=== PATIENT | female | born 1955 | race Caucasian/White ===

== ENCOUNTER 2021-06-14 09:56 | Outpatient (REF) | payer MEDICARE, SELFPAY ==
--- NOTE | ~2021-06-14 | MM_ITS ---
EXAMINATION: BONE DENSITOMETRY CLINICAL INDICATION: Other specified disorders of bone density and structure. COMPARISON: Previous BD dated 07/28/2018 and baseline BD dated 04/19/2011. TECHNIQUE: Using a [employer] DXA System (software version: 13.1) manufactured by [employer], dual-energy x-ray absorptiometry was performed of the lumbar spine and left hip. The images are of good technical quality. Summary results are attached. FINDINGS: AP SPINE L1-L4: Current: BMD 1.122 g/cm2, Z-score 0.0, T-score -0.5, normal, 1.7% increase from previous, 0.4% decrease from baseline (<5% change is not significant). Prior: BMD 1.103 g/cm2. Baseline: BMD 1.127 g/cm2. LEFT FEMUR, NECK: Current: BMD 0.742 g/cm2, Z-score -1.3, T-score -2.1, osteopenia. Prior: BMD 0.798 g/cm2. Baseline: BMD 0.791 g/cm2. LEFT FEMUR, TOTAL: Current: BMD 0.827 g/cm2, Z-score -0.9, T-score -1.4, osteopenia, 8.1% decrease from previous, 9.4% decrease from baseline (<5% change is not significant). Prior: BMD 0.900 g/cm2. Baseline: BMD 0.913 g/cm2. IDENTIFIED RISK FACTORS: Recurrent falls, height loss, low calcium intake, secondary osteoporosis, menopause. HISTORY OF FRACTURE: None listed. MEDICATIONS: Calcium or multivitamins. MM/XR DEXA axial skeleton IMPRESSION: 1. DIAGNOSIS: Osteopenia based on the lowest T-score value of -2.1 in the femoral neck applying World Health Organization criteria. 2. 10-YEAR FRACTURE RISK PREDICTION, FRAX: Major osteoporotic fracture (clinical spine, forearm, hip or shoulder) 5.1%. Hip fracture 0.8%. 3. Treatment Recommendations: NOF guidelines recommend consideration for treatment in postmenopausal women and men age 50 and older presenting with the following: -A hip or vertebral (clinical or morphometric) fracture. -T-score less than or equal to -2.5 at the femoral neck or spine after appropriate evaluation to exclude secondary causes. -Low bone mass at the hip or spine and a 10-year fracture probability by FRAX of greater than or equal to 3% for hip fracture or greater than or equal to 20% for major osteoporotic fracture based on the [place] adapted WHO algorithm. 4. Other Recommendations: All treatment decisions require clinical judgment and consideration of individual patient factors, including patient preferences, comorbidities, previous drug use, risk factors not captured in the FRAX model (e.g. frailty, falls, vitamin D deficiency, increased bone turnover, interval significant decline in bone density) and possible under or overestimation of fracture risk by FRAX. Additional medical evaluation for secondary cause of low bone mineral density may be appropriate. FUTURE SCAN RECOMMENDATION: People with diagnosed cases of osteoporosis or at high risk for fracture should have regular bone mineral density tests. For patients eligible for Medicare, routine testing is allowed once every 2 years. The testing frequency can be increased to one year for patients who have rapidly progressing disease, those who are receiving or discontinuing medical therapy to restore bone mass, or have additional risk factors.
== END 2021-06-14 09:57 | disposition home or self-care (01) ==
LOC: HO.MAMMO 09:56
PROVIDERS: Visit Provider Internal Medicine
DX: Z13.820 Encounter for screening for osteoporosis (principal); M85.80 Other specified disorders of bone density and structure, unspecified site; Z78.0 Asymptomatic menopausal state; Z79.899 Other long term (current) drug therapy
CPT/HCPCS: 77080

== ENCOUNTER 2021-07-09 11:00 | Outpatient (RCR) | payer MEDICARE, SELFPAY | END 2021-09-04 07:24 | disposition home or self-care (01) | LOC: HO.PTWFD 11:00 | PROVIDERS: PCP Internal Medicine; Visit Provider Internal Medicine | DX: M62.838 Other muscle spasm (principal) | CPT/HCPCS: 97110; 97140; 97161; 97162; 97535 ==

== ENCOUNTER → 2021-07-11 10:01 | Outpatient (BNVA) | payer MEDICARE, SELFPAY | PROVIDERS: PCP Internal Medicine; Referring Provider Internal Medicine; Visit Provider Internal Medicine | DX: I35.0 Nonrheumatic aortic (valve) stenosis (principal); I10 Essential (primary) hypertension; E78.5 Hyperlipidemia, unspecified; E66.01 Morbid (severe) obesity due to excess calories; G47.33 Obstructive sleep apnea (adult) (pediatric); Z99.89 Dependence on other enabling machines and devices | CPT/HCPCS: 93005; 99202 ==

== ENCOUNTER → 2021-10-04 09:58 | Outpatient (REF) | payer MEDICARE, SELFPAY ==
--- NOTE | 2021-10-04 10:03 | CA_ITS ---
Transthoracic Echocardiogram Patient (Last, First, Middle): Ailyn Rao E Gender: Female Date of : 1955 Age: 66 Procedure Date: 10/04/2021 Procedure Type: Transthoracic Echocardiogram Location: OP Height: 154.94 cm Weight: 136.08 kg BSA: 2.24 m2 Heart Rate: bpm BP: 120 / 60 mmHg Microfabrication Engineer Manager: DEAN Referring MD: Dick Hernandez MD Aerial Erector: Will Booth MD Symptoms: I35.0 - Nonrheumatic aortic (valve) stenosis Study Quality: Fair ECG Rhythm: Sinus Conclusions: - 1. Normal LV systolic function with impaired relaxation filling pattern 2. Moderate aortic stenosis 3. Normal RV systolic pressure 4. No gross pericardial effusion Findings Left Ventricle Normal left ventricular size, thickness, and systolic function. The visually estimated ejection fraction is between 65-70%. Spectral Doppler is indicative of an impaired relaxation filling pattern. E/E prime ratio is between 8 and 15 consistent with indeterminate filling pressures. Right Ventricle Normal right ventricular cavity size and systolic function. Atria Both atria are normal in size. Interatrial shunt cannot be excluded. Aortic Valve There is moderate calcification of the aortic valve. There is moderate thickening of the aortic valve. There is moderate aortic valve stenosis. The peak aortic gradient is 36 mmHg.The mean gradient is 19 mmHg. The aortic valve area is 1.39 cm2. There is trace (trivial) aortic valve regurgitation. Mitral Valve There is mild anterior and moderate posterior mitral leaflet thickening. There is mild mitral annular calcification. There is trace mitral valve regurgitation. There is no mitral valve stenosis. Pulmonic Valve The pulmonic valve was not well visualized. Tricuspid Valve Likely normal tricuspid valve structure and function. There is mild tricuspid valve regurgitation. The right ventricular systolic pressure is normal. The right ventricular systolic pressure is 37 mmHg. Normal right atrial pressure. There is no evidence of pulmonary hypertension. Great Vessels All visible segments of the aorta are normal in size. The pulmonary artery was not well visualized. Venous The inferior vena cava is normal in size and collapses greater than 50% with inspiration. Pericardium/Pleural There is no evidence of pericardial effusion. Prior Study Comparison Changes noted compared to prior study dated: 01/22/2017. Aortic stenosis is worse Measurements 2D Linear Measurements IVSd: 1.17 0.6-0.9/0.6-1.0 cm LVIDd: 4.46 3.9-5.3/4.2-5.9 cm LVIDd Index: 1.99 2.4-3.2/2.2-3.1 cm/m2 LVIDs: 2.53 2.0-3.6 cm LVPWd: 0.91 0.7-1.1 cm Ao Root: 2.80 2.1-3.5 cm LA Diam: 3.00 2.7-3.8/3.0-4.0 cm LAIDs Index: 1.34 1.5-2.3 cm/m2 LV Mass: 199.18 67-162/88-224 g LV Mass Index: 88.92 43-95/49-115 g/m2 LVOT Diam: 1.90 3.0+(-)1.3 cm 2D Systolic Function EF 4C: 60.30 >55% EF 2C: 69.40 >55% EF BiP: 66.60 >55% Mitral Valve MV Pk E: 1.13 MV PK A: 1.38 MV Decel Time: 146.00 E/A: 0.80 E'Lateral: 10.40 E'Medial: 10.00 E/E' Med: 11.30 E/E' Lat: 10.90 PHT: 43.00 MVA PHT: 5.12 Decel Maries: 7.76 Aortic Valve AoV Pk Aureliano: 2.98 AoV Mn Aureliano: 1.98 AoV VTI: 0.59 AoV Pk Grad: 36.00 Aov Mn Grad: 19.00 MARIFER Cont.VTI: 1.39 LVOT LVOT Pk Aureliano: 1.30 LVOT Mn Aureliano: 0.93 LVOT VTI: 0.29 LVOT Pk Grad: 7.00 LVOT Mn Grad: 4.00 LVOT Diam: 1.90 LVOT Area: 2.84 Diastolic Function MV Pk E: 1.13 MV Pk A: 1.38 E/A: 0.80 E'Medial: 10.00 E/E' Med: 11.30 E' Laterial: 10.40 E/E' Lat: 10.90 Right Ventricle TAPSE (mm): 2.35 TVS' Aureliano: 14.80 Tricuspid Valve TR Pk Aureliano: 2.93 TR Pk Grad: 34.00 RA Press: 3.00 RVSP: 37.00 Great Vessels Aorta Ao Root-2D: 2.80 2.0-3.7 cm Ao Asc: 3.20 2.1-3.4 cm Updated in Other Vendor System with Status of Final Will Booth MD electronically signed on 10/05/2021 3:55:22 PM with status of Final
== END ==
LOC: HO.CARD 09:58
PROVIDERS: PCP Internal Medicine; Visit Provider Internal Medicine
DX: I35.0 Nonrheumatic aortic (valve) stenosis (principal)
CPT/HCPCS: 93306

== ENCOUNTER → 2021-10-09 13:22 | Outpatient (BNVA) | payer MEDICARE, SELFPAY | PROVIDERS: PCP Internal Medicine; Referring Provider Internal Medicine; Visit Provider Nurse Practitioner Family | DX: I35.0 Nonrheumatic aortic (valve) stenosis (principal); I10 Essential (primary) hypertension; E66.01 Morbid (severe) obesity due to excess calories; G47.33 Obstructive sleep apnea (adult) (pediatric); E78.5 Hyperlipidemia, unspecified; Z99.89 Dependence on other enabling machines and devices; Z68.43 Body mass index [BMI] 50.0-59.9, adult | CPT/HCPCS: 99212 ==

== ENCOUNTER → 2022-02-25 14:29 | Outpatient (REF) | payer OTHER, SELFPAY ==
--- NOTE | 2022-02-25 14:32 | CA_ITS ---
Transthoracic Echocardiogram Patient (Last, First, Middle): Ailyn Rao E Gender: Female Date of : 1955 Age: 66 Procedure Date: 02/25/2022 Procedure Type: Transthoracic Echocardiogram Location: OP Height: 167.64 cm Weight: 138.35 kg BSA: 2.39 m2 Heart Rate: bpm Refining Machine Operator: PURA Referring MD: Kimmy Wagner DRAWER IN JACQUARD LOOM-Valerie Risk Adjustment Specialist: Will Booth MD Symptoms: I35.0 - Nonrheumatic aortic (valve) stenosis Study Quality: Fair/BSA ECG Rhythm: Sinus Conclusions: - 1. Normal LV systolic function with impaired relaxation filling pattern and elevated filling pressures 2. Moderate aortic stenosis 3. Normal RV systolic pressure 4. No gross pericardial effusion Findings Left Ventricle Normal left ventricular size and systolic function. There is mildly increased left ventricular wall thickness. The visually estimated ejection fraction is between 60-65%. Spectral Doppler is indicative of an impaired relaxation filling pattern. Elevated filling pressures. E/E prime ratio is >15, consistent with elevated filling pressures. Right Ventricle Normal right ventricular cavity size and systolic function. Atria The left atrium is normal in size. There is no evidence of interatrial shunt. The right atrium is normal in size. Aortic Valve There is mild calcification of the aortic valve. There is mild thickening of the aortic valve. There is moderate aortic valve stenosis. There is no aortic valve regurgitation. Mitral Valve There is mild anterior and posterior mitral leaflet thickening. There is mild mitral annular calcification. There is trace mitral valve regurgitation. There is no mitral valve stenosis. Pulmonic Valve The pulmonic valve was not well visualized. Tricuspid Valve Likely normal tricuspid valve structure and function. There is mild tricuspid valve regurgitation. The right ventricular systolic pressure is normal. The right ventricular systolic pressure is 33 mmHg. Normal right atrial pressure. There is no evidence of pulmonary hypertension. Great Vessels All visible segments of the aorta are normal in size. The pulmonary artery was not well visualized. Venous The inferior vena cava is normal in size and collapses greater than 50% with inspiration. Pericardium/Pleural There is no evidence of pericardial effusion. Prior Study Comparison No significant change compared to prior study dated: 10/04/2021. Measurements 2D Linear Measurements IVSd: 1.29 0.6-0.9/0.6-1.0 cm LVIDd: 3.92 3.9-5.3/4.2-5.9 cm LVIDd Index: 1.64 2.4-3.2/2.2-3.1 cm/m2 LVIDs: 2.53 2.0-3.6 cm LVPWd: 1.13 0.7-1.1 cm LA Diam: 3.30 2.7-3.8/3.0-4.0 cm LAIDs Index: 1.38 1.5-2.3 cm/m2 LV Mass: 202.39 67-162/88-224 g LV Mass Index: 84.68 43-95/49-115 g/m2 LVOT Diam: 1.90 3.0+(-)1.3 cm 2D Systolic Function EF 4C: 59.90 >55% EF 2C: 56.80 >55% EF BiP: 59.50 >55% Mitral Valve MV Pk E: 1.15 MV PK A: 1.39 MV Decel Time: 220.00 E/A: 0.80 E'Lateral: 6.96 E'Medial: 6.96 E/E' Med: 16.50 E/E' Lat: 16.50 PHT: 64.00 MVA PHT: 3.44 Decel [place]: 5.22 Aortic Valve AoV Pk Aureliano: 2.75 AoV Mn Aureliano: 1.99 AoV VTI: 0.52 AoV Pk Grad: 30.00 Aov Mn Grad: 18.00 MARIFER Cont.VTI: 1.58 LVOT LVOT Pk Aureliano: 1.52 LVOT Mn Aureliano: 1.14 LVOT VTI: 0.29 LVOT Pk Grad: 9.00 LVOT Mn Grad: 6.00 LVOT Diam: 1.90 LVOT Area: 2.84 Diastolic Function MV Pk E: 1.15 MV Pk A: 1.39 E/A: 0.80 E'Medial: 6.96 E/E' Med: 16.50 E' Laterial: 6.96 E/E' Lat: 16.50 Right Ventricle TAPSE (mm): 24.90 TVS' Aureliano: 16.00 Tricuspid Valve TR Pk Aureliano: 2.74 TR Pk Grad: 30.00 RA Press: 3.00 RVSP: 33.00 Great Vessels Aorta Sinus of Valsalva: 3.00 2.0-3.5 cm Ao Asc: 3.20 2.1-3.4 cm Pulmonary Veins Pulm Vein S/D 1.40 Pulmonary Valve PV Pk Aureliano: 1.23 Peak PV Grad: 6.00 Updated in Other Vendor System with Status of Final Will Booth MD electronically signed on 02/25/2022 4:03:12 PM with status of Final
== END ==
LOC: HO.CARD 14:29
PROVIDERS: Visit Provider Nurse Practitioner Family
DX: I35.0 Nonrheumatic aortic (valve) stenosis (principal)
CPT/HCPCS: 93306

== ENCOUNTER → 2022-03-22 10:20 | Outpatient (BNVA) | payer OTHER, SELFPAY | PROVIDERS: PCP Internal Medicine | DX: R32 Unspecified urinary incontinence (principal) | CPT/HCPCS: 51798; 99202 ==

== ENCOUNTER → 2022-05-01 14:01 | Outpatient (BNVA) | payer OTHER, SELFPAY | PROVIDERS: PCP Internal Medicine; Visit Provider Internal Medicine | DX: I35.0 Nonrheumatic aortic (valve) stenosis (principal); I10 Essential (primary) hypertension; G47.33 Obstructive sleep apnea (adult) (pediatric); E66.01 Morbid (severe) obesity due to excess calories; Z68.43 Body mass index [BMI] 50.0-59.9, adult; Z99.89 Dependence on other enabling machines and devices | CPT/HCPCS: 99212 ==

== ENCOUNTER → 2022-08-05 13:24 | Outpatient (BNVA) | payer OTHER, SELFPAY | PROVIDERS: PCP Internal Medicine; Visit Provider Nurse Practitioner Family | DX: R32 Unspecified urinary incontinence (principal); N32.81 Overactive bladder | CPT/HCPCS: Q3014 ==

== ENCOUNTER 2022-08-29 07:37 | Outpatient (REF) | payer OTHER, SELFPAY ==
--- NOTE | ~2022-08-29 | CT_ITS ---
EXAMINATION: CT ABDOMEN AND PELVIS WITH CONTRAST CLINICAL INFORMATION: Left lower quadrant pain. COMPARISON: Pelvic ultrasound 08/31/2013, CT abdomen 11/16/2007. TECHNIQUE: Multidetector volumetric images were obtained from the superior aspect of the liver through the pubic symphysis following administration 85 mL of Omnipaque 350 intravenous contrast. Sagittal and coronal reformatted images were obtained on the technologist's workstation. Oral Contrast: No. This CT examination was performed using dose optimization techniques as appropriate, variously including the following: *Automated exposure control. *Adjustment of mA and/or kV according to patient size (this includes techniques or standardized protocols for targeted exams where dose is matched to indication/reason for exam; i.e. extremities or head). *Use of iterative reconstruction technique. DLP: 780 mGy-cm FINDINGS: LUNG BASES: The visualized lung bases are unremarkable. LIVER, GALLBLADDER, AND BILIARY TREE: The liver is normal in size, shape, and attenuation. No focal hepatic lesion or biliary ductal dilatation is present. Status post cholecystectomy. PANCREAS: Unremarkable. SPLEEN: Unremarkable. ADRENAL GLANDS: Unremarkable. KIDNEYS AND URETERS: The kidneys are normal in size, shape, and attenuation. No hydronephrosis, hydroureter, or calculi seen. No perinephric stranding. BLADDER: Completely empty. No stones are seen. GASTROINTESTINAL TRACT: A small hiatal hernia is present. Patient is status post gastric bypass. The small and large bowel are otherwise unremarkable. The appendix is unremarkable. ABDOMINAL WALL: No significant hernia is appreciated. A small midline ventral hernia is seen containing only a small amount of fat in the region of prior surgery. Some increased dystrophic calcifications are seen in the midline posteriorly. LYMPH NODES: No retroperitoneal lymphadenopathy. VASCULAR: Unremarkable. Some mild calcific plaque present in the aorta and iliac vessels. PELVIC VISCERA: The uterus appears lobular demonstrating fibroids that have been seen in the past. OSSEOUS STRUCTURES: Degenerative changes are seen in the spine. No bony destructive lesions. CT/CT abdomen pelvis w IV con IMPRESSION: 1. A cause for the patient's acute left lower quadrant pain has not been found. 2. Incidental note made of cholecystectomy, gastric bypass, small hiatal hernia, uterine fibroids and degenerative changes in the spine. Fleischner guidelines were followed.
[2022-08-29] MEDS: iohexoL 350 MG/ML 100 ML INFUS..BTL 85 ML IV (10:19)
[2022-08-29] MEDS: Barium Sulfate Oral (Vanilla) 450 ML ORAL.SUSP 900 ML PO (10:19)
[2022-08-29 13:41] LABS: Creatinine POC 0.5 mg/dL (0.5-1.4); GFR POC > 60
== END 2022-08-29 07:38 | disposition home or self-care (01) ==
LOC: HO.CT 07:37
PROVIDERS: PCP Internal Medicine; Visit Provider Internal Medicine
DX: R10.32 Left lower quadrant pain (principal)
CPT/HCPCS: 74177; 82565; Q9967

== ENCOUNTER → 2022-10-04 11:17 | Outpatient (BNVA) | payer OTHER, SELFPAY | PROVIDERS: PCP Internal Medicine; Visit Provider Nurse Practitioner Family | DX: N32.81 Overactive bladder (principal); R32 Unspecified urinary incontinence | CPT/HCPCS: Q3014 ==

== ENCOUNTER → 2022-11-15 09:42 | Outpatient (BNVA) | payer OTHER, SELFPAY | PROVIDERS: PCP Internal Medicine; Visit Provider Nurse Practitioner Family | DX: N32.81 Overactive bladder (principal); R32 Unspecified urinary incontinence; Z79.899 Other long term (current) drug therapy | CPT/HCPCS: 51798; 99212 ==

== ENCOUNTER → 2022-12-26 10:27 | Outpatient (BNVA) | payer OTHER, SELFPAY | PROVIDERS: PCP Internal Medicine; Visit Provider Nurse Practitioner Family | DX: N32.81 Overactive bladder (principal); R32 Unspecified urinary incontinence; Z79.899 Other long term (current) drug therapy | CPT/HCPCS: 51798; 99212 ==

== ENCOUNTER → 2023-04-28 09:48 | Outpatient (REF) | payer OTHER, SELFPAY ==
--- NOTE | 2023-04-28 09:50 | CA_ITS ---
Transthoracic Echocardiogram Patient (Last, First, Middle): Ailyn Rao E Gender: Female Date of : 1955 Age: 67 Procedure Date: 04/28/2023 Procedure Type: Transthoracic Echocardiogram Location: OP Height: 154.94 cm Weight: 142.88 kg BSA: 2.29 m2 Heart Rate: 93 bpm BP: 122 / 78 mmHg Loan Review Manager: [email or web address] Referring MD: Dick Hernandez MD Symptoms: I35.0 - Nonrheumatic aortic (valve) stenosis Study Quality: Adequate ECG Rhythm: Sinus Conclusions: - The left ventricular systolic function is normal. The calculated ejection fraction is 67% by biplane method. - There is mild to moderate aortic valve stenosis. Findings Left Ventricle Normal left ventricular cavity size. There is mildly increased left ventricular wall thickness. The left ventricular systolic function is normal. The calculated ejection fraction is 67% by biplane method. There is no evidence of regional wall motion abnormalities. Diastolic function is normal for age. Right Ventricle Normal right ventricular cavity size and systolic function. Atria Both atria are normal in size. Aortic Valve There is moderate calcification of the aortic valve. There is mild to moderate aortic valve stenosis. The peak aortic velocity is 2.99 m/s with a calculated peak gradient of 36 mmHg. The mean gradient is 21 mmHg. The aortic valve area is 1.29 cm2. There is trace (trivial) aortic valve regurgitation. Dimensionless index 0.46. High stroke volume can also contribute to gradients. Mitral Valve There is mild anterior and posterior mitral leaflet thickening. There is mild mitral annular calcification. There is no mitral valve regurgitation. There is no mitral valve stenosis. Pulmonic Valve The pulmonic valve is likely normal. Tricuspid Valve There is mild tricuspid valve regurgitation. There is no evidence of pulmonary hypertension. Great Vessels The asc aorta and aortic arch are normal in size. Venous The inferior vena cava is normal in size and collapses less than 50% with inspiration. Pericardium/Pleural There is no evidence of pericardial effusion. Prior Study Comparison No significant change compared to prior study dated: 02/25/2022. Measurements 2D Linear Measurements IVSd: 1.30 0.6-0.9/0.6-1.0 cm LVIDd: 4.00 3.9-5.3/4.2-5.9 cm LVIDd Index: 1.75 2.4-3.2/2.2-3.1 cm/m2 LVIDs: 2.20 2.0-3.6 cm LVPWd: 1.20 0.7-1.1 cm LA Diam: 2.70 2.7-3.8/3.0-4.0 cm LAIDs Index: 1.18 1.5-2.3 cm/m2 LV Mass: 219.05 67-162/88-224 g LV Mass Index: 95.66 43-95/49-115 g/m2 LVOT Diam: 1.90 3.0+(-)1.3 cm 2D Systolic Function EF 4C: 62.60 >55% EF 2C: 73.80 >55% EF BiP: 67.10 >55% Mitral Valve MV Pk E: 1.04 MV PK A: 1.20 MV Decel Time: 237.00 E/A: 0.90 E'Lateral: 9.68 E'Medial: 8.05 E/E' Med: 12.90 E/E' Lat: 10.70 PHT: 69.00 MVA PHT: 3.19 Decel Dewitt: 4.40 Aortic Valve AoV Pk Aureliano: 2.99 AoV Mn Aureliano: 2.17 AoV VTI: 0.67 AoV Pk Grad: 36.00 Aov Mn Grad: 21.00 MARIFER Cont.VTI: 1.29 LVOT LVOT Pk Aureliano: 1.39 LVOT Mn Aureliano: 0.96 LVOT VTI: 0.31 LVOT Pk Grad: 8.00 LVOT Mn Grad: 4.00 LVOT Diam: 1.90 LVOT Area: 2.84 Diastolic Function MV Pk E: 1.04 MV Pk A: 1.20 E/A: 0.90 E'Medial: 8.05 E/E' Med: 12.90 E' Laterial: 9.68 E/E' Lat: 10.70 Right Ventricle TAPSE (mm): 22.20 TVS' Aureliano: 12.30 Tricuspid Valve TR Pk Aureliano: 2.59 TR Pk Grad: 27.00 RA Press: 8.00 RVSP: 35.00 Great Vessels Aorta Sinus of Valsalva: 2.90 2.0-3.5 cm Ao Asc: 3.30 2.1-3.4 cm Ao Arch: 2.40 Updated in Other Vendor System with Status of Final Dick Hernandez MD electronically signed on 04/28/2023 12:24:43 PM with status of Final
== END ==
LOC: HO.CARD 09:48
PROVIDERS: PCP Internal Medicine; Visit Provider Internal Medicine
DX: I35.0 Nonrheumatic aortic (valve) stenosis (principal)
CPT/HCPCS: 93306

== ENCOUNTER → 2023-04-28 09:50 | Outpatient (BNV) | payer OTHER, SELFPAY | PROVIDERS: PCP Internal Medicine; Visit Provider Internal Medicine | DX: I35.0 Nonrheumatic aortic (valve) stenosis (principal) | CPT/HCPCS: 93306 ==

== ENCOUNTER 2023-05-05 10:00 | Outpatient (AMB) | payer OTHER, SELFPAY ==
--- NOTE | 2023-05-05 10:09 | A.OFFVIS_ITS ---
Intake Vital Signs 05/05/23 10:10 Height 5 ft 1 in Weight 326 lb 4.546 oz BMI 61.6 BP 146/80 H Blood Pressure Location Lt brachial Position Sitting Pulse 86 Intake Visit Reasons: 1 yr f/up Intake Note: 1 year follow up w/ EKG Software Quality Test Engineer Required: Yes Software Quality Test Engineer Language: Manager It Training Name: Marko [id number] Accompanied by: Self / Same As Patient Allergies codeine [CODEINE] Allergy (Unknown, Verified 05/05/23 10:11) STOMACH PAIN, vomiting Medication List - Last Reconciled 05/05/23 by Dick Hernandez MD amitriptyline 25 mg PO BEDTIME atorvastatin 80 mg PO DAILY calcium carbonate-vitamin D3 600 mg-12.5 mcg (500 unit) ea PO clobetasol 0.05% grams topical BID cyclosporine 0.05% (Restasis) 1 drp ophthalmic (eye) BID ergocalciferol (vitamin D2) 1,250 mcg PO QWEEK lisinopril 10 mg PO DAILY meclizine 12.5 - 25 mg PO TID PRN [id number] acid-lutein 0.4-250 mg-mcg (Essential Woman 50 Plus) 0 tabs PO vibegron (Gemtesa) 75 mg PO DAILY 90 days HPI HPI Comments History of Present Illness Details Ailyn returns for follow-up regarding aortic stenosis. Multiple comorbidities including obesity, hypertension, dyslipidemia, obstructive sleep apnea. No documented coronary disease in the past. She denies any new complaints. Overall just about the same as before. [facility], [facility] Medical History Bicipital tendinitis Depression Essential hypertension Fibromyalgia Morbid obesity Obesity SILVIO on CPAP Osteopenia Other and unspecified hyperlipidemia Overactive bladder Rotator cuff tear, left Rotator cuff tear, right Urinary incontinence Surgical History History of surgery No pertinent past surgical history Family History Father No problems noted. Mother No problems noted. Social History Patient Tobacco Use Status: Never used Tobacco Review of Systems Const Denies weakness ENT Denies dizziness Card Denies chest pain, Denies chest pain with activity, Denies syncope, Denies rapid heart rate, Denies pedal edema, Denies edema, Denies leg edema, Denies lightheadedness, Denies palpitations, Denies dyspnea, Denies dyspnea on exertion and Denies orthopnea Resp Denies cough, Denies dyspnea and Denies dyspnea on exertion GI Denies hematochezia and Denies change in stool character Musc Denies abnormal gait, Denies muscle cramps, Denies muscle weakness, Denies numbness, Denies radiating pain into limb and Denies tingling Neuro Denies abnormal gait, Denies dizziness, Denies syncope, Denies numbness, Denies tingling and Denies weakness Endo Denies palpitations Physical Exam Vital Signs: Last Vital Signs Pulse 86 05/05/23 10:10 BP 146/80 H 05/05/23 10:10 BMI result Body Mass Index 61.6 Const General: comfortable and no acute distress Orientation/consciousness: patient oriented x3 HEENT Other: Unremarkable Head: Yes normal to inspection Neck Neck: Yes normal visual inspection Chest Chest palpation & inspection: normal inspection of the chest Resp Auscultation: clear to auscultation bilaterally Cardio Palpation: normal PMI Heart sounds: S1 normal heart sound present, S2 normal heart sound present, no gallops, Murmur heart sound present systolic III/ and at the right sternal border and no rubs GI Palpation (GI): Soft to palpation Back/Spine/Pelvis Other: unremarkable Skin General skin exam: no rashes or lesions noted Neuro General: patient oriented x3 Extrem General: Yes normal to inspection Psych Mental Status: mental status grossly normal Office Procedures EKG Details: EKG with sinus rhythm at 86/Min; possible left atrial enlargement; leftward axis; incomplete right bundle-branch block; [place] [id number], Complete Assessment & Plan Assessment & Plan (1) Non-rheumatic aortic stenosis: Code(s): I35.0 - Nonrheumatic aortic (valve) stenosis Plan: [id number] stenosis on the last echocardiogram. Not hemodynamically significant. Can be followed periodically. (2) Essential hypertension: Code(s): I10 - Essential (primary) hypertension Plan: On lisinopril. Borderline blood pressure today. Monitor. (3) SILVIO on CPAP: Code(s): G47.33 - Obstructive sleep apnea (adult) (pediatric); Z99.89 - Dependence on other enabling machines and devices Plan: Continue CPAP. (4) Morbid obesity: Code(s): E66.01 - Morbid (severe) obesity due to excess calories Plan: Patient states she has had bariatric surgery many years ago. We discussed about seeing someone again but she is not interested. She states that she has tried everything possible from her side and she still cannot lose weight. Orders: Orders CA echo transthoracic complete 51 Weeks I35.0 - Nonrheumatic aortic (valve) stenosis Coding Level of Care Code Est Pt Level 4 (71768) Diagnoses Non-rheumatic aortic stenosis I35.0 Essential hypertension I10 SILVIO on CPAP G47.33; Z99.89 Morbid obesity E66.01 CPT Codes EKG - CPT: 34184-[id number], Complete ([id number])
[2023-05-05 10:10] VITALS: BP 146/80; PULSE 86; BMI 61.6
== END 2023-05-05 10:27 | disposition home or self-care (01) ==
PROVIDERS: PCP Internal Medicine; Referring Provider Internal Medicine; Visit Provider Internal Medicine
DX: I35.0 Nonrheumatic aortic (valve) stenosis (principal); I10 Essential (primary) hypertension; G47.33 Obstructive sleep apnea (adult) (pediatric); Z99.89 Dependence on other enabling machines and devices; E66.01 Morbid (severe) obesity due to excess calories
CPT/HCPCS: 93010; 99214

== ENCOUNTER → 2023-05-05 10:00 | Outpatient (BNVA) | payer OTHER, SELFPAY | PROVIDERS: PCP Internal Medicine; Referring Provider Internal Medicine; Visit Provider Internal Medicine | DX: I35.0 Nonrheumatic aortic (valve) stenosis (principal); I10 Essential (primary) hypertension; G47.33 Obstructive sleep apnea (adult) (pediatric); E66.01 Morbid (severe) obesity due to excess calories; Z99.89 Dependence on other enabling machines and devices | CPT/HCPCS: 93005; 99212 ==

== ENCOUNTER 2023-12-17 09:59 | Outpatient (AMB) | payer OTHER, SELFPAY ==
--- NOTE | 2023-12-17 10:18 | MHC.OFFVIS ---
Vital Signs 12/17/23 10:19 Height 5 ft 1 in Weight 327 lb BMI 61.8 Intake Visit Reasons: epidermal cyst Intake Note: This patient presents for an assessment for epidermal cyst of the forehead. Patient c/o; reports no pain, discomfort or changes in shape or size. Set Up Mechanic Crown Assembly Machine Required: Yes Set Up Mechanic Crown Assembly Machine Language: Expeditionary Fighting Vehicle Crewman Name: Pt declined site interpreter Accompanied by: Daughter Allergies codeine [CODEINE] Allergy (Unknown, Verified 05/05/23 10:11) STOMACH PAIN, vomiting Medication List - Last Reconciled 12/17/23 by Alexis Bledsoe MD amitriptyline 25 mg PO BEDTIME atorvastatin 80 mg PO DAILY calcium carbonate-vitamin D3 600 mg-12.5 mcg (500 unit) ea PO clobetasol 0.05% grams topical BID cyclosporine 0.05% (Restasis) 1 drp ophthalmic (eye) BID ergocalciferol (vitamin D2) 1,250 mcg PO QWEEK lisinopril 10 mg PO DAILY meclizine 12.5 - 25 mg PO TID PRN xw-tle-bltgf acid-lutein 0.4-250 mg-mcg (Essential Woman 50 Plus) 0 tabs PO vibegron (Gemtesa) 75 mg PO DAILY 90 days HPI HPI epidermal cyst: Details: 68-year-old female referred for a cyst. She has noticed this small lump on the area above her right eyebrow for about 4 years. This has been increasing in size. Sometimes this feels to be bigger than other days as well with inflammation. She therefore wants this removed. REPLACED BY [facility] Medical History (Updated 12/17/23 @ 10:36 by Alexis Bledsoe MD) Epidermal cyst of face Overactive bladder Urinary incontinence Osteopenia Fibromyalgia Obesity Depression Rotator cuff tear, left Rotator cuff tear, right Bicipital tendinitis Morbid obesity Other and unspecified hyperlipidemia SILVIO on CPAP Essential hypertension Surgical History History of surgery No pertinent past surgical history Family History Father No problems noted. Mother No problems noted. Social History Patient Tobacco Use Status: Never used Tobacco Review of Systems Const Denies chills and Denies fever(s) Card Denies chest pain, Denies dyspnea and Reports dyspnea on exertion Resp Denies cough, Denies dyspnea and Reports dyspnea on exertion GI Denies hematochezia and Denies change in bowel habits Denies hematuria Musc Denies back pain and Denies limited range of motion Neuro Denies focal weakness and Denies convulsions Psych Denies depression and Denies mood swings Physical Exam Const General: comfortable and no acute distress Orientation/consciousness: patient oriented x3 HEENT Other: On the area just above the right eyebrow is note of a cystic induration about 5 mm in size currently not inflamed Neck Neck: Yes no lymphadenopathy Resp Auscultation: clear to auscultation bilaterally Cardio Rhythm: regular rhythm GI Palpation (GI): Soft to palpation, nontender and no guarding Neuro General: patient oriented x3 Assessment & Plan Assessment & Plan (1) Epidermal cyst of face: Code(s): L72.0 - Epidermal cyst Category: Medical Plan: She has this a cystic induration on the area above the right eyebrow. She wants to proceed with excision. I explained the technique of excision under local anesthesia. I reviewed the risks including but not limited to bleeding, infections poor healing and scarring, as well as the benefits and alternatives. She wants to proceed. This will be done in the office on her next visit. Coding Level of Care Code New Pt Level 3 (76703) Diagnoses Epidermal cyst of face L72.0
[2023-12-17 10:19] VITALS: BMI 61.8
== END 2023-12-17 10:44 | disposition home or self-care (01) ==
PROVIDERS: PCP Internal Medicine; Visit Provider Surgery
DX: L72.0 Epidermal cyst (principal)
CPT/HCPCS: 99203

== ENCOUNTER → 2023-12-17 09:59 | Outpatient (BNVA) | payer OTHER, SELFPAY | PROVIDERS: PCP Internal Medicine; Visit Provider Surgery | DX: L72.0 Epidermal cyst (principal) | CPT/HCPCS: 99202 ==

== ENCOUNTER 2023-12-29 09:21 | Outpatient (AMB) | payer OTHER, SELFPAY ==
--- NOTE | 2023-12-29 09:23 | A.OFFVIS_ITS ---
Intake Visit Reasons: 1y/PVR Intake Note: Patient is present for follow up incontinence and PVR Urology Medicarions: Gemtesa Antibiotic Allergy: None Blood Thinner: None PVR: 31ml's Branch Sales Manager Required: Yes Branch Sales Manager Name: ASHLEY HAMMONDSDURGA Accompanied by: Self / Same As Patient Allergies codeine [CODEINE] Allergy (Unknown, Verified 12/29/23 09:48) STOMACH PAIN, vomiting Medication List - Last Reconciled 12/29/23 by GABRIELLA Ceron- amitriptyline 25 mg PO BEDTIME atorvastatin 80 mg PO DAILY calcium carbonate-vitamin D3 600 mg-12.5 mcg (500 unit) ea PO clobetasol 0.05% grams topical BID cyclosporine 0.05% (Restasis) 1 drp ophthalmic (eye) BID ergocalciferol (vitamin D2) 1,250 mcg PO QWEEK lisinopril 10 mg PO DAILY meclizine 12.5 - 25 mg PO TID PRN tmmfrvnq-vjc-towh-FA-vit K-lut 8 mg iron-400 mcg-50 mcg (Centrum Silver Women) 1 tab PO DAILY xa-uur-syxoz acid-lutein 0.4-250 mg-mcg (Essential Woman 50 Plus) 0 tabs PO vibegron (Gemtesa) 75 mg PO DAILY 90 days HPI Comments Details: Ailyn is a pleasant 68 year old Liberian speaking female who is a patient of Dr. Butler. She has a past medical history of overactive bladder, urinary incontinence, osteopenia, fibromyalgia, obesity, depression, obstructive sleep apnea on CPAP, and hypertension. She presents to the office today for follow-up of her lower urinary tract symptoms. When asked she reports to be doing and feeling well. She reports to be extremely happy with current voiding parameters on 75 mg of Gemtesa. Of note, she had previously trialed Myrbetriq, Toviaz, and oxybutynin with no improvement in lower urinary tract symptoms (overactive bladder symptoms and urinary incontinence). She currently denies any bothersome urinary issues or concerns. In office urinalysis results reviewed with the patient today. PVR 31 mLs. When asked she denies urinary urgency, urinary frequency, incontinence, nocturia, hematuria, dysuria, foul smelling urine, changes to urinary stream, flank pain, fever, and or chills. She otherwise de nies any issues or concerns at this time. Discussed near future in office cystoscopy and or urodynamics if symptoms arise. [facility] Medical History Epidermal cyst of face Overactive bladder Urinary incontinence Osteopenia Fibromyalgia Obesity Depression Rotator cuff tear, left Rotator cuff tear, right Bicipital tendinitis Morbid obesity Other and unspecified hyperlipidemia SILVIO on CPAP Essential hypertension Surgical History History of surgery No pertinent past surgical history Family History Father No problems noted. Mother No problems noted. Social History Patient Tobacco Use Status: Never used Tobacco Review of Systems Const Reports no additional complaints Eyes Reports no additional complaints ENT Reports no additional complaints Card Reports as per HPI Resp Reports as per HPI GI Reports as per HPI Reports as per HPI Musc Reports as per HPI Neuro Reports no additional complaints Psych Reports as per HPI Endo Reports no additional complaints Daniel/Lymph Reports no additional complaints Aller/Immun Reports no additional complaints Physical Exam Const General: cooperative, healthy appearing, comfortable, no acute distress, well developed, alert and awake Nutritional Appearance: overweight Orientation/consciousness: patient oriented x3 Limitations: no limitations HEENT Head: Yes normal to inspection, Yes normocephalic and Yes atraumatic Ears: hearing grossly normal bilaterally Eyes General: appearance normal, both eyes and all related structures Neck Neck: Yes normal visual inspection and Yes trachea midline Chest Chest palpation & inspection: normal inspection of the chest Resp Effort & Inspection: normal respiratory effort and able to speak in complete sentences Cardio Rate: regular rate GI Inspection: Yes normal to inspection General: Yes no CVA tenderness Back/Spine/Pelvis Back: no CVA tenderness Skin General skin exam: no rashes or lesions noted Neuro General: patient oriented x3 Extrem General: Yes normal to inspection Psych Appearance: grossly normal and well kempt Mental Status: mental status grossly normal Speech and movement: Normal speech and movement present and Clear speech present Affect: normal affect Attitude: cooperative Thought process: Normal thought process present Thought content: Normal thought content present Insight: Fair insight present (Psych) Judgement: Fair judgement present (Psych) Office Procedures Post Void Residual Post Residual Void Post Void Residual (PVR): 31 [id number] Void Residual by ultrasound Results AMB Urinalysis, Automated UA Leukoctes 0 Jeffy/uL Last Edit by Floyd Parker on 12/29/23 09:40 UA Nitrite Negative Last Edit by Floyd Parker on 12/29/23 09:40 UA Urobilinogen 0.2 mg/dL Last Edit by Floyd Parker on 12/29/23 09:40 UA Protein 0 mg/dL Last Edit by Floyd Parker on 12/29/23 09:40 UA pH 6.0 Last Edit by Floyd Parker on 12/29/23 09:40 UA Blood 0 Dale/uL Last Edit by Floyd Parker on 12/29/23 09:40 UA Specific [place] 1.015 Last Edit by Floyd Parker on 12/29/23 09:40 UA Ketone Negative Last Edit by Floyd Parker on 12/29/23 09:40 UA Bilirubin 0 mg/dL Last Edit by Floyd Parker on 12/29/23 09:40 UA Glucose 0 mg/dL Last Edit by Floyd Parker on 12/29/23 09:40 Results Reviewed Results Reviewed: Laboratory Last Values Urine pH (Auto) 6.0 12/29/23 09:28 Specific [place] (Auto) 1.015 12/29/23 09:28 Urine Protein (Auto) 0 mg/dL 12/29/23 09:28 Glucose (UA)(Auto) 0 mg/dL 12/29/23 09:28 Urine Ketones (Auto) Negative 12/29/23 09:28 Urine Blood (Auto) 0 Dale/uL 12/29/23 09:28 Urine Nitrite (Auto) Negative 12/29/23 09:28 Urine Bilirubin (Auto) 0 mg/dL 12/29/23 09:28 Urine Urobilinogen (Auto) 0.2 mg/dL 12/29/23 09:28 Leukocyte Esterase (Auto) 0 Jeffy/uL 12/29/23 09:28 Assessment & Plan Assessment & Plan (1) Overactive bladder: Code(s): N32.81 - Overactive bladder Category: Medical (2) Urinary incontinence: Code(s): R32 - Unspecified urinary incontinence Category: Medical Plan In office urinalysis results reviewed with the patient today; as noted above. PVR 31 mL. Patient currently denies any bothersome urinary issues or concerns. She reports be happy with current voiding parameters on 75 mg of gemtesa; will continue; refill provided. Discussed in office urodynamics or cystoscopy if symptoms arise. Discussed at length potential causes of lower urinary tract symptoms patient is experiencing. Discussed bladder triggers/irritants. Discussed importance of weight loss to assist with lower urinary tract symptoms as well as overall health and well-being. Follow-up in 1 year with PVR; or sooner with any issues, concerns, and or questions. Orders: Orders AMB Post Void Residual by ultrasound Today N32.81 - Overactive bladder AMB Urinalysis Automated Today Z13.9 - Encounter for screening, unspecified Medications: Refilled vibegron (Gemtesa) 75 mg PO DAILY 90 days 90 tabs 4RF N32.81 - Overactive bladder Patient Instructions: The patient had an opportunity to ask questions regarding the treatment plan. All questions were answered. Physical exam, labs, and imaging were discussed and reviewed in detail. As well as risks, benefits, and discussion of treatment choices. No major barriers to understanding were identified. The patient expressed understanding and agreement with the above treatment plan. The patient was made aware they should contact our office by phone for worsening of their current condition, the appearance of new symptoms, or with any questions or concerns. Compliance is encouraged with any medications and follow up testing that is ordered. It is a privilege to be allowed the opportunity to participate in? your urological care.? Again, if you have any questions or concerns If you have any questions or concerns please do not hesitate to contact me. The office is [phone]. This note is constructed using voice recognition software. While every effort has been made to ensure accuracy boiler technician errors may have been included. Yours sincerely, LEXIS Ceron Coding Level of Care Code Est Pt Level 3 (24500) Diagnoses Overactive bladder N32.81 Urinary incontinence R32 CPT Codes Post Residual Void - PVR CPT Code: 33070-Etbz Void Residual by ultrasound ([id number])
== END 2023-12-29 09:47 | disposition home or self-care (01) ==
PROVIDERS: PCP Internal Medicine; Visit Provider Nurse Practitioner Family
DX: N32.81 Overactive bladder (principal); R32 Unspecified urinary incontinence; Z13.9 Encounter for screening, unspecified
CPT/HCPCS: 99213

== ENCOUNTER → 2023-12-29 09:21 | Outpatient (BNVA) | payer OTHER, SELFPAY | PROVIDERS: Visit Provider Nurse Practitioner Family | DX: N32.81 Overactive bladder (principal); R32 Unspecified urinary incontinence; Z79.899 Other long term (current) drug therapy | CPT/HCPCS: 51798; 81003; 99212 ==

== ENCOUNTER 2024-01-01 10:28 | Outpatient (REF) | payer OTHER, SELFPAY | END 2024-01-01 10:29 | disposition home or self-care (01) | LOC: HO.LNP 10:28 | PROVIDERS: PCP Internal Medicine; Visit Provider Surgery | DX: L72.11 Pilar cyst (principal) | CPT/HCPCS: 11441; 88304 ==

== ENCOUNTER 2024-01-01 10:28 | Outpatient (AMB) | payer OTHER, SELFPAY ==
--- NOTE | 2024-01-01 10:31 | A.OFFVIS_ITS ---
Intake Visit Reasons: Excision of cyst rt eyebrow Intake Note: In office procedure: Excision of cyst rt eyebrow. Residence Supervisor Required: No Accompanied by: Daughter Allergies codeine [CODEINE] Allergy (Unknown, Verified 01/01/24 10:32) STOMACH PAIN, vomiting HPI HPI Excision of cyst rt eyebrow: Details: She is here for excision of a cyst above the right eyebrow. [facility] Medical History Epidermal cyst of face Overactive bladder Urinary incontinence Osteopenia Fibromyalgia Obesity Depression Rotator cuff tear, left Rotator cuff tear, right Bicipital tendinitis Morbid obesity Other and unspecified hyperlipidemia SILVIO on CPAP Essential hypertension Surgical History History of surgery No pertinent past surgical history Family History Father No problems noted. Mother No problems noted. Social History Patient Tobacco Use Status: Never used Tobacco Office Procedures Excision Details: She was in reclining position. The area of the cyst on the right eyebrow was prepped and draped. Lidocaine 1% was used for local anesthesia. I made an elliptical incision around this area using blade 1 and this was carried down through the full-thickness of the skin and fat to excise this entire lesion. This was about a 6 mm size spherical shape cyst. I closed the incision with full-thickness nylon 3-0 interrupted sutures. Steri- Strips were applied. The procedure was completed. She tolerated the procedure well. There were no immediate complications. Estimated blood loss was about 2 cc. 26072-Guemrzai face/ear/eyelid/nose/lip/mucous membrane 0.6cm-1cm Procedure code (CPT) selection complete Assessment & Plan Assessment & Plan (1) Epidermal cyst of face: Code(s): L72.0 - Epidermal cyst Category: Medical Plan: Excision was done under local anesthesia. She tolerated procedure well. I will see her again in the office follow-up for removal sutures. She can take Tylenol and ibuprofen for the pain. She was instructed on wound care. Coding Level of Care Code Procedure Only Diagnoses Epidermal cyst of face L72.0 CPT Codes Face/Ear/Eyelid/Nose/Lip/Mucous Membrane - CPT: 80531-Crhdpiuj face/ear/eyelid/nose/lip/mucous membrane 0.6cm-1cm ([id number])
== END 2024-01-01 10:49 | disposition home or self-care (01) ==
PROVIDERS: PCP Internal Medicine; Visit Provider Surgery
DX: L72.11 Pilar cyst (principal)
CPT/HCPCS: 11441

== ENCOUNTER 2024-01-14 10:32 | Outpatient (AMB) | payer OTHER, SELFPAY ==
--- NOTE | 2024-01-14 10:43 | A.OFFVIS_ITS ---
Vital Signs 01/14/24 10:48 Height 5 ft 1 in Weight 327 lb 0.01 oz BMI 61.8 Intake Visit Reasons: s/p excision of cyst rt eyebrow Intake Note: This patient presents for a post-op assessment status post excision of cyst rt eyebrow. Patient c/o; reports no complaints. Surgery date: 01/01/2024 Office procedure excision epidermal cyst right eyebrow Road Freight Conductor Required: No Accompanied by: Daughter Allergies codeine [CODEINE] Allergy (Unknown, Verified 01/14/24 10:48) STOMACH PAIN, vomiting HPI HPI s/p excision of cyst rt eyebrow: Details: She underwent excision of a cyst from the right eyebrow last 01/02/2024. She tolerated procedure well. She currently denies complaints. [facility] Medical History Epidermal cyst of face Overactive bladder Urinary incontinence Osteopenia Fibromyalgia Obesity Depression Rotator cuff tear, left Rotator cuff tear, right Bicipital tendinitis Morbid obesity Other and unspecified hyperlipidemia SILVIO on CPAP Essential hypertension Surgical History History of excision of epidermal inclusion cyst History of surgery No pertinent past surgical history Family History Father No problems noted. Mother No problems noted. Social History Patient Tobacco Use Status: Never used Tobacco Review of Systems Const Denies chills and Denies fever(s) Card Denies chest pain, Denies dyspnea and Denies dyspnea on exertion Resp Denies cough, Denies dyspnea and Denies dyspnea on exertion GI Denies hematochezia and Denies change in bowel habits Denies hematuria Musc Denies back pain and Denies limited range of motion Neuro Denies focal weakness and Denies convulsions Psych Denies depression and Denies mood swings Physical Exam Vital Signs: BMI result Body Mass Index 61.8 Const General: comfortable and no acute distress HEENT Other: Excision site well healed, not infected Assessment & Plan Assessment & Plan (1) Epidermal cyst of face: Code(s): L72.0 - Epidermal cyst Category: Medical Plan: Status post excision. The incision is well healed. I removed her sutures. Path report shows a Pilar cyst. She can follow up on a p.r.n. basis. Coding Level of Care Code Global (81100) Diagnoses Epidermal cyst of face L72.0
[2024-01-14 10:48] VITALS: BMI 61.8
== END 2024-01-14 11:00 | disposition home or self-care (01) ==
PROVIDERS: PCP Internal Medicine; Visit Provider Surgery
DX: L72.0 Epidermal cyst (principal)
CPT/HCPCS: 99024

== ENCOUNTER → 2024-01-14 10:32 | Outpatient (BNVA) | payer OTHER, SELFPAY | PROVIDERS: PCP Internal Medicine; Visit Provider Surgery | DX: Z48.817 Encounter for surgical aftercare following surgery on the skin and subcutaneous tissue (principal); Z98.890 Other specified postprocedural states | CPT/HCPCS: 99212 ==

== ENCOUNTER → 2024-04-20 10:45 | Outpatient (REF) | payer OTHER, SELFPAY ==
--- NOTE | 2024-04-20 10:48 | CA_ITS ---
Transthoracic Echocardiogram Patient (Last, First, Middle): Ailyn Rao E Gender: Female Date of : 1955 Age: 68 Procedure Date: 04/20/2024 Procedure Type: Transthoracic Echocardiogram Location: OP Height: 154.94 cm Weight: 145.15 kg BSA: 2.31 m2 Heart Rate: bpm BP: 116 / 78 mmHg Grounds Maintenance Supervisor: DMITRI Referring MD: Dick Hernandez MD Symptoms: I35.0 - Nonrheumatic aortic (valve) stenosis Study Quality: Fair ECG Rhythm: Sinus Conclusions: - The left ventricular systolic function is hyperdynamic. The visually estimated ejection fraction is >70%. - There is mild to moderate aortic valve stenosis. - There is mild mitral annular calcification. - Mild pulmonary hypertension is present. - Small plaque is seen in the sino tubular ridge. Findings Left Ventricle Normal left ventricular cavity size. There is mildly increased left ventricular wall thickness. The left ventricular systolic function is hyperdynamic. The visually estimated ejection fraction is >70%. There is no evidence of regional wall motion abnormalities. There is no dynamic left ventricular outflow tract obstruction. Evidence suggests grade I (mild) diastolic dysfunction. Right Ventricle Normal right ventricular cavity size and systolic function. Atria Both atria are normal in size. Aortic Valve There is moderate calcification of the aortic valve. There is mild to moderate aortic valve stenosis. The peak aortic velocity is 3.08 m/s with a calculated peak gradient of 38 mmHg. The mean gradient is 20 mmHg. The aortic valve area is 1.40 cm2. There is no aortic valve regurgitation. Mitral Valve There is mild mitral annular calcification. There is no mitral valve regurgitation. There is no mitral valve stenosis. Pulmonic Valve The pulmonic valve is likely normal. Tricuspid Valve There is mild tricuspid valve regurgitation. Mild pulmonary hypertension is present. Great Vessels The aortic annulus and sinuses of valsalva are normal in size. Small plaque is seen in the sino tubular ridge. Venous The inferior vena cava is normal in size and collapses less than 50% with inspiration. Pericardium/Pleural There is no evidence of pericardial effusion. Prior Study Comparison No significant change compared to prior study dated: 04/28/2023. Measurements 2D Linear Measurements IVSd: 1.23 0.6-0.9/0.6-1.0 cm LVIDd: 4.04 3.9-5.3/4.2-5.9 cm LVIDd Index: 1.75 2.4-3.2/2.2-3.1 cm/m2 LVIDs: 2.67 2.0-3.6 cm LVPWd: 1.05 0.7-1.1 cm LA Diam: 3.50 2.7-3.8/3.0-4.0 cm LAIDs Index: 1.52 1.5-2.3 cm/m2 LV Mass: 193.96 67-162/88-224 g LV Mass Index: 83.96 43-95/49-115 g/m2 LVOT Diam: 1.90 3.0+(-)1.3 cm 2D Systolic Function EF 4C: 65.20 >55% EF 2C: 64.10 >55% EF BiP: 64.90 >55% Mitral Valve MV Pk E: 1.13 MV PK A: 1.41 MV Decel Time: 192.00 E/A: 0.80 E'Lateral: 9.25 E'Medial: 8.16 E/E' Med: 13.80 E/E' Lat: 12.20 PHT: 56.00 MVA PHT: 3.93 Decel [place]: 5.90 Aortic Valve AoV Pk Aureliano: 3.08 AoV Mn Aureliano: 2.07 AoV VTI: 0.64 AoV Pk Grad: 38.00 Aov Mn Grad: 20.00 MARIFER Cont.VTI: 1.40 LVOT LVOT Pk Aureliano: 1.45 LVOT Mn Aureliano: 1.04 LVOT VTI: 0.31 LVOT Pk Grad: 8.00 LVOT Mn Grad: 5.00 LVOT Diam: 1.90 LVOT Area: 2.84 Diastolic Function MV Pk E: 1.13 MV Pk A: 1.41 E/A: 0.80 E'Medial: 8.16 E/E' Med: 13.80 E' Laterial: 9.25 E/E' Lat: 12.20 Right Ventricle TAPSE (mm): 24.40 Tricuspid Valve TR Pk Aureliano: 2.79 TR Pk Grad: 31.00 RA Press: 8.00 RVSP: 39.00 Great Vessels Aorta Sinus of Valsalva: 2.88 2.0-3.[address] Ridge: 2.20 1.7-3.4 cm Ao Asc: 3.10 2.1-3.4 cm Updated in Other Vendor System with Status of Final Dick Hernandez MD electronically signed on 04/20/2024 12:52:28 PM with status of Final
== END ==
LOC: HO.CARD 10:45
PROVIDERS: PCP Internal Medicine; Visit Provider Internal Medicine
DX: I35.0 Nonrheumatic aortic (valve) stenosis (principal)
CPT/HCPCS: 93306

== ENCOUNTER → 2024-04-20 10:48 | Outpatient (BNV) | payer OTHER, SELFPAY | PROVIDERS: PCP Internal Medicine; Visit Provider Internal Medicine | DX: I35.0 Nonrheumatic aortic (valve) stenosis (principal); I36.1 Nonrheumatic tricuspid (valve) insufficiency; I27.20 Pulmonary hypertension, unspecified | CPT/HCPCS: 93306 ==

== ENCOUNTER 2024-04-27 10:30 | Outpatient (AMB) | payer OTHER, SELFPAY ==
[2024-04-27 10:37] VITALS: BP 112/64; PULSE 96; BMI 62.8
--- NOTE | 2024-04-27 10:37 | MHC.OFFVIS ---
Vital Signs 04/27/24 10:37 Height 5 ft 1 in Weight 332 lb 7.313 oz BMI 62.8 BP 112/64 Blood Pressure Location Lt brachial Position Sitting Pulse 96 Pulse Source Monitor Intake Visit Reasons: follow up Senior Infrastructure Architect Required: Yes Senior Infrastructure Architect Services: Senior Infrastructure Architect Offered & Declined Senior Infrastructure Architect Name: Reginald/ daughter Accompanied by: Daughter Allergies codeine [CODEINE] Allergy (Unknown, Verified 04/27/24 10:39) STOMACH PAIN, vomiting Medication List - Last Reconciled 04/27/24 by Dick Hernandez MD amitriptyline 25 mg PO BEDTIME atorvastatin 80 mg PO DAILY calcium carbonate-vitamin D3 600 mg-12.5 mcg (500 unit) ea PO clobetasol 0.05% grams topical BID cyclosporine 0.05% (Restasis) 1 drp ophthalmic (eye) BID ergocalciferol (vitamin D2) 1,250 mcg PO QWEEK lisinopril 10 mg PO DAILY meclizine 12.5 - 25 mg PO TID PRN onmuvlfx-qch-apqy-FA-vit K-lut 8 mg iron-400 mcg-50 mcg (Centrum Silver Women) 1 tab PO DAILY vibegron (Gemtesa) 75 mg PO DAILY 90 days HPI Comments Details: Ailyn returns for follow-up regarding aortic stenosis. Multiple comorbidities including obesity, hypertension, dyslipidemia, obstructive sleep apnea. No documented coronary disease in the past. Daughter is translating for her. She states that she is doing fine. No complaints from the cardiac standpoint. Unfortunately, weight is just about the same as before. Apparently, she did have weight loss surgery more than 20 years ago. Her weight was well into the 400s at that time. Current weight list lower than that but still morbidly obese. [facility] Medical History Epidermal cyst of face Overactive bladder Urinary incontinence Osteopenia Fibromyalgia Obesity Depression Rotator cuff tear, left Rotator cuff tear, right Bicipital tendinitis Morbid obesity Other and unspecified hyperlipidemia SILVIO on CPAP Essential hypertension Surgical History History of excision of epidermal inclusion cyst History of surgery No pertinent past surgical history Family History Father No problems noted. Mother No problems noted. Social History (Reviewed 04/27/24 @ 10:40 by Marge Luque [facility]) Patient Tobacco Use Status: Never used Tobacco Review of Systems ENT Reports dizziness Card Denies chest pain, Denies chest pain at rest, Denies chest pain with activity, Denies rapid heart rate, Denies pedal edema, Denies edema, Denies leg edema, Denies lightheadedness, Denies palpitations, Denies dyspnea, Denies dyspnea on exertion and Denies orthopnea Resp Denies cough, Denies dyspnea and Denies dyspnea on exertion GI Denies hematochezia and Denies change in stool character Musc Denies abnormal gait, Reports limited range of motion, Reports muscle cramps, Denies muscle weakness, Denies numbness, Denies radiating pain into limb, Denies stiffness and Denies tingling Neuro Denies abnormal gait, Reports dizziness, Denies numbness and Denies tingling Endo Denies palpitations Physical Exam Vital Signs: Last Vital Signs Pulse 96 04/27/24 10:37 BP 112/64 04/27/24 10:37 BMI result Body Mass Index 62.8 Const General: comfortable and no acute distress Orientation/consciousness: patient oriented x3 HEENT Other: Unremarkable Head: Yes normal to inspection Neck Neck: Yes normal visual inspection Chest Chest palpation & inspection: normal inspection of the chest Resp Auscultation: clear to auscultation bilaterally Cardio Palpation: normal PMI Heart sounds: S1 normal heart sound present, S2 normal heart sound present, no gallops, Murmur heart sound present systolic III/ and at the right sternal border and no rubs GI Palpation (GI): Soft to palpation Back/Spine/Pelvis Other: unremarkable Skin General skin exam: no rashes or lesions noted Neuro General: patient oriented x3 Extrem General: Yes normal to inspection Psych Mental Status: mental status grossly normal Office Procedures EKG Details: EKG with underlying sinus rhythm at 96/Min; leftward axis; incomplete bundle-branch block and otherwise unremarkable. [id number], Complete Assessment & Plan Assessment & Plan (1) Non-rheumatic aortic stenosis: Code(s): I35.0 - Nonrheumatic aortic (valve) stenosis Category: Medical Plan: Echocardiogram with ougr-yo-gevodlcp aortic stenosis. Not hemodynamically significant at this time. We will follow periodically. (2) Essential hypertension: Code(s): I10 - Essential (primary) hypertension Category: Medical Plan: On lisinopril. Seems stable. (3) SILVIO on CPAP: Code(s): G47.33 - Obstructive sleep apnea (adult) (pediatric); Z99.89 - Dependence on other enabling machines and devices Category: Medical Plan: Continue CPAP. (4) Morbid obesity: Code(s): E66.01 - Morbid (severe) obesity due to excess calories Category: Medical Plan: Status post remote bariatric surgery. Unlikely her weight is going to change much. We discussed about this today. Daughter states that patient barely eats. Orders: Orders CA echo transthoracic complete 1 Year I35.0 - Nonrheumatic aortic (valve) stenosis Coding Level of Care Code Est Pt Level 4 (93506) Diagnoses Non-rheumatic aortic stenosis I35.0 Essential hypertension I10 SILVIO on CPAP G47.33; Z99.89 Morbid obesity E66.01 CPT Codes EKG - CPT: 89354-[id number], Complete ([id number])
== END 2024-04-27 11:01 | disposition home or self-care (01) ==
PROVIDERS: PCP Internal Medicine; Visit Provider Internal Medicine
DX: I35.0 Nonrheumatic aortic (valve) stenosis (principal); I10 Essential (primary) hypertension; G47.33 Obstructive sleep apnea (adult) (pediatric); Z99.89 Dependence on other enabling machines and devices; E66.01 Morbid (severe) obesity due to excess calories
CPT/HCPCS: 93010; 99214

== ENCOUNTER → 2024-04-27 10:30 | Outpatient (BNVA) | payer OTHER, SELFPAY | PROVIDERS: PCP Internal Medicine; Visit Provider Internal Medicine | DX: I35.0 Nonrheumatic aortic (valve) stenosis (principal); I45.10 Unspecified right bundle-branch block; I10 Essential (primary) hypertension; G47.33 Obstructive sleep apnea (adult) (pediatric); E66.01 Morbid (severe) obesity due to excess calories; Z68.44 Body mass index [BMI] 60.0-69.9, adult; Z99.89 Dependence on other enabling machines and devices | CPT/HCPCS: 93005; 99212 ==

== ENCOUNTER 2024-08-05 09:54 | Outpatient (AMB) | payer OTHER, SELFPAY ==
--- OUTSIDE RECORDS SUMMARY | 2024-08-05 09:57 | XMS_ITS | Patient Health Record ---
Author Organization [facility] Address [address] [place] [id number] Care Team Providers Care Assistant Surveyor Name Role Phone Theo Umm Primary Care Provider Leeroy Estrada [phone] ALLERGIES Allergen (clinical drug ingredient) Drug/Non Drug Allergy documented on EMR Reaction Allergy Type Onset Date Status Codeine Phosphate Unknown Drug Allergy Active REASON FOR REFERRAL No Information MEDICATIONS Medication SIG (Take, Route, Fr equency, Duration) Notes Start Date End Date Status Vitamin B Complex Ac tive CeleXA Active Lunesta Active Crestor Active KlonoPIN Active Gabapentin Active SOCIAL HISTORY Sex Assigned At : Social History Observation Description Sex Assigned At Unknown PROBLEMS Problem Type ICD Code Onset Dates Problem Status W/U Status Risk SNOMED Code Notes Problem Colon cancer screening (V76.51) Active confirmed Colon cancer screening (651154621) Problem History of adenomatous polyp of colon (V12.72) Active confirmed History of adenomatous polyp of colon (174066835) PLAN OF TREATMENT Future Test Test Name Order Date COLONOSCOPY 05/04/2013 Insurance Providers Payer Name Payer Address Payer Phone Subscriber Number Group Number Insured Name Patient Relationship to Insured Coverage Start Date Coverage End Date [facility] [address] [place] [address] [id number] NIKOLAS LINDSEY Self - patient is the insured MEDICAID OF [facility] [address] [place] [address] [phone] [id number] NIKOLAS LINDSEY Self - patient is the insured MEDICAL (GENERAL) HISTORY Medical History History ICD Code colonoscopy 06-08-2008 and 2 005 negative-lipomatous ICV, diverticulosis, internal hemorrhoids colon polyps-tubular adenoma removed in 2001 Depression Hyperlipidemia Denies [place],DM,CVA,Lung disease,renal dise ase Fibromyalgiua Surgical History Surgery Date(Month/Year) Abdominal wall hernia left shoulder surgery 2011 Gastric bypass Carpal tunnel bilateral Breast reduction and panniculectomy afte r weight loss
--- NOTE | 2024-08-05 09:58 | A.OFFVIS_ITS ---
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 She states they get cold, hot , they cramp and swell. Accompanied by: Unknown Allergies codeine [CODEINE] Allergy (Unknown, Verified 08/05/24 09:59) STOMACH PAIN, vomiting HPI HPI [employer]IC[employer]/HHC referral for VV: Details: Ailyn, a pleasant Paraguayan speaking only 69 yo female patient, is presenting today with her family member on a referral from her PCP for ongoing varicose veins, worsening. Complaints include pain over varicosities, swelling of lower extremities, cramping, fatigue, and heaviness of the lower extremities. It has been affecting their daily activities including walking, standing and physical activity. It is noted more so in left leg. She was recently seen at [facility] in February for LLE pain and redness and she states they found nothing; she was negative for a DVT. She states the redness went away after a week but the pain continues, sivan with activity/walking. Patient denies any previous venous surgery or injections. Patient denies any history of DVT/ PE. Patient denies any history of phlebitis. Trial of compression includes - compression stockings, which worsens the pain in her legs as well as elevation, which she states sometimes helps and sometimes does They now present for vascular evaluation regarding their varicose veins. [facility] Medical History Epidermal cyst of face Overactive bladder Urinary incontinence Osteopenia Fibromyalgia Obesity Depression Rotator cuff tear, left Rotator cuff tear, right Bicipital tendinitis Morbid obesity Other and unspecified hyperlipidemia SILVIO on CPAP Essential hypertension Surgical History History of excision of epidermal inclusion cyst History of surgery No pertinent past surgical history Family History Father No problems noted. Mother No problems noted. Social History Patient Tobacco Use Status: Never used Tobacco Review of Systems Const Reports as per HPI and Denies weakness ENT Reports Normal hearing present and Denies dizziness Card Reports as per HPI, Denies chest pain, Denies chest pain at rest, Denies chest pain with activity, Denies dyspnea and Denies dyspnea on exertion Resp Reports as per HPI, Denies cough, Denies dyspnea and Denies dyspnea on exertion GI Reports as per HPI, Denies abdominal pain, Denies nausea and Denies vomiting Musc Denies numbness Skin/Breast Reports as per HPI, Denies erythema and Denies wounds Neuro Reports Normal hearing present, Denies dizziness, Denies numbness, Denies Sensory deficit (Neuro) and Denies weakness Psych Reports no additional complaints Endo Reports no additional complaints Physical Exam Const General: healthy appearing and no acute distress Orientation/consciousness: patient oriented x3 HEENT Head: Yes normal to inspection Ears: hearing grossly normal bilaterally Mouth: Normal oral and palatal mucosa present Resp Effort & Inspection: normal respiratory effort and able to speak in complete sentences Auscultation: clear to auscultation bilaterally Cardio Jugular venous distension: no JVD Rate: regular rate Rhythm: regular rhythm Heart sounds: S1 normal heart sound present and S2 normal heart sound present Bruits: no abdominal aortic bruits, no carotid bruits, no femoral bruits and no renal bruits Peripheral pulses: Peripheral pulses 2+ throughout GI Inspection: Yes normal to inspection Palpation (GI): No Abdominal aortic bruit present Skin General skin exam: no rashes or lesions noted Wounds: no wounds Hair: normal Neuro General: patient oriented x3 Cranial nerves: Yes Normal hearing present Cognition (Neuro): normal cognition Gait exam (Neuro): Normal gait present Motor exam (neuro): 5/5 motor strength present throughout Sensory Exam: No Sensory deficit (Neuro) Extrem Other: RLE: very small tortuosities noted on the anterior aspect of her sims around her tibial tuberosity. Bilateral lower extremities: Discoloration noted around both ankles. Trace peripheral edema noted. Palpable DP pulses. CEAP: C - 3/4 E - primary A - superficial P - reflux General: Yes normal to inspection, Yes full ROM, Yes capillary refill normal and Yes normal gait Assessment & Plan Assessment & Plan (1) Varicose veins of both lower extremities with inflammation: Code(s): I83.11 - Varicose veins of right lower extremity with inflammation; I83.12 - Varicose veins of left lower extremity with inflammation Category: Medical Plan: Ailyn is presenting today on a referral from her PCP for ongoing varicose veins, worsening. She has complaints of cramping, pain, heaviness, and fatigue getting worse since February. In short, the patient has evidence of venous insufficiency. I have discussed the pathophysiology with the patient. In addition I have provided informational material regarding venous disease to the patient. We have discussed conservative measures including compression, elevation, and exercise. We were unable to provide a handout for compression stockings; it is only in Wallisian. The pt has worn compression stockings in the past and we encouraged her to continue wearing them. I have taken the liberty of ordering venous insufficiency testing with the patient. They will follow up with me after testing. The patient had an opportunity to ask questions regarding the treatment plan. All questions were answered. Imaging studies, laboratory studies and physical exam results were discussed and reviewed in detail. No major barriers to understanding were identified. The patient expressed understanding and agreeme nt with the above treatment plan. The patient is aware they should contact our office by phone for worsening of the current condition or the appearance of new symptoms. Thank you for allowing me to participate in the vascular care of this patient. If you have any questions or concerns regarding the treatment for the above condition please do not hesitate to contact me. The office telephone contact is [phone]. This note is constructed using voice recognition software. While every effort has been made to ensure accuracy, web user experience strategist errors may have been included. Thank you for allowing me to participate in the care of your patient. Yours sincerely, KAMALA Rivas Orders: Orders US venous duplex LE BI 1 Week I83.11 - Varicose veins of right lower extremity with inflammation, I83.12 - Varicose veins of left lower extremity with inflammation Coding Level of Care Code New Pt Level 4 (51802) Diagnoses Varicose veins of both lower extremities with inflammation I83.11; I83.12
== END 2024-08-05 10:11 | disposition home or self-care (01) ==
PROVIDERS: PCP Internal Medicine; Visit Provider Physician Assistant Surgical
DX: I83.11 Varicose veins of right lower extremity with inflammation (principal); I83.12 Varicose veins of left lower extremity with inflammation
CPT/HCPCS: 99204

== ENCOUNTER → 2024-08-05 09:54 | Outpatient (BNVA) | payer OTHER, SELFPAY | PROVIDERS: PCP Internal Medicine; Visit Provider Physician Assistant Surgical | DX: I83.11 Varicose veins of right lower extremity with inflammation (principal); I83.12 Varicose veins of left lower extremity with inflammation | CPT/HCPCS: 99202 ==

== ENCOUNTER 2024-09-13 10:01 | Outpatient (REF) | payer OTHER, SELFPAY ==
--- NOTE | ~2024-09-13 | US_ITS ---
EXAMINATION: US LOWER EXTREMITY VENOUS (REFLUX EXAM), BILATERAL CLINICAL INFORMATION: Varices with inflammation. COMPARISON: None. TECHNIQUE: Color flow triplex imaging and compression Doppler was performed to evaluate both the deep and the superficial systems bilaterally. To evaluate the superficial system, the examination was performed in the upright position. Color-flow Doppler ultrasound and compression ultrasound were utilized. In addition, maneuvers were utilized to demonstrate reflux. FINDINGS: 1. DEEP VENOUS ULTRASOUND OF THE RIGHT LOWER EXTREMITY: Common Femoral Vein: Compressible, normal respiratory variation and augmented flow. Femoral Vein: Compressible, normal color flow and augmentation. Popliteal Vein: Compressible, normal augmentation. Deep Reflux: There is a 2020 ms in the popliteal vein. There is no evidence of a Lamb's cyst. There is a 2.2 cm heterogeneous hypoechoic abnormality within the soft tissues, proximal medial thigh, demonstrated no flow on color Doppler interrogation. 2. SUPERFICIAL ULTRASOUND WITH DOPPLER OF RIGHT LOWER EXTREMITY: GREAT SAPHENOUS VEIN: Saphenofemoral Junction: 0.4 cm; Reflux: 0 ms Proximal Thigh: 0.4 cm; Reflux: 0 ms Mid Thigh: 0.3 cm; Reflux: 0 ms Distal Thigh: 0.4 cm; Reflux: More than 2828 ms At Knee: 0.4 cm; Reflux: 2412 ms Proximal Calf: 0.4 cm; Reflux: No more than 3080 ms Mid Calf: 0.2 cm; Reflux: 2832 ms Distal Calf: 0.2 cm; Reflux: 0 ms DUPLICATED MEDIAL GREAT SAPHENOUS VEIN: Diameter: None imaged Reflux: NA DUPLICATED LATERAL GREAT SAPHENOUS VEIN: Diameter: 0.2 cm. Reflux: NA SMALL SAPHENOUS VEIN: Saphenopopliteal Junction: 0.2 cm; Reflux: 0 ms Proximal: 0.2 cm; Reflux: 0 ms Distal: 0.1 cm; Reflux: 0 ms VEIN OF GIACOMINI: Size: NA Reflux: NA PERFORATORS: Location: Mid to proximal calf. Size: There is a range of 0.1-0.3 cm. Reflux: 0907-1693 ms. VARICOSITIES: Location: Proximal lateral accessory saphenous vein, mid thigh and proximal calf. Size: Range 0.3-0.4 cm. Reflux: 8803-3415 ms. 3. DEEP VENOUS ULTRASOUND OF THE LEFT LOWER EXTREMITY: Common Femoral Vein: Compressible, normal respiratory variation and augmented flow. Femoral Vein: Compressible, normal color flow and augmentation. Popliteal Vein: Compressible, normal augmentation. Deep Reflux: There is no evidence of reflux in the deep system in either the common femoral vein, superficial femoral or the popliteal vein. There is no evidence of a Lamb's cyst. 4. SUPERFICIAL ULTRASOUND WITH DOPPLER OF LEFT LOWER EXTREMITY: GREAT SAPHENOUS VEIN: Saphenofemoral Junction: 1.0 cm; Reflux: 0 ms Proximal Thigh: 0.3 cm; Reflux: 0 ms Mid Thigh: 0.5 cm; Reflux: 932 ms Distal Thigh: 0.6 cm; Reflux: 1628 ms At Knee: 0.5 cm; Reflux: 1388 ms Proximal Calf: 0.2 cm; Reflux: 0 ms Mid Calf: 0.2 cm; Reflux: 0 ms Distal Calf: 0.2 cm; Reflux: 0 ms DUPLICATED MEDIAL GREAT SAPHENOUS VEIN: Diameter: None imaged Reflux: NA DUPLICATED LATERAL GREAT SAPHENOUS VEIN: Diameter: 0.4 cm. Reflux: NA SMALL SAPHENOUS VEIN: Saphenopopliteal Junction: 0.2 cm; Reflux: 0 ms Proximal: 0.2 cm; Reflux: 0 ms Distal: 0.2 cm; Reflux: 0 ms VEIN OF GIACOMINI: Size: NA Reflux: NA PERFORATORS: Location: Mid calf. Size: 0.1 cm. Reflux: NA VARICOSITIES: Location: Small saphenous vein, mid segment. Accessory saphenous vein, proximal segment. Proximal thigh and proximal calf. Size: Range 0.4-0.5 cm. Reflux: 1040 ms in the calf region. US/US venous duplex LE BI IMPRESSION: Right: Venous insufficiency, great saphenous vein from above the knee to the mid calf. Varices in the mid thigh and proximal calf with reflux. Perforators in the proximal calf with reflux. 2.2 cm soft tissue abnormality/lesion, proximal mid right thigh. Left: Venous insufficiency, great saphenous vein from the mid thigh to the knee. Varices in the proximal thigh and proximal calf with reflux in the proximal calf. Perforators in the mid calf. Electronically signed by: Rolando Hernandez MD 09/15/2024 09:13 AM [facility]
--- OUTSIDE RECORDS SUMMARY | 2024-09-13 14:35 | XMS_ITS | Encounter Summary ---
Author Organization [facility] Address [address] [place] [address] Care Team Providers Care Scale Agent Name Role Phone Pascale Malin MD Primary Care Provider + Encounter Details Date Type Department Care Team (Latest Contact Info) Description 01/17/2022 Abstract [facility] CONVERSIONS Dental, Provider, DDS Social History Tobacco Use Types Packs/Day Years Used Date Smoking Tobacco: Never Assessed Comments Unknown Sex and Gender Information Value Date Recorded Sex Assigned at Female 06/17/2022 10:15 AM EDT Legal Sex Female 10:15 AM EDT Gender Identity Female 06/17/2022 10:15 AM EDT Sexual Orientation Straight 06/17/2022 10 :15 AM EDT documented as of this encounter Plan of Treatment Upcoming Encounters Date Type Department Care Team (Late st Contact Info) Description 12/08/2024 10:15 AM EDT Office Visit [facility] MEDICINE [address] [place] [address] Pascale Malin MD [address] [place] [address] documented as of this encounter Visit Diagnoses Not on filedocumented in this encounter Care Teams Scale Agent Relationship Specialty Start Date End Date Pascale Malin MD [address] [place] [address] PCP - General Family Medicine 07/01/18 documented as of this encounter
--- OUTSIDE RECORDS SUMMARY | 2024-09-13 14:35 | XMS_ITS | Encounter Summary ---
Author Organization [facility] Address [address] [place] [address] [address] [place] [address] Care Team Providers Care Bariatric Surgeon Name Role Phone Pascale Malin MD Primary Care Provider + Encounter Details Date Type Department Care Team (Late Contact Info) Description 05/01/2023 Abstract [facility] ADULT DENTAL [address] [place] [address] Lidia Mcdonough [address] [place] [address] Social History Tobacco Use Types Packs/Day Years Used Date Smoking Tobacco: Never Passive Smoke Exposure: Never Smokeless Tobacco: Never Alcohol Use Standard Drinks/Week Comments Never 0 (1 standard drink = 0.6 oz pur e alcohol) PHQ-2 Answer Date Recorded Patient Health Questionnaire-2 Score 0 01/02/2023 Depression Answer Date Recorded Patient Health Questionnaire-2 Score 0 01/02/2023 Comments Unknown Sex and Gender Information Value Date Recorded Sex Assigned at Female 06/17/2022 10:15 AM EDT Legal Sex Female 10:15 AM EDT Gender Identity Female 06/17/2022 10:15 AM EDT Sexual Orientation Straight 06/17/2022 10 :15 AM EDT documented as of this encounter Plan of Treatment Upcoming Encounters Date Type Department Care Team (Late Contact Info) Description 12/08/2024 10:15 AM EDT Office Visit [facility] MEDICINE [address] [place] [address] Pascale Malin MD [address] [place], [place] [phone] documented as of this encounter Visit Diagnoses Not on filedocumented in this encounter Care Teams Bariatric Surgeon Relationship Specialty Start Date End Date Pascale Malin MD [address] [place] [phone] PCP - General Family Medicine 07/01/18 documented as of this encounter
--- OUTSIDE RECORDS SUMMARY | 2024-09-13 14:35 | XMS_ITS | Encounter Summary ---
Author Organization [facility] Address [address] [place] [address] Care Team Providers Care Aquatic Life Laborer Name Role Phone Pascale Malin MD Primary Care Provider + Encounter Details Date Type Department Care Team (Latest Contact Info) Description 11/02/2020 Abstract [facility] CONVERSIONS Dental, Provider, DDS Social History Tobacco [...] Description 12/08/2024 10:15 AM EDT Office Visit [facility] MEDICINE [address] [place] [address] Pascale Malin MD [address] [place] [address] documented as of this encounter Visit Diagnoses Not on filedocumented in this encounter Care Teams Aquatic Life Laborer Relationship Specialty Start Date End Date Pascale Malin MD [address] [place] [address] PCP - General Family Medicine 07/01/18 documented as of this encounter
--- OUTSIDE RECORDS SUMMARY | 2024-09-13 14:35 | XMS_ITS | Patient Health Record ---
Author Organization [facility] Address [address] [place] [phone] Care Team Providers Care Door Serviceman Name Role Phone Theo Umm Primary Care Provider Leeroy Estrada [phone] ALLERGIES Allergen (clinical drug ingredient) Drug/Non Drug [...] screening (V76.51) Active confirmed Colon cancer screening (839510156) Problem History of adenomatous polyp of colon (V12.72) Active confirmed History of adenomatous polyp of colon (847174718) PLAN OF TREATMENT Future Test Test Name Order Date COLONOSCOPY 05/04/2013 Insurance Providers Payer Name Payer Address Payer Phone Subscriber Number Group Number Insured Name Patient Relationship to Insured Coverage Start Date Coverage End Date [facility]ANCE [address] [place] [address] [phone] [id number] NIKOLAS LINDSEY Self - patient is the insured MED[place]ID OF [place] [facility] [address] [place] [address] [id number] NIKOLAS LINDSEY Self - patient is the insured MEDICAL (GENERAL) HISTORY Medical History History ICD Code colonoscopy 06-08-2008 and 2 005 negative-lipomatous ICV, diverticulosis, internal hemorrhoids colon polyps-tubular adenoma removed in 2001 Depression Hyperlipidemia Denies [place],DM,CVA,Lung disease,renal dise ase Fibromyalgiua Surgical History Surgery Date(Month/Year) Abdominal wall hernia left shoulder surgery 2011 Gastric bypass Carpal tunnel bilateral Breast reduction and panniculectomy afte r weight loss
--- OUTSIDE RECORDS SUMMARY | 2024-09-13 14:35 | XMS_ITS | Encounter Summary ---
Author Organization [facility] Address [address] [place] [address] Care Team Providers Care Ink Jet Operator Name Role Phone Pascale Malin MD Primary Care Provider + Encounter Details Date Type Department Care Team (Late st Contact Info) Description 01/14/[address] [facility] MEDICINE [address] [place] [address] Provider, MD Foreign Social History Tobacco Use Types Packs/Day Years Used Date Smoking Tobacco: Never Passive Smoke Exposure: Never Smokeless Tobacco: Never Alcohol Use Standard Drinks/Week Comments Never 0 (1 standard drink = 0.6 oz pur e alcohol) PHQ-2 Answer Date Recorded Patient Health Questionnaire-2 Score 0 01/02/2023 Housing Stability Answer Date Recorded What is your housing situation today? I have josejorje coleman 06/03/[address] you li ve. Do you have problems with any of the following? None of the above 06/03/2023 Food Insecurity Answer Date Recorded Within the past 12 months, y ou worried that your food would run out before you got money to buy more: Never True 06/03/2023 Within the past 12 months,th e food you bought just didn't last and you didn't have enough money to get more: Never True Transportation Answer Date Recorded In the past 12 months, has l ack of transportation kept you from medical appts, meetings, work or from getting things needed for daily living? No 06/03/2023 Utilities Answer Date Recorded In the past 12 months, has t he electric, gas, oil or water company threatened to shut off services in your home? No 06/03/2023 Depression Answer Date Recorded Patient Health Questionnaire-2 Score 0 01/02/2023 Comments No Sex and Gender Information Value Date Recorded Sex Assigned at Female 06/17/2022 10:15 AM EDT Legal Sex Female 10:15 AM EDT Gender Identity Female 06/17/2022 10:15 AM EDT Sexual Orientation Straight 06/17/2022 10 :15 AM EDT documented as of this encounter Plan of Treatment Upcoming Encounters Date Type Department Care Team (Late st Contact Info) Description 12/08/2024 10:15 AM EDT Office Visit [facility] MEDICINE [address] [place] [address] Pascale Malin MD [address] [place] [address] documented as of this encounter Procedures Procedure Name Priority Date/Time Associated Diagnosis Comments HM COLONOSCOPY Routine 08/05/2017 9:34 AM EST documented in this encounter Results * Hm Colonoscopy (08/05/2017 9:34 AM EST) Historical Provider HEALTH MAINTENANCE Final Result documented in this encounter Visit Diagnoses Not on filedocumented in this encounter Care Teams Ink Jet Operator Relationship Specialty Start Date End Date Pascale Malin MD [address] [place] [phone] PCP - General Family Medicine 07/01/18 documented as of this encounter
--- OUTSIDE RECORDS SUMMARY | 2024-09-13 14:35 | XMS_ITS | Encounter Summary ---
Author Organization [employer] Address [address] [facility] 7[address] [place] [address] Care Team Providers Care Ship Runner Name Role Phone Pascale Malin MD Primary Care Provider + Reason for Visit * Reason Onset Date Comments Hospital Follow-up 03/15/2024 Encounter Details Date Type Department Care Team ([facility] st Contact Info) Description 03/15/2024 Telephone [facility] [address] [place], [place] [phone] Pascale Malin MD [address] [place], [place] [phone] Hospital Follow-up Social History Tobacco Use Types Packs/Day Years Used Date Smoking Tobacco: Never Passive Smoke Exposure: Never Smokeless Tobacco: Never Alcohol Use Standard Drinks/Week Comments Never 0 (1 standard drink = 0.6 oz pur e alcohol) PHQ-2 Answer Date Recorded Patient Health Questionnaire-2 Score 0 01/02/2023 Housing Stability Answer Date Recorded What is your housing situation today? I have jose coleman 03/15/[address] you li ve. Do you have problems with any of the following? None of the above 03/15/2024 Food Insecurity Answer Date Recorded Within the past 12 months, y ou worried that your food would run out before you got money to buy more: Never True 03/15/2024 Within the past 12 months,th e food you bought just didn't last and you didn't have enough money to get more: Never True Transportation Answer Date Recorded In the past 12 months, has l ack of transportation kept you from medical appts, meetings, work or from getting things needed for daily living? No 03/15/2024 Utilities Answer Date Recorded In the past 12 months, has t he electric, gas, oil or water company threatened to shut off services in your home? No 03/15/2024 Depression Answer Date Recorded Patient Health Questionnaire-2 Score 0 01/02/2023 Comments No Sex and Gender Information Value Date Recorded Sex Assigned at Female 06/17/2022 10:15 AM EDT Legal Sex Female 10:15 AM EDT Gender Identity Female 06/17/2022 10:15 AM EDT Sexual Orientation Straight 06/17/2022 10 :15 AM EDT documented as of this encounter Miscellaneous Notes * Telephone Encounter - Jean Whitman - 03/15/2024 3:16 PM EDT Tc from pt requesting a HDF appt. Hospital: [facility] Date of admission: 03/11 Discharge date: 03/13 Diagnosed: Leg Pain documented in this encounter Plan of Treatment Upcoming Encounters Date Type Department Care Team (Late st Contact Info) Description 12/08/2024 10:15 AM EDT Office Visit [facility] [address] [place] [phone] Pascale Malin MD [address] [place] [phone] documented as of this encounter Visit Diagnoses Not on filedocumented in this encounter Care Teams Ship Runner Relationship Specialty Start Date End Date Pascale Malin MD [address] [place] [phone] PCP - General Family Medicine 07/01/18 documented as of this encounter
--- OUTSIDE RECORDS SUMMARY | 2024-09-13 14:36 | XMS_ITS | Data Portability ---
Author Organization [employer] Address [address] [place] [phone] Care Team Providers Care Wire Mill Operator Name Role Phone HIM CCA OTHER Assessment Encounter Date Assessment Date Assessment LastModified by Organization Details LastModified Time 03/22/2024 03/22/2024 I provided real -time medical direction via phone for this encounter and was available for additional phone-based assistance as needed. I have reviewed and agree with the Assessment and Plan as documented by the Starter Cup Powder Mixer. Patient given the opportunity to ask questions. Our service contacted for an assessment of: A rash As per above, patient recently was seen in the emergency department and thought to have cellulitis of the lower extremity. Was given a dose of ceftriaxone and then sent home on Keflex for which she completed yesterday. She continues to have a pruritic area behind her knee which she states initially started in the calf area with a cellulitis and redness and then progressed up behind knee. She denies any new soaps or creams or environmental exposures. She took her antibiotics as prescribed. She states that she had CT scans, ultrasounds in the ED and both were reassuringly negative. Per clinical appeals auditor on the scene, vital signs are stable and the patient is nontoxic in appearance. Afebrile. Please see uploaded pictures. Impression: Questionable area of pruritus with no overt corresponding lesion. Differential diagnosis is broad however data and subjective complaints are reassuring. Likely diagnosis outside the scope this service practice. Allergies: Reviewed and updated. Benadryl and codeine added to allergy list PCP f/u: Patient states she has an appointment with PCP later this week. Please address symptoms of the lower extremity after being treated for cellulitis. We discussed the diagnostic uncertainty of home visits and the risk associated with this. In this case, the patient and I felt this to be an acceptable and reasonable amount of risk given the benefit of avoiding an ED visit. We discussed the need to seek care urgently/emergentl y in the setting of any new or worsening serious symptoms, particularly fever chills lightheadedness altered mental status [email or web address] Not available 03/23/2024 07:46:02 Plan of Treatment Reminders Order Date Submit Date Provider Last Modified By Organization Details Last Modified Time Details Appointments None record ed. Lab None record ed. Referral None record ed. Procedures None record ed. Surgeries None record ed. Imaging None record ed. Medication Orders None record ed. Patient TargetsNo targets recorded. Patient InstructionsNo instructions recorded. Reason for Referral None Reported. Medical Equipment None Reported. Allergies Allergen ID Allergen Name Allergen Category Reaction Reaction Severity Criticality Documentation Date Start Date Code Code System Note Provider Name and Address Organization Details Recorded Time 5785 Benadryl medicatio n Not available Not available Not available 03/23/2024 85398 [id number] RxNorm Fariha Sams MD [address] [place] [address],[address], [place], [phone], [employer] 4 07:45:17 5786 codeine medicatio n Not available Not available Not available 03/23/2024 2670 RxNobeckie Sams MD [address] [place] [address],[address], [place], [phone], [employer] 4 07:45:23 Medications Name Sig Start Date Stop Date Status Note LastModified by Organization Details LastModified Time atorvastatin 80 mg tablet active Not Available Not Available Not Available ibuprofen 800 mg tablet TAKE 1 TABLET BY MOUTH THREE TIMES DAILY FOR 5 DAYS active Not Available Not Available No t Available ketotifen 0.025 % (0.035 %) eye drops INSTILL 1 DROP IN BOTH EYES EVERY 12 HOURS active Not Available Not Available No t Available omeprazole 40 mg capsule,delay ed release TAKE 1 CAPSULE BY MOUTH DAILY FOR 7 DAYS active Not Available Not Available No t Available acetaminophen 500 mg tablet TAKE 1 TABLET BY MOUTH EVERY 6 HOURS NEEDED FOR MILD PAIN active Not Available Not Available No t Available ketorolac 0.5 % eye drops active Not Available Not Available Not Available amitriptyline 25 mg tablet active Not Available Not Available Not Available lorazepam 0.5 mg tablet TAKE 1 TABLET BY MOUTH EVERY 8 HOURS NEEDED FOR ANXIETY. MAX 1.5 MG / EVERY DAY FOR 3 DAYS active Not Available Not Available No t Available cephalexin 500 mg capsule TAKE 1 CAPSULE BY MOUTH FOUR TIMES DAILY FOR 7 DAYS active Not Available Not Available No t Available lisinopril 10 mg tablet TAKE 1 TABLET BY MOUTH EVERY MORNING active Not Available Not Available No t Available clobetasol 0.05 % topical ointment APPLY TOPICALLY TO THE AFFECTED AREA EVERY 12 HOURS active Not Available Not Available No t Available ferrous sulfate 325 mg (65 mg iron) tablet,delaye d release active Not Available Not Available No t Available fluticasone propionate 50 mcg/actuation nasal spray,suspens ion SHAKE LIQUID AND USE 1 SPRAY IN EACH NOSTRIL IN THE MORNING active Not Available Not Available No t Available loratadine 10 mg tablet TAKE 1 TABLET BY MOUTH IN THE MORNING active Not Available Not Available No t Available amoxicillin 875 mg-potassium clavulanate 125 mg tablet TAKE 1 TABLET BY MOUTH TWICE DAILY FOR 10 DAYS active Not Available Not Available No t Available cyclosporine 0.05 % eye drops in a dropperette INSTILL 1 DROP IN BOTH EYES TWICE DAILY active Not Available Not Available No t Available calcium 600 mg (as carbonate)-vi tamin D3 12.5 mcg (500 unit) capsule active Not Available Not Availabl e Not Available Centrum Silver Women 8 mg iron-400 mcg-50 mcg tablet TAKE 1 TABLET BY MOUTH IN THE MORNING active Not Available Not Available No t Available Gemtesa 75 mg tablet TAKE 1 TABLET BY MOUTH DAILY active Not Available Not Available No t Available Vitals Date Recorded Body temperature Respiratory rate Body weight Body height Heart rate Oxygen saturation Oxygen saturation in Arterial blood by Pulse oximetry Systolic blood pressure Diastolic blood pressure Provider Name and Address Organization Details Last Updated DateTime 4 97.7 [degF] 16 /min 492181. 44 g 154.94 cm 86 /min 98 % 98 % 136 mm[Hg] 75 mm[Hg] Not Available [employer] 4 07:41:09 Social History None recorded. Functional Status None recorded. Mental Status None recorded. Family History Nothing Reported. Medical History No medical history recorded. Gynecological HistoryNo gynecological history recorded. Obstetrics History GPAL:G 0 P 0 0 0 0 Past Encounters Encounter ID Performer Location Encounter Start Date Encounter Closed Date Diagnosis/Indication Diagnosis SNOMED-CT Code Diagnosis ICD10 Code Diagnosis Note [id number] Fariha Sams MD [facility] [address] [place] [phone] 03/23/2024 07:41:00 03/23/2024 11:06:40 Pruritic rash 99998617 L28.2 Health Concerns Section Related Observation LastModified by Organization Detai ls LastModified Time None Recorded Concern Status LastModified by Organization Details LastModified Time None Recorded Advance Directives Directive None Recorded Payers Encounter Date Sequence Insurance Name Policy Number Policy Samuels Covered Member ID Samuels Member ID Guarantor Name 03/22/2024 1 [facility] - DOS ON OR AFTER 2022 - DUAL ELIGIBLE - SKILLED NURSING OPTIONS AND ONE CARE (MEDICARE REPLACEMENT/AD VANTAGE - HMO) Ailyn Rao [id number] Ailyn Rao Notes Date Note Type Note Provider Name and Address Organization Details Recorded Time 03/22/2024 text/html HPI: Member called [facility], c/o painful, left leg swelling, redness and hot to touch. Member states she was recently in the hospital for these sx's. However, all her tests were negative, and a cause was not determined. Member reports swelling is going up her leg and is up to her knee. Member completed course of abt. PMH includes but not limited to diastolic dysfucntion, htn, fibromyalgia, MDD. .................. .................. .................. .................. .................. .................. .................. ............... [facility] Nurse Triage Notes (Adela Day): Chief Complaints: Edema PMH: Hypertension, Heart Disease, Severe Persistent Mental Illness (SPMI) Other Allergies: benadryl and codeine Comments: [facility] RN DID NOT NEED FURTHER INFO .................. .................. .................. .................. .................. .................. .................. ............... Starter Cup Powder Mixer Note From Randy Painter: Pt reports having a small area on her left anterior sims of localized redness, edema and pain/itching/burni ng. Pt was seen at [facility], inpatient for three days, had negative ultrasound, CT, MRI and X-rays, given IV ceftriaxone and d/c home with 7 days of cephalexin which she completed yesterday. Pt sts the area on the left sims resolved and is now having the same sx in her left upper leg posteriorly. Pt denies CP, SOB, FARLEY, f/n/v/d. Pt is alert, NAD. VSS. Afebrile. Non focal neuro exam. Normal gait. Posterior left upper leg has erythema, warmth, edema, no open wounds or blisters, no dry or scaly areas. Pt advised to monitor sx closely and discuss further at PCP appt on 03/25. Red flags reviewed. .................. .................. .................. .................. .................. .................. .................. ............... Disposition: Armando Sams MD [address] [facility],[address], [place], [phone], JENNIFER Ibanez [email or web address] [place] 03/23/2024 07:46:13 OBGyn Episode No OBEpisode recorded.
--- OUTSIDE RECORDS SUMMARY | 2024-09-13 14:36 | XMS_ITS | Encounter Summary ---
Author Organization [employer] Address [address] [facility] [address] [place] [address] Care Team Providers Care Willower Name Role Phone Pascale Malin MD Primary Care Provider + Encounter Details Date Type Department Care Team (Latest Contact Info) Description 09/09/2024 Travel Social History Tobacco Use Types Packs/Day Years Used Date Smoking Tobacco: Never Passive Smoke Exposure: Never Smokeless Tobacco: Never Alcohol Use Standard Drinks/Week Comments Never 0 (1 standard drink = 0.6 oz pur e alcohol) Depression Answer Date Recorded Patient Health Questionnaire-9 Score 0 09/09/2024 Patient Health Questionnaire-9 Score 0 09/09/2024 Last PHQ-9: Questionnaire Data Not on file 0 09/09/2024 Housing Stability Answer Date Recorded What is your housing situation today? I have josejorje coleman 03/15/[address] you [...] Date Recorded Patient Health Questionnaire-2 Score 0 09/09/2024 Internet Access Answer Date Recorded Internet Access Q1 Yes 04/19/2024 Internet Access Q2 Not on file 04/19/2024 Comments No Sex and Gender Information Value [...] Description 12/08/2024 10:15 AM EDT Office Visit [facility] [address] [place] [phone] Pascale Malin MD [address] [place] [phone] documented as of this encounter Visit Diagnoses Not on filedocumented in this encounter Additional Health Concerns Assessment Noted Time PHQ-9 Depression Total Score: 0 09/09/19 25 11:28 AM EST documented as of this encounter Care Teams Willower Relationship Specialty Start Date End Date Pascale Malin MD [address] [place] [phone] PCP - General Family Medicine 07/01/18 documented as of this encounter
--- OUTSIDE RECORDS SUMMARY | 2024-09-13 14:36 | XMS_ITS | Clinical Summary ---
Author Organization [employer] Address [address] [facility] 7[address] [place] [address] Care Team Providers Care Personnel Consultant Name Role Phone Pascale Malin MD Primary Care Provider + Allergies Active Allergy Reactions Criticality Noted Date Comments Benzoin 08/15/2022 Other reaction(s): Rash Irritation Codeine Anaphylaxis High 01/17/2014 Other reaction(s): G.I. upset Diphenhydramine 09/07/2010 Other reaction(s): rash Medications ammonium lactate (Amlactin) 12 % cream use daily on affected area 09/30/19 20 Active meclizine (Antivert) 12.5 MG tablet take 1-2 tablet by oral route 3 times every day as needed 08/22/19 21 Active Blood Pressure kit Use as directed Active Multiple Vitamins-Minerals (multivitamin with minerals) tablet Take 1 tablet by mouth in the morning. 90 tablet 3 11/28/19 24 2024 Active ferrous sulfate (Fe Tabs) 325 (65 Fe) MG EC tabletIndications :Other iron deficiency anemia Take 1 tablet (325 mg) by mouth with breakfast. Do not crush, chew, or split. 90 tablet 11/28/19 24 2024 Active loratadine (Claritin) 10 MG tablet Take 1 tablet (10 mg) by mouth in the morning. 30 tablet 11 11/28/19 24 2024 Active cycloSPORINE (Restasis) 0.05 % ophthalmic emulsion INSTILL 1 DROP IN BOTH EYES TWICE DAILY 02/17/20 24 Active Gemtesa 75 MG tablet Take 1 tablet by mouth Once per day. 01/02/20 24 Active atorvastatin (Lipitor) 80 MG tabletIndications :Other hyperlipidemia Take 1 tablet (80 mg) by mouth Once per day. 90 tablet 1 03/23/20 24 Active lisinopril 10 MG tablet TAKE 1 TABLET BY MOUTH EVERY MORNING 90 tablet 1 07/02/20 24 Active clobetasol (Temovate) 0.05 % ointment Apply topically every 12 (twelve) hours. 60 g 11 09/09/19 25 Active clobetasol (Temovate) 0.05 % ointment Apply topically every 12 (twelve) hours. 60 g 11 11/28/19 24 2024 Discontinued(R eorder (will not trigger notification to Pharmacy)) Active Problems Problem Noted Date Diagnosed Date Ill-fitting dentures 05/27/2024 Fracture of removable partial denture 05/24/2024 Encounter for immunization 05/04/2024 Varicose veins of left lower extremity with infl ammation 05/04/2024 Assessment & Plan (09/11/2024 4:10 PM EST): Prescription of compression pantyhose that will not draw down the legs. FU with vascular surgery. Assessment & Plan (05/04/2024 12:41 PM EDT): - cellulitis is resolved, advised to use compression stockings and f/u with vascular surgeon Folliculitis of axilla 11/28/2023 Assessment & Plan (12/01/2023 5:32 PM EDT): Use Augmentin, which will also help with sinusitis. Subacute maxillary sinusitis 11/28/2023 Assessment & Plan (12/01/2023 5:34 PM EDT): Sp URI, triple viral test is NEG. Use Augmentin, Flonase + NS Take tylenol prn pain/VILLATORO Preoperative clearance 05/22/2023 Assessment & Plan (05/22/2023 3:45 PM EDT): 67 yo patient with multiple medical conditions here for preop evaluation. Most of her medical conditions are stable enough so that she/he can safely undergo planned procedure. She is a low risk patient. She's/he's undergoing A low risk procedure. The risk of CV complication according to RCRI is 3.9% mostly due to age > 65 At this time SHE IS ON OPTIMAL CONDITION for planned procedure. -Meds adjusted for the day of surgery, will only take BP meds. -Call back BERE should he develops fever, cough, SOB, CP, UTI sxs or any other acute issue Fractured dental gnosticism with loss of materi al 05/02/2023 Dental calculus 04/09/2023 Partial edentulism 04/09/2023 Generalized gingival recession 04/09/2023 Periodontal disease 04/09/2023 Angiomyolipoma 09/09/2022 Pica in adults 09/09/2022 Epidermoid cyst of eyelid, right 09/09/2022 Assessment & Plan (12/01/2023 5:36 PM EDT): Refer to gral surgery for excission Assessment & Plan (09/09/2022 2:56 PM EST): Discussed with patient about benign nature of the condition and I gave her information about that. -FU PRN -Will refer to surgery PRN. Iron deficiency anemia 09/09/2022 Assessment & Plan (12/01/2023 5:33 PM EDT): Significantly improved on Iron supplementation Continue Iron 1x/d due to hx bariatric surgery. Colonoscopy 2022 report n/a. FU at next appt. Assessment & Plan (01/02/2023 11:22 AM EDT): most likely related to decrease iron absorption s/p bariatric surgery. Colonoscopy done on 2017 showed two TAs, next colonoscopy due at the end of this year. Start iron supplementation once daily and recheck levels in 1 year. Assessment & Plan (09/09/2022 2:58 PM EST): Hemoglobin is 10.8, most likely as patient is not taking Iron supplementation s/p bariatric surgery. -Order iron studies and FU with me in 2-3 months Intramural uterine fibroid 09/09/2022 Assessment & Plan (09/09/2022 2:58 PM EST): Incidental finding on CT scan, patient is asymptomatic. -FU PRN. Greater trochanteric bursitis of left hip 2021 Assessment & Plan (07/29/2022 9:14 PM EST): Addressed at last visit, patient didn't go to PT Refer to PT again recommended Tylenol prn Hyperkalemia 07/20/2022 Plantar fasciitis 07/20/2022 Slow transit constipation 07/20/2022 Spasm of cervical paraspinous muscle 07/20/2022 Urge incontinence of urine 07/20/2022 Assessment & Plan (01/02/2023 11:21 AM EDT): Significantly improved with Gemtesa Reinforced importance of Kegel's exercise, weight reduction. Use pull up diapers PRN only. Vertigo 07/20/2022 Initial patient encounter 07/20/2022 Neuropathy 07/01/2018 Aortic cusp regurgitation 06/10/2017 Diastolic dysfunction 06/10/2017 Recurrent major depression in remission 03/14/20 15 Assessment & Plan (09/11/2024 4:11 PM EST): Doing well off therapy and medications. She feels safe at home and is able to reach out to safety, re consult PRN. Disorder of bone and articular cartilage 014 Sensorineural hearing loss, bilateral 04/27/2013 Assessment & Plan (09/11/2024 4:10 PM EST): Refer to new hearing evaluation. Psoriasis with arthropathy 10/29/2012 Assessment & Plan (09/11/2024 4:12 PM EST): She is doing well on Clobetasol but unfortunately insurance does not cover it today. Will check with insurance to see alternative treatment, otherwise will refer to dermatology. Assessment & Plan (12/01/2023 5:31 PM EDT): On elbows only and occasionally on sacral area' On clobetasol only, fairly controlled, doesn't want to use methotrexate or immune modulators. 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 No sxs CHF, no need for antibiotic prophylaxis FU with cards. Assessment & Plan (07/29/2022 9:11 PM EST): Patient seeing cardiology every year, not a candidate for surgery at his time yet. Continue medical management: atorvastatin, lsinopril Essential hypertension 01/20/2012 Assessment & Plan (09/11/2024 4:13 PM EST): Uncontrolled today, unclear if related to leg pain. Advised to check BP at home daily for next 2 weeks and call back if BP is above 140/90, otherwise FU in 3 months. Continue Lisinopril 10 mg and FU with cardiology next month. Assessment & Plan (12/01/2023 5:25 PM EDT): Controlled. Compliant w/meds Continue lisinopril 10mg Counseled re low salt diet/increase moderate physical activity. Check home BP BIW and prn CP/VILLATORO/FARLEY Non smoking patient. ,Repeated is 140/80 Assessment & Plan (05/22/2023 1:46 PM EDT): Controlled, repeated runs 140/80. Compliant w/meds Continue lisinopril 10 mg Counseled re low salt diet/increase moderate physical activity. Check home BP BIW and prn CP/VILLATORO/FARLEY Non smoking patient. Assessment & Plan (01/02/2023 11:20 AM EDT): BP is at goal. Continue lisinopril 10 and fu with me in 6 months Counseled re low salt diet/increase moderate physical activity. Check home BP BIW and prn CP/VILLATORO/FARLEY Non smoking patient. Assessment & Plan (09/09/2022 2:56 PM EST): Borderline controlled. Most likely related to patient's weight gain. -Counseled to check BP at home TIW and weight reduction -Check at next visit and fu with me in 2-3 months -r/o anemia Assessment & Plan (07/29/2022 9:13 PM EST): Borderline controlled. Compliant w/meds, gained few Lb since last visit. Continue lisinopril same dose Counseled re low salt diet/increase moderate physical activity. Check home BP BIW and prn CP/VILLATORO/FARLEY Non smoking patient. 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 Bulimia nervosa 03/31/2012 11/28/2023 Encounters Date Type Department Care Team Description 09/10/[address] [phone] Pascale Malin MD Durable Medical Equipment 09/09/2024 11:15 AM EST Office Visit [address] [address] Pascale Malin MD Essential hypertension (Primary Dx); Psoriasis with arthropathy (CMS/HCC); 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); Varicose veins of left lower extremity with inflammation; Sensorineural hearing loss, bilateral 09/09/2024 Travel 08/30/2024 Patient Outreach [address] [address] Pascale Malin MD Pre-visit Planning ((Unable to reach for PVP screening, LVM)) 07/05/[address] [address] Pascale Malin MD August recall 06/30/2024 Refill [facility] [address] [place] [address] Nicole Davies ANP 06/28/2024 Telephone [facility] [address] [place] [address] Nicole Davies ANP from Last 3 Months Immunizations Name Administration Dates Next Due Hep B, adult 01/07/2013,11/03/2012,09/03/2012 Influenza High-dose Quadriva lent Preservative Free 05/22/2023,06/15/2020 Influenza Quadrivalent Adjuvanted 05/18/2022 Influenza injectable quadriv alent IIV4 with preservative 06/10/2017,05/15/2016 Influenza injectable quadriv alent preservative free 07/05/2021 Influenza, High Dose Seasona l, Preservative Free 05/04/2024,05/07/2019,07/01/2018 Influenza, IIV3, injectable 04/27/2014, 1 Influenza, Split (incl. [place] fied surface antigen) 04/27/2013,07/02/2012 Maria Isabel SARS-CoV-2 Vaccination 11/01/2020 Pfizer Covid-19 Vaccine 12+ 08/01/2021 Pneumococcal Conjugate PCV 13 04/27/2021 Pneumococcal Conjugate PCV 20 03/25/2024 RSV Bivalent 05/27/2024 TD (adult), 2 Lf tetanus tox oid, preservative free, adsorbed 08/14/2005 Tdap 03/14/2015 Zoster, Recombinant 05/27/2024,03/25/2024 Zoster, live 11/04/2015,11/08/2013 Social History Tobacco Use Types Packs/Day Years Used Date Smoking Tobacco: Never Passive Smoke Exposure: Never Smokeless Tobacco: Never Tobacco Cessation:Counseling Given: Not Answered Alcohol Use Standard Drinks/Week Comments Never 0 [...] Orientation Straight 06/17/2022 10 :15 AM EDT Last Filed Vital Signs Vital Sign Reading Time Taken Comments Blood Pressure 140/90 09/09/2024 12:15 PM EST Pulse 89 09/09/2024 11:26 AM EST Temperature 36.4 ??C (97.5 ??F) 09/09/2024 11:[address] Respiratory Rate 20 09/09/2024 11:26 AM EST Oxygen Saturation 99% 05/04/2024 11:43 AM EDT Inhaled Oxygen Concentration - - Weight 148 kg (325 lb 6.4 oz) 09/09/2024 11:26 A M EST Height 157.5 cm (5' 2 ) 09/09/2024 11:26 AM EST Body Mass Index 59.52 09/09/2024 11:26 AM EST Plan of Treatment Upcoming Encounters Date Type Department Care Team (Late st Contact Info) Description 12/08/2024 10:15 AM EDT Office Visit [facility] [address] [place] [address] Pascale Malin MD [address] [place] [address] Health Maintenance Due Date Last Done Comments CT Colonography 1953 FIT DNA/Cologuard 1953 FIT 1953 FOBT 1953 Sigmoidoscopy 1953 Alcohol/Substance Use Screening 1965 Hepatitis C Screening 1971 Colonoscopy 08/05/2022 08/05/2017 Colorectal Cancer Screening 08/05/2022 Mammogram 06/14/2023 06/14/2021 COVID-19 Vaccine ( season) 2024 08/01/2021, 11/01/2020 Dental Oral Exam 08/29/2024 02/26/2024, , 11/02/2020 Dental Prophylaxis 08/29/2024 02/26/2024, 0 04/09/2023, 08/15/2022 Dental X-Ray: Bitewings 02/26/2025 02/26/20 24, 04/09/2023, 01/17/2022 DTaP/Tdap/Td Vaccines (2 - Td or Tdap) 03/14/2025 03/14/2015, 08/14/2005 SDOH Screening 03/15/2025 03/15/2024 Depression Screening 09/09/2025 09/09/2024, 09/09/19 25 Tobacco Screening 09/09/2025 09/09/2024 Dental X-Ray: Full Mouth 02/26/2027 02/26/2024, 0303/2021 Lipid Panel 08/15/2027 08/15/2022, 06/0 09/2021, 06/07/2021, Additional history exists Hepatitis B Vaccines Completed 01/07/2013, 11/03/2012, 09/03/2012 Pneumococcal Vaccine: 65+ Years Completed 03/25/2024, 04/27/2021 Influenza Vaccine Completed 05/04/2024, , 05/18/2022, Additional history exists RSV Patients and Patients Aged 60 years or older Completed 05/27/2024 Zoster Vaccines Completed 05/27/2024, 080 03/2024, 11/04/2015, Additional history exists HIB Vaccines Aged Out No longer eligi ble based on patient's age to complete this topic HPV Vaccines Aged Out No longer eligi ble based on patient's age to complete this topic Hepatitis A Vaccines Aged Out No long er eligible based on patient's age to complete this topic IPV Vaccines Aged Out No longer eligi ble based on patient's age to complete this topic Meningococcal Vaccine Aged Out No karen ayo eligible based on patient's age to complete this topic RSV under 20 months Aged Out No longe r eligible based on patient's age to complete this topic Rotavirus Vaccines Aged Out No longer eligible based on patient's age to complete this topic Procedures Procedure Name Priority Date/Time Associated Diagnosis Comments Full PROPHYLAXIS - ADULT Routine 02/26/2024 10:00 AM EDT Dental calculus DIAGNOSTIC - DIAGNOSTIC IMAGING - INTRAORAL - COMPREHENSIVE SERIES OF RADIOGRAPHIC IMAGES Routine 02/26/2024 10:00 AM EDT Generalized gingival recession Partial edentulism, unspecified edentulism class Dental calculus PERIODIC ORAL EVALUATION - ESTABLISHED PATIENT Routine 02/26/2024 10:00 AM EDT LIPID PANEL WITH REFLEX TO DIRECT LDL Routine 08/15/2022 10:03 AM EST Nonrheumatic aortic valve stenosis Essential hypertension MAMMOGRAM GENERIC Routine 06/14/2021 10: 30 AM EDT HM COLONOSCOPY Routine 08/05/2017 9:34 AM EST from Last 3 Months or Most Recently Relevant to Health Maintenance Results * (ABNORMAL) Lipid Panel with Reflex to Direct LDL (08/15/2022 10:03 AM EST) Cholesterol, Total 185 <200 mg/dL [facility] HDL Cholesterol 63 > OR = 50 mg/dL [facility] Triglycerides 71 <150 mg/dL [facility] LDL Cholesterol 106(H) mg/dL (calc) [facility] Comment: Reference range: <100 Desirable range <100 mg/dL for primary prevention; ?? <70 mg/dL for patients with CHD or diabetic patients with > or = 2 CHD risk factors. LDL-C is now calculated using the Drew calculation, which is a validated novel method providing better accuracy than the Friedewald equation in the estimation of LDL-C. Ariel MCCULLOUGH et al. ANDRADE. 2013;310(19): 2183-5493 (http://education.[employer]/faq/SWI326) Chol/HDLC Ratio 2.9 <5.0 (calc) [facility] Non-HDL Cholesterol 122 <130 mg/dL (calc) [facility] Comment: For patients with diabetes plus 1 major ASCVD risk factor, treating to a non-HDL-C goal of <100 mg/dL (LDL-C of <70 mg/dL) is considered a therapeutic option. 08/15/2022 10:0 3 AM EST 08/15/2022 10:03 AM EST Narrative [facility] - 08/15/2022 9:29 PM EST FASTING:YES FASTING: YES us Pascale Malin MD LAB BLOOD ORDERABLES Fin al Result [address], [place] [address] [facility] [place] [facility] [address] [facility], ([address]) [place] [address] * Mammography Report 1 (06/14/2021 10:30 AM EDT) Anatomical Region Laterality Modality Breast Bilateral Mammography 06/14/2021 10:3 0 AM EDT Narrative 06/15/2021 8:37 AM EDT Refer to the Notes tab for result details [facility] Procedure: Mammography Report 1 Procedure Note Provider, MD Foreign - 11/10/2022 Refer to the Notes tab for result details Legacy Procedure: Mammography Report 1 us Pascale Malin MD IMG BI PROCEDURES Final Result * Hm Colonoscopy (08/05/2017 9:34 AM EST) us Historical Provider HEALTH MAINTENANCE Final Result from Last 3 Months or Most Recently Relevant to Health Maintenance Insurance [facility] - [facility] Care Teams Personnel Consultant Relationship Specialty Start Date End Date Pascale Malin MD [address] [place] [phone] PCP - General Family Medicine 07/01/18
--- OUTSIDE RECORDS SUMMARY | 2024-09-13 14:36 | XMS_ITS | Encounter Summary ---
Author Organization [employer] Address [address] [facility] [address] [place] [address] Care Team Providers Care Planogrammer Name Role Phone Pascale Malin MD Primary Care Provider + Reason for Visit * Reason Onset Date Comments Durable Medical Equipment 09/10/2024 Encounter Details Date Type Department Care Team ([facility] st Contact Info) Description 09/10/2024 Telephone [facility] [address] [place], [place] [phone] Pascale Malin MD [address] [place] [address] Durable Medical Equipment Social History Tobacco Use Types Packs/Day Years [...] encounter Miscellaneous Notes * Telephone Encounter - Izabel Viera MA - 09/10/2024 2:48 PM EST DME generated, awaiting pcp's signature. * Telephone Encounter - Izabel Viera MA - 09/10/2024 2:48 PM EST ----- Message from Pascale Malin MD sent at 09/09/2024 3:50 PM EST ----- Please write a prescription for pantyhose support stockings 15. documented in this encounter Plan of Treatment Upcoming Encounters Date Type Department Care Team (Late st Contact Info) Description 12/08/2024 10:15 AM EDT Office Visit [facility] [address] [place], [place] [phone] Pascale Malin MD [address] [place] [address] documented as of this encounter Visit Diagnoses Not on filedocumented in this encounter Additional Health Concerns Assessment Noted Time PHQ-9 Depression Total Score: 0 09/09/19 25 11:28 AM EST documented as of this encounter Care Teams Planogrammer Relationship Specialty Start Date End Date Pascale Malin MD [address] [place] [address] PCP - General Family Medicine 07/01/18 documented as of this encounter
--- OUTSIDE RECORDS SUMMARY | 2024-09-13 14:36 | XMS_ITS | Encounter Summary ---
Author Organization [employer] Address [address] [facility] [address]t [place] [address] Care Team Providers Care Finance Executive Name Role Phone Pascale Malin MD Primary Care Provider + Reason for Visit * Reason Onset Date Comments appt prophy 03/18/2023 Encounter Details Date Type Department Care Team (Late st Contact Info) Description 03/18/2023 Telephone [facility] [address] [place], [place] [phone] Sharonda, Lidia [address] [place] [address] appt prophy Social History Tobacco Use Types Packs/Day Years [...] encounter Miscellaneous Notes * Telephone Encounter - Brinda Bennett - 03/18/2023 10:52 AM EDT Patient has appt active request since 07/2022. Checking on status of appt DR documented in this encounter Plan of Treatment Upcoming Encounters Date Type Department Care Team (Late st Contact Info) Description 12/08/2024 10:15 AM EDT Office Visit [facility] [address] [place] [address] Pascale Malin MD [address] [place] [phone] documented as of this encounter Visit Diagnoses Not on filedocumented in this encounter Care Teams Finance Executive Relationship Specialty Start Date End Date Pascale Malin MD [address] [place] [phone] PCP - General Family Medicine 07/01/18 documented as of this encounter
--- OUTSIDE RECORDS SUMMARY | 2024-09-13 14:36 | XMS_ITS | Encounter Summary ---
Author Organization [employer] Address [address] [facility] [address] [place] [address] Care Team Providers Care Restoration Ecologist Name Role Phone Pascale Malin MD Primary Care Provider + Reason for Visit * Reason Comments Pre-visit Planning (Unable to reach for PVP screening, LVM) Encounter Details Date Type Department Care Team ([facility] Contact Info) Description 08/30/2024 Patient Outreach [facility] [address] [place], [place] [phone] Pascale Malin MD [address] [place], [place] [phone] Pre-visit Planning ((Unable to reach for PVP screening, LVM)) Social History Tobacco Use Types Packs/Day Years Used Date Smoking Tobacco: Never Passive Smoke Exposure: Never Smokeless Tobacco: Never Alcohol Use Standard Drinks/Week Comments Never 0 (1 standard drink = 0.6 oz pur e alcohol) PHQ-2 Answer Date Recorded Patient Health Questionnaire-2 Score 0 01/02/2023 Housing Stability Answer Date Recorded What is your housing situation today? I have jose sing 03/15/[address] you li [...] Date Recorded Patient Health Questionnaire-2 Score 0 05/04/2024 Internet Access Answer Date Recorded Internet Access Q1 Yes 04/19/2024 Internet Access Q2 Not on file 04/19/2024 Comments No Sex and Gender Information Value Date Recorded Sex Assigned at Female 06/17/2022 10:15 AM EDT Legal Sex Female 10:15 AM EDT Gender Identity Female 06/17/2022 10:15 AM EDT Sexual Orientation Straight 06/17/2022 10 :15 AM EDT documented as of this encounter Progress Notes * Marleen Hall - 08/30/2024 1:30 PM EST CC Marleen. Placed outbound call to patient to complete pre-visit planning. No answer at this time. Patient name and were not confirmed. CC left voicemail requesting return call. Direct contact information provided. documented in this encounter Plan of Treatment Upcoming Encounters Date Type Department Care Team (Late st Contact Info) Description 12/08/2024 10:15 AM EDT Office Visit [facility] [address] [place] [address] Pascale Malin MD [address] [place] [address] documented as of this encounter Visit Diagnoses Not on filedocumented in this encounter Care Teams Restoration Ecologist Relationship Specialty Start Date End Date Pascale Malin MD [address] [place] [phone] PCP - General Family Medicine 07/01/18 documented as of this encounter
--- OUTSIDE RECORDS SUMMARY | 2024-09-13 14:36 | XMS_ITS | Encounter Summary ---
Author Organization [employer] Address [address] [facility] 7[address] [place] [address] Care Team Providers Care Storekeeper Helper Name Role Phone Pascale Malin MD Primary Care Provider + Reason for Visit * Reason Comments Follow-up Encounter Details Date Type Department Care Team ([facility] st Contact Info) Description 09/09/2024 11:15 AM EST Office Visit [facility] MEDICINE [address] [place], [place] [phone] Pascale Malin MD [address] [place], [place] [phone] Essential hypertension (Primary Dx); Psoriasis with arthropathy (CMS/HCC); 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); Varicose veins of left lower extremity with inflammation; Sensorineural hearing loss, bilateral Social History Tobacco Use Types Packs/Day Years [...] AM EDT documented as of this encounter Last Filed Vital Signs Vital Sign Reading Time Taken Comments Blood Pressure 140/90 09/09/2024 12:15 PM EST Pulse 89 09/09/2024 11:26 AM EST Temperature 36.4 ??C (97.5 ??F) 09/09/2024 11:[address] Respiratory Rate 20 09/09/2024 11:26 AM EST Oxygen Saturation - - Inhaled Oxygen Concentration - - Weight 148 kg (325 lb 6.4 oz) 09/09/2024 11:26 A M EST Height 157.5 cm (5' 2 ) 09/09/2024 11:26 AM EST Body Mass Index 59.52 09/09/2024 11:26 AM EST documented in this encounter Miscellaneous Notes * Assessment & Plan Note - Lissett Reno - 09/11/2024 4:13 PM ESTAssociated Problem(s): Essential hypertension Uncontrolled today, unclear if related to leg pain. Advised to check BP at home daily for next 2 weeks and call back if BP is above 140/90, otherwise FU in 3 months. Continue Lisinopril 10 mg and FU with cardiology next month. * Assessment & Plan Note - Lissett Reno - 09/11/2024 4:12 PM ESTAssociated Problem(s): Psoriasis with arthropathy (CMS/HCC) She is doing well on Clobetasol but unfortunately insurance does not cover it today. Will check with insurance to see alternative treatment, otherwise will refer to dermatology. * Assessment & Plan Note - Lissett Reno - 09/11/2024 4:11 PM ESTAssociated Problem(s): 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) Doing well off therapy and medications. She feels safe at home and is able to reach out to safety, re consult PRN. * Assessment & Plan Note - Lissett Reno - 09/11/2024 4:10 PM ESTAssociated Problem(s): Varicose veins of left lower extremity with inflammation Prescription of compression pantyhose that will not draw down the legs. FU with vascular surgery. * Assessment & Plan Note - Lissett Reno - 09/11/2024 4:10 PM ESTAssociated Problem(s): Sensorineural hearing loss, bilateral Refer to new hearing evaluation. documented in this encounter Plan of Treatment Upcoming Encounters Date Type Department Care Team (Late st Contact Info) Description 12/08/2024 10:15 AM EDT Office Visit [facility] MEDICINE [address] [place], [place] [phone] Pascale Malin MD [address] [place], [place] [phone] Scheduled Orders Name Type Priority Associated Diagnoses Orde r Schedule CBC auto differential Lab Routine Psoriasis with arthropathy (CMS/HCC) Expected: 09/09/2024 (Approximate), Expires: 09/09/2025 Basic Metabolic Panel Lab Routine Essential hypertension Expected: 09/09/2024 (Approximate), Expires: 09/09/2025 Vitamin D, 25-Hydroxy, Total, Immunoassay Lab Routine Psoriasis with arthropathy ([facility]/HCC) Expected: 09/09/2024 (Approximate), Expires: 09/09/2025 Lipid Panel with Reflex to Direct LDL Lab Routine Essential hypertension Expected: 09/09/2024 (Approximate), Expires: 09/09/2025 documented as of this encounter Visit Diagnoses Diagnosis Essential hypertension- Primary Unspecified essential hypertension Psoriasis with arthropathy ([facility]) Psoriatic arthropathy Recurrent major depression in remission ([facility]) Major depressive disorder, recurrent episode, in full remission Varicose veins of left lower extremity with inflammation Sensorineural hearing loss, bilateral documented in this encounter Additional Health Concerns Assessment Noted Time PHQ-9 Depression Total Score: 0 09/09/19 25 11:28 AM EST documented as of this encounter Care Teams Storekeeper Helper Relationship Specialty Start Date End Date Pascale Malin MD [address] [place] [id number] PCP - General Family Medicine 07/01/18 documented as of this encounter
== END 2024-09-13 10:02 | disposition home or self-care (01) ==
LOC: HO.US 10:01
PROVIDERS: PCP Internal Medicine; Visit Provider Physician Assistant Surgical
DX: I83.11 Varicose veins of right lower extremity with inflammation (principal); I83.12 Varicose veins of left lower extremity with inflammation
CPT/HCPCS: 93970

== ENCOUNTER → 2024-09-13 10:05 | Outpatient (BNV) | payer OTHER, SELFPAY | PROVIDERS: PCP Internal Medicine; Visit Provider Radiology Diagnostic Radiology | DX: I87.2 Venous insufficiency (chronic) (peripheral) (principal); M79.9 Soft tissue disorder, unspecified | CPT/HCPCS: 93970 ==

== ENCOUNTER 2024-10-05 10:14 | Outpatient (AMB) | payer OTHER, SELFPAY ==
--- NOTE | 2024-10-05 10:26 | MHC.OFFVIS ---
Intake Visit Reasons: follow up s/p 09/13/24 Intake Note: Patient states ayo legs are cramping and that they feel uncomfortable. They are very cold as well. Accompanied by: Self / Same As Patient Allergies codeine [CODEINE] Allergy (Unknown, Verified 10/05/24 10:27) STOMACH PAIN, vomiting HPI HPI follow up s/p 09/13/24: Details: Very pleasant 69-year-old female presents for follow-up regarding venous insufficiency. She is morbidly obese and has swelling of her lower extremities. It has been affecting her daily activities including ambulation. Of note she has even been seen in the emergency room for the swelling back in February in the [facility] where she was negative for DVT at that time. She now presents for follow-up with venous insufficiency testing. [facility] Medical History Epidermal cyst of face Overactive bladder Urinary incontinence Osteopenia Fibromyalgia Obesity Depression Rotator cuff tear, left Rotator cuff tear, right Bicipital tendinitis Morbid obesity Other and unspecified hyperlipidemia SILVIO on CPAP Essential hypertension Surgical History History of excision of epidermal inclusion cyst History of surgery No pertinent past surgical history Family History Father No problems noted. Mother No problems noted. Social History Patient Tobacco Use Status: Never used Tobacco Review of Systems Const Reports as per HPI ENT Reports no additional complaints Card Denies chest pain, Denies chest pain at rest and Denies chest pain with activity Resp Denies chest congestion and Denies cough GI Reports no additional complaints Musc Details: pain over varicosities, aching of lower extremities, swelling, cramping, heaviness and tiredness, itching Denies abnormal gait Skin/Breast Reports pruritus and Denies wounds Neuro Reports no additional complaints and Denies abnormal gait Psych Denies no additional complaints Physical Exam Const General: cooperative, healthy appearing and comfortable Orientation/consciousness: oriented to person, oriented to place and oriented to time Neck Carotids: no bruits Chest Chest palpation & inspection: normal inspection of the chest and normal palpation of entire chest wall Resp Effort & Inspection: normal respiratory effort and able to speak in complete sentences Cardio Rate: regular rate Heart sounds: S1 normal heart sound present and S2 normal heart sound present Peripheral pulses: Peripheral pulses 2+ throughout GI Inspection: Yes normal to inspection Skin Other: +2 edema, CEAP Classification C4 - skin color changes Ep - Etiology Primary As - superficial veins P - reflux General skin exam: dry skin Neuro General: oriented to person, oriented to place and oriented to time Extrem Right lower extremity: full ROM, normal capillary refill and edema Left lower extremity: full ROM, normal capillary refill and edema Psych Mental Status: mental status grossly normal Results Reviewed Results Reviewed: Brief summary of venous insufficiency testing is as follows: right great saphenous vein: Positive right small saphenous vein: negative right accessory vein: none present left great saphenous vein: Positive left small saphenous vein: negative left accessory vein: none present Please note there is no evidence of any venous aneurysms or significant tortuosity Assessment & Plan Assessment & Plan (1) Varicose veins of right lower extremity with inflammation: Code(s): I83.11 - Varicose veins of right lower extremity with inflammation Category: Medical Plan: This patient has varicose veins with inflammation. They continue to be a source of discomfort for the patient. The patient has tried conservative treatment with compression, leg elevation and exercise program for over 3 months time. They have been compliant with all treatment. This has provided minimal relief for the patient. I do not anticipate this course of treatment will alter the underlying etiology. The patient has been scheduled for lower extremity venous treatment inclusive of --- right great saphenous vein Cyanoacralate ablation. Risks, benefits, and complications of this procedure has been discussed in detail with the patient including but not limited to bleeding, infection, and the development of a DVT. The patient has demonstrated a clear understanding and has consented. We will schedule the patient as soon as possible. Thank you for allowing us to participate in this patient's care. If there are any questions or concerns please do not hesitate to contact us. Coding Level of Care Code Est Pt Level 4 (93564) Diagnoses Varicose veins of right lower extremity with inflammation I83.11
--- OUTSIDE RECORDS SUMMARY | 2024-10-05 11:12 | XMS_ITS | Encounter Summary ---
Author Organization [employer] [facility] Address [address] [facility] 7[address] [place] [address] Care Team Providers Care Roller Setter Name Role Phone Pascale Malin MD Primary Care Provider + Encounter Details Date Type Department Care Team (Latest Contact Info) Description 01/17/2022 Abstract [facility] CONVERSIONS Dental, Provider, DDS Social History Tobacco [...] Visit [facility] MEDICINE [address] [place] [address] Pascale Malin MD [address] [place] [address] documented as of this encounter Visit Diagnoses Not on filedocumented in this encounter Care Teams Roller Setter Relationship Specialty Start Date End Date Pascale Malin MD [address] [place] [address] PCP - General Family Medicine 07/01/18 documented as of this encounter
--- OUTSIDE RECORDS SUMMARY | 2024-10-05 11:12 | XMS_ITS | Encounter Summary ---
Author Organization [employer] Address [address] [facility] [address] [place] [address] Care Team Providers Care Surg Nurse Name Role Phone Pascale Malin MD Primary Care Provider + Reason for Visit * Reason Onset Date Comments Durable Medical Equipment 09/15/2024 Encounter Details Date Type Department Care Team ([facility] st Contact Info) Description 09/15/2024 Telephone [facility] MEDICINE [address] [place], [place] [phone] Pascale Malin MD [address] [place] [address] Durable Medical Equipment Social History Tobacco Use [...] encounter Miscellaneous Notes * Telephone Encounter - Myrna Pearson MA - 09/15/2024 10:40 AM EST DME for compression stockings initiated. Faxed to Toni ([phone]) documented in this encounter Plan of Treatment Upcoming Encounters Date Type Department Care Team (Late st Contact Info) Description 12/08/2024 10:15 AM EDT Office Visit [facility] MEDICINE [address] [place] [phone] Pascale Malin MD [address] [place] [phone] documented as of this encounter Visit Diagnoses Not on filedocumented in this encounter Additional Health Concerns Assessment Noted Time PHQ-9 Depression Total Score: 0 09/09/19 25 11:28 AM EST documented as of this encounter Care Teams Surg Nurse Relationship Specialty Start Date End Date Pascale Malin MD [address] [place] [phone] PCP - General Family Medicine 07/01/18 documented as of this encounter
--- OUTSIDE RECORDS SUMMARY | 2024-10-05 11:12 | XMS_ITS | Encounter Summary ---
Author Organization [employer] Address [address] [facility] 7t [place] [address] Care Team Providers Care Stone Planer Name Role Phone Pascale Malin MD Primary Care Provider + Encounter Details Date Type Department Care Team (Late st Contact Info) Description 09/13/2024 Orders Only [facility] External Provider, [facility] Social History Tobacco Use Types Packs/Day Years [...] Description 12/08/2024 10:15 AM EDT Office Visit [facility] MEDICINE [address] [place] [address] Pascale Malin MD [address] [place] [address] documented as of this encounter Procedures Procedure Name Priority Date/Time Associated Diagnosis Comments [facility] LOWER EXTREMITY VENOUS DUPLEX BILATERAL Routine 09/13/2024 10:31 AM EST documented in this encounter Results * [facility] Lower Extremity Venous Duplex Bilateral (09/13/2024 10:31 AM EST) 09/13/2024 10:3 1 AM EST Narrative [facility] - 09/15/2024 9:15 AM EST ? [facility] ?[address] ?[place] [address] ? Ultrasound Report ? Signed ? Patient: Rao,Ailyn E ?MR#: [id number] ?? [id number] ? : 1955 ?Acct:[id number] ? Age/Sex: 69 / F ?ADM Date: 01/27/25 ? Loc: HO.US ? Attending Dr: Mohini Saunedrs PA-C ? Ordering Physician: Mohini Saunders PA-C ?? Date of Service: 09/13/24 ?? Procedure(s): US venous duplex LE BI ?? Accession Number(s): [id number] ? cc: Pascale Malin MD; Mohini Saunders PA-C ? EXAMINATION: ?? US LOWER EXTREMITY VENOUS (REFLUX EXAM), BILATERAL ? CLINICAL INFORMATION: ?? Varices with inflammation. ? COMPARISON: ?? None. ? TECHNIQUE: ?? Color flow triplex imaging and compression Doppler was performed to ?? evaluate both the deep and the superficial systems bilaterally. To ?? evaluate the superficial system, the examination was performed in the ?? upright position. Color-flow Doppler ultrasound and compression ?? ultrasound were utilized. In addition, maneuvers were utilized to ?? demonstrate reflux. ? FINDINGS: ? 1. DEEP VENOUS ULTRASOUND OF THE RIGHT LOWER EXTREMITY: ?? Common Femoral Vein: Compressible, normal respiratory variation and ?? augmented flow. ? Femoral Vein: Compressible, normal color flow and augmentation. ?? Popliteal Vein: Compressible, normal augmentation. ? Deep Reflux: There is a 2020 ms in the popliteal vein. ? There is no evidence of a Lamb's cyst. ? There is a 2.2 cm heterogeneous hypoechoic abnormality within the soft ?? tissues, proximal medial thigh, demonstrated no flow on color Doppler ?? interrogation. ? 2. SUPERFICIAL ULTRASOUND WITH DOPPLER OF RIGHT LOWER EXTREMITY: ? GREAT SAPHENOUS VEIN: ?? Saphenofemoral Junction: 0.4 cm; Reflux: 0 ms ?? Proximal Thigh: 0.4 cm; Reflux: 0 ms ?? Mid Thigh: 0.3 cm; Reflux: 0 ms ?? Distal Thigh: 0.4 cm; Reflux: More than 2828 ms ?? At Knee: 0.4 cm; Reflux: 2412 ms ?? Proximal Calf: 0.4 cm; Reflux: No more than 3080 ms ?? Mid Calf: 0.2 cm; Reflux: 2832 ms ?? Distal Calf: 0.2 cm; Reflux: 0 ms ? DUPLICATED MEDIAL GREAT SAPHENOUS VEIN: ?? Diameter: None imaged ?? Reflux: NA ? DUPLICATED LATERAL GREAT SAPHENOUS VEIN: ?? Diameter: 0.2 cm. ?? Reflux: NA ? SMALL SAPHENOUS VEIN: ?? Saphenopopliteal Junction: 0.2 cm; Reflux: 0 ms ?? Proximal: 0.2 cm; Reflux: 0 ms ?? Distal: 0.1 cm; Reflux: 0 ms ? VEIN OF GIACOMINI: ?? Size: NA ?? Reflux: NA ? PERFORATORS: ?? Location: Mid to proximal calf. ?? Size: There is a range of 0.1-0.3 cm. ?? Reflux: 6952-7305 ms. ? VARICOSITIES: ?? Location: Proximal lateral accessory saphenous vein, mid thigh and ?? proximal calf. ?? Size: Range 0.3-0.4 cm. ?? Reflux: 1481-5501 ms. ? 3. DEEP VENOUS ULTRASOUND OF THE LEFT LOWER EXTREMITY: ?? Common Femoral Vein: Compressible, normal respiratory variation and ?? augmented flow. ? Femoral Vein: Compressible, normal color flow and augmentation. ?? Popliteal Vein: Compressible, normal augmentation. ? Deep Reflux: There is no evidence of reflux in the deep system in ?? either the common femoral vein, superficial femoral or the popliteal ?? vein. ? There is no evidence of a Lamb's cyst. ? 4. SUPERFICIAL ULTRASOUND WITH DOPPLER OF LEFT LOWER EXTREMITY: ? GREAT SAPHENOUS VEIN: ?? Saphenofemoral Junction: 1.0 cm; Reflux: 0 ms ?? Proximal Thigh: 0.3 cm; Reflux: 0 ms ?? Mid Thigh: 0.5 cm; Reflux: 932 ms ?? Distal Thigh: 0.6 cm; Reflux: 1628 ms ?? At Knee: 0.5 cm; Reflux: 1388 ms ?? Proximal Calf: 0.2 cm; Reflux: 0 ms ?? Mid Calf: 0.2 cm; Reflux: 0 ms ?? Distal Calf: 0.2 cm; Reflux: 0 ms ? DUPLICATED MEDIAL GREAT SAPHENOUS VEIN: ?? Diameter: None imaged ?? Reflux: NA ? DUPLICATED LATERAL GREAT SAPHENOUS VEIN: ?? Diameter: 0.4 cm. ?? Reflux: NA ? SMALL SAPHENOUS VEIN: ?? Saphenopopliteal Junction: 0.2 cm; Reflux: 0 ms ?? Proximal: 0.2 cm; Reflux: 0 ms ?? Distal: 0.2 cm; Reflux: 0 ms ? VEIN OF GIACOMINI: ?? Size: NA ?? Reflux: NA ? PERFORATORS: ?? Location: Mid calf. ?? Size: 0.1 cm. ?? Reflux: NA ? VARICOSITIES: ?? Location: Small saphenous vein, mid segment. Accessory saphenous vein, ?? proximal segment. Proximal thigh and proximal calf. ?? Size: Range 0.4-0.5 cm. ?? Reflux: 1040 ms in the calf region. ? US/ venous duplex LE BI ?? IMPRESSION: ?? Right: Venous insufficiency, great saphenous vein from above the knee ?? to the mid calf. Varices in the mid thigh and proximal calf with ?? reflux. Perforators in the proximal calf with reflux. ? 2.2 cm soft tissue abnormality/lesion, proximal mid right thigh. ? Left: Venous insufficiency, great saphenous vein from the mid thigh to ?? the knee. Varices in the proximal thigh and proximal calf with reflux ?? in the proximal calf. Perforators in the mid calf. ? Electronically signed by: ??Rolando Hernandez MD ??09/15/2024 09:13 AM ?? EST RP ? Dictated By: ?Rolando Funez MD ? Signed By: ?<Electronically signed by Rolando Aragon MD in OV> ? 09/15/24 0913 ? DD/ 1031 ? TD/TT: 09/13/24 1126 ? Saddle Cutter: ? Procedure Note Kasey, Image - 09/15/2024 [place] [address] Ultrasound Report Signed Patient: Ailyn Rao EMR#: [id number] : 3Acct:[id number] Age/Sex: 69 / FADM Date: 09/13/24 Loc: HO.US Attending Dr: Mohini Saunders PA-C Ordering Physician: Mohini Saunders PA-C Date of Service: 09/13/24 Procedure(s): US venous duplex LE BI Accession Number(s): [id number] cc: Pascale Malin MD; Mohini Saunders PA-C EXAMINATION: US LOWER EXTREMITY VENOUS (REFLUX EXAM), BILATERAL CLINICAL INFORMATION: Varices with inflammation. COMPARISON: None. TECHNIQUE: Color flow triplex imaging and compression Doppler was performed to evaluate both the deep and the superficial systems bilaterally. To evaluate the superficial system, the examination was performed in the upright position. Color-flow Doppler ultrasound and compression ultrasound were utilized. In addition, maneuvers were utilized to demonstrate reflux. FINDINGS: 1. DEEP VENOUS ULTRASOUND OF THE RIGHT LOWER EXTREMITY: Common Femoral Vein: Compressible, normal respiratory variation and augmented flow. Femoral Vein: Compressible, normal color flow and augmentation. Popliteal Vein: Compressible, normal augmentation. Deep Reflux: There is a 2020 ms in the popliteal vein. There is no evidence of a Lamb's cyst. There is a 2.2 cm heterogeneous hypoechoic abnormality within the soft tissues, proximal medial thigh, demonstrated no flow on color Doppler interrogation. 2. SUPERFICIAL ULTRASOUND WITH DOPPLER OF RIGHT LOWER EXTREMITY: GREAT SAPHENOUS VEIN: Saphenofemoral Junction: 0.4 cm; Reflux: 0 ms Proximal Thigh: 0.4 cm; Reflux: 0 ms Mid Thigh: 0.3 cm; Reflux: 0 ms Distal Thigh: 0.4 cm; Reflux: More than 2828 ms At Knee: 0.4 cm; Reflux: 2412 ms Proximal Calf: 0.4 cm; Reflux: No more than 3080 ms Mid Calf: 0.2 cm; Reflux: 2832 ms Distal Calf: 0.2 cm; Reflux: 0 ms DUPLICATED MEDIAL GREAT SAPHENOUS VEIN: Diameter: None imaged Reflux: NA DUPLICATED LATERAL GREAT SAPHENOUS VEIN: Diameter: 0.2 cm. Reflux: NA SMALL SAPHENOUS VEIN: Saphenopopliteal Junction: 0.2 cm; Reflux: 0 ms Proximal: 0.2 cm; Reflux: 0 ms Distal: 0.1 cm; Reflux: 0 ms VEIN OF GIACOMINI: Size: NA Reflux: NA PERFORATORS: Location: Mid to proximal calf. Size: There is a range of 0.1-0.3 cm. Reflux: 9948-5200 ms. VARICOSITIES: Location: Proximal lateral accessory saphenous vein, mid thigh and proximal calf. Size: Range 0.3-0.4 cm. Reflux: 3832-1107 ms. 3. DEEP VENOUS ULTRASOUND OF THE LEFT LOWER EXTREMITY: Common Femoral Vein: Compressible, normal respiratory variation and augmented flow. Femoral Vein: Compressible, normal color flow and augmentation. Popliteal Vein: Compressible, normal augmentation. Deep Reflux: There is no evidence of reflux in the deep system in either the common femoral vein, superficial femoral or the popliteal vein. There is no evidence of a Lamb's cyst. 4. SUPERFICIAL ULTRASOUND WITH DOPPLER OF LEFT LOWER EXTREMITY: GREAT SAPHENOUS VEIN: Saphenofemoral Junction: 1.0 cm; Reflux: 0 ms Proximal Thigh: 0.3 cm; Reflux: 0 ms Mid Thigh: 0.5 cm; Reflux: 932 ms Distal Thigh: 0.6 cm; Reflux: 1628 ms At Knee: 0.5 cm; Reflux: 1388 ms Proximal Calf: 0.2 cm; Reflux: 0 ms Mid Calf: 0.2 cm; Reflux: 0 ms Distal Calf: 0.2 cm; Reflux: 0 ms DUPLICATED MEDIAL GREAT SAPHENOUS VEIN: Diameter: None imaged Reflux: NA DUPLICATED LATERAL GREAT SAPHENOUS VEIN: Diameter: 0.4 cm. Reflux: NA SMALL SAPHENOUS VEIN: Saphenopopliteal Junction: 0.2 cm; Reflux: 0 ms Proximal: 0.2 cm; Reflux: 0 ms Distal: 0.2 cm; Reflux: 0 ms VEIN OF GIACOMINI: Size: NA Reflux: NA PERFORATORS: Location: Mid calf. Size: 0.1 cm. Reflux: NA VARICOSITIES: Location: Small saphenous vein, mid segment. Accessory saphenous vein, proximal segment. Proximal thigh and proximal calf. Size: Range 0.4-0.5 cm. Reflux: 1040 ms in the calf region. US/US venous duplex LE BI IMPRESSION: Right: Venous insufficiency, great saphenous vein from above the knee to the mid calf. Varices in the mid thigh and proximal calf with reflux. Perforators in the proximal calf with reflux. 2.2 cm soft tissue abnormality/lesion, proximal mid right thigh. Left: Venous insufficiency, great saphenous vein from the mid thigh to the knee. Varices in the proximal thigh and proximal calf with reflux in the proximal calf. Perforators in the mid calf. Electronically signed by: Rolando Hernandez MD 09/15/2024 09:13 AM EST Dictated By: Rolando Funez MD Signed By: <Electronically signed by Rolando Aragon MDin OV> 09/15/24 0913 DD/ 1031 TD/TT: 09/13/24 1126 Saddle Cutter: [facility] External Provider CV VASC ULAR PROCEDURES Edited Result - Final [facility] [address] [place] [address] documented in this encounter Visit Diagnoses Not on filedocumented in this encounter Additional Health Concerns Assessment Noted Time PHQ-9 Depression Total Score: 0 09/09/19 25 11:28 AM EST documented as of this encounter Care Teams Stone Planer Relationship Specialty Start Date End Date Pascale Malin MD [address] [place] [phone] PCP - General Family Medicine 07/01/18 documented as of this encounter
--- OUTSIDE RECORDS SUMMARY | 2024-10-05 11:12 | XMS_ITS | Encounter Summary ---
Author Organization [employer] Address [address] [facility] 7t [place] [address] Care Team Providers Care Telephone Order Dispatcher Name Role Phone Pascale Malin MD Primary Care Provider + Reason for Visit * Reason Onset Date Comments appt prophy 03/18/2023 Encounter Details Date Type Department Care Team (Late st Contact Info) Description 03/18/[address] [facility] ADULT DENTAL [address] [place], [place] [phone] Sharonda, Lidia [address] [place] [address] appt prophy Social History Tobacco Use Types [...] [facility] MED[facility]INE [address] [place] [address] Pascale Malin MD [address] [place] [phone] documented as of this encounter Visit Diagnoses Not on filedocumented in this encounter Care Teams Telephone Order Dispatcher Relationship Specialty Start Date End Date Pascale Malin MD [address] [place] [phone] PCP - General Family Medicine 07/01/18 documented as of this encounter
--- OUTSIDE RECORDS SUMMARY | 2024-10-05 11:12 | XMS_ITS | Clinical Summary ---
Author Organization [employer] Address [address] [facility] 7t [place] [address] Care Team Providers Care Supervisor Cemetery Workers Name Role Phone Pascale Malin MD Primary [...] or any other acute issue Fractured dental protestant with loss of materi al 05/02/2023 Dental [...] Encounters Date Type Department Care Team Description 09/15/2024 Telephone [facility] MEDICINE [address] [place] [phone] Pascale Malin MD Durable Medical Equipment 09/13/2024 Orders Only [facility] External Provider, [employer] 09/10/2024 Telephone [facility] MEDICINE [address] [place] [address] Pascale Malin MD Durable Medical Equipment 09/09/2024 11:15 AM EST Office Visit [address] [address] Pascale Malin MD Essential hypertension (Primary Dx); Psoriasis with arthropathy (CMS/HCC); 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); Varicose veins of left lower extremity with inflammation; Sensorineural hearing loss, bilateral 09/09/2024 Travel 08/30/2024 Patient Outreach [facility] MEDICINE [address] [place] [address] Pascale Malin MD Pre-visit Planning ((Unable to reach for PVP screening, LVM)) 07/05/2024 Telephone [facility] MEDICINE [address] [place] [address] Pascale Malin MD August recall from Last 3 Months Immunizations Name Administration [...] Description 12/08/2024 10:15 AM EDT Office Visit [facility] MEDICINE [address] [place] [address] Pascale Malin MD [address] [place] [address] Health Maintenance Due Date Last Done Comments [...] Vaccines Completed 01/07/2013, 11/03/2012, 09/03/2012 Pneumococcal Vaccine: 50+ Years Completed 03/25/2024, 04/27/2021 Influenza Vaccine Completed 05/04/2024, , 05/18/2022, Additional history exists RSV Patients and Patients Aged 60 years or older Completed 05/27/2024 Zoster Vaccines Completed 05/27/2024, 08/0 03/2024, 11/04/2015, Additional history exists HIB Vaccines [...] Procedure Name Priority Date/Time Associated Diagnosis Comments [facility] LOWER EXTREMITY VENOUS DUPLEX BILATERAL Routine 09/13/2024 10:31 AM EST Full PROPHYLAXIS - ADULT Routine 02/26/2024 10:00 AM EDT Dental calculus INTRAORAL - COMPLETE SERIES OF RADIOGRAPHIC IMAGES Routine 02/26/2024 10:00 [...] Recently Relevant to Health Maintenance Results * [facility] Lower Extremity Venous Duplex Bilateral (09/13/2024 10:31 AM EST) 09/13/2024 10:3 1 AM EST Narrative [facility] IMAGING - 09/15/2024 9:15 AM EST ? [facility] ?[address] ?[place] [address] ? Ultrasound Report ? Signed ? Patient: Rao,Ailyn E ?MR#: [id number] ?? [id number] ? : 1955 ?Acct:[id number] ? Age/Sex: 69 / F ?ADM Date: 09/13/24 ? Loc: HO.US ? Attending Dr: Mohini Saunders PA-C ? Ordering Physician: Mohini Saunders PA-C ?? Date of Service: 09/13/24 ?? Procedure(s): US venous duplex LE BI ?? Accession Number(s): [id number] ? cc: Pascale Malin MD; Mohini Saunders [...] a range of 0.1-0.3 cm. ?? Reflux: 1850-2373 ms. ? VARICOSITIES: ?? Location: Proximal lateral accessory saphenous vein, mid thigh and ?? proximal calf. ?? Size: Range 0.3-0.4 cm. ?? Reflux: 2043-4340 ms. ? 3. DEEP VENOUS ULTRASOUND OF [...] 1040 ms in the calf region. ? US/US venous duplex LE BI ?? IMPRESSION: ?? [...] Hernandez MD ??09/15/2024 09:13 AM ?? EST ? Dictated By: ?Rolando Funez MD ? Signed By: ?<Electronically signed by Rolando Aragon MD in OV> ? 09/15/24 0913 ? DD/ 1031 ? TD/TT: 09/13/24 1126 ? Nutritional Services Director: ? Procedure Note Charlee Parks - 09/15/[address] [address] Ultrasound Report Signed Patient: Amanda Raoarita EMR#: [id number] : 3Acct:[id number] Age/Sex: 69 / FADM Date: 09/13/24 Loc: . Attending Dr: Mohini Saunders PA-C Ordering Physician: Mohini Saunders PA-C Date of Service: 09/13/24 Procedure(s): US venous duplex LE BI Accession Number(s): [id number] cc: Pascale Malin MD; Mohini Saunders PA-C [...] is a range of 0.1-0.3 cm. Reflux: 4508-6535 ms. VARICOSITIES: Location: Proximal lateral accessory saphenous vein, mid thigh and proximal calf. Size: Range 0.3-0.4 cm. Reflux: 8114-3127 ms. 3. DEEP VENOUS ULTRASOUND OF THE [...] Rolando Hernandez MD 09/15/2024 09:13 AM EST RP Dictated By: Rolando Funez MD Signed By: <Electronically signed by Rolando Aragon MDin OV> 09/15/24 0913 DD/ 1031 TD/TT: 09/13/24 1126 Nutritional Services Director: [facility] External Provider CV VASC ULAR PROCEDURES Edited Result - Final [facility] IMAGING [address] [place] [phone] * (ABNORMAL) Lipid Panel with Reflex to Direct LDL (08/15/2022 10:03 AM EST) Cholesterol, Total 185 <200 mg/dL [facility] HDL Cholesterol 63 > OR = 50 mg/dL [facility] Triglycerides 71 <150 mg/dL [facility] LDL Cholesterol 106(H) mg/dL (calc) [facility] Comment: Reference range: <100 Desirable range <100 mg/dL for primary prevention; ?? <70 mg/dL for patients with CHD or diabetic patients with > or = 2 CHD risk factors. LDL-C is now calculated using the Ariel-Kalyani calculation, which is a validated novel method providing better accuracy than the Friedewald equation in the estimation of LDL-C. Ariel SS et al. ANDRADE. 2013;310(19): 9800-4495 (http://education.mysportgroup.GoBeMe/faq/WNW488) Chol/HDLC Ratio 2.9 <5.0 (calc) [facility] Non-HDL Cholesterol 122 <130 mg/dL (calc) [facility] Comment: For patients with diabetes plus 1 major ASCVD risk factor, treating to a non-HDL-C goal of <100 mg/dL (LDL-C of <70 mg/dL) is considered a therapeutic option. 08/15/2022 10:0 3 AM EST 08/15/2022 10:03 AM EST Narrative [facility] - 08/15/2022 9:29 PM EST FASTING:YES FASTING: YES Pascale Malin MD LAB BLOOD ORDERABLES Fin al Result [facility] [address] [facility], [facility], [place] [address] [facility] [address] [facility], ([address]) [place] [address] * Mammography Report 1 (06/14/2021 10:30 AM EDT) Anatomical Region Laterality Modality Breast Bilateral Mammography 06/14/2021 10:3 0 AM EDT Narrative 06/15/2021 8:37 AM EDT Refer to the Notes tab for result details [facility] Procedure: Mammography Report 1 Procedure Note Provider, Foreign, - 11/10/2022 Refer to the Notes tab for result details [facility] Procedure: Mammography Report 1 Pascale Malin MD IMG BI PROCEDURES Final Result * [facility] Colonoscopy (08/05/2017 9:34 AM EST) Historical Provider HEALTH MAINTENANCE Final Result from Last 3 Months or Most Recently Relevant to Health Maintenance Insurance [facility] Care Teams Supervisor Cemetery Workers Relationship Specialty Start Date End Date Pascale Malin MD [address] [place] [phone] PCP - General Family Medicine 07/01/18
--- OUTSIDE RECORDS SUMMARY | 2024-10-05 11:12 | XMS_ITS | Encounter Summary ---
Author Organization [employer] Address [address] [place] [address] [address] [place] [address] Care Team Providers Care Junior Bookkeeper Name Role Phone Pascale Malin MD Primary Care Provider + Encounter Details Date Type Department Care Team (Late Contact Info) Description 05/01/2023 Abstract [facility] ADULT DENTAL [address] [place] [address] Lidia Mcdonough [address] [place] [address] Social History Tobacco Use Types Packs/Day Years [...] Description 12/08/2024 10:15 AM EDT Office Visit [facility] MEDICINE [address] [place] [address] Pascale Malin MD [address] [place], [place] [phone] documented as of this encounter Visit Diagnoses Not on filedocumented in this encounter Care Teams Junior Bookkeeper Relationship Specialty Start Date End Date Pascale Malin MD [address] [place] [phone] PCP - General Family Medicine 07/01/18 documented as of this encounter
--- OUTSIDE RECORDS SUMMARY | 2024-10-05 11:12 | XMS_ITS | Encounter Summary ---
Author Organization [facility] Address [address] [facility] 7t [place] [address] Care Team Providers Care Cane Flume Chute Operator Name Role Phone Pascale Malin MD Primary Care Provider + Encounter Details Date Type Department Care Team (Latest Contact Info) Description 11/02/2020 Abstract [facility] CONVERSIONS Dental, Provider, DDS Social [...] Office Visit [facility] MEDICINE [address] [place] [address] Pascale Malin MD [address] [place] [address] documented as of this encounter Visit Diagnoses Not on filedocumented in this encounter Care Teams Cane Flume Chute Operator Relationship Specialty Start Date End Date Pascale Malin MD [address] [place] [address] PCP - General Family Medicine 07/01/18 documented as of this encounter
--- OUTSIDE RECORDS SUMMARY | 2024-10-05 11:12 | XMS_ITS | Encounter Summary ---
Author Organization [employer] Address [address] [facility] 7t [place] [address] Care Team Providers Care Airplane And Engine Inspector Name Role Phone Pascale Malin MD Primary Care Provider + Reason for Visit * Reason Onset Date Comments Hospital Follow-up 03/15/2024 Encounter Details Date Type Department Care Team ([facility] st Contact Info) Description 03/15/2024 Telephone [facility] MEDICINE [address] [place], [place] [phone] Pascale Malin MD [address] [place], [place] [phone] Hospital Follow-up Social History Tobacco Use Types [...] from pt requesting a HDF appt. Hospital: [facility] Date of admission: 03/11 Discharge date: 03/13 Diagnosed: Leg Pain documented in this encounter Plan of Treatment Upcoming Encounters Date Type Department Care Team (Late st Contact Info) Description 12/08/2024 10:15 AM EDT Office Visit [facility] MEDICINE [address] [place] [address] Pascale Malin MD [address] [place] [phone] documented as of this encounter Visit Diagnoses Not on filedocumented in this encounter Care Teams Airplane And Engine Inspector Relationship Specialty Start Date End Date Pascale Malin MD [address] [place] [phone] PCP - General Family Medicine 07/01/18 documented as of this encounter
--- OUTSIDE RECORDS SUMMARY | 2024-10-05 11:12 | XMS_ITS | Encounter Summary ---
Author Organization [employer] Address [address] [facility] 7t [place] [address] Care Team Providers Care Life Enrichment Director Name Role Phone Pascale Malin MD Primary Care Provider + Encounter Details Date Type Department Care Team (Late st Contact Info) Description 01/14/2024 Orders Only [facility] MEDICINE [address] [place] [address] Provider, MD Foreign Social History Tobacco Use [...] 10:15 AM EDT Office Visit [facility] MEDICINE [address] [place] [address] Pascale Malin MD [address] [place] [address] documented as of this encounter Procedures Procedure Name Priority Date/Time Associated Diagnosis Comments [facility] COLONOSCOPY Routine 08/05/2017 9:34 AM EST documented in this encounter Results * [facility]m Colonoscopy (08/05/2017 9:34 AM EST) Historical Provider HEALTH MAINTENANCE Final Result documented in this encounter Visit Diagnoses Not on filedocumented in this encounter Care Teams Life Enrichment Director Relationship Specialty Start Date End Date Pascale Malin MD [address] [place] [address] PCP - General Family Medicine 07/01/18 documented as of this encounter
--- OUTSIDE RECORDS SUMMARY | 2024-10-05 11:12 | XMS_ITS | Patient Health Record ---
Author Organization [facility] Address [address] [place] [phone] Care Team Providers Care Video Network Engineer Name Role Phone Theo Umm Primary Care Provider Leeroy Estrada [phone] ALLERGIES Allergen (clinical drug ingredient) Drug/Non Drug [...] screening (V76.51) Active confirmed Colon cancer screening (815572910) Problem History of adenomatous polyp of colon (V12.72) Active confirmed History of adenomatous polyp of colon (699986684) PLAN OF TREATMENT Future Test Test Name Order Date COLONOSCOPY 05/04/2013 Insurance Providers Payer Name Payer Address Payer Phone Subscriber Number Group Number Insured Name Patient Relationship to Insured Coverage Start Date Coverage End Date [facility] [address] [place] [address] [phone] [id number] NIKOLAS LINDSEY Self - patient is the insured [facility] [address] [place] [address] [phone] [id number] NIKOLAS LINDSEY Self - patient is the insured MEDICAL (GENERAL) HISTORY Medical History History ICD Code colonoscopy 06-08-2008 and 2 005 negative-lipomatous ICV, diverticulosis, internal hemorrhoids colon polyps-tubular adenoma removed in 2001 Depression Hyperlipidemia Denies NC,DM,CVA,Lung disease,renal dise ase Fibromyalgiua Surgical History Surgery Date(Month/Year) Abdominal wall hernia left shoulder surgery 2011 Gastric bypass Carpal tunnel bilateral Breast reduction and panniculectomy afte r weight loss
--- OUTSIDE RECORDS SUMMARY | 2024-10-05 11:13 | XMS_ITS | Encounter Summary ---
Author Organization [employer] Address [address] [facility] 7[address] [place] [address] Care Team Providers Care Occupational Therapy Specialist Name Role Phone Pascale Malin MD Primary Care Provider + Reason for Visit * Reason Comments Follow-up Encounter Details Date Type Department Care Team ([facility] st Contact Info) Description 09/09/2024 11:15 AM EST Office Visit [facility] [address] [place], [place] [phone] Pascale Malin MD [address] [place], [place] [phone] Essential hypertension (Primary Dx); Psoriasis with arthropathy [...] 11:26 AM EST documented in this encounter Progress Notes * Pascale Malin MD - 09/09/2024 11:15 AM EST SUBJECTIVE: Ailyn Rao is a 69 y.o. year old female who presents for follow up. Denies recent illness, injury, or hospitalization. Pt is here for FU on HTN. She is overall doing well. She lives with her family and feels happy. She no longer sees a therapist and is not currently taking medications for the depression. Acute Concerns: Pt complains of leg and foot pain. She complains of numbness and tingling sensations since this morning. Social History Social History Narrative Not on file Patient Active Problem List Diagnosis Aortic cusp regurgitation Aortic valve stenosis Atypical ductal hyperplasia of breast Diastolic dysfunction Disorder of bone and articular cartilage Essential hypertension Fibromyositis Greater trochanteric bursitis of left hip Hyperkalemia Hyperlipidemia Neuropathy Obesity Osteoarthritis Osteopenia Plantar fasciitis Psoriasis with arthropathy (CMS/HCC) 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) Sensorineural hearing loss, bilateral Slow transit constipation Spasm of cervical paraspinous muscle Urge incontinence of urine Tubular adenoma of colon Vertigo Vitamin D deficiency Initial patient encounter Angiomyolipoma Pica in adults Epidermoid cyst of eyelid, right Iron deficiency anemia Intramural uterine fibroid Dental calculus Partial edentulism Generalized gingival recession Periodontal disease Fractured dental pentecostalism with loss of material Preoperative clearance Folliculitis of axilla Subacute maxillary sinusitis Encounter for immunization Varicose veins of left lower extremity with inflammation Fracture of removable partial denture Ill-fitting dentures No family history on file. Review of Systems Constitutional: Negative for chills, fatigue and fever. HENT: Positive for hearing loss. Negative for congestion, ear pain, nosebleeds, rhinorrhea, sinus pressure, sore throat and trouble swallowing. Eyes: Negative for pain and discharge. Respiratory: Negative for cough, chest tightness and shortness of breath. Cardiovascular: Negative for chest pain, palpitations and leg swelling. Gastrointestinal: Negative for abdominal pain, blood in stool, constipation, diarrhea and nausea. Endocrine: Negative for polydipsia and polyuria. Genitourinary: Negative for dysuria, frequency, genital sores, pelvic pain and vaginal discharge. Musculoskeletal: Positive for arthralgias and gait problem. Negative for back pain and neck pain. Skin: Negative for rash. Allergic/Immunologic: Negative for environmental allergies. Neurological: Negative for dizziness, seizures, weakness, light-headedness and headaches. Hematological: Negative for adenopathy. Psychiatric/Behavioral: Negative for agitation, behavioral problems, self-injury and suicidal ideas. OBJECTIVE: Vitals: 09/09/24 1126 09/09/24 1215 BP: (!) 153/85 140/90 BP Location: Left arm Left arm Patient Position: Sitting Sitting BP Cuff Size: Large adult Adult long Pulse: 89 Resp: 20 Temp: 97.5 ??F (36.4 ??C) TempSrc: Temporal Weight: 325 lb 6.4 oz (148 kg) Height: 5' 2 (1.575 m) Physical Exam Constitutional: Appearance: Normal appearance. HENT: Right Ear: Tympanic membrane and ear canal normal. Left Ear: Tympanic membrane and ear canal normal. Mouth/Throat: Mouth: Mucous membranes are moist. Pharynx: No oropharyngeal exudate or posterior oropharyngeal erythema. Eyes: Pupils: Pupils are equal, round, and reactive to light. Cardiovascular: Rate and Rhythm: Normal rate and regular rhythm. Pulses: Normal pulses. Dorsalis pedis pulses are 2+ on the right side and 2+ on the left side. Posterior tibial pulses are 2+ on the right side and 2+ on the left side. Heart sounds: Murmur heard. Crescendo systolic murmur is present with a grade of 3/6. Comments: Bilateral LE varicosities, no skin changes or ulcers Pulmonary: Breath sounds: Normal breath sounds. No wheezing. Abdominal: General: Bowel sounds are normal. Palpations: Abdomen is soft. Tenderness: There is no abdominal tenderness. Musculoskeletal: General: No tenderness. Normal range of motion. Cervical back: Normal range of motion and neck supple. No tenderness. Right foot: No deformity. Left foot: No deformity. Feet: Right foot: Protective Sensation: 7 sites tested. 7 sites sensed. Skin integrity: No ulcer or fissure. Toenail Condition: Right toenails are normal. Left foot: Protective Sensation: 7 sites tested. 7 sites sensed. Skin integrity: No ulcer or fissure. Toenail Condition: Left toenails are normal. Comments: Dark coloration in the mid of right great toenail, no fungal infection or paronychia. Skin: General: Skin is warm. Neurological: General: No focal deficit present. Mental Status: She is alert and oriented to person, place, and time. Psychiatric: Mood and Affect: Mood normal. Behavior: Behavior normal. Problem List Items Addressed This Visit Essential hypertension - Primary Uncontrolled today, unclear if related to leg pain. Advised to check BP at home daily for next 2 weeks and call back if BP is above 140/90, otherwise FU in 3 months. Continue Lisinopril 10 mg and FU with cardiology next month. Relevant Orders Basic Metabolic Panel Lipid Panel with Reflex to Direct LDL Psoriasis with arthropathy (CMS/HCC) She is doing well on Clobetasol but unfortunately insurance does not cover it today. Will check with insurance to see alternative treatment, otherwise will refer to dermatology. Relevant Orders CBC auto differential Vitamin D, 25-Hydroxy, Total, Immunoassay 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) Doing well off therapy and medications. She feels safe at home and is able to reach out to safety, re consult PRN. Varicose veins of left lower extremity with inflammation Prescription of compression pantyhose that will not draw down the legs. FU with vascular surgery. Sensorineural hearing loss, bilateral Refer to new hearing evaluation. Follow Up: Current Outpatient Medications on File Prior to Visit Medication Sig Dispense Refill ammonium lactate (Amlactin) 12 % cream use daily on affected area atorvastatin (Lipitor) 80 MG tablet Take 1 tablet (80 mg) by mouth Once per day. 90 tablet 1 Blood Pressure kit Use as directed cycloSPORINE (Restasis) 0.05 % ophthalmic emulsion INSTILL 1 DROP IN BOTH EYES TWICE DAILY ferrous sulfate (Fe Tabs) 325 (65 Fe) MG EC tablet Take 1 tablet (325 mg) by mouth with breakfast. Do not crush, chew, or split. 90 tablet 0 Gemtesa 75 MG tablet Take 1 tablet by mouth Once per day. lisinopril 10 MG tablet TAKE 1 TABLET BY MOUTH EVERY MORNING 90 tablet 1 loratadine (Claritin) 10 MG tablet Take 1 tablet (10 mg) by mouth in the morning. 30 tablet 11 meclizine (Antivert) 12.5 MG tablet take 1-2 tablet by oral route 3 times every day as needed Multiple Vitamins-Minerals (multivitamin with minerals) tablet Take 1 tablet by mouth in the morning. 90 tablet 3 No current facility-administered medications on file prior to visit. I, Lissett Reno, am serving as a scribe to document services personally performed by Dr. Pascale Malin, based on the patient's response to questions by provider and provider's statements to me. documented in this encounter Miscellaneous Notes * [...] 10:15 AM EDT Office Visit [facility] [address] [place] [phone] Pascale Malin MD [address] [place] [address] Scheduled Orders Name Type Priority Associated Diagnoses Orde r Schedule CBC auto differential Lab Routine Psoriasis with arthropathy (CMS/HCC) Expected: 09/09/2024 (Approximate), Expires: 09/09/2025 Basic Metabolic Panel Lab Routine Essential hypertension Expected: 09/09/2024 (Approximate), Expires: 09/09/2025 Vitamin D, 25-Hydroxy, Total, Immunoassay Lab Routine Psoriasis with arthropathy (CMS/HCC) Expected: 09/09/2024 (Approximate), Expires: 09/09/2025 Lipid Panel with Reflex to Direct LDL Lab Routine Essential hypertension Expected: 09/09/2024 (Approximate), Expires: 09/09/2025 documented as of this encounter Visit Diagnoses Diagnosis Essential hypertension- Primary Unspecified essential hypertension Psoriasis with arthropathy ([facility]/HCC) Psoriatic arthropathy Recurrent major depression in remission ([facility]) Major depressive disorder, recurrent episode, in full remission Varicose veins of left lower extremity with inflammation Sensorineural hearing loss, bilateral documented in this encounter Additional Health Concerns Assessment Noted Time PHQ-9 Depression Total Score: 0 09/09/19 25 11:28 AM EST documented as of this encounter Care Teams Occupational Therapy Specialist Relationship Specialty Start Date End Date Pascale Malin MD [address] [place] [id number] PCP - General Family Medicine 07/01/18 documented as of this encounter
--- OUTSIDE RECORDS SUMMARY | 2024-10-05 11:13 | XMS_ITS | Data Portability ---
Author Organization [employer] [facility] Address [address] [place] [phone] Care Team Providers Care Grad Intern Name Role Phone HIM CCA OTHER Assessment Encounter Date Assessment Date Assessment LastModified by Organization Details LastModified Time 03/22/2024 03/22/2024 I provided real -time medical direction via phone for this encounter and was available for additional phone-based assistance as needed. I have reviewed and agree with the Assessment and Plan as documented by the Ceramic Engineering Professor. Patient given the opportunity to ask questions. [...] ED and both were reassuringly negative. Per cutter and paster press clippings on the scene, vital signs are stable [...] Not available Not available Not available 03/23/2024 [id number] RxNorm Fariha Sams MD [address] [place] [address],[address], [place], [phone], [employer] Compare 4 07:45:17 [id number] codeine medicatio n Not available Not available Not available 03/23/2024 [id number] RxNobeckie Sams MD [address] [place] [address],[address], [place], [phone], [employer] 4 07:45:23 Medications Name Sig Start Date [...] Updated DateTime 4 97.7 [degF] 16 /min 382195. 44 g 154.94 cm 86 /min 98 % 98 % 136 mm[Hg] 75 mm[Hg] Not Available Flight Steward - production 4 07:41:09 Social History None recorded. Functional Status None recorded. Mental Status None recorded. Family History Nothing Reported. Medical History No medical history recorded. Gynecological HistoryNo gynecological history recorded. Obstetrics History GPAL:G 0 P 0 0 0 0 Past Encounters Encounter ID Performer Location Encounter Start Date Encounter Closed Date Diagnosis/Indication Diagnosis SNOMED-CT Code Diagnosis ICD10 Code Diagnosis Note [id number] Fariha Sams MD [facility] [address] [place] [phone] 03/23/2024 07:41:00 03/23/2024 11:06:40 Pruritic rash [id number] L28.2 Health Concerns Section Related Observation LastModified by Organization Detai ls LastModified Time None Recorded Concern Status LastModified by Organization Details LastModified Time None Recorded Advance Directives Directive None Recorded Payers Encounter Date Sequence Insurance Name Policy Number Policy Samuels Covered Member ID Samuels Member ID Guarantor Name 03/22/2024 1 [facility] - DOS ON OR AFTER 2022 - DUAL ELIGIBLE - RESIDENTIAL OPTIONS AND ONE CARE (MEDICARE REPLACEMENT/AD VANTAGE - HMO) Ailyn Rao [id number] Ailyn Rao Notes Date Note Type Note [...] .................. .................. .................. .................. .................. .................. ............... Ceramic Engineering Professor Note From Randy Painter: Pt reports having a small area on her left anterior sims of localized redness, edema and pain/itching/burni ng. Pt was seen at [facility], inpatient for three days, had negative ultrasound, [...] .................. ............... Disposition: Armando Sams MD [address] [facility], [place], [phone], JENNIFER Ibanez [employer] [place] 03/23/2024 07:46:13 OBGyn Episode No OBEpisode recorded.
--- OUTSIDE RECORDS SUMMARY | 2024-10-05 11:13 | XMS_ITS | Encounter Summary ---
Author Organization [employer] Address [address] [facility] 7[address] [place] [address] Care Team Providers Care Care Giver Name Role Phone Pascale Malin MD Primary Care Provider + Reason for Visit * Reason Onset Date Comments Durable Medical Equipment 09/10/2024 Encounter Details Date Type Department Care Team ([facility] st Contact Info) Description 09/10/2024 Telephone [facility] [address] [place], [place] [phone] Pascale Malin MD [address] [place] [address] Durable Medical Equipment Social History Tobacco Use [...] 10:15 AM EDT Office Visit [facility] [address] [place], [place] [phone] Pascale Malin MD [address] [place] [phone] documented as of this encounter Visit Diagnoses Not on filedocumented in this encounter Additional Health Concerns Assessment Noted Time PHQ-9 Depression Total Score: 0 09/09/19 25 11:28 AM EST documented as of this encounter Care Teams Care Giver Relationship Specialty Start Date End Date Pascale Malin MD [address] [place] [address] PCP - General Family Medicine 07/01/18 documented as of this encounter
--- OUTSIDE RECORDS SUMMARY | 2024-10-05 11:13 | XMS_ITS | Encounter Summary ---
Author Organization [employer] [facility] Address [address] [facility] 7[address] [place] [address] Care Team Providers Care Decker Operator Name Role Phone Pascale Malin MD [...] Description 12/08/2024 10:15 AM EDT Office Visit [facility] [address] [place] [address] Pascale Malin MD [address] [place] [phone] documented as of this encounter Visit Diagnoses Not on filedocumented in this encounter Additional Health Concerns Assessment Noted Time PHQ-9 Depression Total Score: 0 09/09/19 25 11:28 AM EST documented as of this encounter Care Teams Decker Operator Relationship Specialty Start Date End Date Pascale Malin MD [address] [place] [address] PCP - General Family Medicine 07/01/18 documented as of this encounter
== END 2024-10-05 10:41 | disposition home or self-care (01) ==
PROVIDERS: PCP Internal Medicine; Visit Provider Surgery Vascular Surgery
DX: I83.11 Varicose veins of right lower extremity with inflammation (principal)
CPT/HCPCS: 99214

== ENCOUNTER → 2024-10-05 10:14 | Outpatient (BNVA) | payer OTHER, SELFPAY | PROVIDERS: PCP Internal Medicine; Visit Provider Surgery Vascular Surgery | DX: I83.11 Varicose veins of right lower extremity with inflammation (principal); E66.01 Morbid (severe) obesity due to excess calories | CPT/HCPCS: 99212 ==

== ENCOUNTER 2024-11-12 13:32 | Outpatient (AMB) | payer OTHER, SELFPAY ==
[2024-11-15 08:02] VITALS: BMI 62.7
--- NOTE | 2024-11-15 08:02 | A.OFFVIS_ITS ---
Vital Signs 11/15/24 08:02 Height 5 ft 1 in Weight 332 lb BMI 62.7 Intake Visit Reasons: Right Venaseal Polisher Brass Required: No Accompanied by: Self / Same As Patient Allergies codeine [CODEINE] Allergy (Unknown, Verified 11/15/24 08:02) STOMACH PAIN, vomiting PFSH Medical History Epidermal cyst of face Overactive bladder Urinary incontinence Osteopenia Fibromyalgia Obesity Depression Rotator cuff tear, left Rotator cuff tear, right Bicipital tendinitis Morbid obesity Other and unspecified hyperlipidemia SILVIO on CPAP Essential hypertension Surgical History History of excision of epidermal inclusion cyst History of surgery No pertinent past surgical history Family History Father No problems noted. Mother No problems noted. Social History Patient Tobacco Use Status: Never used Tobacco Physical Exam Vital Signs: BMI result Body Mass Index 62.7 Office Procedures Vascular Office Procedure Details Details: Diagnosis: Right Leg varicose veins with inflammation Procedure: Endovenous Ablation of the right Great Saphenous Vein with VenaSeal Closure System Anesthesia: Local infiltration 5 cc, Licensed And Certified Midwife: KAMALA Rivas Estimated Blood Loss: min Specimen: none Duplex ultrasound was used to map out the insufficient saphenous vein, and access was determined and marked on the overlying skin. The depth and diameter of the vein(s) to be treated was documented. The patient was placed supine on the procedure table and the leg was prepped and draped using sterile technique. Ultasound guidance was again used to localize the access site. 1% lidocaine was injected as a local anesthetic in the subcutaneous tissues at the target location in the GSV in the lower leg. Using ultrasound guidance, access was gained at this location with the 19 gauge thin walled access needle and followed by introduction of a short guidewire, location confirmed with ultrasound. A small, 3 mm incision was made at the access site to allow for introduction and placement of the 7 Fr x7cm introducer/dilator. The dilator and guidewire were removed. The 0.035 guidewire from the VenaSeal kit was then introduced and positioned at the saphenofemoral junction using ultrasound guidance. The 80 cm 7 Fr introducer sheath/dilator was positioned 5cm from the saphenofemoral junction. The guidewire and dilator were removed, and the remaining sheath was flushed with sterile saline, with the syringe remaining in place prior to the next steps. The cyanoacrylate adhesive was precisely primed into the 5 F delivery catheter and this catheter/syringe combination was attached within the dispenser gun. This assembly was introduced through the 7F sheath and positioned 5 cm caudal of the saphenofemoral junction under ultrasound guidance. The steps from the IFU were followed for dispensing amounts, locations and compression times, 2 aliquots proximally with 3 minutes of compression, and 1 aliquot every 3 cm distally with 30 sec of compression along the course of the vessel. Following the last injection and compression sequence, the catheter and introducer sheath were pulled out from the access site. Hemostasis was achieved with manual compression and an adhesive bandage was applied to the incision. Ultrasound confirmed complete coaptation and closure of the treated segments of the GSV, and the absence of any DVT at the saphenofemoral junction. Treatment time was approximately 5 minutes and the vein length treated was 30 cm. The drapes were removed and the patient cleaned and prepared for discharge. Post op ultrasound check is scheduled for 48-72 hours and the patient was given written post-op instructions. 89472 - Endoven Ther Chem Adhes 1st All charges added?: Procedure code (CPT) selection complete Assessment & Plan Assessment & Plan (1) Varicose veins of right lower extremity with inflammation: Comment: 11/12/2024 - right great saphenous vein Cyanoacralate ablation Code(s): I83.11 - Varicose veins of right lower extremity with inflammation Category: Medical Plan: See op note Coding Level of Care Code Procedure Only Diagnoses Varicose veins of right lower extremity with inflammation I83.11 CPT Codes Details - Vascular 3: 24680 - Endoven Ther Chem Adhes 1st ([id number])
== END 2024-11-12 15:12 | disposition home or self-care (01) ==
LOC: HO.HVS 13:32
PROVIDERS: PCP Internal Medicine; Visit Provider Surgery Vascular Surgery
DX: I83.11 Varicose veins of right lower extremity with inflammation (principal)
CPT/HCPCS: 36482

== ENCOUNTER → 2024-11-12 13:32 | Outpatient (BNVA) | payer OTHER, SELFPAY | PROVIDERS: PCP Internal Medicine; Visit Provider Surgery Vascular Surgery | DX: I83.11 Varicose veins of right lower extremity with inflammation (principal) | CPT/HCPCS: 36482; J2003 ==

== ENCOUNTER 2024-11-19 11:41 | Outpatient (AMB) | payer OTHER, SELFPAY ==
[2024-11-19 11:41] VITALS: BMI 62.7
--- NOTE | 2024-11-19 11:41 | A.OFFVIS_ITS ---
Vital Signs 11/19/24 11:41 Height 5 ft 1 in Weight 332 lb BMI 62.7 Intake Visit Reasons: 1w s/p R Venaseal Intake Note: 1 week follow up Right GSV Venaseal 11/15/24, pt states redness, swelling and pain over treated area. Pt states warm to the touch. Pt states it started 3-4 days s/p procedure Claim Technician Required: No Accompanied by: Daughter Allergies codeine [CODEINE] Allergy (Unknown, Verified 11/19/24 11:45) STOMACH PAIN, vomiting HPI HPI 1w s/p R Venaseal: Details: Very pleasant 69-year-old female presents for follow-up status post right great saphenous vein ablation with Cyanoacralate ablation. Postprocedure she noted that the leg BKA warm with some erythema and quite tender. It became a source of concern for her. She now presents for urgent follow-up. [facility] Medical History Epidermal cyst of face Overactive bladder Urinary incontinence Osteopenia Fibromyalgia Obesity Depression Rotator cuff tear, left Rotator cuff tear, right Bicipital tendinitis Morbid obesity Other and unspecified hyperlipidemia SILVIO on CPAP Essential hypertension Surgical History History of excision of epidermal inclusion cyst History of surgery No pertinent past surgical history Family History Father No problems noted. Mother No problems noted. Social History Patient Tobacco Use Status: Never used Tobacco Review of Systems Const All systems reviewed & are unremarkable except as noted in HPI and below Reports no additional complaints ENT Reports Normal hearing present Card Denies chest pain, Denies chest pain at rest, Denies chest pain with activity and Denies pedal edema Resp Denies cough GI Denies abdominal pain Musc Denies abnormal gait, Denies muscle cramps and Denies radiating pain into limb Skin/Breast Denies skin ulcer and Denies wounds Neuro Reports Normal hearing present and Denies abnormal gait Psych Reports no additional complaints Physical Exam Vital Signs: BMI result Body Mass Index 62.7 Const General: cooperative, healthy appearing and comfortable Orientation/consciousness: oriented to person, oriented to place and oriented to time HEENT Head: Yes normal to inspection Neck Neck: Yes normal visual inspection Carotids: no bruits Chest Chest palpation & inspection: normal inspection of the chest Resp Effort & Inspection: normal respiratory effort and able to speak in complete sentences Auscultation: clear to auscultation bilaterally, no crackles, no rales, no rhonchi and no wheezes Cardio Rate: regular rate Rhythm: regular rhythm Heart sounds: S1 normal heart sound present and S2 normal heart sound present Bruits: no carotid bruits Peripheral pulses: Peripheral pulses 2+ throughout GI Inspection: Yes normal to inspection Skin Other: Erythema with evidence of phlebitis along the track of ablation. Wounds: no wounds Hair: normal Neuro General: oriented to person, oriented to place and oriented to time Cranial nerves: Yes CN's II-XII intact bilaterally and Yes Normal hearing present Cognition (Neuro): normal cognition Motor exam (neuro): 5/5 motor strength present throughout Extrem Other: venous exam: No significant superficial varicosities or spider telangiectasias, minimal edema General: No clubbing, No cyanosis and No edema Psych Appearance: grossly normal Mental Status: mental status grossly normal Speech and movement: Normal speech and movement present Assessment & Plan Assessment & Plan (1) Varicose veins of right lower extremity with inflammation: Comment: 11/12/2024 - right great saphenous vein Cyanoacralate ablation Code(s): I83.11 - Varicose veins of right lower extremity with inflammation Category: Medical Plan: In short patient may have a post phlebitic reaction from the Cyanoacralate ablation. I do not believe it is a true allergic reaction as of yet. That being said we have started her on nonsteroidals twice a day along with Benadryl 25 mg once a day. She will see us back in 1 week's time to ensure that this is progressing well. We will go from there. Thank you for allowing us to assist in her care. If there are any questions or concerns please do not hesitate to contact us. Coding Level of Care Code Est Pt Level 4 (26614) Diagnoses Varicose veins of right lower extremity with inflammation I83.11
--- OUTSIDE RECORDS SUMMARY | 2024-11-19 13:43 | XMS_ITS | Patient Health Record ---
Author Organization [facility] Address [address] [place] [phone] Care Team Providers Care Lyft Driver Name Role Phone Umm Venegas Primary Care Provider Leeroy Estrada [phone] Allergies Allergen (clinical drug ingredient) Drug/Non Drug Allergy documented on EMR Reaction Allergy Type Onset Date Status Codeine Phosphate Unknown Drug Allergy Active Reason For Referral No Information Medications Medication SIG (Take, Route, Fr equency, Duration) Notes Start Date End Date Status Vitamin B Complex Ac tive CeleXA Active Lunesta Active Crestor Active KlonoPIN Active Gabapentin Active Problems Problem Type SNOMED Code ICD Code Onset Dates Problem Status W/U Status Risk Notes Problem Colon cancer screening (718167972) Colon cancer screening (V76.51) Active confirmed Problem History of adenomatous polyp of colon (961143534) History of adenomatous polyp of colon (V12.72) Active confirmed Plan Of Treatment Future Test Test Name Order Date COLONOSCOPY 05/04/2013 Insurance Providers Payer Name Payer Address Payer Phone Subscriber Number Group Number Insured Name Patient Relationship to Insured Coverage Start Date Coverage End Date [facility] [address] [facility] [place] [place] [phone] [id number] ROSALIA NIKOLAS Self - patient is the insured MEDICAID [facility] [address] [place] [address] [phone] [id number] ROSALIA NIKOLAS Self - patient is the insured Medical (General) History Medical History History ICD Code colonoscopy 06-08-2008 and 2 005 negative-lipomatous ICV, diverticulosis, internal hemorrhoids colon polyps-tubular adenoma removed in 2001 Depression Hyperlipidemia Denies IN,DM,CVA,Lung disease,renal dise ase Fibromyalgiua Surgical History Surgery Date(Month/Year) Abdominal wall hernia left shoulder surgery 2011 Gastric bypass Carpal tunnel bilateral Breast reduction and panniculectomy afte r weight loss
--- OUTSIDE RECORDS SUMMARY | 2024-11-19 13:44 | XMS_ITS | Encounter Summary ---
Author Organization [employer] [facility] Address [address] [facility] 7t [place] [address] Care Team Providers Care Roller Mechanic Name Role Phone Pascale Malin MD Primary Care Provider + Encounter Details Date Type Department Care Team (Latest Contact Info) Description 11/02/2020 Abstract [facility] CONVERSIONS Dental, Provider, DDS Social [...] Upcoming Encounters Date Type Department Care Team ( st Contact Info) Description 12/08/2024 10:15 AM EDT Office Visit [facility] MEDICINE [address] [place] [address] Pascale Malin MD [address] [place] [address] 03/07/2025 3:00 PM EDT Office Visit [facility] ADULT DENTAL [address] [place] [address] Lidia Mcdonough [address] [place] [address] documented as of this encounter Visit Diagnoses Not on filedocumented in this encounter Care Teams Roller Mechanic Relationship Specialty Start Date End Date Pascale Malin MD [address] [place] [address] PCP - General Family Medicine 07/01/18 documented as of this encounter
--- OUTSIDE RECORDS SUMMARY | 2024-11-19 13:44 | XMS_ITS | Encounter Summary ---
Author Organization [employer] Address [address] [facility] 7t [place] [address] Care Team Providers Care Residential Real Estate Sales Manager Name Role Phone Pascale Malin MD Primary Care Provider + Encounter Details Date Type Department Care Team (Late st Contact Info) Description 01/14/2024 Orders Only [facility] MEDICINE [address] [place] [address] Provider, MD Foreign Social History Tobacco Use [...] Description 12/08/2024 10:15 AM EDT Office Visit [facility] MEDICINE [address] [place] [address] Pascale Malin MD [address] [place] [address] 03/07/2025 3:00 PM EDT Office Visit [facility] ADULT DENTAL [address] [place] [address] Lidia Mcdonough [address] [place] [address] documented as of this encounter Procedures Procedure Name Priority Date/Time Associated Diagnosis Comments HM COLONOSCOPY Routine 08/05/2017 9:34 AM EST documented in this encounter Results * Hm Colonoscopy (08/05/2017 9:34 AM EST) Historical Provider HEALTH MAINTENANCE Final Result documented in this encounter Visit Diagnoses Not on filedocumented in this encounter Care Teams Residential Real Estate Sales Manager Relationship Specialty Start Date End Date Pascale Malin MD [address] [place] [id number] PCP - General Family Medicine 07/01/18 documented as of this encounter
--- OUTSIDE RECORDS SUMMARY | 2024-11-19 13:44 | XMS_ITS | Encounter Summary ---
Author Organization [employer] Address [address] [facility] 7t [place] [address] Care Team Providers Care Composition Weatherboard Installer Name Role Phone Pascale Malin MD Primary Care Provider + Reason for Visit * Reason Onset Date Comments Hospital Follow-up 03/15/2024 Encounter Details Date Type Department Care Team ([facility] st Contact Info) Description 03/15/2024 Telephone [facility] MEDICINE [address] [place], [place] [phone] Pascale Malin MD [address] [place], [place] [phone] Hospital Follow-up Social History Tobacco Use Types [...] from pt requesting a HDF appt. Hospital: [facility] Date of admission: 03/11 Discharge date: 03/13 Diagnosed: Leg Pain documented in this encounter Plan of Treatment Upcoming Encounters Date Type Department Care Team (Late st Contact Info) Description 12/08/2024 10:15 AM EDT Office Visit [facility] MEDICINE [address] [place] [address] Pascale Malin MD [address] [place] [address] 03/07/2025 3:00 PM EDT Office Visit [facility] ADULT DENTAL [address] [place] [address] Sharonda, Lidia [address] [place] [address] documented as of this encounter Visit Diagnoses Not on filedocumented in this encounter Care Teams Composition Weatherboard Installer Relationship Specialty Start Date End Date Pascale Malin MD [address] [place] [address] PCP - General Family Medicine 07/01/18 documented as of this encounter
--- OUTSIDE RECORDS SUMMARY | 2024-11-19 13:44 | XMS_ITS | Data Portability ---
Author Organization [employer] Address [address] [place] [phone] Care Team Providers Care Base Cloth Inspector Name Role Phone HIM CCA OTHER Assessment Encounter Date Assessment Date Assessment LastModified by Organization Details LastModified Time 03/22/2024 03/22/2024 I provided real -time medical direction via phone for this encounter and was available for additional phone-based assistance as needed. I have reviewed and agree with the Assessment and Plan as documented by the Solar System Designer. Patient given the opportunity to ask questions. [...] ED and both were reassuringly negative. Per concrete mixer on the scene, vital signs are stable [...] Not available Not available Not available 03/23/2024 [id number] RxNorm Fariha Sams MD [address] [place] [address],[address], [place], [phone], [employer] 4 07:45:17 [id number] codeine medicatio n Not available Not available Not available 03/23/2024 2670 RxNobeckie Sams MD [address] [place] [address],[address], [place], [phone], [employer] 4 07:45:23 Medications Name Sig Start Date [...] Updated DateTime 4 97.7 [degF] 16 /min 356471. 44 g 154.94 cm 86 /min 98 % 98 % 136 mm[Hg] 75 mm[Hg] Not Available [employer] 4 07:41:09 Social History None recorded. Functional Status None recorded. Mental Status None recorded. Family History Nothing Reported. Medical History No medical history recorded. Gynecological HistoryNo gynecological history recorded. Obstetrics History GPAL:G 0 P 0 0 0 0 Past Encounters Encounter ID Performer Location Encounter Start Date Encounter Closed Date Diagnosis/Indication Diagnosis SNOMED-CT Code Diagnosis ICD10 Code Diagnosis Note [id number] Fariha Sams MD [facility] [address] [place] [phone] 03/23/2024 07:41:00 03/23/2024 11:06:40 Pruritic rash 61057764 L28.2 Health Concerns Section Related Observation LastModified by Organization Detai ls LastModified Time None Recorded Concern Status LastModified by Organization Details LastModified Time None Recorded Advance Directives Directive None Recorded Payers Encounter Date Sequence Insurance Name Policy Number Policy Samuels Covered Member ID Samuels Member ID Guarantor Name 03/22/2024 1 [facility] - DOS ON OR AFTER 2022 - DUAL ELIGIBLE - CUSTODIAL OPTIONS AND ONE CARE (MEDICARE REPLACEMENT/AD VANTAGE - HMO) Ailyn Rao [id number] Ailyn Rao Notes Date Note Type Note [...] .................. .................. .................. .................. .................. .................. ............... Solar System Designer Note From Randy Painter: Pt reports having a small area on her left anterior sims of localized redness, edema and pain/itching/burni ng. Pt was seen at [place], inpatient for three days, had negative ultrasound, [...] .................. ............... Disposition: Armando Sams MD [address] [facility], [place], [phone], JENNIFER Ibanez [employer] [place] 03/23/2024 07:46:13 OBGyn Episode No OBEpisode recorded.
--- OUTSIDE RECORDS SUMMARY | 2024-11-19 13:44 | XMS_ITS | Encounter Summary ---
Author Organization [employer] [facility] Address [address] [facility] 7[address] [place] [address] Care Team Providers Care Pet House Sitter Name Role Phone Pascale Malin MD Primary Care Provider + Encounter Details Date Type Department Care Team (Latest Contact Info) Description 01/17/2022 Abstract [facility] CONVERSIONS Dental, Provider, DDS Social History [...] Description 12/08/2024 10:15 AM EDT Office Visit [facility] MEDICINE [address] [place] [address] Pascale Malin MD [address] [place] [address] 03/07/2025 3:00 PM EDT Office Visit [facility] ADULT DENTAL [address] [place] [address] Lidia Mcdonough [address] [place] [address] documented as of this encounter Visit Diagnoses Not on filedocumented in this encounter Care Teams Pet House Sitter Relationship Specialty Start Date End Date Pascale Malin MD [address] [place] [address] PCP - General Family Medicine 07/01/18 documented as of this encounter
--- OUTSIDE RECORDS SUMMARY | 2024-11-19 13:44 | XMS_ITS | Encounter Summary ---
Author Organization [employer] Address [address] [place] [address] 7t [place] [address] Care Team Providers Care Tube Trailer Filler Name Role Phone Pascale Malin MD Primary Care Provider + Encounter Details Date Type Department Care Team (Late Contact Info) Description 05/01/2023 Abstract [facility] ADULT DENTAL [address] [place] [address] Lidia Mcdonough [address] [place] [address] Social History Tobacco Use Types Packs/Day Years [...] Description 12/08/2024 10:15 AM EDT Office Visit [facility] MEDICINE [address] [place] [address] Pascale Malin MD [address] [place], [place] [phone] 03/07/2025 3:00 PM EDT Office Visit [facility] ADULT DENTAL [address] [place] [address] SharondaLidia [address] [place] [address] documented as of this encounter Visit Diagnoses Not on filedocumented in this encounter Care Teams Tube Trailer Filler Relationship Specialty Start Date End Date Pascale Malin MD [address] [place] [address] PCP - General Family Medicine 07/01/18 documented as of this encounter
--- OUTSIDE RECORDS SUMMARY | 2024-11-19 13:44 | XMS_ITS | Clinical Summary ---
Author Organization [employer] Address [address] [facility] 7t [place] [address] Care Team Providers Care Payroll And Benefits Analyst Name Role Phone Pascale Malin MD Primary [...] the morning. 90 tablet 3 11/28/19 24 025 Active ferrous sulfate (Fe Tabs) 325 (65 Fe) MG EC tabletIndications: Other iron deficiency anemia Take 1 tablet (325 mg) by mouth with breakfast. Do not crush, chew, or split. 90 tablet 11/28/19 24 025 Active loratadine (Claritin) 10 MG tablet Take 1 tablet (10 mg) by mouth in the morning. 30 tablet 11 11/28/19 24 025 Active cycloSPORINE (Restasis) 0.05 % ophthalmic emulsion INSTILL 1 DROP IN BOTH EYES TWICE DAILY 02/17/20 24 Active Gemtesa 75 MG tablet Take 1 tablet by mouth Once per day. 01/02/20 24 Active atorvastatin (Lipitor) 80 MG tabletIndications: Other hyperlipidemia Take 1 tablet (80 mg) by mouth Once per day. 90 tablet 1 03/23/20 24 Active lisinopril 10 MG tablet TAKE 1 TABLET BY MOUTH EVERY MORNING 90 tablet 1 07/02/20 24 Active clobetasol (Temovate) 0.05 % cream Apply topically 2 times daily. 45 g 3 10/29/19 25 Active clobetasol (Temovate) 0.05 % ointment Apply topically every 12 (twelve) hours. 60 g 11 09/09/19 25 025 Discontin ued(Formu robin change) Active Problems Problem Noted Date Diagnosed Date [...] or any other acute issue Fractured dental episcopalian with loss of materi al 05/02/2023 Dental [...] Type Department Care Team Description 09/15/2024 Telephone [facility] MEDICINE [address] [place] [phone] Pascale Malin MD Durable Medical Equipment 09/13/2024 Orders Only [facility] External Provider, [facility] 09/10/2024 Telephone [facility] MEDICINE [address] [place] [address] Pascale Malin MD Durable Medical Equipment 09/09/2024 11:15 AM EST Office Visit [facility] MEDICINE [address] [place] [address] Pascale Malin MD Essential hypertension (Primary Dx); Psoriasis with arthropathy (CMS/HCC); 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); Varicose veins of left lower extremity with inflammation; Sensorineural hearing loss, bilateral 09/09/2024 Travel 08/30/2024 Patient Outreach [facility] MEDICINE [address] [place] [address] Pascale Malin MD Pre-visit Planning ((Unable to reach for PVP screening, LVM)) from Last 3 Months Immunizations Name Administration Dates Next Due Hep B, adult 01/07/2013,11/03/2012,09/03/2012 Influenza High-dose Quadriva lent Preservative Free 05/22/2023,06/15/2020 Influenza Quadrivalent Adjuvanted 05/18/2022 Influenza injectable quadriv alent IIV4 with preservative 06/10/2017,05/15/2016 Influenza injectable quadriv alent preservative free 07/05/2021 Influenza, High Dose Seasona l, Preservative Free 05/04/2024,05/07/2019,07/01/2018 Influenza, IIV3, injectable 04/27/2014, 1 Influenza, Split (incl. modesto fied surface antigen) 04/27/2013,07/02/2012 [employer] SARS-CoV-2 Vaccination 11/01/2020 [employer] Covid-19 Vaccine 12+ 08/01/2021 Pneumococcal Conjugate PCV [...] Description 12/08/2024 10:15 AM EDT Office Visit [facility] MEDICINE [address] [place], [place] [phone] Pascale Malin MD [address] [place], [place] [phone] 03/07/2025 3:00 PM EDT Office Visit [facility] ADULT DENTAL [address] [place] [address] Isaiah Mcdonougharis [address] [place] [address] Health Maintenance Due Date Last Done Comments [...] 02/26/2027 02/26/2024, 0303/2021 Lipid Panel 08/15/2027 08/15/2022, 06/09/2021, 06/07/2021, Additional history exists Hepatitis B Vaccines Completed 01/07/2013, 11/03/2012, 09/03/2012 Pneumococcal Vaccine: 50+ Years Completed 03/25/2024, 04/27/2021 Influenza Vaccine Completed 05/04/2024, , 05/18/2022, Additional history exists RSV Patients and Patients Aged 60 years or older Completed 05/27/2024 Zoster Vaccines Completed 05/27/2024, 0803/2024, 11/04/2015, Additional history exists HIB Vaccines Aged [...] Procedure Name Priority Date/Time Associated Diagnosis Comments [facility] LOWER EXTREMITY VENOUS DUPLEX BILATERAL [...] Recently Relevant to Health Maintenance Results * [facility] Lower Extremity Venous Duplex Bilateral (09/13/2024 10:31 AM EST) 09/13/2024 10:3 1 AM EST Narrative [facility] - 09/15/2024 9:15 AM EST ? [facility] ?[address] ?[place] [address] ? Ultrasound Report ? Signed ? Patient: Rao,Ailyn E ?MR#: [id number] ?? [id number] ? : 1955 ?Acct:[id number] ? Age/Sex: 69 / F ?ADM Date: 09/13/24 ? Loc: HO.US ? Attending Dr: Mohini Saunders PA-C ? Ordering Physician: Mohini Saunders PA-C ?? Date of Service: 09/13/24 ?? Procedure(s): US venous duplex LE BI ?? Accession Number(s): [id number] ? cc: Pascale Malin MD; Mohini Saunders [...] a range of 0.1-0.3 cm. ?? Reflux: 3307-6918 ms. ? VARICOSITIES: ?? Location: Proximal lateral accessory saphenous vein, mid thigh and ?? proximal calf. ?? Size: Range 0.3-0.4 cm. ?? Reflux: 1856-6570 ms. ? 3. DEEP VENOUS ULTRASOUND OF [...] DD/ 1031 ? TD/TT: 09/13/24 1126 ? Office Machine Embossograph Operator: ? Procedure Note Kasey, Charlee - 09/15/2024 [id number] [place] [address] Ultrasound Report Signed Patient: Amanda Raoarita EMR#: [id number] : 3Acct:[id number] Age/Sex: 69 / FADM Date: 09/13/24 Loc: . Attending Dr: Mohini Saunders PA-C Ordering Physician: Mohini Saunders PA-C Date of Service: 09/13/24 Procedure(s): US venous duplex LE BI Accession Number(s): [id number] cc: Pascale Malin MD; Mohini Saunders PA-C [...] is a range of 0.1-0.3 cm. Reflux: 4354-3750 ms. VARICOSITIES: Location: Proximal lateral accessory saphenous vein, mid thigh and proximal calf. Size: Range 0.3-0.4 cm. Reflux: 5337-4226 ms. 3. DEEP VENOUS ULTRASOUND OF THE [...] 09/15/24 0913 DD/ 1031 TD/TT: 09/13/24 1126 Office Machine Embossograph Operator: [facility] External Provider CV VASC ULAR PROCEDURES Edited Result - Final [facility] [address] [place] [id number] * (ABNORMAL) Lipid Panel with Reflex to Direct LDL (08/15/2022 10:03 AM EST) Cholesterol, Total 185 <200 mg/dL [facility] HDL Cholesterol 63 > OR = 50 mg/dL [facility] Triglycerides 71 <150 mg/dL [facility] LDL Cholesterol 106(H) mg/dL (calc) [facility] Comment: Reference range: <100 Desirable range <100 mg/dL for primary prevention; ?? <70 mg/dL for patients with CHD or diabetic patients with > or = 2 CHD risk factors. LDL-C is now calculated using the Ariel-Kalyani calculation, which is a validated novel method providing better accuracy than the Friedewald equation in the estimation of LDL-C. Ariel SS et al. ANDRADE. 2013;310(19): 0585-6420 (http://education.[employer]/faq/WBP352) Chol/HDLC Ratio 2.9 <5.0 (calc) [facility] Non-HDL Cholesterol 122 <130 mg/dL (calc) [facility] Comment: For patients with diabetes plus 1 major ASCVD risk factor, treating to a non-HDL-C goal of <100 mg/dL (LDL-C of <70 mg/dL) is considered a therapeutic option. 08/15/2022 10:0 3 AM EST 08/15/2022 10:03 AM EST Narrative [facility] - 08/15/2022 9:29 PM EST FASTING:YES FASTING: YES Pascale Malin MD LAB BLOOD ORDERABLES Fin al Result [facility] [address] [facility] [place] [address] [facility] [address] [facility] ([address]) [place] [address] * Mammography Report 1 (06/14/2021 10:30 AM [...] MD IMG BI PROCEDURES Final Result * Colonoscopy (08/05/2017 9:34 AM EST) Foreign Provider HEALTH MAINTENANCE Final Result from Last 3 Months or Most Recently Relevant to Health Maintenance Insurance [facility] Care Teams Payroll And Benefits Analyst Relationship Specialty Start Date End Date Pascale Malin MD [address] [place] [id number] PCP - General Family Medicine 07/01/18
--- OUTSIDE RECORDS SUMMARY | 2024-11-19 13:44 | XMS_ITS | Encounter Summary ---
Author Organization [employer] Address [address] [facility] 7t [place] [address] Care Team Providers Care Cellular Plastics Cutter Name Role Phone Pascale Malin MD Primary Care Provider + Reason for Visit * Reason Onset Date Comments appt prophy 03/18/2023 Encounter Details Date Type Department Care Team (Late st Contact Info) Description 03/18/2023 Telephone [facility] ADULT DENTAL [address] [place], [place] [phone] Sharonda, Lidia [address] [place] [address] appt prophy Social History Tobacco Use Types [...] 12/08/2024 10:15 AM EDT Office Visit [facility] MEDICINE [address] [place] [address] Pascale Malin MD [address] [place] [address] 03/07/2025 3:00 PM EDT Office Visit [facility] ADULT DENTAL [address] [place] [address] Isaiah Mcdonougharis [address] [place] [address] documented as of this encounter Visit Diagnoses Not on filedocumented in this encounter Care Teams Cellular Plastics Cutter Relationship Specialty Start Date End Date Pascale Malin MD [address] [place] [address] PCP - General Family Medicine 07/01/18 documented as of this encounter
== END 2024-11-19 13:33 | disposition home or self-care (01) ==
PROVIDERS: PCP Internal Medicine; Visit Provider Surgery Vascular Surgery
DX: I83.11 Varicose veins of right lower extremity with inflammation (principal)
CPT/HCPCS: 99214

== ENCOUNTER → 2024-11-19 11:41 | Outpatient (BNVA) | payer OTHER, SELFPAY | PROVIDERS: PCP Internal Medicine; Visit Provider Surgery Vascular Surgery | DX: I83.11 Varicose veins of right lower extremity with inflammation (principal) | CPT/HCPCS: 99212 ==

== ENCOUNTER 2024-11-25 10:14 | Outpatient (REF) | payer OTHER, SELFPAY ==
[2024-11-25 11:43] LABS: MANUAL DIFF FLAG NO
--- OUTSIDE RECORDS SUMMARY | 2024-11-25 11:58 | XMS_ITS | Encounter Summary ---
Author Organization [employer] [facility] Address [address] [facility] 7t [place] [address] Care Team Providers Care Blueprint Tracer Name Role Phone Pascale Malin MD Primary Care Provider + Encounter Details Date Type Department Care Team (Latest Contact Info) Description 01/17/[address] [facility] CONVERSIONS Dental, Provider, DDS Social History [...] 12/08/2024 10:15 AM EDT Office Visit [facility] MEDICINE [address] [place] [address] Pascale Malin MD [address] [place] [address] 03/07/2025 3:00 PM EDT Office Visit [facility] ADULT DENTAL [address] [place] [address] Isaiah Mcdonougharis [address] [place] [address] documented as of this encounter Visit Diagnoses Not on filedocumented in this encounter Care Teams Blueprint Tracer Relationship Specialty Start Date End Date Pascale Malin MD [address] [place] [address] PCP - General Family Medicine 07/01/18 documented as of this encounter
--- OUTSIDE RECORDS SUMMARY | 2024-11-25 11:58 | XMS_ITS | Encounter Summary ---
Author Organization [employer] Address [address] [place] [address] 7t [place] [address] Care Team Providers Care Dry House Worker Name Role Phone Pascale Malin MD Primary Care Provider + Encounter Details Date Type Department Care Team (Late Contact Info) Description 05/01/2023 Abstract [facility] ADULT DENTAL [address] [place] [address] Lidia Mcdonough [address] [place] [address] Social History Tobacco Use Types Packs/Day Years [...] Description 12/08/2024 10:15 AM EDT Office Visit [facility] MEDICINE [address] [place] [address] Pascale Malin MD [address] [place], [place] [phone] 03/07/2025 3:00 PM EDT Office Visit [facility] ADULT DENTAL [address] [place] [address] SharondaLidia [address] [place] [address] documented as of this encounter Visit Diagnoses Not on filedocumented in this encounter Care Teams Dry House Worker Relationship Specialty Start Date End Date Pascale Malin MD [address] [place] [address] PCP - General Family Medicine 07/01/18 documented as of this encounter
--- OUTSIDE RECORDS SUMMARY | 2024-11-25 11:58 | XMS_ITS | Clinical Summary ---
Author Organization [employer] Address [address] [facility] 7t [place] [address] Care Team Providers Care Vascular Technologist Sonographer Name Role Phone Pascale Malin MD Primary [...] or any other acute issue Fractured dental taoism with loss of materi al 05/02/2023 Dental [...] Type Department Care Team Description 09/15/2024 Telephone [facility] MEDICINE [address] [place] [address] Pascale Malin MD Durable Medical Equipment 09/13/2024 Orders Only [facility] External Provider, [facility] 09/10/2024 Telephone [facility] MEDICINE [address] [place] [address] Pascale Malin MD Durable Medical Equipment 09/09/2024 11:15 AM EST Office Visit [facility] MEDICINE [address] [place] [address] Pascale Malin MD Essential hypertension (Primary Dx); Psoriasis with arthropathy (CMS/HCC); 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 [place] fied surface antigen) 04/27/2013,07/02/2012 Nextly SARS-CoV-2 Vaccination 11/01/2020 [facility] Covid-19 Vaccine 12+ 08/01/2021 Pneumococcal Conjugate PCV [...] Description 12/08/2024 10:15 AM EDT Office Visit [facility] MEDICINE [address] [place], [place] [phone] Pascale Malin MD [address] [place], [place] [phone] 03/07/2025 3:00 PM EDT Office Visit [facility] ADULT DENTAL [address] [place] [address] Isaiah Mcdonougharis [address] [place] [address] Health Maintenance Due Date Last Done Comments [...] Name Priority Date/Time Associated Diagnosis Comments [facility] LOWER EXTREMITY VENOUS DUPLEX BILATERAL [...] Relevant to Health Maintenance Results * [facility] Lower Extremity Venous Duplex Bilateral (09/13/2024 10:31 AM EST) 09/13/2024 10:3 1 AM EST Narrative [facility] IMAGING - 09/15/2024 9:15 AM EST ? [facility] ?[address] ?[place] [address] ? Ultrasound Report ? Signed ? Patient: Rao,Ailyn E ?MR#: [id number] ?? [id number] ? : 1955 ?Acct:[id number] ? Age/Sex: 69 / F ?ADM Date: 09/13/24 ? Loc: HO.US ? Attending Dr: Mohini Saunders PA-C ? Ordering Physician: Mohini Saunders PA-C ?? Date of Service: 09/13/24 ?? Procedure(s): US venous duplex LE BI ?? Accession Number(s): [id number] ? cc: Pascale Malin MD; Mohini Saunders [...] a range of 0.1-0.3 cm. ?? Reflux: 1760-3682 ms. ? VARICOSITIES: ?? Location: Proximal lateral accessory saphenous vein, mid thigh and ?? proximal calf. ?? Size: Range 0.3-0.4 cm. ?? Reflux: 0458-3528 ms. ? 3. DEEP VENOUS ULTRASOUND OF [...] DD/ 1031 ? TD/TT: 09/13/24 1126 ? Double Reamer Operator: ? Procedure Note Kasey, Charlee - 09/15/2024 [address] [place] [address] Ultrasound Report Signed Patient: Amanda Raoarita EMR#: [id number] : 3Acct:[id number] Age/Sex: 69 / FADM Date: 09/13/24 Loc: . Attending Dr: Mohini Saunders PA-C Ordering Physician: Mohini Saunders PA-C Date of Service: 09/13/24 Procedure(s): US venous duplex LE BI Accession Number(s): [id number] cc: Pascale Malin MD; Mohini Saunders PA-C [...] is a range of 0.1-0.3 cm. Reflux: 2794-4747 ms. VARICOSITIES: Location: Proximal lateral accessory saphenous vein, mid thigh and proximal calf. Size: Range 0.3-0.4 cm. Reflux: 5929-1131 ms. 3. DEEP VENOUS ULTRASOUND OF THE [...] 09/15/24 0913 DD/ 1031 TD/TT: 09/13/24 1126 Double Reamer Operator: [facility] External Provider CV VASC ULAR PROCEDURES Edited Result - Final [facility] IMAGING [address] [place] [id number] * (ABNORMAL) Lipid Panel with Reflex to Direct LDL (08/15/2022 10:03 AM EST) Cholesterol, Total 185 <200 mg/dL [facility] HDL Cholesterol 63 > OR = 50 mg/dL [facility] Triglycerides 71 <150 mg/dL [facility] LDL Cholesterol 106(H) mg/dL (calc) [facility] Comment: Reference range: <100 Desirable range <100 mg/dL for primary prevention; ?? <70 mg/dL for patients with CHD or diabetic patients with > or = 2 CHD risk factors. LDL-C is now calculated using the Ariel-Kalyani calculation, which is a validated novel method providing better accuracy than the Friedewald equation in the estimation of LDL-C. Ariel SS et al. ANDRADE. 2013;310(19): 5822-5082 (http://education.BuzzTable/faq/BDT514) Chol/HDLC Ratio 2.9 <5.0 (calc) [facility] Non-HDL Cholesterol 122 <130 mg/dL (calc) [facility] Comment: For patients with diabetes plus 1 major ASCVD risk factor, treating to a non-HDL-C goal of <100 mg/dL (LDL-C of <70 mg/dL) is considered a therapeutic option. 08/15/2022 10:0 3 AM EST 08/15/2022 10:03 AM EST Narrative [facility] - 08/15/2022 9:29 PM EST FASTING:YES FASTING: YES Pascale Malin MD LAB BLOOD ORDERABLES Fin al Result [facility] [address] [facility], [place] [address] [facility] [address] [facility], (N[address]2) [place] [address] * Mammography Report 1 (06/14/2021 10:30 AM [...] Recently Relevant to Health Maintenance Insurance [facility] DENTAL [facility] Care Teams Vascular Technologist Sonographer Relationship Specialty Start Date End Date Pascale Malin MD [address] [place] [address] PCP - General Family Medicine 07/01/18
--- OUTSIDE RECORDS SUMMARY | 2024-11-25 11:58 | XMS_ITS | Encounter Summary ---
Author Organization [employer] Address [address] [facility] 7t [place] [address] Care Team Providers Care Drapery Cutter Name Role Phone Pascale Malin MD Primary Care Provider + Reason for Visit * Reason Onset Date Comments Hospital Follow-up 03/15/2024 Encounter Details Date Type Department Care Team ([facility] st Contact Info) Description 03/15/2024 Telephone [facility] MEDICINE [address] [place], [place] [phone] Pascale Malin MD [address] [place], [place] [phone] Hospital Follow-up Social History Tobacco Use Types [...] from pt requesting a HDF appt. Hospital: [facility] Date of admission: 03/11 Discharge date: 03/13 Diagnosed: Leg Pain documented in this encounter Plan of Treatment Upcoming Encounters Date Type Department Care Team (Late st Contact Info) Description 12/08/2024 10:15 AM EDT Office Visit [facility] MEDICINE [address] [place] [address] Pascale Malin MD [address] [place] [address] 03/07/2025 3:00 PM EDT Office Visit [facility] ADULT DENTAL [address] [place] [address] Sharonda, Lidia [address] [place] [address] documented as of this encounter Visit Diagnoses Not on filedocumented in this encounter Care Teams Drapery Cutter Relationship Specialty Start Date End Date Pascale Malin MD [address] [place] [address] PCP - General Family Medicine 07/01/18 documented as of this encounter
--- OUTSIDE RECORDS SUMMARY | 2024-11-25 11:58 | XMS_ITS | Data Portability ---
Author Organization [employer] Address [address] [place] [address] Care Team Providers Care Hand Cutter Apprentice Name Role Phone HIM CCA OTHER Assessment Encounter Date Assessment Date Assessment LastModified by Organization Details LastModified Time 03/22/2024 03/22/2024 I provided real -time medical direction via phone for this encounter and was available for additional phone-based assistance as needed. I have reviewed and agree with the Assessment and Plan as documented by the Delinquent Account Clerk. Patient given the opportunity to ask questions. [...] ED and both were reassuringly negative. Per geothermal plant manager on the scene, vital signs are stable [...] Not available Not available Not available 03/23/2024 [id number] 7 RxNorm Fariha Sams MD [address] [place] [address],[address], [place], [phone], [employer] 4 07:45:17 5786 codeine medicatio n Not available Not available Not available 03/23/2024 2670 RxNobeckie Sams MD [address] [place] [address],[address], [place], [address], [employer] 4 07:45:23 Medications Name Sig Start Date [...] Updated DateTime 4 97.7 [degF] 16 /min 113317. 44 g 154.94 cm 86 /min 98 % 98 % 136 mm[Hg] 75 mm[Hg] Not Available [employer] - production 4 07:41:09 Social History None recorded. Functional Status None recorded. Mental Status None recorded. Family History Nothing Reported. Medical History No medical history recorded. Gynecological HistoryNo gynecological history recorded. Obstetrics History GPAL:G 0 P 0 0 0 0 Past Encounters Encounter ID Performer Location Encounter Start Date Encounter Closed Date Diagnosis/Indication Diagnosis SNOMED-CT Code Diagnosis ICD10 Code Diagnosis Note [id number] Fariha Sams MD [facility] - [facility] [address] [place] [phone] 03/23/2024 07:41:00 03/23/2024 11:06:40 Pruritic rash 59803432 L28.2 Health Concerns Section Related Observation LastModified by Organization Detai ls LastModified Time None Recorded Concern Status LastModified by Organization Details LastModified Time None Recorded Advance Directives Directive None Recorded Payers Encounter Date Sequence Insurance Name Policy Number Policy Samuels Covered Member ID Samuels Member ID Guarantor Name 03/22/2024 1 [facility] - DOS ON OR AFTER 2022 - DUAL ELIGIBLE - CARE HOME OPTIONS AND ONE CARE (MEDICARE REPLACEMENT/AD VANTAGE - HMO) Ailyn Rao [id number] Ailyn Rao Notes Date Note Type Note [...] .................. .................. .................. .................. .................. .................. ............... Delinquent Account Clerk Note From Randy Painter: Pt reports having a small area on her left anterior sims of localized redness, edema and pain/itching/burni ng. Pt was seen at [place], inpatient for three days, had negative ultrasound, [...] .................. ............... Disposition: Armando Sams MD [address] [facility],[address], [place], [address], JENNIFER Ibanez frestylTL CASTILLO 03/23/2024 07:46:13 OBGyn Episode No OBEpisode recorded.
--- OUTSIDE RECORDS SUMMARY | 2024-11-25 11:58 | XMS_ITS | Patient Health Record ---
Author Organization [facility] Address [address] [place] [address] Care Team Providers Care Telecommunication Operator Name Role Phone Umm Venegas Primary Care Provider Leeroy Estrada [phone] Allergies Allergen (clinical drug ingredient) Drug/Non Drug [...] Status Risk Notes Problem Colon cancer screening (143369319) Colon cancer screening (V76.51) Active confirmed Problem History of adenomatous polyp of colon (423733276) History of adenomatous polyp of colon (V12.72) Active confirmed Plan Of Treatment Future Test Test Name Order Date COLONOSCOPY 05/04/2013 Insurance Providers Payer Name Payer Address Payer Phone Subscriber Number Group Number Insured Name Patient Relationship to Insured Coverage Start Date Coverage End Date [facility] [address] [place] [phone] [id number] NIKOLAS LINDSEY Self - patient is the insured MEDICAID OF [facility] [address] [place] [address] [phone] [id number] ROSALIA NIKOLAS Self - patient is the insured Medical (General) History Medical History History ICD Code colonoscopy 06-08-2008 and 2 005 negative-lipomatous ICV, diverticulosis, internal hemorrhoids colon polyps-tubular adenoma removed in 2001 Depression Hyperlipidemia Denies CO,DM,CVA,Lung disease,renal dise ase Fibromyalgiua Surgical History Surgery Date(Month/Year) Abdominal wall hernia left shoulder surgery 2011 Gastric bypass Carpal tunnel bilateral Breast reduction and panniculectomy afte r weight loss
--- OUTSIDE RECORDS SUMMARY | 2024-11-25 11:58 | XMS_ITS | Encounter Summary ---
Author Organization [employer] Address [address] [facility] 7t [place] [address] Care Team Providers Care Painter Bottom Name Role Phone Pascale Malin MD Primary Care Provider + Encounter Details Date Type Department Care Team (Late st Contact Info) Description 01/14/2024 Orders Only [facility] MEDICINE [address] [place] [address] Provider, MD Foreign Social History Tobacco Use Types Packs/Day Years Used Date Smoking Tobacco: Never Passive Smoke Exposure: Never Smokeless Tobacco: Never Alcohol Use Standard Drinks/Week Comments Never 0 (1 standard drink = 0.6 oz pur e alcohol) PHQ-2 Answer Date Recorded Patient Health Questionnaire-2 Score 0 01/02/2023 Housing Stability Answer Date Recorded What is your housing situation today? I have jose jared 06/03/[address] you li [...] Description 12/08/2024 10:15 AM EDT Office Visit [facility] MED[facility]INE [address] [place] [address] Pascale Malin MD [address] [place] [address] 03/07/2025 3:00 PM EDT Office Visit [facility] ADULT DENTAL [address] [place] [address] Lidia Mcdonough [address] [place] [address] documented as of this encounter Procedures Procedure Name Priority Date/Time Associated Diagnosis Comments HM COLONOSCOPY Routine 08/05/2017 9:34 AM EST documented in this encounter Results * Hm Colonoscopy (08/05/2017 9:34 AM EST) Historical Provider HEALTH MAINTENANCE Final Result documented in this encounter Visit Diagnoses Not on filedocumented in this encounter Care Teams Painter Bottom Relationship Specialty Start Date End Date Pascale Malin MD [address] [place] [address] PCP - General Family Medicine 07/01/18 documented as of this encounter
--- OUTSIDE RECORDS SUMMARY | 2024-11-25 11:58 | XMS_ITS | Encounter Summary ---
Author Organization [employer] Address [address] [facility] 7t [place] [address] Care Team Providers Care Net Architect Name Role Phone Pascale Malin MD Primary Care Provider + Reason for Visit * Reason Onset Date Comments appt prophy 03/18/2023 Encounter Details Date Type Department Care Team (Late st Contact Info) Description 03/18/2023 Telephone [facility] ADULT DENTAL [address] [place], [place] [phone] Sharonda, Lidia [address] [place] [address] appt prophy Social History Tobacco Use Types [...] Description 12/08/2024 10:15 AM EDT Office Visit [facility] MEDICINE [address] [place] [address] Pascale Malin MD [address] [place] [address] 03/07/2025 3:00 PM EDT Office Visit [facility] ADULT DENTAL [address] [place] [address] Isaiah Mcdonougharis [address] [place] [address] documented as of this encounter Visit Diagnoses Not on filedocumented in this encounter Care Teams Net Architect Relationship Specialty Start Date End Date Pascale Malin MD [address] [place] [address] PCP - General Family Medicine 07/01/18 documented as of this encounter
--- OUTSIDE RECORDS SUMMARY | 2024-11-25 11:58 | XMS_ITS | Encounter Summary ---
Author Organization [employer] [facility] Address [address] [facility] 7t [place] [address] Care Team Providers Care Machine Assistant Name Role Phone Pascale Malin MD Primary Care Provider + Encounter Details Date Type Department Care Team (Latest Contact Info) Description 11/02/2020 Abstract [facility] CONVERSIONS Dental, Provider, DDS Social [...] Description 12/08/2024 10:15 AM EDT Office Visit [facility] MEDICINE [address] [place] [address] Pascale Malin MD [address] [place] [address] 03/07/2025 3:00 PM EDT Office Visit [facility] ADULT DENTAL [address] [place] [address] Lidia Mcdonough [address] [place] [address] documented as of this encounter Visit Diagnoses Not on filedocumented in this encounter Care Teams Machine Assistant Relationship Specialty Start Date End Date Pascale Malin MD [address] [place] [address] PCP - General Family Medicine 07/01/18 documented as of this encounter
[2024-11-25 12:02] LABS: Basophils Percent Auto 0.2 % (0-2); Eosinophils Absolute Auto 0.1 X10*3/uL (0.0-0.4); Eosinophils Percent Auto 0.9 % (0-4); Hematocrit 37.9 % (37.0-47.0); Imm Gran Abs Auto 0.02 X10*3/uL (0.00-0.03); Imm Gran Pct Auto 0.3 % (0.0-0.4); Lymphocytes Absolute Auto 1.6 X10*3/uL (1.2-4.9); Lymphocytes Percent Auto 27.1 % (20-40); Mean Corpuscular HGB Conc 31.7 g/dl (31.0-35.0); Mean Corpuscular Hemoglobin 26.1 pg (27.0-33.0); Mean Corpuscular Volume 82.6 fL (80.0-98.0); Monocytes Absolute Auto 0.4 X10*3/uL (0.1-1.2); Monocytes Percent Auto 6.8 % (2-11); Neutrophils Absolute Auto 3.8 x10*3/uL (2.0-8.3); Neutrophils Percent Auto 64.7 % (45-73); Platelet Count 293 X10*3/uL (160-400); Red Blood Count 4.59 X10*6/uL (4.20-5.50); Red Cell Distribution Width 17.1 % (11.0-16.0); White Blood Count 5.8 X10*3/uL (4.8-10.8)
[2024-11-25 12:05] LABS: Anion Gap 11 (12-20); Blood Urea Nitrogen 22 mg/dL (9-16); Calcium 9.9 mg/dL (8.4-10.2); Carbon Dioxide 28 mmol/L (22-29); Chloride 106 mmol/L (96-108); Cholesterol 240 mg/dL (<200); Estimated Glomerular Filt Rate > 60; Glucose Random 91 mg/dL (60-115); HDL Cholesterol 58 mg/dL (>40); LDL Cholesterol Calculated 166 mg/dL (<100); Potassium 5.1 mmol/L (3.3-5.1); Sodium 140 mmol/L (135-145); Triglycerides 81 mg/dL (<150)
[2024-11-25 12:20] LABS: Vitamin D 25-OH Total 29.6 ng/mL (>30)
[2024-11-25 13:46] LABS: Reflex LDLD? No
== END 2024-11-25 10:15 | disposition home or self-care (01) ==
LOC: HO.HHCL 10:14
PROVIDERS: Visit Provider Internal Medicine
DX: I10 Essential (primary) hypertension (principal); L40.50 Arthropathic psoriasis, unspecified; I83.11 Varicose veins of right lower extremity with inflammation; I83.12 Varicose veins of left lower extremity with inflammation
CPT/HCPCS: 36415; 80048; 80061; 82306; 85025; 99212

== ENCOUNTER 2024-11-25 10:57 | Outpatient (AMB) | payer OTHER, SELFPAY ==
--- NOTE | 2024-11-25 10:58 | MHC.OFFVIS ---
Intake Visit Reasons: 2 week follow up right venaseal Intake Note: Patient presents for follow up right venaseal. No complaints. Accompanied by: Unknown Allergies codeine [CODEINE] Allergy (Unknown, Verified 11/25/24 10:59) STOMACH PAIN, vomiting HPI HPI 2 week follow up right venaseal: Details: Very pleasant 69-year-old female presents for follow-up status post right great saphenous vein ablation. She had some postprocedure erythema and tenderness. She did use nonsteroidal anti-inflammatories and Benadryl for a proximally 5 days. She reports resolution of her symptoms. She is now concerned of her left lower extremity. It continues to have swelling and tenderness. She now presents for routine follow-up. COUNTS INCLUDE 234 BEDS AT THE [facility] Medical History Epidermal cyst of face Overactive bladder Urinary incontinence Osteopenia Fibromyalgia Obesity Depression Rotator cuff tear, left Rotator cuff tear, right Bicipital tendinitis Morbid obesity Other and unspecified hyperlipidemia SILVIO on CPAP Essential hypertension Surgical History History of excision of epidermal inclusion cyst History of surgery No pertinent past surgical history Family History Father No problems noted. Mother No problems noted. Social History Patient Tobacco Use Status: Never used Tobacco Review of Systems Const Reports as per HPI ENT Reports no additional complaints Card Denies chest pain, Denies chest pain at rest and Denies chest pain with activity Resp Denies chest congestion and Denies cough GI Reports no additional complaints Musc Details: pain over varicosities, aching of lower extremities, swelling, cramping, heaviness and tiredness, itching Denies abnormal gait Skin/Breast Reports pruritus and Denies wounds Neuro Reports no additional complaints and Denies abnormal gait Psych Denies no additional complaints Physical Exam Const General: cooperative, healthy appearing and comfortable Orientation/consciousness: oriented to person, oriented to place and oriented to time Neck Carotids: no bruits Chest Chest palpation & inspection: normal inspection of the chest and normal palpation of entire chest wall Resp Effort & Inspection: normal respiratory effort and able to speak in complete sentences Cardio Rate: regular rate Heart sounds: S1 normal heart sound present and S2 normal heart sound present Peripheral pulses: Peripheral pulses 2+ throughout GI Inspection: Yes normal to inspection Skin Other: +2 edema, large rope-like varicosities greater than 4 mm left CEAP Classification C4 - skin color changes Ep - Etiology Primary As - superficial veins P - reflux General skin exam: dry skin Neuro General: oriented to person, oriented to place and oriented to time Extrem Right lower extremity: full ROM, normal capillary refill and edema Left lower extremity: full ROM, normal capillary refill and edema Psych Mental Status: mental status grossly normal Results Reviewed Results Reviewed: Brief summary of venous insufficiency testing is as follows: right great saphenous vein: Ablated right small saphenous vein: negative right accessory vein: none present left great saphenous vein: Positive left small saphenous vein: negative left accessory vein: none present Please note there is no evidence of any venous aneurysms or significant tortuosity Assessment & Plan Assessment & Plan (1) Varicose veins of right lower extremity with inflammation: Comment: 11/12/2024 - right great saphenous vein Cyanoacralate ablation Code(s): I83.11 - Varicose veins of right lower extremity with inflammation Category: Medical Plan: Doing well will treat left lower extremity (2) Varicose veins of left lower extremity with inflammation: Code(s): I83.12 - Varicose veins of left lower extremity with inflammation Category: Medical Plan: This patient has varicose veins with inflammation. They continue to be a source of discomfort for the patient. The patient has tried conservative treatment with compression, leg elevation and exercise program for over 3 months time. They have been compliant with all treatment. This has provided minimal relief for the patient. I do not anticipate this course of treatment will alter the underlying etiology. The patient has been scheduled for lower extremity venous treatment inclusive of --- left great saphenous vein radiofrequency ablation. Risks, benefits, and complications of this procedure has been discussed in detail with the patient including but not limited to bleeding, infection, and the development of a DVT. The patient has demonstrated a clear understanding and has consented. We will schedule the patient as soon as possible. Thank you for allowing us to participate in this patient's care. If there are any questions or concerns please do not hesitate to contact us. Coding Level of Care Code Est Pt Level 4 (62081) Complex EM visit Add On G2211 Diagnoses Varicose veins of right lower extremity with inflammation I83.11 Varicose veins of left lower extremity with inflammation I83.12
--- OUTSIDE RECORDS SUMMARY | 2024-11-25 13:08 | XMS_ITS | Encounter Summary ---
Author Organization [employer] [facility] Address 75 [facility] 7t [place] [address] Care Team Providers Care Food Quality Technician Name Role Phone Pascale Malin MD Primary Care Provider + Encounter Details Date Type Department Care Team (Latest Contact Info) Description 11/02/2020 Abstract [facility] CONVERSIONS Dental, Provider, DDS Social History [...] Description 12/08/2024 10:15 AM EDT Office Visit [facility] MEDICINE [address] [place] [address] Pascale Malin MD [address] [place] [address] 03/07/2025 3:00 PM EDT Office Visit [facility] ADULT DENTAL [address] [place] [address] Lidia Mcdonough [address] [place] [address] documented as of this encounter Visit Diagnoses Not on filedocumented in this encounter Care Teams Food Quality Technician Relationship Specialty Start Date End Date Pascale Malin MD [address] [place] [address] PCP - General Family Medicine 07/01/18 documented as of this encounter
--- OUTSIDE RECORDS SUMMARY | 2024-11-25 13:08 | XMS_ITS | Encounter Summary ---
Author Organization [employer] Address 75 [facility] 7t [place] [address] Care Team Providers Care Trapeze Performer Name Role Phone Pascale Malin MD Primary Care Provider + Encounter Details Date Type Department Care Team (Late st Contact Info) Description 01/14/2024 Orders Only [facility] MEDICINE [address] [place] [address] Provider, MD Foreign Social History Tobacco Use [...] 12/08/2024 10:15 AM EDT Office Visit [facility] MEDICINE [address] [place] [address] Pascale Malin MD [address] [place] [address] 03/07/2025 3:00 PM EDT Office Visit [facility] ADULT DENTAL [address] [place] [address] Lidia Mcdonough [address] [place] [address] documented as of this encounter Procedures Procedure Name Priority Date/Time Associated Diagnosis Comments HM COLONOSCOPY Routine 08/05/2017 9:34 AM EST documented in this encounter Results * Hm Colonoscopy (08/05/2017 9:34 AM EST) Historical Provider HEALTH MAINTENANCE Final Result documented in this encounter Visit Diagnoses Not on filedocumented in this encounter Care Teams Trapeze Performer Relationship Specialty Start Date End Date Pascale Malin MD [address] [place] [address] PCP - General Family Medicine 07/01/18 documented as of this encounter
--- OUTSIDE RECORDS SUMMARY | 2024-11-25 13:08 | XMS_ITS | Clinical Summary ---
Author Organization [employer] Address 75 [facility] 7t [place] [address] Care Team Providers Care Aircraft Manager Name Role Phone Pascale Malin MD [...] or any other acute issue Fractured dental lutheran with loss of materi al 05/02/2023 Dental [...] Type Department Care Team Description 09/15/2024 Telephone [facility] MEDICINE [address] [place] [address] Pascale Malin MD Durable Medical Equipment 09/13/2024 Orders Only [facility] External Provider, [facility] 09/10/2024 Telephone [facility] MEDICINE [address] [place] [address] Pascale Malin MD Durable Medical Equipment 09/09/2024 11:15 AM EST Office Visit [facility] MEDICINE [address] [place] [address] Pascale Malin MD Essential hypertension (Primary Dx); Psoriasis with arthropathy (CMS/HCC); 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); Varicose veins of left lower extremity with inflammation; Sensorineural hearing loss, bilateral 09/09/2024 Travel 08/30/2024 Patient Outreach [facility] [address] [place] [address] Pascale Malin MD Pre-visit Planning ((Unable to [...] Split (incl. modesto fied surface antigen) 04/27/2013,07/02/2012 [employer] SARS-CoV-2 Vaccination 11/01/2020 [employer] Covid-19 Vaccine 12+ 08/01/2021 Pneumococcal Conjugate PCV [...] your housing situation today? I have jose coelman 03/15/[address] you li [...] Description 12/08/2024 10:15 AM EDT Office Visit [facility] MEDICINE [address] [place], [place] [phone] Pascale Malin MD [address] [place], [place] [phone] 03/07/2025 3:00 PM EDT Office Visit [facility] ADULT DENTAL [address] [place] [address] Isaiah Mcdonougharis [address] [place] [address] Health Maintenance Due Date Last Done Comments [...] 09/09/2024 Dental X-Ray: Full Mouth 02/26/2027 02/26/2024, 10/16 Lipid Panel 08/15/2027 11/25/2024, 07/19, 01/17/2022, Additional history exists Hepatitis B Vaccines Completed [...] Procedure Name Priority Date/Time Associated Diagnosis Comments LIPID PANEL WITH REFLEX TO DIRECT LDL Routine 11/25/2024 10:17 AM EDT Essential hypertension VITAMIN D,25-OH,TOTAL,IA Routine 11/25/2024 10:17 AM EDT Psoriasis with arthropathy ([facility]) BASIC METABOLIC PANEL Routine 11/25/2024 10:17 AM EDT Essential hypertension CBC WITH AUTO DIFFERENTIAL Routine 11/25/2024 10:17 AM EDT Psoriasis with arthropathy ([facility]) VASC US LOWER EXTREMITY VENOUS DUPLEX BILATERAL Routine 09/13/2024 10:31 AM EST Full PROPHYLAXIS - ADULT Routine 02/26/2024 10:00 AM EDT Dental calculus INTRAORAL - COMPLETE SERIES OF RADIOGRAPHIC IMAGES Routine 02/26/2024 10:00 AM EDT Generalized gingival recession Partial edentulism, unspecified edentulism class Dental calculus PERIODIC ORAL EVALUATION - ESTABLISHED PATIENT Routine 02/26/2024 10:00 AM EDT MAMMOGRAM GENERIC Routine 06/14/2021 10: 30 AM EDT HM COLONOSCOPY Routine 08/05/2017 9:34 AM EST from Last 3 Months or Most Recently Relevant to Health Maintenance Results * (ABNORMAL) CBC auto differential (11/25/2024 10:17 AM EDT) White Blood Count 5.8 4.8 - 10.8 X10*3/uL [facility] Red Blood Count 4.59 4.20 - 5.50 X10*6/uL [facility] Hemoglobin 12.0 12.0 - 16.0 g/dl [facility] Hematocrit 37.9 37.0 - 47.0 % [facility] Mean Corpuscular Volume 82.6 80.0 - 98.0 fL [facility] Mean Corpuscular Hemoglobin 26.1(L) 27.0 - 33.0 pg [facility] Mean Corpuscular HGB Conc 31.7 31.0 - 35.0 g/dl [facility] Red Cell Distribution Width 17.1(H) 11.0 - 16.0 % [facility] Platelet Count 293 160 - 400 X10*3/uL [facility] Mean Platelet Volume 11.0 9.4 - 12.3 fL [facility] Neutrophils Percent Auto 64.7 45 - 73 % [facility] Imm Gran Pct Auto 0.3 0.0 - 0.4 % [facility] Lymphocytes Percent Auto 27.1 20 - 40 % [facility] Monocytes Percent Auto 6.8 2 - 11 % [facility] Eosinophils Percent Auto 0.9 0 - 4 % [facility] Basophils Percent Auto 0.2 0 - 2 % [facility] NRBC Pct Auto 0.0 0.0 - 0.2 /100WBC [facility] Neutrophils Absolute Auto 3.8 2.0 - 8.3 x10*3/uL [facility] Imm Gran Abs Auto 0.02 0.00 - 0.03 X10*3/uL [facility] Lymphocytes Absolute Auto 1.6 1.2 - 4.9 X10*3/uL [facility] Monocytes Absolute Auto 0.4 0.1 - 1.2 X10*3/uL [facility] Eosinophils Absolute Auto 0.1 0.0 - 0.4 X10*3/uL [facility] Basophils Absolute Auto 0.0 0.0 - 0.2 X10*3/uL [facility] NRBC Abs Auto 0.000 0.0 - 0.012 X10*3/uL [facility] Blood Venous blood specimen / Unknown 11/25/2024 10:17 AM EDT 11/25/2024 11:37 AM EDT us Pascale Malin MD LAB BLOOD ORDERABLES Fin al Result [facility] [address] [place] [address] [phone] * VASC US Lower Extremity Venous Duplex Bilateral (09/13/2024 10:31 AM EST) 09/13/2024 10:3 1 AM EST Narrative [facility] - 09/15/2024 9:15 AM EST ? [facility] ?[address] ?[place] [address] ? Ultrasound Report ? Signed ? Patient: Ailyn Rao ?MR#: [id number] ?? [id number] ? : 1955 ?Acct:[id number] ? Age/Sex: 69 / F ?ADM Date: 09/13/24 ? Loc: HO.US ? Attending Dr: Mohini Saunders PA-C ? Ordering Physician: Mohini Saunders PA-C ?? Date of Service: 09/13/24 ?? Procedure(s): US venous duplex LE BI ?? Accession Number(s): [id number] ? cc: Pascale Malin MD; Mohini Saunders [...] a range of 0.1-0.3 cm. ?? Reflux: 9320-9290 ms. ? VARICOSITIES: ?? Location: Proximal lateral accessory saphenous vein, mid thigh and ?? proximal calf. ?? Size: Range 0.3-0.4 cm. ?? Reflux: 5089-9157 ms. ? 3. DEEP VENOUS ULTRASOUND OF [...] DD/ 1031 ? TD/TT: 09/13/24 1126 ? Corrections Identification Technician: ? Procedure Note Seanjessicapallavishen, Image - 09/15/2024 [place] [address] Ultrasound Report Signed Patient: Ailyn Rao EMR#: [id number] : 3Acct:[id number] Age/Sex: 69 / FADM Date: 09/13/24 Loc: HO. Attending Dr: Mohini Saunders PA-C Ordering Physician: Mohini Saunders PA-C Date of Service: 09/13/24 Procedure(s): US venous duplex LE BI Accession Number(s): [id number] cc: Pascale Malin MD; Mohini Saunders PA-C [...] is a range of 0.1-0.3 cm. Reflux: 0734-4391 ms. VARICOSITIES: Location: Proximal lateral accessory saphenous vein, mid thigh and proximal calf. Size: Range 0.3-0.4 cm. Reflux: 8428-8779 ms. 3. DEEP VENOUS ULTRASOUND OF THE [...] 09/15/24 0913 DD/ 1031 TD/TT: 09/13/24 1126 Corrections Identification Technician: us [facility] External Provider CV VASC ULAR PROCEDURES Edited Result - Final [facility]AG[facility] [address] [place] [phone] * Mammography Report 1 (06/14/2021 10:30 AM [...] Most Recently Relevant to Health Maintenance Insurance [facility] - [facility] Care Teams Aircraft Manager Relationship Specialty Start Date End Date Pascale Malin MD [address] [place] [address] PCP - General Family Medicine 07/01/18
--- OUTSIDE RECORDS SUMMARY | 2024-11-25 13:08 | XMS_ITS | Encounter Summary ---
Author Organization [employer] Address [address] [facility] 7t [place] [address] Care Team Providers Care Supervisor Photocomposition Name Role Phone Pascale Malin MD Primary Care Provider + Reason for Visit * Reason Onset Date Comments appt prophy 03/18/2023 Encounter Details Date Type Department Care Team (Late st Contact Info) Description 03/18/2023 Telephone [facility] ADULT DENTAL [address] [place], [place] [phone] Sharonda, Lidia [address] [place] [address] appt prophy Social History Tobacco Use Types [...] Description 12/08/2024 10:15 AM EDT Office Visit [facility] MEDICINE [address] [place] [address] Pascale Malin MD [address] [place] [address] 03/07/2025 3:00 PM EDT Office Visit [facility] ADULT DENTAL [address] [place] [address] Isaiah Mcdonougharis [address] [place] [address] documented as of this encounter Visit Diagnoses Not on filedocumented in this encounter Care Teams Supervisor Photocomposition Relationship Specialty Start Date End Date Pascale Malin MD [address] [place] [address] PCP - General Family Medicine 07/01/18 documented as of this encounter
--- OUTSIDE RECORDS SUMMARY | 2024-11-25 13:08 | XMS_ITS | Encounter Summary ---
Author Organization [employer] Address [address] [facility] 7t [place] [address] Care Team Providers Care Security And Compliance Analyst Name Role Phone Pascale Malin MD Primary Care Provider + Reason for Visit * Reason Onset Date Comments Hospital Follow-up 03/15/2024 Encounter Details Date Type Department Care Team ([facility] st Contact Info) Description 03/15/[address] [facility] MEDICINE [address] [place], [place] [phone] Pascale Malin MD [address] [place], [place] [phone] Hospital Follow-up Social History Tobacco Use Types [...] from pt requesting a HDF appt. Hospital: [facility] Date of admission: 03/11 Discharge date: 03/13 Diagnosed: Leg Pain documented in this encounter Plan of Treatment Upcoming Encounters Date Type Department Care Team (Late st Contact Info) Description 12/08/2024 10:15 AM EDT Office Visit [facility] MEDICINE [address] [place] [address] Pascale Malin MD [address] [place] [address] 03/07/2025 3:00 PM EDT Office Visit [facility] ADULT DENTAL [address] [place] [address] Sharonda, Lidia [address] [place] [address] documented as of this encounter Visit Diagnoses Not on filedocumented in this encounter Care Teams Security And Compliance Analyst Relationship Specialty Start Date End Date Pascale Malin MD [address] [place] [address] PCP - General Family Medicine 07/01/18 documented as of this encounter
--- OUTSIDE RECORDS SUMMARY | 2024-11-25 13:08 | XMS_ITS | Encounter Summary ---
Author Organization [employer] Address [address] [place] [address] 7t [place] [address] Care Team Providers Care Driller Portable Name Role Phone Pascale Malin MD Primary Care Provider + Encounter Details Date Type Department Care Team (Late Contact Info) Description 05/01/2023 Abstract [facility] ADULT DENTAL [address] [place] [address] Lidia Mcdonough [address] [place] [address] Social History Tobacco Use Types Packs/Day Years [...] Description 12/08/2024 10:15 AM EDT Office Visit [facility] MEDICINE [address] [place] [address] Pascale Malin MD [address] [place], [place] [phone] 03/07/2025 3:00 PM EDT Office Visit [facility] ADULT DENTAL [address] [place] [address] SharondaLidia [address] [place] [address] documented as of this encounter Visit Diagnoses Not on filedocumented in this encounter Care Teams Driller Portable Relationship Specialty Start Date End Date Pascale Malin MD [address] [place] [address] PCP - General Family Medicine 07/01/18 documented as of this encounter
--- OUTSIDE RECORDS SUMMARY | 2024-11-25 13:08 | XMS_ITS | Encounter Summary ---
Author Organization [employer] [facility] Address [address] [facility] 7t [place] [address] Care Team Providers Care Laborer Heading Name Role Phone Pascale Malin MD Primary Care Provider + Encounter Details Date Type Department Care Team (Latest Contact Info) Description 01/17/2022 Abstract [facility] CONVERSIONS Dental, Provider, DDS Social History Tobacco [...] 10:15 AM EDT Office Visit [facility] MEDICINE [address] [place] [address] Pascale Malin MD [address] [place] [address] 03/07/2025 3:00 PM EDT Office Visit [facility] ADULT DENTAL [address] [place] [address] Isaiah Mcdonougharis [address] [place] [address] documented as of this encounter Visit Diagnoses Not on filedocumented in this encounter Care Teams Laborer Heading Relationship Specialty Start Date End Date Pascale Malin MD [address] [place] [address] PCP - General Family Medicine 07/01/18 documented as of this encounter
== END 2024-11-25 11:28 | disposition home or self-care (01) ==
LOC: HO.HVS 10:57
PROVIDERS: PCP Internal Medicine; Visit Provider Surgery Vascular Surgery
DX: I83.11 Varicose veins of right lower extremity with inflammation (principal); I83.12 Varicose veins of left lower extremity with inflammation
CPT/HCPCS: 99214; G2211

== ENCOUNTER 2024-12-10 10:22 | Outpatient (AMB) | payer OTHER, SELFPAY ==
--- NOTE | 2024-12-10 10:48 | A.OFFVIS_ITS ---
Intake Visit Reasons: L GSV RFA Accompanied by: Self / Same As Patient Allergies codeine [CODEINE] Allergy (Unknown, Verified 12/10/24 11:40) STOMACH PAIN, vomiting PFSH Medical History Epidermal cyst of face Overactive bladder Urinary incontinence Osteopenia Fibromyalgia Obesity Depression Rotator cuff tear, left Rotator cuff tear, right Bicipital tendinitis Morbid obesity Other and unspecified hyperlipidemia SILVIO on CPAP Essential hypertension Surgical History History of excision of epidermal inclusion cyst History of surgery No pertinent past surgical history Family History Father No problems noted. Mother No problems noted. Social History Patient Tobacco Use Status: Never used Tobacco Office Procedures Vascular Office Procedure Details Details: Diagnosis: Varicose veins with inflammation of left leg Procedure: Endovenous radiofrequency ablation of the left great saphenous vein(s) of the lower extremity. Anesthesia: Local infiltration 5 cc, Tumescent 300 cc. Estimated Blood Loss: minimal Specimen: Varicose veins The patient was transferred to the procedure suite and the insufficient saphenous vein was mapped by ultrasound and diagrammed on the overlying skin. The depth and diameter of the vein(s) to be treated was documented. The varicose tributary veins and suitable access sites were identified and mapped as well. The patient was then positioned supine on the procedure table. The affected limb was prepped and draped in the usual sterile fashion. The RF catheter was placed on the sterile field, flushed and wiped down, prepared, and connected by a sterile cable. The patient was placed in supine position and local anesthesia was instilled in the skin overlying the access site. A skin incision was made overlying the identified and mapped great saphenous vein entry site. The vein was accessed using ultrasound guidance and the Seldinger technique, a guide wire was introduced through the needle, which was then exchanged over the guide wire for a 6F sheath, which was secured in place. The guide wire was removed and the sheath was flushed. The RF catheter was placed into the vein through the sheath and preferentially, imaging was used to place the catheter tip just inferior to the superficial epigastric vein to preserve normal physiological flow in that vein. Additionally, it was confirmed by ultrasound guidance that the catheter tip was also placed a minimum of 1.5cm distal to the saphenofemoral junction. After the RF catheter position was verified by ultrasound, tumescent anesthesia was infiltrated, under ultrasound guidance, precisely into the perivenous compartment along the entire length of vein from the entry site to the saphenofe moral junction until a halo of fluid was noted around the vein. The patient was then placed in supine position to further exsanguinate the superficial venous system. After RF catheter position was again confirmed with ultrasound imaging, and under direct external compression along the length of the heating element, RF energy was applied. The vein was segmentally ablated by heating a 8 cm segment and then indexing the catheter forward by 7.5 cm until the treatment length is completed. Device temperature was maintained at 120 plus or minus 5 degrees C with an initial power level of 40W dropping to below 20W for each treatment. Total vein length treated 18 cm Total cycles of RF 3. Repeat ultrasound of the saphenous vein was performed, confirming successful treatment. The catheter and sheath were withdrawn and hemostasis established with direct pressure. After assuring hemostasis, the skin incision over the saphenous vein was closed with a bandage and a compression wrap, and/ or gradua himanshu compression stocking was applied from the level of the foot to the most proximal level of the thigh. 16054 - Endovenous RF, 1st Vein All charges added?: Procedure code (CPT) selection complete Assessment & Plan Assessment & Plan (1) Varicose veins of left lower extremity with inflammation: Comment: 12/10/2024 left great saphenous vein radiofrequency ablation Code(s): I83.12 - Varicose veins of left lower extremity with inflammation Category: Medical Plan: See op note Coding Level of Care Code Procedure Only Diagnoses Varicose veins of left lower extremity with inflammation I83.12 CPT Codes Details - Vascular 1: 96424 - Endovenous RF, 1st Vein ([id number])
--- OUTSIDE RECORDS SUMMARY | 2024-12-10 10:49 | XMS_ITS | Encounter Summary ---
Author Organization [employer] Address 75 [facility] 7t [place] [address] Care Team Providers Care Ios Developer Name Role Phone Pascale Malin MD Primary Care Provider + Reason for Visit * Reason Onset Date Comments Results 12/08/2024 Encounter Details Date Type Department Care Team ([facility] Contact Info) Description 12/08/2024 Telephone [facility] MEDICINE [address] [place], [place] [phone] Pascale Malin MD [address] [place], [place] [phone] Results Social History Tobacco Use Types Packs/Day Years [...] Telephone Encounter - Myrna Pearson MA - 12/08/2024 2:51 PM EDT Retrieved pathology from [facility] cerner, will place on Provider's desk. * Telephone Encounter - Myrna Pearson MA - 12/08/2024 2:51 PM EDT ----- Message from Pascale Malin MD sent at 12/08/2024 10:56 AM EDT ----- Please call [facility] GI/Dr Castro and check results (biopsy) of colonoscopy documented in this encounter Plan of Treatment Upcoming Encounters Date Type Department Care Team (Late st Contact Info) Description 01/05/2025 11:00 AM EDT Office Visit [facility] ADULT DENTAL [address] [place] [address] Darrell Junior DDS [address] [place] [address] 03/07/2025 3:00 PM EDT Office Visit [facility] ADULT DENTAL [address] [place] [address] Lidia Mcdonough [address] [place] [address] documented as of this encounter Visit Diagnoses Not on filedocumented in this encounter Additional Health Concerns Assessment Noted Time PHQ-9 Depression Total Score: 0 09/09/19 25 11:28 AM EST documented as of this encounter Care Teams Ios Developer Relationship Specialty Start Date End Date Pascale Malin MD [address] [place] [address] PCP - General Family Medicine 07/01/18 documented as of this encounter
--- OUTSIDE RECORDS SUMMARY | 2024-12-10 10:49 | XMS_ITS | Encounter Summary ---
Author Organization [employer] Address [address] [place] [address] [address] Care Team Providers Care Service Manager Name Role Phone Pascale Malin MD Primary Care Provider + Encounter Details Date Type Department Care Team (Late Contact Info) Description 05/01/2023 Abstract [facility] ADULT DENTAL [address] [place] [address] Lidia Mcdonough [address] [place] [address] Social History Tobacco Use Types Packs/Day Years [...] Department Care Team (Late Contact Info) Description 01/05/2025 11:00 AM EDT Office Visit [facility] ADULT DENTAL [address] [place] [address] Darrell Junior DDS [address] [place], [place] [phone] 03/07/2025 3:00 PM EDT Office Visit [facility] ADULT DENTAL [address] [place] [address] Sharonda Lidia [address] [place] [address] documented as of this encounter Visit Diagnoses Not on filedocumented in this encounter Care Teams Service Manager Relationship Specialty Start Date End Date Pascale Malin MD [address] [place] [address] PCP - General Family Medicine 07/01/18 documented as of this encounter
--- OUTSIDE RECORDS SUMMARY | 2024-12-10 10:49 | XMS_ITS | Encounter Summary ---
Author Organization [employer] Address [address] [facility] 7t [place] [address] Care Team Providers Care Thread Clipper Name Role Phone Pascale Malin MD Primary Care Provider + Encounter Details Date Type Department Care Team (Late st Contact Info) Description 01/14/2024 Orders Only [facility] MEDICINE [address] [place] [address] Provider, MD Foreign Social History Tobacco Use [...] Description 01/05/2025 11:00 AM EDT Office Visit [facility] ADULT DENTAL [address] [place] [address] Darrell Junior DDS [address] [place] [address] 03/07/2025 3:00 PM EDT Office Visit [facility] ADULT DENTAL [address] [place] [address] Lidia Mcdonough [address] [place] [address] documented as of this encounter Procedures Procedure Name Priority Date/Time Associated Diagnosis Comments HM COLONOSCOPY Routine 08/05/2017 9:34 AM EST documented in this encounter Results * Hm Colonoscopy (08/05/2017 9:34 AM EST) Historical Provider HEALTH MAINTENANCE Final Result documented in this encounter Visit Diagnoses Not on filedocumented in this encounter Care Teams Thread Clipper Relationship Specialty Start Date End Date Pascale Malin MD [address] [place] [address] PCP - General Family Medicine 07/01/18 documented as of this encounter
--- OUTSIDE RECORDS SUMMARY | 2024-12-10 10:49 | XMS_ITS | Encounter Summary ---
Author Organization [employer] Address [address] [facility] 7t [place] [address] Care Team Providers Care Coal Bagger Name Role Phone Pascale Malin MD Primary Care Provider + Reason for Visit * Reason Onset Date Comments Hospital Follow-up 03/15/2024 Encounter Details Date Type Department Care Team ([facility] st Contact Info) Description 03/15/2024 Telephone [facility] MEDICINE [address] [place], [place] [phone] Pascale Malin MD [address] [place], [place] [phone] Hospital Follow-up Social History Tobacco Use Types [...] from pt requesting a HDF appt. Hospital: [facility] Date of admission: 03/11 Discharge date: 03/13 Diagnosed: Leg Pain documented in this encounter Plan of Treatment Upcoming Encounters Date Type Department Care Team (Late st Contact Info) Description 01/05/2025 11:00 AM EDT Office Visit [facility] ADULT DENTAL [address] [place] [address] Darrell Junior DDS [address] [place] [address] 03/07/2025 3:00 PM EDT Office Visit [facility] ADULT DENTAL [address] [place] [address] Sharonda, Lidia [address] [place] [address] documented as of this encounter Visit Diagnoses Not on filedocumented in this encounter Care Teams Coal Bagger Relationship Specialty Start Date End Date Pascale Malin MD [address] [place] [address] PCP - General Family Medicine 07/01/18 documented as of this encounter
--- OUTSIDE RECORDS SUMMARY | 2024-12-10 10:49 | XMS_ITS | Encounter Summary ---
Author Organization [employer] Address [address] [facility] 7[address] [place] [address] Care Team Providers Care Mastic Man Name Role Phone Pascale Malin MD Primary Care Provider + Encounter Details Date Type Department Care Team (Latest Contact Info) Description 12/08/2024 Travel Social History Tobacco Use Types Packs/Day [...] Description 01/05/2025 11:00 AM EDT Office Visit [facility] ADULT DENTAL [address] [place] [address] Darrell Junior DDS [address] [place] [address] 03/07/2025 3:00 PM EDT Office Visit [facility] ADULT DENTAL [address] [place] [address] Sharonda, Lidia [address] [place] [address] documented as of this encounter Visit Diagnoses Not on filedocumented in this encounter Additional Health Concerns Assessment Noted Time PHQ-9 Depression Total Score: 0 09/09/19 25 11:28 AM EST documented as of this encounter Care Teams Mastic Man Relationship Specialty Start Date End Date Pascale Malin MD [address] [place] [address] PCP - General Family Medicine 07/01/18 documented as of this encounter
--- OUTSIDE RECORDS SUMMARY | 2024-12-10 10:49 | XMS_ITS | Encounter Summary ---
Author Organization [employer] [facility] Address [address] [facility] [address] [place] [address] Care Team Providers Care Conventional Machinist Name Role Phone Pascale Malin MD Primary Care Provider + Encounter Details Date Type Department Care Team (Latest Contact Info) Description 11/02/2020 Abstract [facility] CONVERSIONS Dental, Provider, DDS Social History [...] Care Team ( st Contact Info) Description 01/05/2025 11:00 AM EDT Office Visit [facility] ADULT DENTAL [address] [place] [address] Darrell Junior DDS [address] [place] [address] 03/07/2025 3:00 PM EDT Office Visit [facility] ADULT DENTAL [address] [place] [address] Lidia Mcdonough [address] [place] [address] documented as of this encounter Visit Diagnoses Not on filedocumented in this encounter Care Teams Conventional Machinist Relationship Specialty Start Date End Date Pascale Malin MD [address] [place] [address] PCP - General Family Medicine 07/01/18 documented as of this encounter
--- OUTSIDE RECORDS SUMMARY | 2024-12-10 10:49 | XMS_ITS | Encounter Summary ---
Author Organization [facility] [facility] Address [address] [facility] [address] [place] [address] Care Team Providers Care Community Health Director Name Role Phone Pascale Malin MD Primary Care Provider + Encounter Details Date Type Department Care Team (Latest Contact Info) Description 01/17/2022 Abstract [facility] CONVERSIONS Dental, Provider, DDS Social History [...] Description 01/05/2025 11:00 AM EDT Office Visit [facility] ADULT DENTAL [address] [place] [address] Darrell Junior DDS [address] [place] [address] 03/07/2025 3:00 PM EDT Office Visit [facility] ADULT DENTAL [address] [place] [address] Lidia Mcdonough [address] [place] [address] documented as of this encounter Visit Diagnoses Not on filedocumented in this encounter Care Teams Community Health Director Relationship Specialty Start Date End Date Pascale Malin MD [address] [place] [address] PCP - General Family Medicine 07/01/18 documented as of this encounter
--- OUTSIDE RECORDS SUMMARY | 2024-12-10 10:49 | XMS_ITS | Encounter Summary ---
Author Organization [employer] Address [address] [facility] 7[address] [place] [address] Care Team Providers Care Deckhand Engineer Name Role Phone Pascale Malin MD Primary Care Provider + Reason for Visit * Reason Comments Follow-up Encounter Details Date Type Department Care Team ([facility] Contact Info) Description 12/08/2024 10:15 AM EDT Office Visit [facility] MEDICINE [address] [place], [place] [phone] Pascale Malin MD [address] [place] [address] Essential hypertension (Primary Dx); Other hyperlipidemia; Other iron deficiency anemia; Atypical ductal hyperplasia of breast; Psoriasis Social History Tobacco Use Types Packs/Day Years [...] Sign Reading Time Taken Comments Blood Pressure 150/82 12/08/2024 10:43 AM EDT Pulse 95 12/08/2024 10:27 AM EDT Temperature 36.4 ??C (97.5 ??F) 12/08/2024 10:27 AM E DT Respiratory Rate 20 12/08/2024 10:27 AM EDT Oxygen Saturation 100% 12/08/2024 10:27 AM EDT Inhaled Oxygen Concentration - - Weight 145 kg (319 lb) 12/08/2024 10:27 AM EDT Height 165.1 cm (5' 5 ) 12/08/2024 10:27 AM EDT Body Mass Index 53.08 12/08/2024 10:27 AM EDT documented in this encounter Progress Notes * Pascale Malin MD - 12/08/2024 10:15 AM EDT SUBJECTIVE: Ailyn Rao is a 69 y.o. year old female who presents for follow up. Denies recent illness, injury, or hospitalization. Labs on 1425 showed hyperlipidemia with an LDL of 160, she has been off atorvastatin for more than 6 months now. Otherwise vitamin D was borderline at 29, normal CBC and BMP. Patient is doing well, she had vasectomy last month and is planning left leg varicose vein resection for next week. Overall is doing well, unfortunately her compression stockings are worn out and sheis not due for the new ones that were prescribed for her on August. She is seeing cardiology and medications remain unchanged, her BP at the time was 120 over 80s, shedoes not have exertional chest pain although ET= 2 blocks only due to hip and knee pain, she deniesDOE or leg edema. Acute Concerns: She is out of clobetasol, apparently not covered by insurance. She uses a daily on elbows for psoriatic lesions that remain controlled with clobetasol cream Social History Social History Narrative Not on [...] Generalized gingival recession Periodontal disease Fractured dental jainism with loss of material Preoperative clearance Folliculitis of axilla Subacute maxillary sinusitis Encounter for immunization Varicose veins of left lower extremity with inflammation Fracture of removable partial denture Ill-fitting dentures Psoriasis No family history on file. Review of Systems Constitutional: Negative for chills, fatigue and fever. HENT: Negative for congestion, ear pain, nosebleeds, rhinorrhea, [...] pain and vaginal discharge. Musculoskeletal: Positive for arthralgias. Negative for back pain and neck pain. Skin: Negative for rash. Allergic/Immunologic: Negative for environmental allergies. Neurological: Negative for dizziness, seizures, weakness, light-headedness and headaches. Hematological: Negative for adenopathy. Psychiatric/Behavioral: Negative for agitation, behavioral problems, self-injury and suicidal ideas. OBJECTIVE: Vitals: 12/08/24 1027 12/08/24 1043 BP: (!) 156/85 (!) 150/82 BP Location: Left arm Left arm Patient Position: Sitting Sitting BP Cuff Size: Large adult Large adult Pulse: 95 Resp: 20 Temp: 97.5 ??F (36.4 ??C) TempSrc: Oral SpO2: 100% Weight: 319 lb (145 kg) Height: 5' 5 (1.651 m) Physical Exam HENT: Right Ear: Tympanic membrane and ear canal normal. Left Ear: Tympanic membrane and ear canal normal. Mouth/Throat: Mouth: Mucous membranes are moist. Pharynx: No oropharyngeal exudate or posterior oropharyngeal erythema. Eyes: Pupils: Pupils are equal, round, and reactive to light. Cardiovascular: Rate and Rhythm: Regular rhythm. Pulses: Normal pulses. Heart sounds: Normal heart sounds. No murmur heard. Pulmonary: Breath sounds: Normal breath sounds. Abdominal: General: Bowel sounds are normal. Palpations: Abdomen is soft. Tenderness: There is no abdominal tenderness. Musculoskeletal: General: Normal range of motion. Cervical back: Neck supple. Skin: General: Skin is warm. Neurological: General: No focal deficit present. Mental Status: She is alert and oriented to person, place, and time. Psychiatric: Mood and Affect: Mood normal. Behavior: Behavior normal. Problem List Items Addressed This Visit Essential hypertension - Primary Slightly uncontrolled today, she will check BP at home 3 times per week and call back as needed if BP is > 140/80 consecutively for more than a week, otherwise follow-up with me in 3 months Continue lisinopril 10 mg Counseled re low salt diet/increase moderate physical activity. Check home BP BIW and prn CP/VILLATORO/FARLEY Non smoking patient. Hyperlipidemia LDL is not at goal, she is was not compliant with atorvastatin. Advised to restart atorvastatin 80 mg nightly and recheck labs in 3 months, we discussed about sideeffects of medications including myalgias, transaminitis and GI side effects. We discussed re rx options. Recommended moderate amount of exercise and increase consumption of fruit, vegetables, fish and high fiber foods. Should decrease consumption of highly saturated fats or trans fats. Relevant Medications atorvastatin (Lipitor) 80 MG tablet Other Relevant Orders Hepatic Function Panel Lipid Panel with Reflex to Direct LDL Iron deficiency anemia Resolved, will obtain results of recent colonoscopy Atypical ductal hyperplasia of breast Due for mammography next month, will follow-up at next visit Psoriasis Doing well on clobetasol, I sent the new prescription for once a day, insurance covers up to 60 g/month only. Follow Up: Current Outpatient Medications on File Prior to Visit Medication Sig Dispense Refill ammonium lactate (Amlactin) 12 % cream use daily on affected area Blood Pressure kit Use as directed cycloSPORINE (Restasis) 0.05 % ophthalmic emulsion INSTILL 1 DROP IN BOTH EYES TWICE DAILY Gemtesa 75 MG tablet Take 1 tablet by mouth Once per day. lisinopril 10 MG tablet TAKE 1 TABLET BY MOUTH EVERY MORNING 90 tablet 1 loratadine (Claritin) 10 MG tablet Take 1 tablet (10 mg) by mouth in the morning. 30 tablet 11 meclizine (Antivert) 12.5 MG tablet take 1-2 tablet by oral route 3 times every day as needed [DISCONTINUED] atorvastatin (Lipitor) 80 MG tablet Take 1 tablet (80 mg) by mouth Once per day. 90 tablet 1 [DISCONTINUED] clobetasol (Temovate) 0.05 % cream Apply topically 2 times daily. 45 g 3 No current facility-administered medications on file prior to visit. documented in this encounter Miscellaneous Notes * Assessment & Plan Note - Pascale Malin MD - 12/08/2024 11:17 AM EDT Associated Problem(s): Psoriasis Doing well on clobetasol, I sent the new prescription for once a day, insurance covers up to 60 g/month only. * Assessment & Plan Note - Pascale Malin MD - 12/08/2024 11:16 AM EDT Associated Problem(s): Hyperlipidemia LDL is not at goal, she is was not compliant with atorvastatin. Advised to restart atorvastatin 80 mg nightly and recheck labs in 3 months, we discussed about sideeffects of medications including myalgias, transaminitis and GI side effects. We discussed re rx options. Recommended moderate amount of exercise and increase consumption of fruit, vegetables, fish and high fiber foods. Should decrease consumption of highly saturated fats or trans fats. * Assessment & Plan Note - Pascale Malin MD - 12/08/2024 11:15 AM EDT Associated Problem(s): Atypical ductal hyperplasia of breast Due for mammography next month, will follow-up at next visit * Assessment & Plan Note - Pascale Malin MD - 12/08/2024 11:15 AM EDT Associated Problem(s): Iron deficiency anemia Resolved, will obtain results of recent colonoscopy * Assessment & Plan Note - Pascale Malin MD - 12/08/2024 11:14 AM EDT Associated Problem(s): Essential hypertension Slightly uncontrolled today, she will check BP at home 3 times per week and call back as needed if BP is > 140/80 consecutively for more than a week, otherwise follow-up with me in 3 months Continue lisinopril 10 mg Counseled re low salt diet/increase moderate physical activity. Check home BP BIW and prn CP/VILLATORO/FARLEY Non smoking patient. documented in this encounter Plan of Treatment Upcoming Encounters Date Type Department Care Team (Late st Contact Info) Description 01/05/2025 11:00 AM EDT Office Visit [facility] ADULT DENTAL [address] [place], [place] [phone] Darrell Junior DDS [address] [place], [place] [phone] 03/07/2025 3:00 PM EDT Office Visit [facility] ADULT DENTAL [address] [place], [place] [phone] Lidia Mcdonough [address] [place] [address] Scheduled Orders Name Type Priority Associated Diagnoses Orde r Schedule Hepatic Function Panel Lab Routine Other hyperlipidemia Expected: 03/09/2025 (Approximate), Expires: 12/08/2025 Lipid Panel with Reflex to Direct LDL Lab Routine Other hyperlipidemia Expected: 03/09/2025 (Approximate), Expires: 12/08/2025 documented as of this encounter Visit Diagnoses Diagnosis Essential hypertension- Primary Unspecified essential hypertension Other hyperlipidemia Other iron deficiency anemia Atypical ductal hyperplasia of breast Other specified benign mammary dysplasias Psoriasis Other psoriasis documented in this encounter Additional Health Concerns Assessment Noted Time PHQ-9 Depression Total Score: 0 09/09/19 25 11:28 AM EST documented as of this encounter Care Teams Deckhand Engineer Relationship Specialty Start Date End Date Pascale Malin MD [address] [place] [id number] PCP - General Family Medicine 07/01/18 documented as of this encounter
--- OUTSIDE RECORDS SUMMARY | 2024-12-10 10:50 | XMS_ITS | Clinical Summary ---
Author Organization [employer] Address [address] [facility] 7[address] [place] [address] Care Team Providers Care Presidential Support Specialist Name Role Phone Pascale Malin MD [...] Blood Pressure kit Use as directed Active loratadine (Claritin) 10 MG tablet Take 1 tablet (10 mg) by mouth in the morning. 30 tablet 11/28/19 24 Active cycloSPORINE (Restasis) 0.05 % ophthalmic emulsion INSTILL 1 DROP IN BOTH EYES TWICE DAILY 02/17/20 24 Active Gemtesa 75 MG tablet Take 1 tablet by mouth Once per day. 01/02/20 24 Active lisinopril 10 MG tablet TAKE 1 TABLET BY MOUTH EVERY MORNING 90 tablet 1 07/02/20 24 Active Calcium Carbonate-Vit D-Min (Caltrate 600+D Plus Minerals) 600-800 MG-UNIT tablet Take 1 tablet by mouth Once per day. 30 tablet 11 12/09/19 25 Active atorvastatin (Lipitor) 80 MG tabletIndications :Other hyperlipidemia Take 1 tablet (80 mg) by mouth Once per day. 90 tablet 1 12/09/19 25 Active clobetasol (Temovate) 0.05 % cream Apply topically Once per day. 60 g 3 12/09/19 25 Active Multiple Vitamins-Minerals (multivitamin with minerals) tablet Take 1 tablet by mouth in the morning. 90 tablet 3 11/28/19 24 2024 ferrous sulfate (Fe Tabs) 325 (65 Fe) MG EC tabletIndications :Other iron deficiency anemia Take 1 tablet (325 mg) by mouth with breakfast. Do not crush, chew, or split. 90 tablet 11/28/19 24 2024 atorvastatin (Lipitor) 80 MG tabletIndications :Other hyperlipidemia Take 1 tablet (80 mg) by mouth Once per day. 90 tablet 1 03/23/20 24 2024 Discontinued(R eorder (will not trigger notification to Pharmacy)) clobetasol (Temovate) 0.05 % cream Apply topically 2 times daily. 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 Advised to restart atorvastatin 80 mg nightly and recheck labs in 3 months, we discussed about side effects of medications including myalgias, transaminitis and GI side effects. We discussed re rx options. Recommended moderate amount of exercise and increase consumption of fruit, vegetables, fish and high fiber foods. Should decrease consumption of highly saturated fats or trans fats. Osteoarthritis 10/28/2012 Osteopenia 10/28/2012 Tubular adenoma of [...] lsinopril Essential hypertension 01/20/2012 Assessment & Plan (12/08/2024 11:14 AM EDT): Slightly uncontrolled today, she will check BP at home 3 times per week and call back as needed if BP is > 140/80 consecutively for more than a week, otherwise follow-up with me in 3 months Continue lisinopril 10 mg Counseled re low salt diet/increase moderate physical activity. Check home BP BIW and prn CP/VILLATORO/FARLEY Non smoking patient. 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 Bulimia nervosa 03/31/2012 11/28/2023 Encounters Date Type Department Care Team Description 12/08/2024 10:15 AM EDT Office Visit [facility] [address] [place] [phone] Pascale Malin MD Essential hypertension (Primary Dx); Other hyperlipidemia; Other iron deficiency anemia; Atypical ductal hyperplasia of breast; Psoriasis 12/08/2024 Telephone [facility] [address] [place] [phone] Pascale Malin MD Results 12/08/2024 Travel 12/01/2024 Telephone [facility] [address] [place] [phone] Pascale Malin MD Chart prep 11/29/2024 Patient Outreach [facility] [address] [place] [phone] Pascale Malin MD Pre-visit Planning ((SDOH screening negative tobacco screening positive)) 09/15/2024 Telephone [facility] [address] [place] [phone] Pascale Malin MD Durable Medical Equipment 09/13/2024 Orders Only [facility] External Provider, [facility] from Last 3 Months Immunizations Name Administration Dates Next Due Hep B, adult 01/07/2013,11/03/2012,09/03/2012 Influenza High-dose Quadriva lent Preservative Free 05/22/2023,06/15/2020 Influenza Quadrivalent Adjuvanted 05/18/2022 Influenza injectable quadriv alent IIV4 with preservative 06/10/2017,05/15/2016 Influenza injectable quadriv alent preservative free 07/05/2021 Influenza, High Dose Seasona l, Preservative Free 05/04/2024,05/07/2019,07/01/2018 Influenza, IIV3, injectable 04/27/2014, 1 Influenza, Split (incl. [place] fied surface antigen) 04/27/2013,07/02/2012 [facility] SARS-CoV-2 Vaccination 11/01/2020 [facility] Covid-19 Vaccine 12+ 08/01/2021 Pneumococcal Conjugate PCV [...] Mass Index 53.08 12/08/2024 10:27 AM EDT Plan of Treatment Upcoming Encounters Date Type Department Care Team (Late st Contact Info) Description 01/05/2025 11:00 AM EDT Office Visit [facility] [address] [place] [address] Darrell Junior DDS [address] [place] [address] 03/07/2025 3:00 PM EDT Office Visit [facility]ULT [facility] [address] [place] [address] Isaiah Mcdonougharis [address] [place] [address] Health Maintenance Due Date Last Done Comments [...] - Td or Tdap) 03/14/2025 03/14/2015, 08/14/2005 Depression Screening 09/09/2025 09/09/2024, 09/09/19 25 SDOH Screening 11/29/2025 11/29/2024 Tobacco Screening 12/08/2025 12/08/2024 Dental X-Ray: Full Mouth 02/26/2027 02/26/2024, 10/16 Lipid Panel 11/25/2029 11/25/2024, 07/19, 01/17/2022, Additional history exists Hepatitis [...] 11/25/2024 10:17 AM EDT Psoriasis with arthropathy (CMS/HCC) BASIC METABOLIC PANEL Routine 11/25/2024 10:17 AM EDT Essential hypertension CBC WITH AUTO DIFFERENTIAL Routine 11/25/2024 10:17 AM EDT Psoriasis with arthropathy (CMS/HCC) VASC US LOWER EXTREMITY VENOUS DUPLEX BILATERAL [...] Relevant to Health Maintenance Results * (ABNORMAL) Vitamin D, 25-Hydroxy, Total, Immunoassay (11/25/2024 10:17 AM EDT) Vitamin D 25-OH Total 29.6(L) >30 ng/mL [facility] Comment: Health Based Reference Values*< 20 ??ng/mL ??Okjrjtnpf93-08 ng/mL ??Insufficient> 30 ??ng/mL ??Sufficient*Farrukh LOPEZ. N Engl J Med. 2007;357:266-280There is no well-established upper level of normal vitamin Dlevels. Some laboratories use 50 ng/mL as an upper limit ofnormal. However, toxicity is patient-dependent and may occurat any level. Careful correlation with the patient'spresentation is necessary and, if there is concern forvitamin D toxicity, treatment should be consideredirrespective of the serum level.Care must be taken in interpreting Vitamin D results fromdifferent laboratories and methodologies. ??Published datademonstrated that results from patients undergoinghemodialysis may show a negative bias when tested withvarious automated 25-OH vitamin D assays when compared toLC- MS/MS.When testing samples from patients whose predominant form ofVitamin D is Vitamin D2, such as patients receiving VitaminD2 supplementation, results that are subtherapeutic shouldbe confirmed with another method such as LC-MS/MS. Blood 11/25/2024 10:1 7 AM EDT 11/25/2024 11:37 AM EDT us Pascale Malin MD LAB BLOOD ORDERABLES Fin al Result [facility] [address] [place] [phone] [phone] * (ABNORMAL) Lipid Panel with Reflex to Direct LDL (11/25/2024 10:17 AM EDT) Triglycerides 81 <150 mg/dL [facility] Comment:Desirable Triglyceri de: less than 150 mg/dLBorderline High Triglyceride 150-199 mg/dLHigh Triglyceride: 200-499 mg/dLVery High Triglyceride: greater than or equal to 5OO mg/dL Cholesterol 240(H) <200 mg/dL [facility] Comment:Desirable Cholestero l: less than 200 mg/dLBorderline High Cholesterol: 200-239 mg/dLHigh Cholesterol: greater than 239 mg/dL LDL Cholesterol Calculated 166(H) <100 mg/dL [facility] Comment:Desirable LDL: less than 100 mg/dLNear Optimal/Above Optimal LDL: 110- 129 mg/dLBorderline High LDL: 130-159 mg/dLHigh LDL: 160-189 mg/dLVery High LDL: greater than or equal to 190 mg/dL HDL Cholesterol 58 >40 mg/dL [facility] Comment:Desirable HDL: great er than 40 mg/dL Note: This HDL assay may give artificially low results in patients with liver disease. Blood 11/25/2024 10:1 7 AM EDT 11/25/2024 11:37 AM EDT us Pascale Malin MD LAB BLOOD ORDERABLES Fin al Result [facility] [address] [place], [place] [phone] * (ABNORMAL) CBC auto differential (11/25/2024 10:17 AM EDT) White Blood Count 5.8 4.8 - 10.8 X10*3/uL [facility] Red Blood Count 4.59 4.20 - 5.50 X10*6/uL [facility] Hemoglobin 12.0 12.0 - 16.0 g/dl [facility] Hematocrit 37.9 37.0 - 47.0 % [facility] Mean Corpuscular Volume 82.6 80.0 - 98.0 fL [facility] Mean Corpuscular Hemoglobin 26.1(L) 27.0 - 33.0 pg [facility] Mean Corpuscular HGB Conc 31.7 31.0 - 35.0 g/dl [facility] Red Cell Distribution Width 17.1(H) 11.0 - 16.0 % [facility] Platelet Count 293 160 - 400 X10*3/uL [facility] Mean Platelet Volume 11.0 9.4 - 12.3 fL [facility] Neutrophils Percent Auto 64.7 45 - 73 % [facility] Imm Gran Pct Auto 0.3 0.0 - 0.4 % [facility] Lymphocytes Percent Auto 27.1 20 - 40 % [facility] Monocytes Percent Auto 6.8 2 - 11 % [facility] Eosinophils Percent Auto 0.9 0 - 4 % [facility] Basophils Percent Auto 0.2 0 - 2 % [facility] NRBC Pct Auto 0.0 0.0 - 0.2 /100WBC [facility] Neutrophils Absolute Auto 3.8 2.0 - 8.3 x10*3/uL [facility] Imm Gran Abs Auto 0.02 0.00 - 0.03 X10*3/uL [facility] Lymphocytes Absolute Auto 1.6 1.2 - 4.9 X10*3/uL [facility] Monocytes Absolute Auto 0.4 0.1 - 1.2 X10*3/uL [facility] Eosinophils Absolute Auto 0.1 0.0 - 0.4 X10*3/uL [facility] Basophils Absolute Auto 0.0 0.0 - 0.2 X10*3/uL [facility] NRBC Abs Auto 0.000 0.0 - 0.012 X10*3/uL [facility] Blood Venous blood specimen / Unknown 11/25/2024 10:17 AM EDT 11/25/2024 11:37 AM EDT us Pascale Malin MD LAB BLOOD ORDERABLES Fin al Result [facility] [address] [place] [phone] * (ABNORMAL) Basic Metabolic Panel (11/25/2024 10:17 AM EDT) Sodium 140 135 - 145 mmol/L [facility] Potassium 5.1 3.3 - 5.1 mmol/L [facility] Chloride 106 96 - 108 mmol/L [facility] Carbon Dioxide 28 22 - 29 mmol/L [facility] Anion Gap 11(L) 12 - 20 [facility] Urea Nitrogen (BUN) 22(H) 9 - 16 mg/dL [facility] Creatinine, Serum 0.68 0.5 - 1.4 mg/dL [facility] Estimated Glomerular Filt Rate >60 [facility] Comment:Chronic Kidney Disea se: Estimated GFR < 60 mL/min/1.59h5Hddqjr Kidney Disease: Estimated GFR < 15 mL/min/1.73m2 Glucose 91 60 - 115 mg/dL [facility] Calcium 9.9 8.4 - 10.2 mg/dL [facility] Blood Venous blood specimen / Unknown 11/25/2024 10:17 AM EDT 11/25/2024 11:37 AM EDT us Pascale Malin MD LAB BLOOD ORDERABLES Fin al Result [facility] [address] [place] [address] [phone] * VASC Lower Extremity Venous Duplex Bilateral (09/13/2024 10:31 AM EST) 09/13/2024 10:3 1 AM EST Narrative [facility] - 09/15/2024 9:15 AM EST ? [facility] ?[address] ?[place] [address] ? Ultrasound Report ? Signed ? Patient: Rao,Ailyn E ?MR#: [id number] ?? [id number] ? : 1955 ?Acct:[id number] ? Age/Sex: 69 / F ?ADM Date: 01/27/25 ? Loc: HO.US ? Attending Dr: Mohini Saunders PA-C ? Ordering Physician: Mohini Saunders PA-C ?? Date of Service: 09/13/24 ?? Procedure(s): US venous duplex LE BI ?? Accession Number(s): [id number] ? cc: Pascale Malin MD; Mohini Saunders [...] a range of 0.1-0.3 cm. ?? Reflux: 1935-5400 ms. ? VARICOSITIES: ?? Location: Proximal lateral accessory saphenous vein, mid thigh and ?? proximal calf. ?? Size: Range 0.3-0.4 cm. ?? Reflux: 2787-4317 ms. ? 3. DEEP VENOUS ULTRASOUND OF [...] DD/ 1031 ? TD/TT: 09/13/24 1126 ? Electronics Inspector: ? Procedure Note Charlee Parks - 09/15/[address] [address] Ultrasound Report Signed Patient: Ailyn Rao EMR#: [id number] : 3Acct:[id number] Age/Sex: 69 / FADM Date: 09/13/24 Loc: HO.US Attending Dr: Mohini Saunders PA-C Ordering Physician: Mohini Saunders PA-C Date of Service: 09/13/24 Procedure(s): US venous duplex LE BI Accession Number(s): [id number] cc: Pascale Malin MD; Mohini Saunders PA-C [...] is a range of 0.1-0.3 cm. Reflux: 4846-2274 ms. VARICOSITIES: Location: Proximal lateral accessory saphenous vein, mid thigh and proximal calf. Size: Range 0.3-0.4 cm. Reflux: 9517-4829 ms. 3. DEEP VENOUS ULTRASOUND OF THE [...] by: Rolando Hernandez MD 09/15/2024 09:13 AM [facility] Dictated By: Rolando Funez MD Signed By: <Electronically signed by Rolando Aragon MDin OV> 09/15/24 0913 DD/ 1031 TD/TT: 09/13/24 1126 Electronics Inspector: [facility] External Provider CV VASC ULAR PROCEDURES Edited Result - Final [facility] [address] [place] [phone] * Mammography Report 1 (06/14/2021 10:30 AM [...] Result * Colonoscopy (08/05/2017 9:34 AM EST) Historical Provider HEALTH MAINTENANCE Final Result from Last 3 Months or Most Recently Relevant to Health Maintenance Insurance [facility] CARE HOME OPTIONS (O D-SNP) KAMALA ALAS [id number] DENTAL - [facility] Care Teams Presidential Support Specialist Relationship Specialty Start Date End Date Pascale Malin MD [address] [place] [phone] PCP - General Family Medicine 07/01/18
--- OUTSIDE RECORDS SUMMARY | 2024-12-10 10:50 | XMS_ITS | Encounter Summary ---
Author Organization [employer] Address [address] [facility] [address] [place] [address] Care Team Providers Care Reference Archivist Name Role Phone Pascale Malin MD Primary Care Provider + Reason for Visit * Reason Onset Date Comments appt prophy 03/18/2023 Encounter Details Date Type Department Care Team (Late st Contact Info) Description 03/18/2023 Telephone [facility] [address] [place], [place] [phone] Sharonda, Lidia [address] [place] [address] appt prophy Social History Tobacco Use Types [...] Description 01/05/2025 11:00 AM EDT Office Visit [facility] [address] [place] [address] Darrell Junior DDS [address] [place] [address] 03/07/2025 3:00 PM EDT Office Visit [facility] [address] [place] [address] Sharonda, Lidia [address] [place] [address] documented as of this encounter Visit Diagnoses Not on filedocumented in this encounter Care Teams Reference Archivist Relationship Specialty Start Date End Date Pascale Malin MD [address] [place], [place] [phone] PCP - General Family Medicine 07/01/18 documented as of this encounter
--- OUTSIDE RECORDS SUMMARY | 2024-12-10 10:50 | XMS_ITS | Data Portability ---
Author Organization [employer] Address [address] [place] [phone] Care Team Providers Care Hay Farmer Name Role Phone HIM CCA OTHER Assessment Encounter Date Assessment Date Assessment LastModified by Organization Details LastModified Time 03/22/2024 03/22/2024 I provided real -time medical direction via phone for this encounter and was available for additional phone-based assistance as needed. I have reviewed and agree with the Assessment and Plan as documented by the Hospital Aides And Assistants Teacher. Patient given the opportunity to ask questions. [...] ED and both were reassuringly negative. Per loading machine operator on the scene, vital signs are stable [...] Not available Not available Not available 03/23/2024 [id number] RxNorm Fariha Sams MD [address] [place] [address],[address], [place], [phone], [employer] 4 07:45:17 [id number] codeine medicatio n Not available Not available Not available 03/23/2024 [id number] RxNobeckie Sams MD [address] [place] [address],[address], [place], [phone], [employer] 4 07:45:23 Medications Name Sig Start Date [...] Updated DateTime 4 97.7 [degF] 16 /min 335908. 44 g 154.94 cm 86 /min 98 % 98 % 136 mm[Hg] 75 mm[Hg] Not Available [employer] - production 4 07:41:09 Social History None recorded. Functional Status None recorded. Mental Status None recorded. Family History Nothing Reported. Medical History No medical history recorded. Gynecological HistoryNo gynecological history recorded. Obstetrics History GPAL:G 0 P 0 0 0 0 Past Encounters Encounter ID Performer Location Encounter Start Date Encounter Closed Date Diagnosis/Indication Diagnosis SNOMED-CT Code Diagnosis ICD10 Code Diagnosis Note [id number] Fariha Sams MD Main - [facility] [address] [place] [phone] 03/23/2024 07:41:00 03/23/2024 11:06:40 Pruritic rash 62518338 L28.2 Health Concerns Section Related Observation LastModified by Organization Detai ls LastModified Time None Recorded Concern Status LastModified by Organization Details LastModified Time None Recorded Advance Directives Directive None Recorded Payers Encounter Date Sequence Insurance Name Policy Number Policy Samuels Covered Member ID Samuels Member ID Guarantor Name 03/22/2024 1 [facility] - DOS ON OR AFTER 2022 - DUAL ELIGIBLE - RETIREMENT OPTIONS AND ONE CARE (MEDICARE REPLACEMENT/AD VANTAGE - HMO) Ailyn Rao [id number] Ailyn Rao Notes Date Note Type Note [...] .................. .................. .................. .................. .................. .................. ............... Hospital Aides And Assistants Teacher Note From Randy Painter: Pt reports having a small area on her left anterior sims of localized redness, edema and pain/itching/burni ng. Pt was seen at [facility], inpatient for three days, had negative ultrasound, [...] .................. ............... Disposition: Armando Sams MD [address] [facility],[address], [place], [phone], JENNIFER Ibanez .[employer] [place] 03/23/2024 07:46:13 OBGyn Episode No OBEpisode recorded.
== END 2024-12-10 11:41 | disposition home or self-care (01) ==
LOC: HO.HVS 10:23
PROVIDERS: PCP Internal Medicine; Visit Provider Surgery Vascular Surgery
DX: I83.12 Varicose veins of left lower extremity with inflammation (principal)
CPT/HCPCS: 36475

== ENCOUNTER → 2024-12-10 10:22 | Outpatient (BNVA) | payer OTHER, SELFPAY | PROVIDERS: PCP Internal Medicine; Visit Provider Surgery Vascular Surgery | DX: I83.12 Varicose veins of left lower extremity with inflammation (principal) | CPT/HCPCS: 36475; J2003; J2004 ==

== ENCOUNTER 2024-12-21 11:02 | Outpatient (AMB) | payer OTHER, SELFPAY ==
--- NOTE | 2024-12-21 11:09 | MHC.OFFVIS ---
Intake Visit Reasons: 2 week follow up s/p L GSV RFA 12/10/24 Intake Note: Patient presents for follow up left GSV RFA. No complaints. Accompanied by: Family Allergies codeine [CODEINE] Allergy (Unknown, Verified 12/21/24 11:11) STOMACH PAIN, vomiting HPI HPI 2 week follow up s/p L GSV RFA 12/10/24: Details: The patient is a morbidly obese 69-year-old female presenting with follow-up after recent saphenous vein ablation. Previously, she had undergone right great saphenous vein ablation without complications. During procedure experience pain but appears to have resolved. In general appears to be doing significantly better.. She now presents for routine postprocedure follow-up. [facility] Medical History Epidermal cyst of face Overactive bladder Urinary incontinence Osteopenia Fibromyalgia Obesity Depression Rotator cuff tear, left Rotator cuff tear, right Bicipital tendinitis Morbid obesity Other and unspecified hyperlipidemia SILVIO on CPAP Essential hypertension Surgical History History of excision of epidermal inclusion cyst History of surgery No pertinent past surgical history Family History Father No problems noted. Mother No problems noted. Social History Patient Tobacco Use Status: Never used Tobacco Review of Systems Const All systems reviewed & are unremarkable except as noted in HPI and below Reports no additional complaints ENT Reports Normal hearing present Card Denies chest pain, Denies chest pain at rest, Denies chest pain with activity and Denies pedal edema Resp Denies cough GI Denies abdominal pain Musc Denies abnormal gait, Denies muscle cramps and Denies radiating pain into limb Skin/Breast Denies skin ulcer and Denies wounds Neuro Reports Normal hearing present and Denies abnormal gait Psych Reports no additional complaints Physical Exam Const General: cooperative, healthy appearing and comfortable Orientation/consciousness: oriented to person, oriented to place and oriented to time HEENT Head: Yes normal to inspection Neck Neck: Yes normal visual inspection Carotids: no bruits Chest Chest palpation & inspection: normal inspection of the chest Resp Effort & Inspection: normal respiratory effort and able to speak in complete sentences Auscultation: clear to auscultation bilaterally, no crackles, no rales, no rhonchi and no wheezes Cardio Rate: regular rate Rhythm: regular rhythm Heart sounds: S1 normal heart sound present and S2 normal heart sound present Bruits: no carotid bruits Peripheral pulses: Peripheral pulses 2+ throughout GI Inspection: Yes normal to inspection Skin Wounds: no wounds Hair: normal Neuro General: oriented to person, oriented to place and oriented to time Cranial nerves: Yes CN's II-XII intact bilaterally and Yes Normal hearing present Cognition (Neuro): normal cognition Motor exam (neuro): 5/5 motor strength present throughout Extrem Other: venous exam: No significant superficial varicosities or spider telangiectasias, minimal edema General: No clubbing, No cyanosis and No edema Psych Appearance: grossly normal Mental Status: mental status grossly normal Speech and movement: Normal speech and movement present Assessment & Plan Assessment & Plan (1) Varicose veins of left lower extremity with inflammation: Comment: 12/10/2024 left great saphenous vein radiofrequency ablation Code(s): I83.12 - Varicose veins of left lower extremity with inflammation Category: Medical Plan: The patient has done extremely well with all venous treatments. Patient's may often experience postprocedure phlebitic episodes and I have discussed with the patient use of warm compresses and NSAIDS if tolerated for pain discomfort. In addition, I have discussed continued conservative measures including use of compression, leg elevation, and exercise. The patient was also given an information sheet regarding appropriate use of compression stockings and future purchases. Thank you for allowing us to care for your patient with venous disease. (2) Varicose veins of right lower extremity with inflammation: Comment: 11/12/2024 - right great saphenous vein Cyanoacralate ablation Code(s): I83.11 - Varicose veins of right lower extremity with inflammation Category: Medical Plan: See above Coding Level of Care Code Est Pt Level 4 (54270) Diagnoses Varicose veins of left lower extremity with inflammation I83.12 Varicose veins of right lower extremity with inflammation I83.11
--- OUTSIDE RECORDS SUMMARY | 2024-12-21 12:46 | XMS_ITS | Encounter Summary ---
Author Organization [employer] Address [address] [place] [address] 7t [place] [address] Care Team Providers Care Slide Developer Name Role Phone Pascale Malin MD Primary Care Provider + Encounter Details Date Type Department Care Team (Late st Contact Info) Description 05/01/2023 Abstract [facility] ADULT DENTAL [address] [place] [address] Lidia Mcdonough [address] [place] [address] Social History Tobacco Use Types Packs/Day Years [...] Description 01/05/2025 11:00 AM EDT Office Visit [facility] ADULT DENTAL [address] [place] [address] Darrell Junior DDS [address] [place], [place] [phone] 03/07/2025 3:00 PM EDT Office Visit [facility] ADULT DENTAL [address] [place] [address] Isaiah Mcdonougharis [address] [place], [place] [phone] documented as of this encounter Visit Diagnoses Not on filedocumented in this encounter Care Teams Slide Developer Relationship Specialty Start Date End Date Pascale Malin MD [address] [place] [address] PCP - General Family Medicine 07/01/18 documented as of this encounter
--- OUTSIDE RECORDS SUMMARY | 2024-12-21 12:46 | XMS_ITS | Encounter Summary ---
Author Organization [employer] Address [address] [facility] 7t [place] [address] Care Team Providers Care Videographer Name Role Phone Pascale Malin MD Primary Care Provider + Encounter Details Date Type Department Care Team (Late st Contact Info) Description 01/14/2024 Orders Only [facility] MEDICINE [address] [place] [address] Provider, MD Foreign Social History Tobacco Use [...] Description 01/05/2025 11:00 AM EDT Office Visit [facility] ADULT DENTAL [address] [place] [address] Darrell Junior DDS [address] [place] [address] 03/07/2025 3:00 PM EDT Office Visit [facility] ADULT DENTAL [address] [place] [address] Lidia Mcdonough [address] [place] [address] documented as of this encounter Procedures Procedure Name Priority Date/Time Associated Diagnosis Comments HM COLONOSCOPY Routine 08/05/2017 9:34 AM EST documented in this encounter Results * Hm Colonoscopy (08/05/2017 9:34 AM EST) Historical Provider HEALTH MAINTENANCE Final Result documented in this encounter Visit Diagnoses Not on filedocumented in this encounter Care Teams Videographer Relationship Specialty Start Date End Date Pascale Malin MD [address] [place] [phone] PCP - General Family Medicine 07/01/18 documented as of this encounter
--- OUTSIDE RECORDS SUMMARY | 2024-12-21 12:46 | XMS_ITS | Patient Health Record ---
Author Organization [facility] Address [address] [place] [phone] Care Team Providers Care Mammalogist Name Role Phone Umm Venegas Primary Care Provider Leeroy Estrada [phone] Allergies Allergen (clinical drug ingredient) Drug/Non Drug [...] Status Risk Notes Problem Colon cancer screening (V76.51) Active confirmed Problem History of adenomatous polyp of colon (801981338) History of adenomatous polyp of colon (V12.72) Active confirmed Plan Of Treatment Future Test Test Name Order Date COLONOSCOPY 05/04/2013 Insurance Providers Payer Name Payer Address Payer Phone Subscriber Number Group Number Insured Name Patient Relationship to Insured Coverage Start Date Coverage End Date [facility] [address] [place] [address] [id number] ROSALIA NIKOLAS Self - patient is the insured [facility]ICAID [facility] [address] [place] [address] [phone] [id number] ROSALIA NIKOLAS Self - patient is the insured Medical (General) History Medical History History ICD Code colonoscopy 06-08-2008 and 2 005 negative-lipomatous ICV, diverticulosis, internal hemorrhoids colon polyps-tubular adenoma removed in 2001 Depression Hyperlipidemia Denies IL,DM,CVA,Lung disease,renal dise ase Fibromyalgiua Surgical History Surgery Date(Month/Year) Abdominal wall hernia left shoulder surgery 2011 Gastric bypass Carpal tunnel bilateral Breast reduction and panniculectomy afte r weight loss
--- OUTSIDE RECORDS SUMMARY | 2024-12-21 12:46 | XMS_ITS | Encounter Summary ---
Author Organization [employer] Address [address] [facility] 7t [place] [address] Care Team Providers Care Industrial Technology Teacher Name Role Phone Pascale Malin MD Primary Care Provider + Reason for Visit * Reason Onset Date Comments Hospital Follow-up 03/15/2024 Encounter Details Date Type Department Care Team ([facility] st Contact Info) Description 03/15/2024 Telephone [facility] MEDICINE [address] [place], [place] [phone] Pascale Malin MD [address] [place], [place] [phone] Hospital Follow-up Social History Tobacco Use Types [...] from pt requesting a HDF appt. Hospital: [facility] Date of admission: 03/11 Discharge date: 03/13 Diagnosed: Leg Pain documented in this encounter Plan of Treatment Upcoming Encounters Date Type Department Care Team (Late st Contact Info) Description 01/05/2025 11:00 AM EDT Office Visit [facility] ADULT DENTAL [address] [place] [address] Darrell Junior DDS [address] [place] [address] 03/07/2025 3:00 PM EDT Office Visit [facility] ADULT DENTAL [address] [place] [address] Sharonda Lidia [address] [place] [address] documented as of this encounter Visit Diagnoses Not on filedocumented in this encounter Care Teams Industrial Technology Teacher Relationship Specialty Start Date End Date Pascale Malin MD [address] [place] [address] PCP - General Family Medicine 07/01/18 documented as of this encounter
--- OUTSIDE RECORDS SUMMARY | 2024-12-21 12:46 | XMS_ITS | Encounter Summary ---
Author Organization [employer] Address [address] [facility] 7t [place] [address] Care Team Providers Care Consulting Solution Manager Name Role Phone Pascale Malin MD Primary Care Provider + Encounter Details Date Type Department Care Team (Latest Contact Info) Description 01/17/2022 Abstract [facility] CONVERSIONS Dental, Provider, [...] Visit [facility] ADULT DENTAL [address] [place] [address] Darrell Junior DDS [address] [place] [address] 03/07/2025 3:00 PM EDT Office Visit [facility] ADULT DENTAL [address] [place] [address] Lidia Mcdonough [address] [place] [address] documented as of this encounter Visit Diagnoses Not on filedocumented in this encounter Care Teams Consulting Solution Manager Relationship Specialty Start Date End Date Pascale Malin MD [address] [place] [address] PCP - General Family Medicine 07/01/18 documented as of this encounter
--- OUTSIDE RECORDS SUMMARY | 2024-12-21 12:46 | XMS_ITS | Encounter Summary ---
Author Organization [employer] Address 75 [facility] 7t [place] [address] Care Team Providers Care Product Support Consultant Name Role Phone Pascale Malin MD Primary Care Provider + Encounter Details Date Type Department Care Team (Latest Contact Info) Description 11/02/2020 Abstract [facility] CONVERSIONS Dental, Provider, DDS Social History Tobacco [...] Office Visit [facility] ADULT DENTAL [address] [place] [address] Darrell Junior DDS [address] [place] [address] 03/07/2025 3:00 PM EDT Office Visit [facility] ADULT DENTAL [address] [place] [address] Lidia Mcdonough [address] [place] [address] documented as of this encounter Visit Diagnoses Not on filedocumented in this encounter Care Teams Product Support Consultant Relationship Specialty Start Date End Date Pascale Malin MD 230 [place] [address] PCP - General Family Medicine 07/01/18 documented as of this encounter
--- OUTSIDE RECORDS SUMMARY | 2024-12-21 12:47 | XMS_ITS | Clinical Summary ---
Author Organization [employer] Address 75 [facility] 7t [place] [address] Care Team Providers Care Universal Grinder Set Up Operator Name Role Phone Pascale Malin MD [...] or any other acute issue Fractured dental adventist with loss of materi al 05/02/2023 Dental [...] 12/08/2024 10:15 AM EDT Office Visit [facility] [address] [place] [phone] Pascale Malin MD Essential hypertension (Primary Dx); Other hyperlipidemia; Other iron deficiency anemia; Atypical ductal hyperplasia of breast; Psoriasis 12/08/[address] [facility] [address] [place] [address] Pascale Malin MD Results 12/08/2024 Travel 12/01/[address] [facility] [address] [place] [phone] Pascale Malin MD Chart prep 11/29/[address] [facility] [address] [place] [phone] Pascale Malin MD Pre-visit Planning ((SDOH screening negative tobacco screening positive)) from Last 3 Months Immunizations Name Administration Dates Next Due Hep B, adult 01/07/2013,11/03/2012,09/03/2012 Influenza High-dose Quadriva lent Preservative Free 05/22/2023,06/15/2020 Influenza Quadrivalent Adjuvanted 05/18/2022 Influenza injectable quadriv alent IIV4 with preservative 06/10/2017,05/15/2016 Influenza injectable quadriv alent preservative free 07/05/2021 Influenza, High Dose Seasona l, Preservative Free 05/04/2024,05/07/2019,07/01/2018 Influenza, IIV3, injectable 04/27/2014, 1 Influenza, Split (incl. [place] fied surface antigen) 04/27/2013,07/02/2012 [employer] SARS-CoV-2 Vaccination 11/01/2020 Pfizer Covid-19 Vaccine 12+ [...] housing situation today? I have jose jared 03/15/[address] you li [...] Description 01/05/2025 11:00 AM EDT Office Visit [facility] ADULT DENTAL [address] [place] [address] Darrell Junior DDS [address] [place] [address] 03/07/2025 3:00 PM EDT Office Visit [facility] ADULT DENTAL [address] [place] [address] Lidia Mcdonough [address] [place] [address] Health Maintenance Due Date Last Done Comments [...] 10:17 AM EDT Psoriasis with arthropathy (CMS/HCC) Full PROPHYLAXIS - ADULT Routine 02/26/2024 10:00 [...] Vitamin D 25-OH Total 29.6(L) >30 ng/mL [facility] Comment: Health Based Reference Values*< 20 ??ng/mL ??[id number] ng/mL ??Insufficient> 30 ??ng/mL ??Sufficient*Farrukh LOPEZ. N [...] MD LAB BLOOD ORDERABLES Fin al Result [facility] [address] [place] [phone] * (ABNORMAL) Lipid Panel with Reflex to Direct LDL (11/25/2024 10:17 AM EDT) Triglycerides 81 <150 mg/dL [facility] Comment:Desirable Triglyceri de: less than 150 mg/dLBorderline High Triglyceride 150-199 mg/dLHigh Triglyceride: 200-499 mg/dLVery High Triglyceride: greater than or equal to 5OO mg/dL Cholesterol 240(H) <200 mg/dL [facility] Comment:Desirable Cholestero l: less than 200 mg/dLBorderline High Cholesterol: 200-239 mg/dLHigh Cholesterol: greater than 239 mg/dL LDL Cholesterol Calculated 166(H) <100 mg/dL [facility] Comment:Desirable LDL: less than 100 mg/dLNear Optimal/Above Optimal LDL: 110- 129 mg/dLBorderline High LDL: 130-159 mg/dLHigh LDL: 160-189 mg/dLVery High LDL: greater than or equal to 190 mg/dL HDL Cholesterol 58 >40 mg/dL [facility] Comment:Desirable HDL: great er than 40 mg/dL Note: This HDL assay may give artificially low results in patients with liver disease. Blood 11/25/2024 10:1 7 AM EDT 11/25/2024 11:37 AM EDT us Pascale Malin MD LAB BLOOD ORDERABLES Fin al Result [facility] [address] [place] [phone] * (ABNORMAL) CBC auto differential (11/25/2024 10:17 AM EDT) White Blood Count 5.8 4.8 - 10.8 X10*3/uL [facility] Red Blood Count 4.59 4.20 - 5.50 X10*6/uL [facility] Hemoglobin 12.0 12.0 - 16.0 g/dl [facility] Hematocrit 37.9 37.0 - 47.0 % [facility] Mean Corpuscular Volume 82.6 80.0 - 98.0 fL [facility] Mean Corpuscular Hemoglobin 26.1(L) 27.0 - 33.0 pg [facility] Mean Corpuscular HGB Conc 31.7 31.0 - 35.0 g/dl [facility] Red Cell Distribution Width 17.1(H) 11.0 - 16.0 % [facility] Platelet Count 293 160 - 400 X10*3/uL [facility] Mean Platelet Volume 11.0 9.4 - 12.3 fL [facility] Neutrophils Percent Auto 64.7 45 - 73 % [facility] Imm Gran Pct Auto 0.3 0.0 - 0.4 % [facility] Lymphocytes Percent Auto 27.1 20 - 40 % [facility] Monocytes Percent Auto 6.8 2 - 11 % [facility] Eosinophils Percent Auto 0.9 0 - 4 % [facility] Basophils Percent Auto 0.2 0 - 2 % [facility] NRBC Pct Auto 0.0 0.0 - 0.2 /100WBC [facility] Neutrophils Absolute Auto 3.8 2.0 - 8.3 x10*3/uL [facility] Imm Gran Abs Auto 0.02 0.00 - 0.03 X10*3/uL [facility] Lymphocytes Absolute Auto 1.6 1.2 - 4.9 X10*3/uL [facility] Monocytes Absolute Auto 0.4 0.1 - 1.2 X10*3/uL [facility] Eosinophils Absolute Auto 0.1 0.0 - 0.4 X10*3/uL [facility] Basophils Absolute Auto 0.0 0.0 - 0.2 X10*3/uL [facility] NRBC Abs Auto 0.000 0.0 - 0.012 X10*3/uL [facility] Blood Venous blood specimen / Unknown 11/25/2024 10:17 AM EDT 11/25/2024 11:37 AM EDT us Pascale Malin MD LAB BLOOD ORDERABLES Fin al Result [facility] [address] [place] [phone] * (ABNORMAL) Basic Metabolic Panel (11/25/2024 10:17 AM EDT) Sodium 140 135 - 145 mmol/L [facility] Potassium 5.1 3.3 - 5.1 mmol/L [facility] Chloride 106 96 - 108 mmol/L [facility] Carbon Dioxide 28 22 - 29 mmol/L [facility] Anion Gap 11(L) 12 - 20 [facility] Urea Nitrogen (BUN) 22(H) 9 - 16 mg/dL [facility] Creatinine, Serum 0.68 0.5 - 1.4 mg/dL [facility] Estimated Glomerular Filt Rate >60 [facility] Comment:Chronic Kidney Disea se: Estimated GFR < 60 mL/min/1.79k9Igcppj Kidney Disease: Estimated GFR < 15 mL/min/1.73m2 Glucose 91 60 - 115 mg/dL [facility] Calcium 9.9 8.4 - 10.2 mg/dL [facility] Blood Venous blood specimen / Unknown 11/25/2024 10:17 AM EDT 11/25/2024 11:37 AM EDT Pascale Malin MD LAB BLOOD ORDERABLES Fin al Result Performing Organization Address City/State/[facility] Co de Phone Number [facility] [address] [place] [phone] * Mammography Report 1 (06/14/2021 10:30 AM [...] Result * Colonoscopy (08/05/2017 9:34 AM EST) us Historical Provider HEALTH MAINTENANCE Final Result from Last 3 Months or Most Recently Relevant to Health Maintenance Insurance [facility] [employer] OPTIONS (O D-SNP) DENTAL [facility] Care Teams Universal Grinder Set Up Operator Relationship Specialty Start Date End Date Pascale Malin MD [address] [place] [phone] PCP - General Family Medicine 07/01/18
--- OUTSIDE RECORDS SUMMARY | 2024-12-21 12:47 | XMS_ITS | Data Portability ---
Author Organization [email or web address] Address [address] [place] [phone] Care Team Providers Care Roller Varnisher Name Role Phone HIM CCA OTHER Assessment Encounter Date Assessment Date Assessment LastModified by Organization Details LastModified Time 03/22/2024 03/22/2024 I provided real -time medical direction via phone for this encounter and was available for additional phone-based assistance as needed. I have reviewed and agree with the Assessment and Plan as documented by the Medical Voucher Clerk. Patient given the opportunity to ask [...] ED and both were reassuringly negative. Per electronics supervisor on the scene, vital signs are stable [...] Not available Not available Not available 03/23/2024 [id number] RxNorm Fariha Sams MD [address] [place] [address],[address], [place], [phone], [employer] 4 07:45:17 [id number] codeine medicatio n Not available Not available Not available 03/23/2024 [id number] RxNobeckie Sams MD [address] [place] [address],[address], [place], [phone], [employer] 4 07:45:23 Medications Name Sig Start Date [...] Updated DateTime 4 97.7 [degF] 16 /min 103566. 44 g 154.94 cm 86 /min 98 % 98 % 136 mm[Hg] 75 mm[Hg] Not Available [employer] 4 07:41:09 Social History None recorded. Functional Status None recorded. Mental Status None recorded. Family History Nothing Reported. Medical History No medical history recorded. Gynecological HistoryNo gynecological history recorded. Obstetrics History GPAL:G 0 P 0 0 0 0 Past Encounters Encounter ID Performer Location Encounter Start Date Encounter Closed Date Diagnosis/Indication Diagnosis SNOMED-CT Code Diagnosis ICD10 Code Diagnosis Note [id number] Fariha Sams MD [facility] [address] [place] [phone] 03/23/2024 07:41:00 03/23/2024 11:06:40 Pruritic rash 02362400 L28.2 Health Concerns Section Related Observation LastModified by Organization Detai ls LastModified Time None Recorded Concern Status LastModified by Organization Details LastModified Time None Recorded Advance Directives Directive None Recorded Payers Encounter Date Sequence Insurance Name Policy Number Policy Samuels Covered Member ID Samuels Member ID Guarantor Name 03/22/2024 1 [facility] [employer] - DOS ON OR AFTER 2022 - DUAL ELIGIBLE - RETIREMENT OPTIONS AND ONE CARE (MEDICARE REPLACEMENT/AD VANTAGE - HMO) Ailyn Rao [id number] Ailyn Rao Notes Date Note Type Note [...] .................. .................. .................. .................. .................. .................. ............... Medical Voucher Clerk Note From Randy Painter: Pt reports having a small area on her left anterior sims of localized redness, edema and pain/itching/burni ng. Pt was seen at [facility], inpatient for three days, had negative ultrasound, [...] .................. ............... Disposition: Armando Sams MD [address] [facility],[address], [place], [phone], JENNIFER Ibanez [employer] [place]ST[place]O 03/23/2024 07:46:13 OBGyn Episode No OBEpisode recorded.
--- OUTSIDE RECORDS SUMMARY | 2024-12-21 12:47 | XMS_ITS | Encounter Summary ---
Author Organization [employer] Address [address] [facility] 7t [place] [address] Care Team Providers Care Flight Operations Specialist Name Role Phone Pascale Malin MD Primary Care Provider + Reason for Visit * Reason Onset Date Comments appt prophy 03/18/2023 Encounter Details Date Type Department Care Team (Late st Contact Info) Description 03/18/2023 Telephone [facility] ADULT DENTAL [address] [place], [place] [phone] Sharonda, Lidia [address] [place] [address] appt prophy Social History Tobacco Use Types [...] Description 01/05/2025 11:00 AM EDT Office Visit [facility] ADULT DENTAL [address] [place] [address] Darrell Junior DDS [address] [place] [address] 03/07/2025 3:00 PM EDT Office Visit [facility] ADULT DENTAL [address] [place] [address] Lidia Mcdonough [address] [place] [address] documented as of this encounter Visit Diagnoses Not on filedocumented in this encounter Care Teams Flight Operations Specialist Relationship Specialty Start Date End Date Pascale Malin MD [address] [place] [address] PCP - General Family Medicine 07/01/18 documented as of this encounter
== END 2024-12-21 11:19 | disposition home or self-care (01) ==
LOC: HO.HVS 11:03
PROVIDERS: PCP Internal Medicine; Visit Provider Surgery Vascular Surgery
DX: I83.12 Varicose veins of left lower extremity with inflammation (principal); I83.11 Varicose veins of right lower extremity with inflammation
CPT/HCPCS: 99214

== ENCOUNTER → 2024-12-21 11:02 | Outpatient (BNVA) | payer OTHER, SELFPAY | PROVIDERS: PCP Internal Medicine; Visit Provider Surgery Vascular Surgery | DX: I83.12 Varicose veins of left lower extremity with inflammation (principal); I83.11 Varicose veins of right lower extremity with inflammation | CPT/HCPCS: 99212 ==

== ENCOUNTER 2024-12-28 10:32 | Outpatient (AMB) | payer OTHER, SELFPAY ==
--- NOTE | 2024-12-28 10:39 | A.OFFVIS_ITS ---
Intake Visit Reasons: 1y/PVR Intake Note: Patient is present for follow up incontinence and PVR Urology Medicarions: Gemtesa Antibiotic Allergy: None Blood Thinner: None PVR: 27ml's Telephony Engineer Required: Yes Telephony Engineer Name: Accompanied by: Daughter Allergies codeine [CODEINE] Allergy (Unknown, Verified 12/28/24 10:57) STOMACH PAIN, vomiting Medication List - Last Reconciled 12/28/24 by GABRIELLA Ceron- amitriptyline 25 mg PO BEDTIME atorvastatin 80 mg PO DAILY clobetasol 0.05% grams topical BID cyclosporine 0.05% (Restasis) 1 drp ophthalmic (eye) BID lisinopril 10 mg PO DAILY meclizine 12.5 - 25 mg PO TID PRN ollemrqw-zal-hddg-FA-vit K-lut 8 mg iron-400 mcg-50 mcg (Centrum Silver Women) 1 tab PO DAILY vibegron (Gemtesa) 75 mg PO DAILY 90 days HPI Comments Details: Ailyn is a pleasant 69 year old Bermudian speaking female who is a patient of Dr. Butler. She has a past medical history of overactive bladder, urinary incontinence, osteopenia, fibromyalgia, obesity, depression, obstructive sleep apnea on CPAP, and hypertension. She presents to the office today for follow-up of her lower urinary tract symptoms. When asked she reports to be doing and feeling well. She reports compliance with 75 mg of Gemtesa as prescribed. She reports feeling this medication has been more helpful than previously trialed Myrbetriq, Toviaz, and oxybutynin. She does report feeling she continues with overactive bladder symptoms and urinary incontinence however significantly impr americo when compared to previously. We did discuss further treatment options such as in office urodynamics for further assessment evaluation however she does not feel this is necessary at this time as she feels she is managing well currently in office urinalysis results reviewed with the patient today. PVR 27 mL. When asked she denies hematuria, dysuria, foul smelling urine, changes to urinary st ream, flank pain, fever, and or chills. She otherwise denies any issues or concerns at this time. [facility] Medical History Epidermal cyst of face Overactive bladder Urinary incontinence Osteopenia Fibromyalgia Obesity Depression Rotator cuff tear, left Rotator cuff tear, right Bicipital tendinitis Morbid obesity Other and unspecified hyperlipidemia SILVIO on CPAP Essential hypertension Surgical History History of excision of epidermal inclusion cyst History of surgery No pertinent past surgical history Family History Father No problems noted. Mother No problems noted. Social History Patient Tobacco Use Status: Never used Tobacco Review of Systems Const Reports no additional complaints Eyes Reports no additional complaints ENT Reports no additional complaints Card Reports as per HPI Resp Reports as per HPI GI Reports as per HPI Reports as per HPI Musc Reports as per HPI Neuro Reports no additional complaints Psych Reports as per HPI Endo Reports no additional complaints Daniel/Lymph Reports no additional complaints Aller/Immun Reports no additional complaints Physical Exam Const General: cooperative, healthy appearing, comfortable, no acute distress, well developed, alert and awake Nutritional Appearance: obese Orientation/consciousness: patient oriented x3 Limitations: no limitations HEENT Head: Yes normal to inspection, Yes normocephalic and Yes atraumatic Ears: hearing grossly normal bilaterally Eyes General: appearance normal, both eyes and all related structures Neck Neck: Yes normal visual inspection and Yes trachea midline Chest Chest palpation & inspection: normal inspection of the chest Resp Effort & Inspection: normal respiratory effort and able to speak in complete sentences Cardio Rate: regular rate GI Inspection: Yes normal to inspection General: Yes no CVA tenderness Back/Spine/Pelvis Back: no CVA tenderness Skin General skin exam: no rashes or lesions noted Neuro General: patient oriented x3 Extrem General: Yes normal to inspection Psych Appearance: grossly normal and well kempt Mental Status: mental status grossly normal Speech and movement: Normal speech and movement present and Clear speech present Affect: normal affect Attitude: cooperative Thought process: Normal thought process present Thought content: Normal thought content present Insight: Fair insight present (Psych) Judgement: Fair judgement present (Psych) Office Procedures Post Void Residual Post Residual Void Post Void Residual (PVR): 27 [id number] Void Residual by ultrasound Results AMB Urinalysis, Automated UA Leukoctes 0 Jeffy/uL Last Edit by Floyd Parker on 12/28/24 11:01 UA Nitrite Last Edit by Floyd Parker on 12/28/24 11:01 UA Urobilinogen 0.2 mg/dL Last Edit by Floyd Parker on 12/28/24 11:01 UA Protein 0 mg/dL Last Edit by MyLifeBrandmisa LikeWheredalton on 12/28/24 11:01 UA pH 6.0 Last Edit by MyLifeBrandmisa Parker on 12/28/24 11:01 UA Blood 0 Dale/uL Last Edit by MyLifeBrandmisa Parker on 12/28/24 11:01 UA Specific Soldier 1.020 Last Edit by MyLifeBrandmisa Parker on 12/28/24 11:01 UA Ketone Last Edit by Floyd Parker on 12/28/24 11:01 UA Bilirubin 0 mg/dL Last Edit by MyLifeBrandmisa Parker on 12/28/24 11:01 UA Glucose 0 mg/dL Last Edit by MyLifeBrandmisa Parker on 12/28/24 11:01 Assessment & Plan Assessment & Plan (1) Overactive bladder: Code(s): N32.81 - Overactive bladder Category: Medical (2) Urinary incontinence: Code(s): R32 - Unspecified urinary incontinence Category: Medical Plan In office urinalysis results reviewed with the patient today; as noted above. PVR 27 mL. Patient reports be happy with current voiding parameters. She denies any bothersome urinary issues or concerns. We discussed further interventions and risks and benefits of these interventions. Will continue with Gemtesa 75 mg daily as discussed and prescribed. We also discussed potential causes of lower urinary tract symptoms patient is experiencing Follow-up in 1 year with PVR; or sooner with any issues, concerns, and or questions. Orders: Orders AMB Urinalysis Automated Today Z13.9 - Encounter for screening, unspecified AMB Post Void Residual by ultrasound Today N32.81 - Overactive bladder Patient Instructions: The patient had an opportunity to ask questions regarding the treatment plan. All questions were answered. Physical exam, labs, and imaging were discussed and reviewed in detail. As well as risks, benefits, and discussion of treatment choices. No major barriers to understanding were identified. The patient expressed understanding and agreement with the above treatment plan. The patient was made aware they should contact our office by phone for worsening of their current condition, the appearance of new symptoms, or with any questions or concerns. Compliance is encouraged with any medications and follow up testing that is ordered. It is a privilege to be allowed the opportunity to participate in? your urological care.? Again, if you have any questions or concerns If you have any questions or concerns please do not hesitate to contact me. The office is [phone]. This note is constructed using voice recognition software. While every effort has been made to ensure accuracy industrial engineering intern errors may have been included. Yours sincerely, LEXIS Ceron Coding Level of Care Code Est Pt Level 3 (32605) Complex EM visit Add On G2211 Diagnoses Overactive bladder N32.81 Urinary incontinence R32 CPT Codes Post Residual Void - PVR CPT Code: 80895-Euam Void Residual by ultrasound ([id number])
--- OUTSIDE RECORDS SUMMARY | 2024-12-28 11:42 | XMS_ITS | Encounter Summary ---
Author Organization [employer] Address [address] [place] [address] [address]t [place] [address] Care Team Providers Care Hat Finishing Materials Preparer Name Role Phone Pascale Malin MD Primary Care Provider + Encounter Details Date Type Department Care Team (Late st Contact Info) Description 05/01/2023 Abstract [facility] [address] [place] [address] Lidia Mcdonough [address] [place] [address] Social History Tobacco Use Types Packs/Day Years [...] Description 01/05/2025 11:00 AM EDT Office Visit [facility] [address] [place] [address] Darrell Junior DDS [address] [place], [place] [phone] 03/07/2025 3:00 PM EDT Office Visit [facility] [address] [place] [address] Isaiah Mcdonougharis [address] [place] [address] 04/14/2025 10:15 AM EDT Office Visit [facility] [address] [place] [address] Pascale Malin MD [address] [place] [address] documented as of this encounter Visit Diagnoses Not on filedocumented in this encounter Care Teams Hat Finishing Materials Preparer Relationship Specialty Start Date End Date Pascale Malin MD [address] [place] [address] PCP - General Family Medicine 07/01/18 documented as of this encounter
--- OUTSIDE RECORDS SUMMARY | 2024-12-28 11:42 | XMS_ITS | Encounter Summary ---
Author Organization [employer] Address [address] [facility] 7t [place] [address] Care Team Providers Care Planning Engineer Name Role Phone Pascale Malin MD Primary Care Provider + Reason for Visit * Reason Onset Date Comments Hospital Follow-up 03/15/2024 Encounter Details Date Type Department Care Team ([facility] st Contact Info) Description 03/15/2024 Telephone [facility] [address] [place], [place] [phone] Pascale Malin MD [address] [place], [place] [phone] Hospital Follow-up Social History Tobacco Use Types [...] from pt requesting a HDF appt. Hospital: [facility] Date of admission: 03/11 Discharge date: 03/13 Diagnosed: Leg Pain documented in this encounter Plan of Treatment Upcoming Encounters Date Type Department Care Team (Late st Contact Info) Description 01/05/2025 11:00 AM EDT Office Visit [facility] [address] [place] [phone] Darrell Junior DDS [address] [place] [address] 03/07/2025 3:00 PM EDT Office Visit [facility] [address] [place] [address] Lidia Mcdonough [address] [place] [address] 04/14/2025 10:15 AM EDT Office Visit [facility] [address] [place] [address] Pascale Malin MD [address] [place] [address] documented as of this encounter Visit Diagnoses Not on filedocumented in this encounter Care Teams Planning Engineer Relationship Specialty Start Date End Date Pascale Malin MD [address] [place] [phone] PCP - General Family Medicine 07/01/18 documented as of this encounter
--- OUTSIDE RECORDS SUMMARY | 2024-12-28 11:42 | XMS_ITS | Encounter Summary ---
Author Organization [employer] Address [address] [facility] 7t [place] [address] Care Team Providers Care Automobile Engine Assembler Name Role Phone Pascale Malin MD Primary Care Provider + Encounter Details Date Type Department Care Team (Latest Contact Info) Description 01/17/2022 Abstract [facility] CONVERSIONS Dental, Provider, DDS Social History [...] Description 01/05/2025 11:00 AM EDT Office Visit [facility]ULT [facility] [address] [place] [address] Darrell Junior DDS [address] [place] [address] 03/07/2025 3:00 PM EDT Office Visit [facility] [address] [place] [address] Lidia Mcdonough [address] [place] [address] 04/14/2025 10:15 AM EDT Office Visit [facility] [address] [place] [address] Pascale Malin MD [address] [place] [address] documented as of this encounter Visit Diagnoses Not on filedocumented in this encounter Care Teams Automobile Engine Assembler Relationship Specialty Start Date End Date Pascale Malin MD [address] [place] [address] PCP - General Family Medicine 07/01/18 documented as of this encounter
--- OUTSIDE RECORDS SUMMARY | 2024-12-28 11:42 | XMS_ITS | Encounter Summary ---
Author Organization [employer] Address [address] [facility] 7t [place] [address] Care Team Providers Care Laborer Driver Name Role Phone Pascale Malin MD Primary Care Provider + Encounter Details Date Type Department Care Team (Latest Contact Info) Description 11/02/2020 Abstract [facility] CONVERSIONS Dental, Provider, DDS Social History [...] Description 01/05/2025 11:00 AM EDT Office Visit [facility] ADULT [facility] [address] [place] [address] Darrell Junior DDS [address] [place] [address] 03/07/2025 3:00 PM EDT Office Visit [facility] [address] [place] [address] Lidia Mcdonough [address] [place] [address] 04/14/2025 10:15 AM EDT Office Visit [facility] [address] [place] [address] Pascale Malin MD [address] [place] [address] documented as of this encounter Visit Diagnoses Not on filedocumented in this encounter Care Teams Laborer Driver Relationship Specialty Start Date End Date Pascale Malin MD [address] [place] [address] PCP - General Family Medicine 07/01/18 documented as of this encounter
--- OUTSIDE RECORDS SUMMARY | 2024-12-28 11:42 | XMS_ITS | Data Portability ---
Author Organization [employer] Address [address] [place] [phone] Care Team Providers Care County Health Officer Name Role Phone HIM CCA OTHER Assessment Encounter Date Assessment Date Assessment LastModified by Organization Details LastModified Time 03/22/2024 03/22/2024 I provided real -time medical direction via phone for this encounter and was available for additional phone-based assistance as needed. I have reviewed and agree with the Assessment and Plan as documented by the Field Artillery Targeting Technician. Patient given the opportunity to ask questions. [...] ED and both were reassuringly negative. Per supervisor tan room on the scene, vital signs are stable [...] Not available Not available Not available 03/23/2024 [id number] RxNorm Fariha Sams MD [address] [place] [address],[address], [place], [phone], Amind 4 07:45:17 [id number] codeine medicatio n Not available Not available Not available 03/23/2024 [id number] RxNobeckie Sams MD [address] [place] [address],[address], [place], [phone], Amind 4 07:45:23 Medications Name Sig Start Date [...] Updated DateTime 4 97.7 [degF] 16 /min 573311. 44 g 154.94 cm 86 /min 98 % 98 % 136 mm[Hg] 75 mm[Hg] Not Available [employer] - production 4 07:41:09 Social History None recorded. Functional Status None recorded. Mental Status None recorded. Family History Nothing Reported. Medical History No medical history recorded. Gynecological HistoryNo gynecological history recorded. Obstetrics History GPAL:G 0 P 0 0 0 0 Past Encounters Encounter ID Performer Location Encounter Start Date Encounter Closed Date Diagnosis/Indication Diagnosis SNOMED-CT Code Diagnosis ICD10 Code Diagnosis Note [id number] Fariha Sams MD [facility] - [facility] [address] [place] [phone] 03/23/2024 07:41:00 03/23/2024 11:06:40 Pruritic rash 23144321 L28.2 Health Concerns Section Related Observation LastModified by Organization Detai ls LastModified Time None Recorded Concern Status LastModified by Organization Details LastModified Time None Recorded Advance Directives Directive None Recorded Payers Insurance Date Sequence Insurance Name Policy Number Policy Samuels Covered Member ID Samuels Member ID Guarantor Name 03/22/2024 1 [facility] - DOS ON OR AFTER 2022 - DUAL ELIGIBLE - NURSING HOME OPTIONS AND ONE CARE (MEDICARE REPLACEMENT/AD VANTAGE - HMO) Ailyn Rao [id number] Ailyn Rao Notes Date Note Type Note [...] .................. .................. .................. .................. .................. .................. ............... Field Artillery Targeting Technician Note From Randy Painter: Pt reports having a small area on her left anterior sims of localized redness, edema and pain/itching/burni ng. Pt was seen at [place], inpatient for three days, had negative ultrasound, [...] Disposition: Armando Sams MD [address] [facility],[address], [place], [phone], [employer] [employer] [facility] [place] 03/23/2024 07:46:13 OBGyn Episode No OBEpisode recorded.
--- OUTSIDE RECORDS SUMMARY | 2024-12-28 11:42 | XMS_ITS | Encounter Summary ---
Author Organization [employer] Address [address] [facility] 7t [place] [address] Care Team Providers Care Radiology Teacher Name Role Phone Pascale Malin MD Primary Care Provider + Reason for Visit * Reason Onset Date Comments appt prophy 03/18/2023 Encounter Details Date Type Department Care Team (Late st Contact Info) Description 03/18/2023 Telephone [facility] [address] [place], [place] [phone] Sharonda, Lidia [address] [place] [address] appt prophy Social History Tobacco Use Types [...] Description 01/05/2025 11:00 AM EDT Office Visit [facility] [address] [place] [address] Darrell Junior DDS [address] [place] [address] 03/07/2025 3:00 PM EDT Office Visit [facility] [address] [place] [address] Sharonda Lidia [address] [place] [address] 04/14/2025 10:15 AM EDT Office Visit [facility] [address] [place] [address] Pascale Malin MD [address] [place] [phone] documented as of this encounter Visit Diagnoses Not on filedocumented in this encounter Care Teams Radiology Teacher Relationship Specialty Start Date End Date Pascale Malin MD [address] [place] [phone] PCP - General Family Medicine 07/01/18 documented as of this encounter
--- OUTSIDE RECORDS SUMMARY | 2024-12-28 11:42 | XMS_ITS | Clinical Summary ---
Author Organization [employer] Address [address] [facility] 7t [place] [address] Care Team Providers Care Ui Architect Name Role Phone Pascale Malin MD [...] Once per day. 60 g 3 12/09/19 Active atorvastatin (Lipitor) 80 MG tabletIndications :Other [...] or any other acute issue Fractured dental christianity with loss of materi al 05/02/2023 Dental [...] Encounters Date Type Department Care Team Description 12/21/2024 Telephone [facility] [address] [place] [phone] Pascale Malin MD March12/08/2024 10:15 AM EDT Office Visit [facility] [address] [place] [phone] Pascale Malin MD Essential hypertension (Primary Dx); Other hyperlipidemia; Other iron deficiency anemia; Atypical ductal hyperplasia of breast; Psoriasis 12/08/2024 Telephone [facility] [address] [place] [address] Pascale Malin MD Results 12/08/2024 Travel 12/01/[address] [address] Pascale Malin MD Chart prep 11/29/2024 Patient Outreach [facility] [address] [place] [phone] Pascale Malin MD Pre-visit Planning ((SDOH screening [...] the past 12 months, has t he Hot Hotels, gas, oil or water company threatened to [...] Description 01/05/2025 11:00 AM EDT Office Visit [facility] [address] [place] [address] Darrell Junior DDS [address] [place] [address] 03/07/2025 3:00 PM EDT Office Visit [facility] [address] [place] [address] Lidia Mcdonough [address] [place] [address] 04/14/2025 10:15 AM EDT Office Visit [facility] [address] [place] [address] Pascale Malin MD [address] [place] [address] Health Maintenance Due Date Last Done Comments [...] Vitamin D 25-OH Total 29.6(L) >30 ng/mL [facility] Comment: Health Based Reference Values*< 20 ??ng/mL ??Vnmtvjvye05-21 ng/mL ??Insufficient> 30 ??ng/mL ??Sufficient*Farrukh LOPEZ. N [...] MD LAB BLOOD ORDERABLES Fin al Result [facility] [address] [place] [phone] * (ABNORMAL) Lipid Panel with Reflex to Direct LDL (11/25/2024 10:17 AM EDT) Triglycerides 81 <150 mg/dL [facility] Comment:Desirable Triglyceri de: less than 150 mg/dLBorderline High Triglyceride 150-199 mg/dLHigh Triglyceride: 200-499 mg/dLVery High Triglyceride: greater than or equal to 5OO mg/dL Cholesterol 240(H) <200 mg/dL [facility] Comment:Desirable Cholestero l: less than 200 mg/dLBorderline High Cholesterol: 200-239 mg/dLHigh Cholesterol: greater than 239 mg/dL LDL Cholesterol Calculated 166(H) <100 mg/dL [facility] Comment:Desirable LDL: less than 100 mg/dLNear Optimal/Above Optimal LDL: 110- 129 mg/dLBorderline High LDL: 130-159 mg/dLHigh LDL: 160-189 mg/dLVery High LDL: greater than or equal to 190 mg/dL HDL Cholesterol 58 >40 mg/dL [facility] Comment:Desirable HDL: great er than 40 mg/dL Note: This HDL assay may give artificially low results in patients with liver disease. Blood 11/25/2024 10:1 7 AM EDT 11/25/2024 11:37 AM EDT us Pascale Malin MD LAB BLOOD ORDERABLES Fin al Result [facility] [address] [place] [phone] * (ABNORMAL) CBC auto differential (11/25/2024 10:17 AM EDT) White Blood Count 5.8 4.8 - 10.8 X10*3/uL [facility] Red Blood Count 4.59 4.20 - 5.50 X10*6/uL [facility] Hemoglobin 12.0 12.0 - 16.0 g/dl [facility] Hematocrit 37.9 37.0 - 47.0 % [facility] Mean Corpuscular Volume 82.6 80.0 - 98.0 fL [facility] Mean Corpuscular Hemoglobin 26.1(L) 27.0 - 33.0 pg [facility] Mean Corpuscular HGB Conc 31.7 31.0 - 35.0 g/dl [facility] Red Cell Distribution Width 17.1(H) 11.0 - 16.0 % [facility] Platelet Count 293 160 - 400 X10*3/uL [facility] Mean Platelet Volume 11.0 9.4 - 12.3 fL [facility] Neutrophils Percent Auto 64.7 45 - 73 % [facility] Imm Gran Pct Auto 0.3 0.0 - 0.4 % [facility] Lymphocytes Percent Auto 27.1 20 - 40 % [facility] Monocytes Percent Auto 6.8 2 - 11 % [facility] Eosinophils Percent Auto 0.9 0 - 4 % [facility] Basophils Percent Auto 0.2 0 - 2 % [facility] NRBC Pct Auto 0.0 0.0 - 0.2 /100WBC [facility] Neutrophils Absolute Auto 3.8 2.0 - 8.3 x10*3/uL [facility] Imm Gran Abs Auto 0.02 0.00 - 0.03 X10*3/uL [facility] Lymphocytes Absolute Auto 1.6 1.2 - 4.9 X10*3/uL [facility] Monocytes Absolute Auto 0.4 0.1 - 1.2 X10*3/uL [facility] Eosinophils Absolute Auto 0.1 0.0 - 0.4 X10*3/uL [facility] Basophils Absolute Auto 0.0 0.0 - 0.2 X10*3/uL [facility] NRBC Abs Auto 0.000 0.0 - 0.012 X10*3/uL [facility] Blood Venous blood specimen / Unknown 11/25/2024 10:17 AM EDT 11/25/2024 11:37 AM EDT us Pascale Malin MD LAB BLOOD ORDERABLES Fin al Result [facility] [address] [place] [phone] * (ABNORMAL) Basic Metabolic Panel (11/25/2024 10:17 AM EDT) Sodium 140 135 - 145 mmol/L [facility] Potassium 5.1 3.3 - 5.1 mmol/L [facility] Chloride 106 96 - 108 mmol/L [facility] Carbon Dioxide 28 22 - 29 mmol/L [facility] Anion Gap 11(L) 12 - 20 [facility] Urea Nitrogen (BUN) 22(H) 9 - 16 mg/dL [facility] Creatinine, Serum 0.68 0.5 - 1.4 mg/dL [facility] Estimated Glomerular Filt Rate >60 [facility] Comment:Chronic Kidney Disea se: Estimated GFR < 60 mL/min/1.82j2Oobnrr Kidney Disease: Estimated GFR < 15 mL/min/1.73m2 Glucose 91 60 - 115 mg/dL [facility] Calcium 9.9 8.4 - 10.2 mg/dL [facility] Blood Venous blood specimen / Unknown 11/25/2024 10:17 AM EDT 11/25/2024 11:37 AM EDT Pascale Malin MD LAB BLOOD ORDERABLES Fin al Result [facility] [address] [place] [phone] * Mammography Report 1 (06/14/2021 10:30 [...] Most Recently Relevant to Health Maintenance Insurance [facility] INTERMEDIATE OPTIONS (O D-SNP) DENTAL - [facility] Care Teams Ui Architect Relationship Specialty Start Date End Date Pascale Malin MD [address] [place] [phone] PCP - General Family Medicine 07/01/18
--- OUTSIDE RECORDS SUMMARY | 2024-12-28 11:42 | XMS_ITS | Patient Health Record ---
Author Organization [facility] Address [address] [place] [phone] Care Team Providers Care Outpatient Receptionist Name Role Phone Umm Venegas Primary Care Provider Leeroy Estrada [phone] Allergies Allergen (clinical drug ingredient) Drug/Non Drug [...] Problem History of adenomatous polyp of colon (181485323) History of adenomatous polyp of colon (V12.72) Active confirmed Plan Of Treatment Future Test Test Name Order Date COLONOSCOPY 05/04/2013 Insurance Providers Payer Name Payer Address Payer Phone Subscriber Number Group Number Insured Name Patient Relationship to Insured Coverage Start Date Coverage End Date [facility] [address] [place] [phone] [id number] ROSALIA NIKOLAS Self - patient is the insured MEDICAID OF [facility] [address] [place] [address] [phone] [id number] ROSALIA NIKOLAS Self - patient is the insured Medical (General) History Medical History History ICD Code colonoscopy 06-08-2008 and 2 005 negative-lipomatous ICV, diverticulosis, internal hemorrhoids colon polyps-tubular adenoma removed in 2001 Depression Hyperlipidemia Denies AK,DM,CVA,Lung disease,renal dise ase Fibromyalgiua Surgical History Surgery Date(Month/Year) Abdominal wall hernia left shoulder surgery 2011 Gastric bypass Carpal tunnel bilateral Breast reduction and panniculectomy afte r weight loss
--- OUTSIDE RECORDS SUMMARY | 2024-12-28 11:42 | XMS_ITS | Encounter Summary ---
Author Organization [employer] Address [address] [facility] 7t [place] [address] Care Team Providers Care Layer Off Name Role Phone Pascale Malin MD Primary Care Provider + Encounter Details Date Type Department Care Team (Late st Contact Info) Description 01/14/2024 Orders Only [facility] [address] [place] [address] Provider, MD Foreign Social History Tobacco Use [...] Description 01/05/2025 11:00 AM EDT Office Visit [facility] ADULT DENTAL [address] [place] [address] Darrell Junior DDS [address] [place] [address] 03/07/2025 3:00 PM EDT Office Visit [facility] ADULT DENT[facility] [address] [place] [address] Lidia Mcdonough [address] [place] [address] 04/14/2025 10:15 AM EDT Office Visit [facility] [address] [place] [address] Pascale Malin MD [address] [place] [phone] documented as of this encounter Procedures Procedure Name Priority Date/Time Associated Diagnosis Comments HM COLONOSCOPY Routine 08/05/2017 9:34 AM EST documented in this encounter Results * Hm Colonoscopy (08/05/2017 9:34 AM EST) us Historical Provider HEALTH MAINTENANCE Final Result documented in this encounter Visit Diagnoses Not on filedocumented in this encounter Care Teams Layer Off Relationship Specialty Start Date End Date Pascale Malin MD [address] [place] [phone] PCP - General Family Medicine 07/01/18 documented as of this encounter
== END 2024-12-28 11:08 | disposition home or self-care (01) ==
LOC: HO.HUSH 10:32
PROVIDERS: PCP Internal Medicine; Visit Provider Nurse Practitioner Family
DX: N32.81 Overactive bladder (principal); R32 Unspecified urinary incontinence; Z13.9 Encounter for screening, unspecified
CPT/HCPCS: 99213; G2211

== ENCOUNTER → 2024-12-28 10:32 | Outpatient (BNVA) | payer OTHER, SELFPAY | PROVIDERS: PCP Internal Medicine; Visit Provider Nurse Practitioner Family | DX: N32.81 Overactive bladder (principal); R32 Unspecified urinary incontinence | CPT/HCPCS: 51798; 81003; 99212 ==

== ENCOUNTER → 2025-04-20 10:49 | Outpatient (REF) | payer OTHER, SELFPAY ==
--- OUTSIDE RECORDS SUMMARY | 2025-04-15 13:30 | XMS_ITS | Encounter Summary ---
Author Organization [employer] Address [address] [place] [address] 7t [place] [address] Care Team Providers Care Fbi Special Agent Name Role Phone Pascale Malin MD Primary Care Provider + Reason for Visit * Reason Comments Dentures Delivery of a upper partail Encounter Details Date Type Department Care Team (Late st Contact Info) Description 04/15/2025 1:30 PM EDT Office Visit [facility] ADULT DENTAL [address] [place], [place] [phone] Darrell Junior, TURNER [address] [place] [address] Teeth missing (Primary Dx) Social History Tobacco Use Types Packs/Day Years [...] as of this encounter Progress Notes * Darrell Junior DDS - 04/15/2025 1:30 PM EDT Patient ID: Ailyn Rao is a 69 y.o. female. Time Out: Timeout Date: 04/15/25, Timeout Time: 1334 (delivery of a reapir partal) Location: [facility] Tooth: Maxilla Procedure: Dentures Verified the above with patient, communications assistant, and provider. Confirmed via patient's chart, intraorally and by radiographs. Pediatric Dermatologist: not applicable Chief Complaint Patient presents with Dentures Delivery of a upper partail Medical Hx: Vitals: There were no vitals taken for this visit. Medications, Med Hx reviewed with patient and updated in chart. Consent Obtained: The risks, benefits, indications, potential complications, and alternatives were explained to the patient and informed consent was obtained with good understanding. Treatment Provided: Dental procedures in this visit [id number] - REPAIR RESIN PARTIAL DENTURE BASE, MAX (Completed) Service provider: Darrell Junior DDS Billing provider: Darrell Junior DDS [id number] - CASE PRESENTATION, DETAILED AND EXTENSIVE TREATMENT PLANNING (Completed) Service provider: Darrell Junior DDS Billing provider: Darrell Junior DDS Tried in denture(s) -Evaluated for comfort, fit, phonetics, and stability (f, v, s, th sounds; swallow, yawn, etc) -Evaluated for satisfactory esthetics. -Occlusion verified; adjustments made as necessary. Patient has received information sheet for denture care and expectations. Pt was provided with denture case and denture brush. [place]: Adj. As needed Hydrate Thickener Operator: Briana Payne Dentist: Darrell Junior DDS documented in this encounter Plan of Treatment Upcoming Encounters Date Type Department Care Team (Late st Contact Info) Description 10/19/2025 1:00 PM EST Office Visit [facility] ADULT DENTAL [address] [place], [place] [phone] Sharonda, Lidia [address] [place] [address] documented as of this encounter Procedures Procedure Name Priority Date/Time Associated Diagnosis Comments REPAIR RESIN PARTIAL DENTURE BASE, MAX Routine 04/15/2025 1:30 PM EDT CASE PRESENTATION, DETAILED AND EXTENSIVE TREATMENT PLANNING Routine 04/15/2025 1:30 PM EDT documented in this encounter Visit Diagnoses Diagnosis Teeth missing- Primary Acquired absence of teeth, unspecified documented in this encounter Additional Health Concerns Assessment Noted Time PHQ-9 Depression Total Score: 0 09/09/19 25 11:28 AM EST documented as of this encounter Care Teams Fbi Special Agent Relationship Specialty Start Date End Date Pascale Malin MD [address] [place] [address] PCP - General Family Medicine 07/01/18 documented as of this encounter
--- NOTE | 2025-04-20 10:57 | CA_ITS ---
Transthoracic Echocardiogram Patient (Last, First, Middle): Ailyn Rao E Gender: F Date of : 1955 Age: 69 Procedure Date: 04/20/2025 Procedure Type: Transthoracic Echocardiogram Location: OP Height: 154.94 cm Weight: 147.42 kg BSA: 2.32 m2 Heart Rate: bpm BP: 148 / 82 mmHg Renal Nurse: DMITRI Referring MD: Dick Hernandez MD Contract Admin: Will Booth MD Symptoms: I35.0 - Nonrheumatic aortic (valve) stenosis Study Quality: Fair ECG Rhythm: Sinus Conclusions: - 1. Normal LV ejection fraction of 60 65% with impaired relaxation filling pattern 2. Moderate aortic stenosis 3. Moderately elevated right ventricular systolic pressure 4. No gross pericardial effusion Findings Left Ventricle Normal left ventricular size, thickness, and systolic function. The visually estimated ejection fraction is between 60-65%. Spectral Doppler is indicative of an impaired relaxation filling pattern. E/E prime ratio is between 8 and 15 consistent with indeterminate filling pressures. There is mild septal asymmetric hypertrophy. Right Ventricle Normal right ventricular cavity size and systolic function. Atria The left atrium is likely dilated. Interatrial shunt cannot be excluded. The right atrium is normal in size. Aortic Valve The aortic valve was not well visualized. There is moderate calcification of the aortic valve. There is moderate aortic valve stenosis. The peak aortic velocity is 3.21 m/s with a calculated peak gradient of 41 mmHg. The mean gradient is 24 mmHg. The aortic valve area is 1.32 cm2. There is trace (trivial) aortic valve regurgitation. Mitral Valve There is mild anterior mitral leaflet thickening. There is moderate mitral annular calcification. There is trace mitral valve regurgitation. There is no mitral valve stenosis. Pulmonic Valve The pulmonic valve was not well visualized. Tricuspid Valve Likely normal tricuspid valve structure and function. There is mild tricuspid valve regurgitation. The right ventricular systolic pressure is 50 mmHg. Normal right atrial pressure. Moderate pulmonary hypertension is present. Great Vessels The aorta was not well visualized. The pulmonary artery was not well visualized. There is no dilatation of the ascending aorta measuring 3.30 cm. Venous The inferior vena cava is normal in size and collapses greater than 50% with inspiration. Pericardium/Pleural There is no evidence of pericardial effusion. Prior Study Comparison Changes noted compared to prior study dated: 04/20/2024. moderate aortic stenosis is now present. RV systolic pressure has increased Measurements 2D Linear Measurements IVSd: 1.30 0.6-0.9/0.6-1.0 cm LVIDd: 4.04 3.9-5.3/4.2-5.9 cm LVIDd Index: 1.74 2.4-3.2/2.2-3.1 cm/m2 LVIDs: 2.42 2.0-3.6 cm LVPWd: 0.90 0.7-1.1 cm LA Diam: 3.70 2.7-3.8/3.0-4.0 cm LAIDs Index: 1.59 1.5-2.3 cm/m2 LV Mass: 184.36 67-162/88-224 g LV Mass Index: 79.46 43-95/49-115 g/m2 LVOT Diam: 2.00 3.0+(-)1.3 cm Mitral Valve MV Pk E: 1.23 MV PK A: 1.84 MV Decel Time: 188.00 E/A: 0.70 E'Lateral: 10.60 E'Medial: 7.51 E/E' Med: 16.40 E/E' Lat: 11.60 PHT: 55.00 MVA PHT: 4.00 Decel Niagara: 6.55 Aortic Valve AoV Pk Aureliano: 3.21 AoV Mn Aureliano: 2.31 AoV VTI: 0.66 AoV Pk Grad: 41.00 Aov Mn Grad: 24.00 MARIFER Cont.VTI: 1.32 LVOT LVOT Pk Aureliano: 1.36 LVOT Mn Aureliano: 1.01 LVOT VTI: 0.28 LVOT Pk Grad: 7.00 LVOT Mn Grad: 5.00 LVOT Diam: 2.00 LVOT Area: 3.14 Diastolic Function MV Pk E: 1.23 MV Pk A: 1.84 E/A: 0.70 E'Medial: 7.51 E/E' Med: 16.40 E' Laterial: 10.60 E/E' Lat: 11.60 Right Ventricle TAPSE (mm): 26.70 TVS' Aureliano: 14.60 Tricuspid Valve TR Pk Aureliano: 3.44 TR Pk Grad: 47.00 RA Press: 3.00 RVSP: 50.00 Great Vessels Aorta Sinus of Valsalva: 3.01 2.0-3.5 cm Ao Asc: 3.30 2.1-3.4 cm Pulmonary Veins Pulm Vein S/D 1.30 Updated in Other Vendor System with Status of Final Will Booth MD electronically signed on 04/20/2025 1:37:21 PM with status of Final
--- OUTSIDE RECORDS SUMMARY | 2025-04-20 12:44 | XMS_ITS | Encounter Summary ---
Author Organization [employer] [facility] Address [address] [place] [address] [address] [place] [address] Care Team Providers Care Ornamental Ironworking Supervisor Name Role Phone Pascale Malin MD Primary Care Provider + Encounter Details Date Type Department Care Team (Latest Contact Info) Description 01/17/2022 Abstract [facility] CONVERSIONS Dental, Provider, DDS Social History [...] Description 10/19/2025 1:00 PM EST Office Visit [facility] ADULT DENTAL [address] [place] [address] Sharonda, Lidia [address] [place] [address] documented as of this encounter Visit Diagnoses Not on filedocumented in this encounter Care Teams Ornamental Ironworking Supervisor Relationship Specialty Start Date End Date Pascale Malin MD [address] [place] [address] PCP - General Family Medicine 07/01/18 documented as of this encounter
--- OUTSIDE RECORDS SUMMARY | 2025-04-20 12:44 | XMS_ITS | Encounter Summary ---
Author Organization [employer] Address [address] [place] [address] 7t [place] [address] Care Team Providers Care Ice House Supervisor Name Role Phone Pascale Malin MD Primary Care Provider + Reason for Visit * Reason Onset Date Comments appt prophy 03/18/2023 Encounter Details Date Type Department Care Team (Late st Contact Info) Description 03/18/2023 Telephone [facility] ADULT DENTAL [address] [place], [place] [phone] Sharonda, Lidia [address] [place] [address] appt prophy Social History Tobacco Use Types [...] Description 10/19/2025 1:00 PM EST Office Visit [facility] ADULT DENTAL [address] [place], [place] [phone] Lidia Mcdonough [address] [place], [place] [phone] documented as of this encounter Visit Diagnoses Not on filedocumented in this encounter Care Teams Ice House Supervisor Relationship Specialty Start Date End Date Pascale Malin MD [address] [place], [place] [phone] PCP - General Family Medicine 07/01/18 documented as of this encounter
--- OUTSIDE RECORDS SUMMARY | 2025-04-20 12:44 | XMS_ITS | Clinical Summary ---
Author Organization [employer] Address [address] [facility] 7t [place] [address] Care Team Providers Care Vending Supervisor Name Role Phone Pascale Malin MD Primary Care Provider + Allergies Active Allergy Reactions Criticality Noted Date Comments Benzoin 08/15/2022 Other reaction(s): Rash Irritation Codeine Anaphylaxis High 01/17/2014 Other reaction(s): G.I. upset Diphenhydramine 09/07/2010 Other reaction(s): rash Medications ammonium lactate (Amlactin) 12 % cream use daily on affected area 09/30/19 Active Blood Pressure kit Use as directed Active loratadine (Claritin) 10 MG tablet Take 1 tablet (10 mg) by mouth in the morning. 30 tablet 11/28/19 24 Active cycloSPORINE (Restasis) 0.05 % ophthalmic emulsion INSTILL 1 DROP IN BOTH EYES TWICE DAILY 02/17/20 24 Active Gemtesa 75 MG tablet Take 1 tablet by mouth Once per day. 01/02/20 24 Active Calcium Carbonate-Vit D-Min (Caltrate 600+D [...] day. 60 g 3 12/09/19 25 Active lisinopril 10 MG tablet TAKE 1 TABLET BY MOUTH EVERY MORNING 90 tablet 1 01/01/20 25 Active meclizine (Antivert) 12.5 MG tablet Take 1 tablet (12.5 mg) by mouth if needed in the morning, at noon, and at bedtime for dizziness. 90 tablet 1 04/07/20 25 2024 Active meclizine (Antivert) 12.5 MG tablet take 1-2 tablet by oral route 3 times every day as needed 08/22/19 21 2024 Discontinued(R eorder (will not trigger notification to Pharmacy)) Active Problems Problem Noted Date Diagnosed Date Teeth missing 04/15/2025 Ill-fitting dentures 05/27/2024 Fracture of removable partial [...] or any other acute issue Fractured dental mormon with loss of materi al 05/02/2023 Dental [...] lsinopril Essential hypertension 01/20/2012 Assessment & Plan (04/07/2025 4:31 PM EDT): Controlled. Compliant w/meds Continue lisinopril. Counseled re low salt diet/increase moderate physical activity. Check home BP BIW and prn CP/VILLATORO/FARLEY Non smoking patient. FU 6m Assessment & Plan (12/08/2024 11:14 AM EDT): [...] me in 2m w labs Obesity 01/20/2012 Assessment & Plan (04/07/2025 4:32 PM EDT): Discussed re weight reduction options including exercise, life style modifications, diet. Recommended to decrease soda and sugary beverage consumption, increase protein intake with meals (at least 1 portion of protein with each meal) to assist with satiety, increase dietary fiber Recommended at least 150 min/week of moderate intensity exercise. She is SP bariatric surgery more than 5 years ago. 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 Assessment [...] Encounters Date Type Department Care Team Description 04/15/2025 1:30 PM EDT Office Visit [facility] ADULT DENTAL [address] [place] [address] Darrell Junior DDS Teeth missing (Primary Dx) 04/13/2025 11:30 AM EDT Office Visit [facility] ADULT DENTAL [address] [place] [address] Darrell Junior DDS Ill-fitting dentures (Primary Dx) 04/07/2025 12:15 PM EDT Office Visit [facility] MEDICINE [address] [place] [address] Pascale Malin MD Essential hypertension (Primary Dx); Class 3 severe obesity due to excess calories with serious comorbidity and body mass index (BMI) of 50.0 to 59.9 in adult; At high risk for osteoporosis; Encounter for immunization; Dietary counseling; Exercise counseling 04/07/2025 Travel 04/05/2025 Telephone [facility] [address] [place] [phone] Pascale Malin MD Chart Prep 03/31/2025 Patient Outreach [facility] [address] [place] [address] [phone] Pascale Malin MD Pre-visit Planning (Pre visit planning LVM ) 01/25/2025 Telephone [facility] [address] [place] [address] [phone] Pascale Malin MD Appointment Request from Last 3 Months Immunizations Immunization Administration Dates Next Due Hep B, adult 01/07/2013,11/03/2012,09/03/2012 Influenza High-dose Quadriva lent Preservative Free 05/22/2023,06/15/2020 Influenza Quadrivalent Adjuvanted 05/18/2022 Influenza injectable quadriv alent IIV4 with preservative 06/10/2017,05/15/2016 Influenza injectable quadriv alent preservative free 07/05/2021 Influenza, High Dose Seasona l, Preservative Free 05/04/2024,05/07/2019,07/01/2018 Influenza, IIV3, injectable 04/27/2014, 1 Influenza, Split (incl. [place] fied surface antigen) 04/27/2013,07/02/2012 [employer] SARS-CoV-2 Vaccination 11/01/2020 Pfizer Covid-19 Vaccine 12+ 08/01/2021 Pneumococcal Conjugate PCV 13 04/27/2021 Pneumococcal Conjugate PCV 20 03/25/2024 RSV Bivalent 05/27/2024 TD (adult), 2 Lf tetanus tox oid, preservative free, adsorbed 08/14/2005 Tdap 04/07/2025,03/14/2015 Zoster, Recombinant 05/27/2024,03/25/2024 Zoster, live 11/04/2015,11/08/2013 Social [...] Sign Reading Time Taken Comments Blood Pressure 130/82 04/07/2025 12:38 PM EDT Pulse 80 04/07/2025 12:19 PM EDT Temperature 36.4 C (97.6 F) 04/07/2025 12:19 PM EDT Respiratory Rate 20 04/07/2025 12:19 PM EDT Oxygen Saturation 100% 12/08/2024 10:27 AM EDT Inhaled Oxygen Concentration - - Weight 148 kg (326 lb 6.4 oz) 04/07/2025 12:19 P M EDT Height 165.1 cm (5' 5 ) 04/07/2025 12:19 PM EDT Body Mass Index 54.32 04/07/2025 12:19 PM EDT Plan of Treatment Upcoming Encounters Date Type Department Care Team (Late st Contact Info) Description 10/19/2025 1:00 PM EST Office Visit [facility] ADULT DENTAL [address] [place] [address] Sharonda, Lidia [address] [place] [address] Health Maintenance Due Date Last Done Comments CT Colonography 1955 FIT DNA/Cologuard 1955 FIT 1955 FOBT 1955 Sigmoidoscopy 1955 Alcohol/Substance Use Screening 1965 Hepatitis C Screening 1971 Colonoscopy 08/05/2022 08/05/2017 Colorectal Cancer Screening 08/05/2022 Mammogram 06/14/2023 06/14/2021 Dental Oral Exam 08/29/2024 02/26/2024, , 11/02/2020 Dental Prophylaxis 08/29/2024 02/26/2024, 0 04/09/2023, 08/15/2022 Dental X-Ray: Bitewings 02/26/2025 02/26/20 24, 04/09/2023, 01/17/2022 COVID-19 Vaccine ( season) 2025 08/01/2021, 11/01/2020 Influenza Vaccine (#1) 2025 , 05/22/2023, 05/18/2022, Additional history exists Depression Screening 09/09/2025 09/09/2024, 09/09/19 25 SDOH Screening 11/29/2025 11/29/2024 Tobacco Screening 04/15/2026 04/15/2025 Dental X-Ray: Full Mouth 02/26/2027 02/26/2024, 10/16 Lipid Panel 11/25/2029 11/25/2024, 07/19, 01/17/2022, Additional history exists DTaP/Tdap/Td Vaccines (3 - Td or Tdap) 04/07/2035 04/07/2025, 03/14/2015, 08/14/2005 Hepatitis B Vaccines Completed 01/07/2013, 11/03/2012, 09/03/2012 Pneumococcal Vaccine: 50+ Years Completed 03/25/2024, 04/27/2021 RSV Patients and Patients Aged 60 years or older Completed 05/27/2024 Zoster Vaccines Completed 05/27/2024, 03/2024, 11/04/2015, Additional history exists HIB Vaccines [...] patient's age to complete this topic Meningococcal B Vaccine Aged Out No l onger eligible based on patient's age to complete [...] Procedure Name Priority Date/Time Associated Diagnosis Comments CASE PRESENTATION, DETAILED AND EXTENSIVE TREATMENT PLANNING Routine 04/15/2025 1:30 PM EDT REPAIR RESIN PARTIAL DENTURE BASE, MAX Routine 04/15/2025 1:30 PM EDT DENTURE IMPRESSION Routine 04/13/2025 11 :30 AM EDT LIPID PANEL WITH REFLEX TO DIRECT LDL Routine 11/25/2024 10:17 AM EDT Essential hypertension Full PROPHYLAXIS - ADULT Routine 02/26/2024 10:00 [...] 10:17 AM EDT) Triglycerides 81 <150 mg/dL [facility] Comment:Desirable Triglyceri de: less than 150 mg/dLBorderline High Triglyceride 150-199 mg/dLHigh Triglyceride: 200-499 mg/dLVery High Triglyceride: greater than or equal to 5OO mg/dL Cholesterol 240(H) <200 mg/dL [facility] Comment:Desirable Cholestero l: less than 200 mg/dLBorderline High Cholesterol: 200-239 mg/dLHigh Cholesterol: greater than 239 mg/dL LDL Cholesterol Calculated 166(H) <100 mg/dL [facility] Comment:Desirable LDL: less than 100 mg/dLNear Optimal/Above Optimal LDL: 110- 129 mg/dLBorderline High LDL: 130-159 mg/dLHigh LDL: 160-189 mg/dLVery High LDL: greater than or equal to 190 mg/dL HDL Cholesterol 58 >40 mg/dL [facility] Comment:Desirable HDL: great er than 40 mg/dL Note: This HDL assay may give artificially low results in patients with liver disease. Blood 11/25/2024 10:1 7 AM EDT 11/25/2024 11:37 AM EDT us Pascale Malin MD LAB BLOOD ORDERABLES Fin al Result [facility] [address] [place] [phone] * Mammography Report 1 (06/14/2021 10:30 [...] Most Recently Relevant to Health Maintenance Insurance [id number] [employer] (O D-SNP) [place] [address] Care Teams Vending Supervisor Relationship Specialty Start Date End Date Pascale Malin MD [address] [place] [phone] PCP - General Family Medicine 07/01/18
--- OUTSIDE RECORDS SUMMARY | 2025-04-20 12:44 | XMS_ITS | Encounter Summary ---
Author Organization [employer] Address [address] [facility] 7t [place] [address] Care Team Providers Care Contact Worker Name Role Phone Pascale Malin MD Primary Care Provider + Encounter Details Date Type Department Care Team ([facility] st Contact Info) Description 01/14/2024 Orders Only [facility] MEDICINE [address] [place], [place] [phone] ProviderForeign MD Social History Tobacco Use Types Packs/Day Years Used Date Smoking Tobacco: Never Passive Smoke Exposure: Never Smokeless Tobacco: Never Alcohol Use Standard Drinks/Week Comments Never 0 (1 standard drink = 0.6 oz pur e alcohol) PHQ-2 Answer Date Recorded Patient Health Questionnaire-2 Score 0 01/02/2023 Housing Stability Answer Date Recorded What is your housing situation today? I have jose coleman 06/03/[address] you [...] Description 10/19/2025 1:00 PM EST Office Visit [facility] ADULT DENTAL [address] [place] [address] Sharonda, Lidia [address] [place] [address] documented as of this encounter Procedures Procedure Name Priority Date/Time Associated Diagnosis Comments HM COLONOSCOPY Routine 08/05/2017 9:34 AM EST documented in this encounter Results * Hm Colonoscopy (08/05/2017 9:34 AM EST) Historical Provider HEALTH MAINTENANCE Final Result documented in this encounter Visit Diagnoses Not on filedocumented in this encounter Care Teams Contact Worker Relationship Specialty Start Date End Date Pascale Malin MD [address] [place] [address] PCP - General Family Medicine 07/01/18 documented as of this encounter
--- OUTSIDE RECORDS SUMMARY | 2025-04-20 12:44 | XMS_ITS | Patient Health Record ---
Author Organization [facility] Address [address] [place] [address] Care Team Providers Care Web Analytics Developer Name Role Phone Umm Venegas Primary Care Provider Leeroy Estrada Unavailable [phone] Allergies Allergen (clinical drug ingredient) Drug/Non Drug Allergy documented on EMR Reaction Allergy Type Onset Date Status Information temporarily unavailable Codeine Phosphate Unknown Drug Allergy Active Reason For Referral No Information Medications Medication SIG (Take, Route, Fr equency, Duration) Notes Start Date End Date Status Vitamin B Complex Ac tive CeleXA Active Lunesta Active Crestor Active KlonoPIN Active Gabapentin Active Problems Problem Type SNOMED Code ICD Code Onset Dates Problem Status W/U Status Risk Notes Problem Information temporarily unavailable Colon cancer screening (V76.51) Active confirmed Problem Information temporarily unavailable History of adenomatous polyp of colon (V12.72) Active confirmed Plan Of Treatment Future Test Test Name Order Date COLONOSCOPY 05/04/2013 Insurance Providers Payer Name Payer Address Payer Phone Subscriber Number Group Number Insured Name Patient Relationship to Insured Coverage Start Date Coverage End Date [facility] [address] [place] [address] [id number] ROSALIA NIKOLAS Self - patient is the insured [facility] [address] [place] [address] [phone] [id number] LINDSEY, NIKOLAS Self - patient is the insured Medical (General) History Medical History History ICD Code colonoscopy 06-08-2008 and 2 005 negative-lipomatous ICV, diverticulosis, internal hemorrhoids colon polyps-tubular adenoma removed in 2001 Depression Hyperlipidemia Denies [place],DM,CVA,Lung disease,renal dise ase Fibromyalgiua Surgical History Surgery Date(Month/Year) Abdominal wall hernia left shoulder surgery 2011 Gastric bypass Carpal tunnel bilateral Breast reduction and panniculectomy afte r weight loss
--- OUTSIDE RECORDS SUMMARY | 2025-04-20 12:44 | XMS_ITS | Encounter Summary ---
Author Organization [employer] [facility] Address [address] [place] [address] 7 [place] [address] Care Team Providers Care Grain Drier Operator Name Role Phone Pascale Malin MD Primary Care Provider + Encounter Details Date Type Department Care Team (Late st Contact Info) Description 05/01/2023 Abstract [facility] ADULT DENTAL [address] [place], [place] [phone] Isaiah Mcdonougharis [address] [place], [place] [phone] Social History Tobacco Use Types Packs/Day Years [...] 1:00 PM EST Office Visit [facility] ADULT DENTAL [address] [place] [address] Isaiah Mcdonougharis [address] [place], [place] [phone] documented as of this encounter Visit Diagnoses Not on filedocumented in this encounter Care Teams Grain Drier Operator Relationship Specialty Start Date End Date Pascale Malin MD [address] [place] [address] PCP - General Family Medicine 07/01/18 documented as of this encounter
--- OUTSIDE RECORDS SUMMARY | 2025-04-20 12:44 | XMS_ITS | Encounter Summary ---
Author Organization [facility] Address [address] [place] [address] 7 [place] [address] Care Team Providers Care Guitar Repairer Name Role Phone Pascale Malin MD Primary Care Provider + Encounter Details Date Type Department Care Team (Latest Contact Info) Description 11/02/2020 Abstract [facility] CONVERSIONS Dental, Provider, DDS Social [...] Description 10/19/2025 1:00 PM EST Office Visit [facility] ADULT DENTAL [address] [place] [address] Sharonda, Lidia [address] [place] [address] documented as of this encounter Visit Diagnoses Not on filedocumented in this encounter Care Teams Guitar Repairer Relationship Specialty Start Date End Date Pascale Malin MD [address] [place] [address] PCP - General Family Medicine 07/01/18 documented as of this encounter
--- OUTSIDE RECORDS SUMMARY | 2025-04-20 12:44 | XMS_ITS | Encounter Summary ---
Author Organization [employer] Address [address] [place] [address] 7t [place] [address] Care Team Providers Care Bilingual School Psychologist Name Role Phone Pascale Malin MD Primary Care Provider + Reason for Visit * Reason Onset Date Comments partial case back from lab?? 01/07/2025 Encounter Details Date Type Department Care Team (Late st Contact Info) Description 01/07/2025 Telephone [facility] ADULT DENTAL [address] [place], [place] [phone] Darrell Junior DDS [address] [place] [address] partial case back from lab?? Social History Tobacco Use Types Packs/Day Years [...] * Telephone Encounter - Brinda Bennett - 01/07/2025 8:32 AM EDT Patient is calling in to check in on status of partials. If the are back in from lab. She states she was expecting a call yesterday DR documented in this encounter Plan of Treatment Upcoming Encounters Date Type Department Care Team (Late st Contact Info) Description 10/19/2025 1:00 PM EST Office Visit [facility] ADULT DENTAL [address] [place] [address] Isaiah Mcdonougharis [address] [place] [address] documented as of this encounter Visit Diagnoses Not on filedocumented in this encounter Additional Health Concerns Assessment Noted Time PHQ-9 Depression Total Score: 0 09/09/19 25 11:28 AM EST documented as of this encounter Care Teams Bilingual School Psychologist Relationship Specialty Start Date End Date Pascale Malin MD [address] [place] [address] PCP - General Family Medicine 07/01/18 documented as of this encounter
--- OUTSIDE RECORDS SUMMARY | 2025-04-20 12:44 | XMS_ITS | Encounter Summary ---
Author Organization [employer] Address [address] [facility] 7t [place] [address] Care Team Providers Care Chemicals Distiller Name Role Phone Pascale Malin MD Primary Care Provider + Reason for Visit * Reason Onset Date Comments Hospital Follow-up 03/15/2024 Encounter Details Date Type Department Care Team ([facility] st Contact Info) Description 03/15/2024 Telephone [facility] MEDICINE [address] [place], [place] [phone] Pascale Malin MD [address] [place], [place] [phone] Hospital Follow-up Social History Tobacco Use Types [...] from pt requesting a HDF appt. Hospital: [facility] Date of admission: 03/11 Discharge date: 03/13 Diagnosed: Leg Pain documented in this encounter Plan of Treatment Upcoming Encounters Date Type Department Care Team (Late st Contact Info) Description 10/19/2025 1:00 PM EST Office Visit [facility] ADULT DENTAL [address] [place] [address] Lidia Mcdonough [address] [place] [address] documented as of this encounter Visit Diagnoses Not on filedocumented in this encounter Care Teams Chemicals Distiller Relationship Specialty Start Date End Date Pascale Malin MD [address] [place] [address] PCP - General Family Medicine 07/01/18 documented as of this encounter
== END ==
LOC: HO.CARD 10:49
PROVIDERS: PCP Internal Medicine; Visit Provider Internal Medicine
DX: I35.0 Nonrheumatic aortic (valve) stenosis (principal)
CPT/HCPCS: 93306

== ENCOUNTER → 2025-04-20 10:57 | Outpatient (BNV) | payer OTHER, SELFPAY | PROVIDERS: PCP Internal Medicine; Visit Provider Internal Medicine Cardiovascular Disease | DX: I42.2 Other hypertrophic cardiomyopathy (principal); I35.0 Nonrheumatic aortic (valve) stenosis | CPT/HCPCS: 93306 ==

== ENCOUNTER 2025-04-27 10:41 | Outpatient (AMB) | payer OTHER, SELFPAY ==
[2025-04-27 10:52] VITALS: BP 110/62; PULSE 86; BMI 60.4
--- NOTE | 2025-04-27 10:52 | A.OFFVIS_ITS ---
Vital Signs 04/27/25 10:52 Height 5 ft 1 in Weight 319 lb 10.724 oz BMI 60.4 BP 110/62 Blood Pressure Location Lt brachial Position Sitting Pulse 86 Pulse Source Monitor Intake Visit Reasons: 1 year follow up Entry Level Chemist Required: Yes Entry Level Chemist Services: Entry Level Chemist Offered & Declined Accompanied by: Daughter Allergies codeine (CODEINE) Allergy (Unknown, Verified 12/28/24 10:57) STOMACH PAIN, vomiting Medication List - Last Reconciled 04/27/25 by Dick Hernandez MD atorvastatin 80 mg PO DAILY clobetasol 0.05% grams topical BID cyclosporine 0.05% (Restasis) 1 drp ophthalmic (eye) BID lisinopril 10 mg PO DAILY meclizine 12.5 - 25 mg PO TID PRN vibegron (Gemtesa) 75 mg PO DAILY 90 days HPI Comments Details: Ailyn returns for follow-up regarding aortic stenosis. Multiple comorbidities including obesity, hypertension, dyslipidemia, obstructive sleep apnea. No documented coronary disease in the past. Overall, she is doing fine. No clear-cut symptoms like angina or shortness of breath or in fact anything cardiac sounding. She is morbidly obese. She is on going to weight loss surgery long time ago but she is still markedly overweight. Apparently, around the time of weight loss surgery, she was weighing almost 440 lb. Daughter is translating for her. [facility] Medical History Epidermal cyst of face Overactive bladder Urinary incontinence Osteopenia Fibromyalgia Obesity Depression Rotator cuff tear, left Rotator cuff tear, right Bicipital tendinitis Morbid obesity Other and unspecified hyperlipidemia SILVIO on CPAP Essential hypertension Surgical History History of excision of epidermal inclusion cyst History of surgery No pertinent past surgical history Family History Father No problems noted. Mother No problems noted. Social History Patient Tobacco Use Status: Never used Tobacco Review of Systems Const Denies weakness ENT Denies dizziness Card Denies chest pain, Denies chest pain with activity, Denies syncope, Denies rapid heart rate, Denies pedal edema, Denies edema, Denies leg edema, Denies lightheadedness, Denies palpitations, Denies dyspnea, Denies dyspnea on exertion and Denies orthopnea Resp Denies cough, Denies dyspnea and Denies dyspnea on exertion GI Denies hematochezia and Denies change in stool character Musc Denies abnormal gait, Denies muscle cramps, Denies muscle weakness, Denies numbness, Denies radiating pain into limb and Denies tingling Neuro Denies abnormal gait, Denies dizziness, Denies syncope, Denies numbness, Denies tingling and Denies weakness Endo Denies palpitations Physical Exam Vital Signs: Last Vital Signs Pulse 86 04/27/25 10:52 BP 110/62 04/27/25 10:52 BMI result Body Mass Index 60.4 Const General: comfortable and no acute distress Orientation/consciousness: patient oriented x3 HEENT Other: Unremarkable Head: Yes normal to inspection Neck Neck: Yes normal visual inspection Chest Chest palpation & inspection: normal inspection of the chest Resp Auscultation: clear to auscultation bilaterally Cardio Palpation: normal PMI Heart sounds: S1 normal heart sound present, S2 normal heart sound present, no gallops, Murmur heart sound present systolic III/ and at the right sternal border and no rubs GI Palpation (GI): Soft to palpation Back/Spine/Pelvis Other: unremarkable Skin General skin exam: no rashes or lesions noted Neuro General: patient oriented x3 Extrem General: Yes normal to inspection Psych Mental Status: mental status grossly normal Office Procedures EKG Details: EKG with underlying sinus rhythm at 86/Min; incomplete right bundle-branch block pattern; [place] [id number], Complete Assessment & Plan Assessment & Plan (1) Non-rheumatic aortic stenosis: Code(s): I35.0 - Nonrheumatic aortic (valve) stenosis Category: Medical Plan: Echocardiogram shows moderate aortic valve stenosis. We discussed about this today including clinical course, symptoms, treatment options. At the current time, plan would be to monitor. Recheck echo in one year. (2) Essential hypertension: Code(s): I10 - Essential (primary) hypertension Category: Medical Plan: On lisinopril. Seems stable. (3) SILVIO on CPAP: Code(s): G47.33 - Obstructive sleep apnea (adult) (pediatric); Z99.89 - Dependence on other enabling machines and devices Category: Medical Plan: Continue CPAP. (4) Morbid obesity: Code(s): E66.01 - Morbid (severe) obesity due to excess calories Category: Medical Plan: Status post remote bariatric surgery. Unlikely her weight is going to change much. We discussed about this today. Coding Level of Care Code Est Pt Level 4 (15871) Complex EM visit Add On G2211 Diagnoses Non-rheumatic aortic stenosis I35.0 Essential hypertension I10 SILVIO on CPAP G47.33; Z99.89 Morbid obesity E66.01 CPT Codes EKG - CPT: 11419-[id number], Complete ([id number])
--- OUTSIDE RECORDS SUMMARY | 2025-04-27 13:17 | XMS_ITS | Encounter Summary ---
Author Organization [employer] Address [address] [facility] 7t [place] [address] Care Team Providers Care Geospatial Technologist Name Role Phone Pascale Malin MD Primary Care Provider + Reason for Visit * Reason Onset Date Comments Hospital Follow-up 03/15/2024 Encounter Details Date Type Department Care Team ([facility] st Contact Info) Description 03/15/2024 Telephone [facility] MEDICINE [address] [place], [place] [phone] Pascale Malin MD 230 [place], [place] [phone] Hospital Follow-up Social History Tobacco Use Types [...] from pt requesting a HDF appt. Hospital: [facility] Date of admission: 03/11 Discharge date: 03/13 Diagnosed: Leg Pain documented in this encounter Plan of Treatment Upcoming Encounters Date Type Department Care Team (Late st Contact Info) Description 10/19/2025 1:00 PM EST Office Visit [facility] ADULT DENTAL [address] [place] [address] Lidia Mcdonough [address] [place] [address] documented as of this encounter Visit Diagnoses Not on filedocumented in this encounter Care Teams Geospatial Technologist Relationship Specialty Start Date End Date Pascale Malin MD [address] [place] [address] PCP - General Family Medicine 07/01/18 documented as of this encounter
--- OUTSIDE RECORDS SUMMARY | 2025-04-27 13:17 | XMS_ITS | Clinical Summary ---
Author Organization [employer] Address [address] [facility] 7t [place] [address] Care Team Providers Care Assistant At Surgery Name Role Phone Pascale Malin MD Primary [...] or any other acute issue Fractured dental anglican with loss of materi al 05/02/2023 Dental [...] Description 04/15/2025 1:30 PM EDT Office Visit [facility] ADULT DENTAL [address] [place] [address] Darrell Junior DDS Teeth missing (Primary Dx) 04/13/2025 11:30 AM EDT Office Visit [facility] ADULT DENTAL [address] [place] [address] Darrell Junior DDS Ill-fitting dentures (Primary Dx) 04/07/2025 12:15 PM EDT Office Visit [facility] MEDICINE [address] [place] [address] Pascale Malin MD Essential hypertension (Primary Dx); Class 3 severe obesity due to excess calories with serious comorbidity and body mass index (BMI) of 50.0 to 59.9 in adult; At high risk for osteoporosis; Encounter for immunization; Dietary counseling; Exercise counseling 04/07/2025 Travel 04/05/[address] [facility] MEDICINE [address] [place] [address] [phone] Pascale Malin MD Chart Prep 03/31/[address] [facility] [address] [place] [address] [phone] Pascale Malin MD Pre-visit Planning (Pre visit planning LVM ) 01/25/[address] [facility] [address] [place] [address] [phone] Pascale Malin MD Appointment Request from Last [...] Split (incl. [place] fied surface antigen) 04/27/2013,07/02/2012 Lexim SARS-CoV-2 Vaccination 11/01/2020 Pfizer Covid-19 Vaccine 12+ [...] Description 10/19/2025 1:00 PM EST Office Visit [facility] ADULT DENTAL [address] [place] [address] Sharonda, Lidia [address] [place] [address] Health Maintenance Due Date Last Done Comments [...] 10:17 AM EDT) Triglycerides 81 <150 mg/dL [facility] Comment:Desirable Triglyceri de: less than 150 mg/dLBorderline High Triglyceride 150-199 mg/dLHigh Triglyceride: 200-499 mg/dLVery High Triglyceride: greater than or equal to 5OO mg/dL Cholesterol 240(H) <200 mg/dL [facility] Comment:Desirable Cholestero l: less than 200 mg/dLBorderline High Cholesterol: 200-239 mg/dLHigh Cholesterol: greater than 239 mg/dL LDL Cholesterol Calculated 166(H) <100 mg/dL [facility] Comment:Desirable LDL: less than 100 mg/dLNear Optimal/Above Optimal LDL: 110- 129 mg/dLBorderline High LDL: 130-159 mg/dLHigh LDL: 160-189 mg/dLVery High LDL: greater than or equal to 190 mg/dL HDL Cholesterol 58 >40 mg/dL [facility] Comment:Desirable HDL: great er than 40 mg/dL Note: This HDL assay may give artificially low results in patients with liver disease. Blood 11/25/2024 10:1 7 AM EDT 11/25/2024 11:37 AM EDT us Pascale Malin MD LAB BLOOD ORDERABLES Fin al Result [facility] [address] [place] [phone] * Mammography Report 1 (06/14/2021 10:30 [...] Most Recently Relevant to Health Maintenance Insurance [id number] [employer] OPT[employer] (O D-SNP) [place] [address] Care Teams Assistant At Surgery Relationship Specialty Start Date End Date Pascale Malin MD [address] [place] [phone] PCP - General Family Medicine 07/01/18
--- OUTSIDE RECORDS SUMMARY | 2025-04-27 13:17 | XMS_ITS | Encounter Summary ---
Author Organization [facility] Address [address] [place] [address] 7 [place] [address] Care Team Providers Care Clinical Programmer Name Role Phone Pascale Malin MD Primary Care Provider + Encounter Details Date Type Department Care Team (Late st Contact Info) Description 05/01/2023 Abstract [facility] ADULT DENTAL [address] [place], [place] [phone] Isaiah Mcdonougharis [address] [place], [place] [phone] Social History Tobacco Use Types Packs/Day Years [...] Description 10/19/2025 1:00 PM EST Office Visit [facility] ADULT DENTAL [address] [place] [address] Isaiah Mcdonougharis [address] [place], [place] [phone] documented as of this encounter Visit Diagnoses Not on filedocumented in this encounter Care Teams Clinical Programmer Relationship Specialty Start Date End Date Pascale Malin MD [address] [place] [address] PCP - General Family Medicine 07/01/18 documented as of this encounter
--- OUTSIDE RECORDS SUMMARY | 2025-04-27 13:17 | XMS_ITS | Encounter Summary ---
Author Organization [employer] Address [address] [place] [address] 7t [place] [address] Care Team Providers Care Crepe Laminator Operator Name Role Phone Pascale Malin MD Primary Care Provider + Reason for Visit * Reason Onset Date Comments appt prophy 03/18/2023 Encounter Details Date Type Department Care Team (Late st Contact Info) Description 03/18/2023 Telephone [facility] ADULT DENTAL [address] [place], [place] [phone] Sharonda, Lidia [address] [place] [address] appt prophy Social History Tobacco Use Types [...] Description 10/19/2025 1:00 PM EST Office Visit [facility] ADULT DENTAL [address] [place], [place] [phone] Lidia Mcdonough 230 [place], [place] [phone] documented as of this encounter Visit Diagnoses Not on filedocumented in this encounter Care Teams Crepe Laminator Operator Relationship Specialty Start Date End Date Pascale Malin MD [address] [place], [place] [phone] PCP - General Family Medicine 07/01/18 documented as of this encounter
--- OUTSIDE RECORDS SUMMARY | 2025-04-27 13:17 | XMS_ITS | Encounter Summary ---
Author Organization [employer] [facility] Address [address] [place] [address] 7 [place] [address] Care Team Providers Care Retail Financial Analyst Name Role Phone Pascale Malin MD Primary Care Provider + Encounter Details Date Type Department Care Team (Latest Contact Info) Description 11/02/2020 Abstract [facility] CONVERSIONS Dental, Provider, DDS Social [...] Description 10/19/2025 1:00 PM EST Office Visit [facility] ADULT DENTAL [address] [place] [address] Sharonda, Lidia 230 [place] [address] documented as of this encounter Visit Diagnoses Not on filedocumented in this encounter Care Teams Retail Financial Analyst Relationship Specialty Start Date End Date Pascale Malin MD [address] [place] [address] PCP - General Family Medicine 07/01/18 documented as of this encounter
--- OUTSIDE RECORDS SUMMARY | 2025-04-27 13:17 | XMS_ITS | Encounter Summary ---
Author Organization [employer] Address [address] [facility] 7t [place] [address] Care Team Providers Care Marine Steamfitter Name Role Phone Pascale Malin MD Primary Care Provider + Encounter Details Date Type Department Care Team ([facility] st Contact Info) Description 01/14/2024 Orders Only [facility] MEDICINE [address] [place], [place] [phone] ProviderForeign MD Social History Tobacco Use Types [...] 1:00 PM EST Office Visit [facility] ADULT DENTAL [address] [place] [address] Sharonda, Lidia [address] [place] [address] documented as of this encounter Procedures Procedure Name Priority Date/Time Associated Diagnosis Comments HM COLONOSCOPY Routine 08/05/2017 9:34 AM EST documented in this encounter Results * Hm Colonoscopy (08/05/2017 9:34 AM EST) Historical Provider HEALTH MAINTENANCE Final Result documented in this encounter Visit Diagnoses Not on filedocumented in this encounter Care Teams Marine Steamfitter Relationship Specialty Start Date End Date Pascale Malin MD [address] [place] [address] PCP - General Family Medicine 07/01/18 documented as of this encounter
--- OUTSIDE RECORDS SUMMARY | 2025-04-27 13:17 | XMS_ITS | Encounter Summary ---
Author Organization [employer] Address [address] [place] [address] 7t [place] [address] Care Team Providers Care Tattoo Technician Name Role Phone Pascale Malin MD Primary Care Provider + Reason for Visit * Reason Onset Date Comments partial case back from lab?? 01/07/2025 Encounter Details Date Type Department Care Team (Late st Contact Info) Description 01/07/2025 Telephone [facility] ADULT DENTAL 230 [place], [place] [phone] Darrell Junior DDS [address] [place] [address] partial case back from lab?? Social History [...] Description 10/19/2025 1:00 PM EST Office Visit [facility] ADULT DENTAL [address] [place] [address] Isaiah Mcdonougharis [address] [place] [address] documented as of this encounter Visit Diagnoses Not on filedocumented in this encounter Additional Health Concerns Assessment Noted Time PHQ-9 Depression Total Score: 0 09/09/19 25 11:28 AM EST documented as of this encounter Care Teams Tattoo Technician Relationship Specialty Start Date End Date Pascale Malin MD [address] [place] [address] PCP - General Family Medicine 07/01/18 documented as of this encounter
--- OUTSIDE RECORDS SUMMARY | 2025-04-27 13:17 | XMS_ITS | Patient Health Record ---
Author Organization [facility] [employer] [facility] Address [address] [place] [address] Care Team Providers Care Crochet Machine Operator Name Role Phone Umm Venegas Primary Care Provider Leeroy Estrada [phone] Allergies Allergen (clinical drug ingredient) Drug/Non Drug [...] Status Risk Notes Problem Colon cancer screening (524078625) Colon cancer screening (V76.51) Active confirmed Problem History of adenomatous polyp of colon (043675296) History of adenomatous polyp of colon (V12.72) Active confirmed Plan Of Treatment Future Test Test Name Order Date COLONOSCOPY 05/04/2013 Insurance Providers Payer Name Payer Address Payer Phone Subscriber Number Group Number Insured Name Patient Relationship to Insured Coverage Start Date Coverage End Date [facility] [address] [place] [address] [id number] NIKOLAS LINDSEY Self - patient is the insured MEDICAID OF Compliance [id number] [address] [place] [address] [id number] ORSALIA NIKOLAS Self - patient is the insured Medical (General) History Medical History History ICD Code colonoscopy 06-08-2008 and 2 005 negative-lipomatous ICV, diverticulosis, internal hemorrhoids colon polyps-tubular adenoma removed in 2001 Depression Hyperlipidemia Denies PR,DM,CVA,Lung disease,renal dise ase Fibromyalgiua Surgical History Surgery Date(Month/Year) Abdominal wall hernia left shoulder surgery 2011 Gastric bypass Carpal tunnel bilateral Breast reduction and panniculectomy afte r weight loss
--- OUTSIDE RECORDS SUMMARY | 2025-04-27 13:17 | XMS_ITS | Encounter Summary ---
Author Organization [facility] Address [address] [place] [address] 7 [place] [address] Care Team Providers Care Scale Assembly Set Up Worker Name Role Phone Pascale Malin MD Primary Care Provider + Encounter Details Date Type Department Care Team (Latest Contact Info) Description 01/17/2022 Abstract [facility] CONVERSIONS Dental, Provider, DDS Social [...] Description 10/19/2025 1:00 PM EST Office Visit [facility] ADULT DENTAL [address] [place] [address] Sharonda, Lidia [address] [place] [address] documented as of this encounter Visit Diagnoses Not on filedocumented in this encounter Care Teams Scale Assembly Set Up Worker Relationship Specialty Start Date End Date Pascale Malin MD [address] [place] [address] PCP - General Family Medicine 07/01/18 documented as of this encounter
== END 2025-04-27 11:09 | disposition home or self-care (01) ==
LOC: HO.HCS 10:41
PROVIDERS: PCP Internal Medicine; Visit Provider Internal Medicine
DX: I35.0 Nonrheumatic aortic (valve) stenosis (principal); I10 Essential (primary) hypertension; G47.33 Obstructive sleep apnea (adult) (pediatric); Z99.89 Dependence on other enabling machines and devices; E66.01 Morbid (severe) obesity due to excess calories
CPT/HCPCS: 93010; 99214; G2211

== ENCOUNTER → 2025-04-27 10:41 | Outpatient (BNVA) | payer OTHER, SELFPAY | PROVIDERS: PCP Internal Medicine; Visit Provider Internal Medicine | DX: I35.0 Nonrheumatic aortic (valve) stenosis (principal); I10 Essential (primary) hypertension; G47.33 Obstructive sleep apnea (adult) (pediatric); E66.01 Morbid (severe) obesity due to excess calories; Z99.89 Dependence on other enabling machines and devices; Z68.44 Body mass index [BMI] 60.0-69.9, adult | CPT/HCPCS: 93005; 99212 ==

== ENCOUNTER 2025-06-15 10:22 | Outpatient (REF) | payer OTHER, SELFPAY ==
--- NOTE | ~2025-06-15 | MM_ITS ---
EXAMINATION: DXA BONE DENSITY AXIAL HISTORY: risk of osteoporosis TECHNIQUE: [facility] [employer] Dual energy absorptiometry (DEXA) of the lumbar spine, total left hip, and femoral neck was performed. COMPARISON: Comparison is made with the prior examination dated 06/06/2021. FINDINGS: The bone mineral density of the lumbar spine is 1.202 g/cm2, corresponding to a T-score of 0.3, and a Z-score of 0.8. This is indicative of normal bone mineral density. This represents a BMD change of 5.3% compared to the prior exam. This is statistically significant. The bone mineral density of the left total hip is 0.740 g/cm2, corresponding to a T-score of -2.1, and a Z-score of -1.4. This is indicative of osteopenia. This represents a BMD change of -10.5% compared to the prior exam. This is statistically significant. The bone mineral density of the left femoral neck is 0.652 g/cm2, corresponding to a T-score of -2.8, and a Z-score of -1.8. This is indicative of osteoporosis. This represents a BMD change of -12.1% compared to the prior exam. MM/XR DEXA axial skeleton IMPRESSION: Based on bone mineral density, and according to World Health Organization (WHO) criteria, the diagnosis is consistent with osteoporosis. Statistically, 68% of repeat scans fall within 1 SD (+/- 0.010 g/cm2 for AP spine L1-L4) and 1 SD (+/- 0.012 g/cm2 for femur total) FRAX is a trademark of the [employer] [place] for Metabolic Bone Disease, a World Health Organization (WHO) Collaborating Center. Electronically signed by: Leeroy Shah MD 06/15/2025 10:52 AM EDT
--- OUTSIDE RECORDS SUMMARY | 2025-06-15 12:53 | XMS_ITS | Encounter Summary ---
Author Organization [employer] Address [address] [facility] 7t [place] [address] Care Team Providers Care Health Care Specialist Name Role Phone Pascale Malin MD Primary Care Provider + Encounter Details Date Type Department Care Team ([facility] st Contact Info) Description 01/14/2024 Orders Only [facility] MEDICINE [address] [place], [place] [phone] ProviderForeign MD Social History Tobacco Use Types [...] Description 10/19/2025 1:00 PM EST Office Visit [facility] ADULT DENTAL [address] [place] [address] Sharonda, Lidia [address] [place] [address] documented as of this encounter Procedures Procedure Name Priority Date/Time Associated Diagnosis Comments HM COLONOSCOPY Routine 08/05/2017 9:34 AM EST documented in this encounter Results * Hm Colonoscopy (08/05/2017 9:34 AM EST) Historical Provider HEALTH MAINTENANCE Final Result documented in this encounter Visit Diagnoses Not on filedocumented in this encounter Care Teams Health Care Specialist Relationship Specialty Start Date End Date Pascale Malin MD [address] [place] [address] PCP - General Family Medicine 07/01/18 documented as of this encounter
--- OUTSIDE RECORDS SUMMARY | 2025-06-15 12:53 | XMS_ITS | Encounter Summary ---
Author Organization [facility] Address [address] [place] [address] 7 [place] [address] Care Team Providers Care Director Of Category Management Name Role Phone Pascale Malin MD Primary Care Provider + Encounter Details Date Type Department Care Team (Late st Contact Info) Description 05/01/2023 Abstract [facility] ADULT DENTAL [address] [place], [place] [phone] Isaiah Mcdonougharis [address] [place], [place] [phone] Social History Tobacco Use Types Packs/Day Years [...] Description 10/19/2025 1:00 PM EST Office Visit [facility] ADULT DENTAL [address] [place] [address] Isaiah Mcdonougharis [address] [place], [place] [phone] documented as of this encounter Visit Diagnoses Not on filedocumented in this encounter Care Teams Director Of Category Management Relationship Specialty Start Date End Date Pascale Malin MD [address] [place] [address] PCP - General Family Medicine 07/01/18 documented as of this encounter
--- OUTSIDE RECORDS SUMMARY | 2025-06-15 12:53 | XMS_ITS | Encounter Summary ---
Author Organization [employer] Address [address] [place] [address] 7t [place] [address] Care Team Providers Care Dismantler Name Role Phone Pascale Malin MD Primary Care Provider + Reason for Visit * Reason Onset Date Comments partial case back from lab?? 01/07/2025 Encounter Details Date Type Department Care Team (Late st Contact Info) Description 01/07/2025 Telephone [facility] ADULT DENTAL [address] [place], [place] [phone] Darrell Junior DDS [address] [place] [address] partial case back from lab?? Social History [...] Description 10/19/2025 1:00 PM EST Office Visit [facility] ADULT DENTAL [address] [place] [address] Isaiah Mcdonougharis [address] [place] [address] documented as of this encounter Visit Diagnoses Not on filedocumented in this encounter Additional Health Concerns Assessment Noted Time PHQ-9 Depression Total Score: 0 09/09/19 25 11:28 AM EST documented as of this encounter Care Teams Dismantler Relationship Specialty Start Date End Date Pascale Malin MD [address] [place] [address] PCP - General Family Medicine 07/01/18 documented as of this encounter
--- OUTSIDE RECORDS SUMMARY | 2025-06-15 12:53 | XMS_ITS | Encounter Summary ---
Author Organization [facility] Address [address] [place] [address] 7 [place] [address] Care Team Providers Care Lining Feller Blindstitch Name Role Phone Pascale Malin MD Primary Care Provider + Encounter Details Date Type Department Care Team (Latest Contact Info) Description 11/02/2020 Abstract [facility] CONVERSIONS Dental, Provider, DDS Social History [...] Description 10/19/2025 1:00 PM EST Office Visit [facility] ADULT DENTAL [address] [place] [address] Sharonda, Lidia [address] [place] [address] documented as of this encounter Visit Diagnoses Not on filedocumented in this encounter Care Teams Lining Feller Blindstitch Relationship Specialty Start Date End Date Pascale Malin MD [address] [place] [address] PCP - General Family Medicine 07/01/18 documented as of this encounter
--- OUTSIDE RECORDS SUMMARY | 2025-06-15 12:53 | XMS_ITS | Encounter Summary ---
Author Organization [employer] Address [address] [facility] 7t [place] [address] Care Team Providers Care Project Management It Specialist Name Role Phone Pascale Malin MD Primary Care Provider + Reason for Visit * Reason Onset Date Comments Hospital Follow-up 03/15/2024 Encounter Details Date Type Department Care Team ([facility] st Contact Info) Description 03/15/2024 Telephone [facility] MEDICINE [address] [place], [place] [phone] Pascale Malin MD [address] [place], [place] [phone] Hospital Follow-up Social History Tobacco Use Types [...] from pt requesting a HDF appt. Hospital: [facility] Date of admission: 03/11 Discharge date: 03/13 Diagnosed: Leg Pain documented in this encounter Plan of Treatment Upcoming Encounters Date Type Department Care Team (Late st Contact Info) Description 10/19/2025 1:00 PM EST Office Visit [facility] ADULT DENTAL [address] [place] [address] Lidia Mcdonough [address] [place] [address] documented as of this encounter Visit Diagnoses Not on filedocumented in this encounter Care Teams Project Management It Specialist Relationship Specialty Start Date End Date Pascale Malin MD [address] [place] [address] PCP - General Family Medicine 07/01/18 documented as of this encounter
--- OUTSIDE RECORDS SUMMARY | 2025-06-15 12:53 | XMS_ITS | Encounter Summary ---
Author Organization [employer] Address [address] [place] [address] 7t [place] [address] Care Team Providers Care Operator Engineer Name Role Phone Pascale Malin MD Primary Care Provider + Reason for Visit * Reason Onset Date Comments appt prophy 03/18/2023 Encounter Details Date Type Department Care Team (Late st Contact Info) Description 03/18/2023 Telephone [facility] ADULT DENTAL [address] [place], [place] [phone] Sharonda, Lidia [address] [place] [address] appt prophy Social History Tobacco Use Types [...] Description 10/19/2025 1:00 PM EST Office Visit [facility] ADULT DENTAL [address] [place], [place] [phone] Lidia Mcdonough [address] [place], [place] [phone] documented as of this encounter Visit Diagnoses Not on filedocumented in this encounter Care Teams Operator Engineer Relationship Specialty Start Date End Date Pascale Malin MD 230 [place], [place] [phone] PCP - General Family Medicine 07/01/18 documented as of this encounter
--- OUTSIDE RECORDS SUMMARY | 2025-06-15 12:53 | XMS_ITS | Patient Health Record ---
Author Organization [facility] Address [address] [place] [address] Care Team Providers Care Machine Tracer Name Role Phone Umm Venegas Primary Care Provider Leeroy Estrada [phone] Allergies Allergen (clinical drug ingredient) Drug/Non Drug [...] Status Risk Notes Problem Colon cancer screening (335884128) Colon cancer screening (V76.51) Active confirmed Problem History of adenomatous polyp of colon (879959469) History of adenomatous polyp of colon (V12.72) Active confirmed Plan Of Treatment Future Test Test Name Order Date COLONOSCOPY 05/04/2013 Insurance Providers Payer Name Payer Address Payer Phone Subscriber Number Group Number Insured Name Patient Relationship to Insured Coverage Start Date Coverage End Date [facility] [address] [place] [address] [id number] NIKOLAS ILNDSEY Self - patient is the insured MEDICAID OF [id number] [address] [place] [address] [id number] ROSALIA NIKOLAS Self - patient is the insured Medical (General) History Medical History History ICD Code colonoscopy 06-08-2008 and 2 005 negative-lipomatous ICV, diverticulosis, internal hemorrhoids colon polyps-tubular adenoma removed in 2001 Depression Hyperlipidemia Denies AL,DM,CVA,Lung disease,renal dise ase Fibromyalgiua Surgical History Surgery Date(Month/Year) Abdominal wall hernia left shoulder surgery 2011 Gastric bypass Carpal tunnel bilateral Breast reduction and panniculectomy afte r weight loss
--- OUTSIDE RECORDS SUMMARY | 2025-06-15 12:53 | XMS_ITS | Clinical Summary ---
Author Organization [employer] Address [address] [place] [address] 7t [place] [address] Care Team Providers Care Head Stock Transfer Clerk Name Role Phone Pascale Malin MD Primary [...] the morning. 30 tablet 11/28/19 24 Active Additional Information Patient not taking.Reported on 06/03/2025 cycloSPORINE (Restasis) 0.05 % ophthalmic emulsion INSTILL 1 DROP IN BOTH EYES TWICE DAILY 02/17/20 24 Active Gemtesa 75 MG tablet Take 1 tablet by mouth Once per day. 01/02/20 24 Active Calcium Carbonate-Vit D-Min (Caltrate 600+D Plus Minerals) 600-800 MG-UNIT tablet Take 1 tablet by mouth Once per day. 30 tablet 12/09/19 25 Active atorvastatin (Lipitor) 80 MG tabletIndications: Other [...] for dizziness. 90 tablet 1 04/07/20 25 025 Active Problems Problem Noted Date Diagnosed Date [...] or any other acute issue Fractured dental faith with loss of materi al 05/02/2023 Dental [...] to new hearing evaluation. 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 11/28/2023 Bulimia nervosa 03/31/2012 11/28/2023 Encounters Date Type Department Care Team Description 06/03/2025 10:00 AM EDT Office Visit [facility] ADULT DENTAL [address] [place] [address] Darrell Junior DDS Ill-fitting dentures (Primary Dx) 05/31/2025 11:30 AM EDT Office Visit [facility] ADULT DENTAL [address] [place] [address] Darrell Junior DDS Fracture of removable partial denture (Primary Dx) 04/15/2025 1:30 PM EDT Office Visit [facility] ADULT DENTAL [address] [place] [address] Darrell Junior DDS Teeth missing (Primary Dx) 04/13/2025 11:30 AM EDT Office Visit [facility] ADULT DENTAL [address] [place] [address] Darrell Junior DDS Ill-fitting dentures (Primary Dx) 04/07/2025 12:15 PM EDT Office Visit [facility] MEDICINE [address] [place] [phone] Pascale Malin MD Essential hypertension (Primary Dx); Class 3 severe obesity due to excess calories with serious comorbidity and body mass index (BMI) of 50.0 to 59.9 in adult; At high risk for osteoporosis; Encounter for immunization; Dietary counseling; Exercise counseling 04/07/2025 Travel 04/05/2025 Telephone [facility] MEDICINE [address] [place] [address] Pascale Malin MD Chart Prep 03/31/2025 Patient Outreach [address] [address] Pascale Malin MD Pre-visit Planning (Pre visit planning LVM ) from Last 3 Months Immunizations Immunization Administration [...] Description 10/19/2025 1:00 PM EST Office Visit [facility] ADULT DENTAL [address] [place] [address] Sharonda, Lidia [address] [place] [address] Health Maintenance Due Date Last Done Comments [...] 25 SDOH Screening 11/29/2025 11/29/2024 Tobacco Screening 06/03/2026 06/03/2025 Dental X-Ray: Full Mouth 02/26/2027 02/26/2024, 10/16 [...] Procedure Name Priority Date/Time Associated Diagnosis Comments BD DEXA AXIAL Routine 06/15/2025 10:30 AM EDT At high risk for osteoporosis NO CHARGE - REDO PROCEDURE Routine 06/03/2025 10:00 AM EDT DENTURE IMPRESSION Routine 05/31/2025 11 :30 AM EDT CASE PRESENTATION, DETAILED AND EXTENSIVE TREATMENT [...] Recently Relevant to Health Maintenance Results * BD DEXA Axial (06/15/2025 10:30 AM EDT) Anatomical Region Laterality Modality Body Radiographic Jessica ging 06/15/2025 10:3 0 AM EDT Narrative 06/15/2025 10:55 AM EDT [facility] [place] [address] Mammography Report Signed Patient: Ailyn Rao MR#: [id number] : 1955 Acct:[id number] Age/Sex: 69 / F ADM Date: 06/15/25 Loc: HO.MAMMO Attending Dr: Pascale Malin MD Ordering Physician: Pascale Malin MD Results: Date of Service: 06/15/25 Follow Up: Procedure(s): XR DEXA axial skeleton Accession Number(s): [id number] cc: Pascale Malin MD Reason For Exam: risk of osteoporosis EXAMINATION: DXA BONE DENSITY AXIAL HISTORY: risk of osteoporosis TECHNIQUE: [employer] Dual energy absorptiometry (DEXA) of the lumbar spine, total left hip, and femoral neck was performed. COMPARISON: Comparison is made with the prior examination dated 06/06/2021. FINDINGS: The bone mineral density of the lumbar spine is 1.202 g/cm2, corresponding to a T-score of 0.3, and a Z-score of 0.8. This is indicative of normal bone mineral density. This represents a BMD change of 5.3% compared to the prior exam. This is statistically significant. The bone mineral density of the left total hip is 0.740 g/cm2, corresponding to a T-score of -2.1, and a Z-score of -1.4. This is indicative of osteopenia. This represents a BMD change of -10.5% compared to the prior exam. This is statistically significant. The bone mineral density of the left femoral neck is 0.652 g/cm2, corresponding to a T-score of -2.8, and a Z-score of -1.8. This is indicative of osteoporosis. This represents a BMD change of -12.1% compared to the prior exam. MM/XR DEXA axial skeleton IMPRESSION: Based on bone mineral density, and according to World Health Organization (WHO) criteria, the diagnosis is consistent with osteoporosis. Statistically, 68% of repeat scans fall within 1 SD (+/- 0.010 g/cm2 for AP spine L1-L4) and 1 SD (+/- 0.012 g/cm2 for femur total) FRAX is a trademark of the [employer]'s [place] for Metabolic Bone Disease, a World Health Organization (WHO) Collaborating Center. Electronically signed by: Leeroy Shah MD 06/15/2025 10:52 AM EDT Dictated By: Leeroy Shah MD Signed By: <Electronically signed by Leeroy Shah MD in OV> 06/15/25 1052 DD/ 1030 TD/TT: 06/15/25 1045 Voice Professor: Procedure Note Donotuseinterpreter, Image - 06/15/2025 [facility] [address] [place] [address] [place] [address] Mammography Report Signed Patient: Ailyn Rao EMR#: [id number] : 1955cct:[id number] Age/Sex: 69 / FADM Date: 06/15/25 Loc: [facility] Attending Dr: Pascale Malin MD Ordering Physician: Pascale Malin MDResults: Date of Service: 06/15/25Follow Up: Procedure(s): XR DEXA axial skeleton Accession Number(s): [id number] cc: Pascale Malin MD Reason For Exam: risk of osteoporosis EXAMINATION: DXA BONE DENSITY AXIAL HISTORY: risk of osteoporosis TECHNIQUE: [employer] Dual energy absorptiometry (DEXA) of the lumbar spine, total left hip, and femoral neck was performed. COMPARISON: Comparison is made with the prior examination dated 06/06/2021. FINDINGS: The bone mineral density of the lumbar spine is 1.202 g/cm2, corresponding to a T-score of 0.3, and a Z-score of 0.8. This is indicative of normal bone mineral density. This represents a BMD change of 5.3% compared to the prior exam. This is statistically significant. The bone mineral density of the left total hip is 0.740 g/cm2, corresponding to a T-score of -2.1, and a Z-score of -1.4. This is indicative of osteopenia. This represents a BMD change of -10.5% compared to the prior exam. This is statistically significant. The bone mineral density of the left femoral neck is 0.652 g/cm2, corresponding to a T-score of -2.8, and a Z-score of -1.8. This is indicative of osteoporosis. This represents a BMD change of -12.1% compared to the prior exam. MM/XR DEXA axial skeleton IMPRESSION: Based on bone mineral density, and according to World Health Organization (WHO) criteria, the diagnosis is consistent with osteoporosis. Statistically, 68% of repeat scans fall within 1 SD (+/- 0.010 g/cm2 for AP spine L1-L4) and 1 SD (+/- 0.012 g/cm2 for femur total) FRAX is a trademark of the [employer] [place] for Metabolic Bone Disease, a World Health Organization (WHO) Collaborating Center. Electronically signed by: Leeroy Shah MD 06/15/2025 10:52 AM EDT Dictated By: Leeroy Shah MD Signed By: <Electronically signed by Leeroy Shah MD in OV> 06/15/25 1052 DD/ 1030 TD/TT: 06/15/25 1045 Voice Professor: us Pascale Malin MD IMG DXA PROCEDURES Final Result * (ABNORMAL) Lipid Panel with Reflex to Direct LDL (11/25/2024 10:17 AM EDT) Triglycerides 81 <150 mg/dL [facility] Comment:Desirable Triglyceri de: less than 150 mg/dLBorderline High Triglyceride 150-199 mg/dLHigh Triglyceride: 200-499 mg/dLVery High Triglyceride: greater than or equal to 5OO mg/dL Cholesterol 240(H) <200 mg/dL [facility] Comment:Desirable Cholestero l: less than 200 mg/dLBorderline High Cholesterol: 200-239 mg/dLHigh Cholesterol: greater than 239 mg/dL LDL Cholesterol Calculated 166(H) <100 mg/dL [facility] Comment:Desirable LDL: less than 100 mg/dLNear Optimal/Above Optimal LDL: 110- 129 mg/dLBorderline High LDL: 130-159 mg/dLHigh LDL: 160-189 mg/dLVery High LDL: greater than or equal to 190 mg/dL HDL Cholesterol 58 >40 mg/dL [facility] Comment:Desirable HDL: great er than 40 mg/dL Note: This HDL assay may give artificially low results in patients with liver disease. Blood 11/25/2024 10:1 7 AM EDT 11/25/2024 11:37 AM EDT us Pascale Malin MD LAB BLOOD ORDERABLES Fin al Result [facility] [address] [place], [place] [phone] * Mammography Report 1 (06/14/2021 10:30 [...] Relevant to Health Maintenance Insurance [facility] [employer] (O D-SNP) [place] [address] [address] Care Teams Head Stock Transfer Clerk Relationship Specialty Start Date End Date Pascale Malin MD [address] [place] [phone] PCP - General Family Medicine 07/01/18
--- OUTSIDE RECORDS SUMMARY | 2025-06-15 12:53 | XMS_ITS | Encounter Summary ---
Author Organization [facility] Address [address] [place] [address] 7 [place] [address] Care Team Providers Care Book Trimmer Name Role Phone Pascale Malin MD Primary Care Provider + Encounter Details Date Type Department Care Team (Latest Contact Info) Description 01/17/2022 Abstract [facility] CONVERSIONS Dental, Provider, DDS Social [...] Description 10/19/2025 1:00 PM EST Office Visit [facility] ADULT DENTAL [address] [place] [address] Sharonda, Lidia [address] [place] [address] documented as of this encounter Visit Diagnoses Not on filedocumented in this encounter Care Teams Book Trimmer Relationship Specialty Start Date End Date Pascale Malin MD [address] [place] [address] PCP - General Family Medicine 07/01/18 documented as of this encounter
== END 2025-06-15 10:23 | disposition home or self-care (01) ==
LOC: HO.MAMMO 10:22
PROVIDERS: PCP Internal Medicine; Visit Provider Internal Medicine
DX: Z13.820 Encounter for screening for osteoporosis (principal); M81.0 Age-related osteoporosis without current pathological fracture; Z91.89 Other specified personal risk factors, not elsewhere classified
CPT/HCPCS: 77080

== ENCOUNTER → 2025-06-15 10:30 | Outpatient (BNV) | payer OTHER, SELFPAY | PROVIDERS: PCP Internal Medicine; Visit Provider Radiology Diagnostic Radiology | DX: E28.39 Other primary ovarian failure (principal) | CPT/HCPCS: 77080 ==

== ENCOUNTER 2025-06-28 08:52 | Outpatient (REF) | payer OTHER, SELFPAY ==
--- OUTSIDE RECORDS SUMMARY | 2025-06-28 09:14 | XMS_ITS | Encounter Summary ---
Author Organization [employer] Address [address] [facility] 7t [place] [address] Care Team Providers Care Biological Science Technician Name Role Phone Pascale Malin MD Primary Care Provider + Reason for Visit * Reason Onset Date Comments Hospital Follow-up 03/15/2024 Encounter Details Date Type Department Care Team ([facility] st Contact Info) Description 03/15/2024 Telephone [facility] MEDICINE [address] [place], [place] [phone] Pascale Malin MD [address] [place], [place] [phone] Hospital Follow-up Social History Tobacco Use Types [...] from pt requesting a HDF appt. Hospital: [facility] Date of admission: 03/11 Discharge date: 03/13 Diagnosed: Leg Pain documented in this encounter Plan of Treatment Upcoming Encounters Date Type Department Care Team (Late st Contact Info) Description 10/19/2025 1:00 PM EST Office Visit [facility] ADULT DENTAL [address] [place] [address] Lidia Mcdonough [address] [place] [address] documented as of this encounter Visit Diagnoses Not on filedocumented in this encounter Care Teams Biological Science Technician Relationship Specialty Start Date End Date Pascale Malin MD [address] [place] [address] PCP - General Family Medicine 07/01/18 documented as of this encounter
--- OUTSIDE RECORDS SUMMARY | 2025-06-28 09:14 | XMS_ITS | Encounter Summary ---
Author Organization [employer] [facility] Address [address] [place] [address] 7 [place] [address] Care Team Providers Care Knife Setter Name Role Phone Pascale Malin MD Primary Care Provider + Encounter Details Date Type Department Care Team (Late st Contact Info) Description 05/01/2023 Abstract [facility] [address] [place], [place] [phone] Isaiah Mcdonougharis [address] [place], [place] [phone] Social History Tobacco Use Types Packs/Day Years [...] Description 10/19/2025 1:00 PM EST Office Visit [facility] [address] [place] [address] Isaiah Mcdonougharis [address] [place], [place] [phone] documented as of this encounter Visit Diagnoses Not on filedocumented in this encounter Care Teams Knife Setter Relationship Specialty Start Date End Date Pascale Malin MD [address] [place] [address] PCP - General Family Medicine 07/01/18 documented as of this encounter"
--- OUTSIDE RECORDS SUMMARY | 2025-06-28 09:14 | XMS_ITS | Patient Health Record ---
Author Organization [facility] Address [address] [place] [phone] Care Team Providers Care Demolition Expert Name Role Phone Umm Venegas Primary Care Provider Leeroy Estrada [phone] Allergies Allergen (clinical drug ingredient) Drug/Non Drug [...] Status Risk Notes Problem Colon cancer screening (643934885) Colon cancer screening (V76.51) Active confirmed Problem History of adenomatous polyp of colon (546694489) History of adenomatous polyp of colon (V12.72) Active confirmed Plan Of Treatment Future Test Test Name Order Date COLONOSCOPY 05/04/2013 Insurance Providers Payer Name Payer Address Payer Phone Subscriber Number Group Number Insured Name Patient Relationship to Insured Coverage Start Date Coverage End Date [facility] [address] [place] [address] [id number] NIKOLAS LINDSEY Self - patient is the insured [facility] [address] [place] [address] [id number] ROSALIA NIKOLAS Self - patient is the [...]
--- OUTSIDE RECORDS SUMMARY | 2025-06-28 09:14 | XMS_ITS | Encounter Summary ---
Author Organization [employer] Address [address] [facility] 7t [place] [address] Care Team Providers Care Multiple Needle Stitcher Name Role Phone Pascale Malin MD Primary Care Provider + Encounter Details Date Type Department Care Team ([facility] st Contact Info) Description 01/14/2024 Orders Only [facility] [address] [place], [place] [phone] ProviderForeign MD Social History Tobacco Use Types [...] Description 10/19/2025 1:00 PM EST Office Visit [facility] [address] [place] [address] Sharonda, Lidia [address] [place] [address] documented as of this encounter Procedures Procedure Name Priority Date/Time Associated Diagnosis Comments HM COLONOSCOPY Routine 08/05/2017 9:34 AM EST documented in this encounter Results * Hm Colonoscopy (08/05/2017 9:34 AM EST) Historical Provider HEALTH MAINTENANCE Final Result documented in this encounter Visit Diagnoses Not on filedocumented in this encounter Care Teams Multiple Needle Stitcher Relationship Specialty Start Date End Date Pascale Malin MD [address] [place] [address] PCP - General Family Medicine 07/01/18 documented as of this encounter
--- OUTSIDE RECORDS SUMMARY | 2025-06-28 09:14 | XMS_ITS | Clinical Summary ---
Author Organization [employer] Address [address] [place] [address] 7t [place] [address] Care Team Providers Care Inside Sales Name Role Phone Pascale Malin MD Primary [...] or any other acute issue Fractured dental yazidi with loss of materi al 05/02/2023 Dental [...] new hearing evaluation. 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 11/28/2023 Bulimia nervosa 03/31/2012 11/28/2023 Encounters Date Type Department Care Team Description 06/20/2025 Results Follow-Up [facility] [address] [place] [address] Pascale Malin MD BD DEXA Axial 06/03/2025 10:00 AM EDT Office Visit [facility] [address] [place] [address] Darrell Junior DDS Ill-fitting dentures (Primary Dx) 05/31/2025 11:30 AM EDT Office Visit [facility] [address] [place] [address] Darrell Junior DDS Fracture of removable partial denture (Primary Dx) 04/15/2025 1:30 PM EDT Office Visit [facility] [address] [place] [address] Darrell Junior DDS Teeth missing (Primary Dx) 04/13/2025 11:30 AM EDT Office Visit [facility] [address] [place] [address] Darrell Junior DDS Ill-fitting dentures (Primary Dx) 04/07/2025 12:15 PM EDT Office Visit [facility] [address] [place] [address] Pascale Malin MD Essential hypertension (Primary Dx); Class 3 severe obesity due to excess calories with serious comorbidity and body mass index (BMI) of 50.0 to 59.9 in adult; At high risk for osteoporosis; Encounter for immunization; Dietary counseling; Exercise counseling 04/07/2025 Travel 04/05/[address] [address] Pascale Malin MD Chart Prep 03/31/2025 Patient Outreach [address] [address] Pascale Malin MD Pre-visit Planning (Pre visit [...] Office Visit [facility] [address] [place] [address] Sharonda, Lidia [address] [place] [address] Health Maintenance Due Date Last Done Comments [...] AM EDT Narrative 06/15/2025 10:55 AM EDT [facility] [address] [place] [address] Mammography Report Signed Patient: Ailyn Rao MR#: [id number] : 1955 Acct:[id number] Age/Sex: 69 / F ADM Date: 06/15/25 Loc: HO.MAMMO Attending Dr: Pascale Malin MD Ordering Physician: Pascale Malin MD Results: Date of Service: 06/15/25 Follow Up: Procedure(s): XR DEXA axial skeleton Accession Number(s): [id number] cc: Pascale Malin MD Reason For Exam: risk of osteoporosis EXAMINATION: DXA BONE DENSITY AXIAL HISTORY: risk of osteoporosis TECHNIQUE: [facility] Dual energy absorptiometry (DEXA) of the lumbar [...] of the [employer] [place] for Metabolic Bone Disease, a World Health Organization (WHO) Collaborating Center. Electronically signed by: Leeroy Shah MD 06/15/2025 10:52 AM EDT Dictated By: Leeroy Shah MD Signed By: <Electronically signed by Leeroy Shah MD in OV> 06/15/25 1052 DD/ 1030 TD/TT: 06/15/25 1045 Administrative Clerk: Procedure Note Donotuseinterpreter, Image - 06/15/2025 [facility] [address] [place] [address] Dr. [place], JENN[place]ER [address] Mammography Report Signed Patient: Ailyn Rao EMR#: [id number] : 1955cct:[id number] Age/Sex: 69 / FADM Date: 06/15/25 Loc: HO.MAMMO Attending Dr: Pascale Malin MD Ordering Physician: Pascale Malin MDResults: Date of Service: 06/15/25Follow Up: Procedure(s): XR DEXA axial skeleton Accession Number(s): [id number] cc: Pascale Malin MD Reason For Exam: risk of osteoporosis EXAMINATION: DXA BONE DENSITY AXIAL HISTORY: risk of osteoporosis TECHNIQUE: [facility] Dual energy absorptiometry (DEXA) of the lumbar [...] of the [employer] [place] for Metabolic Bone Disease, a World Health Organization (WHO) Collaborating Center. Electronically signed by: Leeroy Shah MD 06/15/2025 10:52 AM EDT RP Dictated By: Leeroy Shah MD Signed By: <Electronically signed by Leeroy Shah MD in OV> 06/15/25 1052 DD/ 1030 TD/TT: 06/15/25 1045 Administrative Clerk: us Pascale Malin MD IMG DXA PROCEDURES Final Result * (ABNORMAL) Lipid Panel with Reflex to Direct LDL (11/25/2024 10:17 AM EDT) Triglycerides 81 <150 mg/dL [facility] Comment:Desirable Triglyceri de: less than 150 mg/dLBorderline High Triglyceride 150-199 mg/dLHigh Triglyceride: 200-499 mg/dLVery High Triglyceride: greater than or equal to 5OO mg/dL Cholesterol 240(H) <200 mg/dL [facility] Comment:Desirable Cholestero l: less than 200 mg/dLBorderline High Cholesterol: 200-239 mg/dLHigh Cholesterol: greater than 239 mg/dL LDL Cholesterol Calculated 166(H) <100 mg/dL [facility] Comment:Desirable LDL: less than 100 mg/dLNear Optimal/Above Optimal LDL: 110- 129 mg/dLBorderline High LDL: 130-159 mg/dLHigh LDL: 160-189 mg/dLVery High LDL: greater than or equal to 190 mg/dL HDL Cholesterol 58 >40 mg/dL [facility] Comment:Desirable HDL: great er than 40 mg/dL Note: This HDL assay may give artificially low results in patients with liver disease. Blood 11/25/2024 10:1 7 AM EDT 11/25/2024 11:37 AM EDT us Pascale Malin MD LAB BLOOD ORDERABLES Fin al Result [facility] [address] [place] [phone] * Mammography Report 1 (06/14/2021 10:30 AM EDT) Anatomical Region Laterality Modality Breast Bilateral Mammography 06/14/2021 10:3 0 AM EDT Narrative 06/15/2021 8:37 AM EDT Refer to the Notes tab for result details [facility] Procedure: Mammography Report 1 Procedure Note ProviderForeign MD - 11/10/2022 Refer to the Notes tab for result details [facility] Procedure: Mammography Report 1 us Pascale Malin MD IMG BI PROCEDURES Final Result * Colonoscopy (08/05/2017 9:34 AM EST) Historical Provider HEALTH MAINTENANCE Final Result from Last 3 Months or Most Recently Relevant to Health Maintenance Insurance [facility] RESIDENTIAL OPTIONS (O D-SNP) KAMALA ALAS [id number] [place] [address] Care Teams Inside Sales Relationship Specialty Start Date End Date Pascale Malin MD [address] [place] [address] PCP - General Family Medicine 07/01/18
--- OUTSIDE RECORDS SUMMARY | 2025-06-28 09:14 | XMS_ITS | Encounter Summary ---
Author Organization [facility] [facility] Address [address] [place] [address] 7 [place] [address] Care Team Providers Care Counselor At Law Name Role Phone Pascale Malin MD Primary Care Provider + Encounter Details Date Type Department Care Team (Latest Contact Info) Description 01/17/2022 Abstract [facility] CONVERSIONS Dental, Provider, DDS Social [...] Description 10/19/2025 1:00 PM EST Office Visit [facility] ADULT DENTAL [address] [place] [address] Sharonda, Lidia [address] [place] [address] documented as of this encounter Visit Diagnoses Not on filedocumented in this encounter Care Teams Counselor At Law Relationship Specialty Start Date End Date Pascale Malin MD [address] [place] [address] PCP - General Family Medicine 07/01/18 documented as of this encounter
--- OUTSIDE RECORDS SUMMARY | 2025-06-28 09:14 | XMS_ITS | Encounter Summary ---
Author Organization [facility] Address [address] [place] [address] 7 [place] [address] Care Team Providers Care Mobile Application Development Lead Name Role Phone Pascale Malin MD Primary Care Provider + Encounter Details Date Type Department Care Team (Latest Contact Info) Description 11/02/2020 Abstract [facility] CONVERSIONS Dental, Provider, DDS Social History [...] Description 10/19/2025 1:00 PM EST Office Visit [facility] ADULT [facility]ENT[facility] [address] [place] [address] Sharonda, Lidia [address] [place] [address] documented as of this encounter Visit Diagnoses Not on filedocumented in this encounter Care Teams Mobile Application Development Lead Relationship Specialty Start Date End Date Pascale Malin MD [address] [place] [address] PCP - General Family Medicine 07/01/18 documented as of this encounter
--- OUTSIDE RECORDS SUMMARY | 2025-06-28 09:15 | XMS_ITS | Encounter Summary ---
Author Organization [employer] Address [address] [place] [address] 7t [place] [address] Care Team Providers Care Datapower Developer Name Role Phone Pascale Malin MD Primary Care Provider + Reason for Visit * Reason Onset Date Comments partial case back from lab?? 01/07/2025 Encounter Details Date Type Department Care Team (Late st Contact Info) Description 01/07/2025 Telephone [facility] [address] [place], [place] [phone] Darrell Junior DDS [address] [place] [address] partial case back from lab?? Social History [...] 1:00 PM EST Office Visit [facility] [address] [place] [address] Isaiah Mcdonougharis [address] [place] [address] documented as of this encounter Visit Diagnoses Not on filedocumented in this encounter Additional Health Concerns Assessment Noted Time PHQ-9 Depression Total Score: 0 09/09/19 25 11:28 AM EST documented as of this encounter Care Teams Datapower Developer Relationship Specialty Start Date End Date Pascale Malin MD [address] [place] [address] PCP - General Family Medicine 07/01/18 documented as of this encounter
--- OUTSIDE RECORDS SUMMARY | 2025-06-28 09:15 | XMS_ITS | Encounter Summary ---
Author Organization [facility] Address [address] [place] [address] 7t [place] [address] Care Team Providers Care Trout Farmer Name Role Phone Pascale Malin MD Primary Care Provider + Reason for Visit * Reason Onset Date Comments appt prophy 03/18/2023 Encounter Details Date Type Department Care Team (Late st Contact Info) Description 03/18/2023 Telephone [facility] [address] [place], [place] [phone] Sharonda, Lidia [address] [place] [address] appt prophy Social History Tobacco Use Types [...] 1:00 PM EST Office Visit [facility] [address] [place], [place] [phone] Lidia Mcdonough [address] [place], [place] [phone] documented as of this encounter Visit Diagnoses Not on filedocumented in this encounter Care Teams Trout Farmer Relationship Specialty Start Date End Date Pascale Malin MD [address] [place], [place] [phone] PCP - General Family Medicine 07/01/18 documented as of this encounter
[2025-06-28 11:37] LABS: Alanine Aminotransferase 14 U/L (0-31); Albumin Level 4.1 g/dL (3.5-5.0); Alkaline Phosphatase 101 U/L (39-117); Aspartate Amino Transferase 25 U/L (5-31); Cholesterol 247 mg/dL (<200); HDL Cholesterol 60 mg/dL (>40); Total Protein 6.6 g/dL (6.5-8.0); Triglycerides 98 mg/dL (<150)
[2025-06-28 12:28] LABS: Reflex LDLD? No
== END 2025-06-28 08:53 | disposition home or self-care (01) ==
LOC: HO.HHCL 08:52
PROVIDERS: PCP Internal Medicine; Visit Provider Internal Medicine
DX: M81.0 Age-related osteoporosis without current pathological fracture (principal); E78.49 Other hyperlipidemia
CPT/HCPCS: 36415; 80061; 80076; 82306; 84443